=== PATIENT | male | born 1960 | race Caucasian/White ===

== ENCOUNTER 2016-03-16 14:05 | Day surgery (SDC) | payer OTHER, MEDICARE, BC ==
[2016-03-13 09:03] VITALS: BMI 39.9
[~2016-03-16 14:05] MED LIST: ceFAZolin 2 GM in SODIUM CHLORIDE 0.9% 100 ML IVPB ONE
[2016-03-16] MEDS ORDERED: LACTATED RINGERS 1,000 ML IV ONE (14:43)
[2016-03-16] MEDS ORDERED: ONDANSETRON 4 MG/2 ML VIAL IVP ONE (14:56)
[2016-03-16] MEDS ORDERED: DEXAMETHASONE SOD PHOS (MDV) 100 MG/10 ML VIAL IV ONE (14:56)
[2016-03-16] MEDS ORDERED: MIDAZOLAM 2 MG/2 ML VIAL IV ONE (15:14)
[2016-03-16] MEDS ORDERED: ONDANSETRON 4 MG/2 ML VIAL IVP PRN (16:13)
[2016-03-16] MEDS ORDERED: MORPHINE SULFATE 2 MG/ML SYRINGE IV PRN ×2 (16:13)
[2016-03-16] MEDS ORDERED: HYDROcodone/APAP 5-325MG 1 EACH TAB PO PRN (16:13)
[2016-03-16] MEDS ORDERED: LACTATED RINGERS 1,000 ML IV SCH (16:15)
[2016-03-16] MEDS ORDERED: hydrALAZINE HCL 20 MG/ML 1 ML VIAL ONE (16:22)
[2016-03-16] MEDS ORDERED: PROPOFOL 10 MG/ML 20 ML VIAL IV ONE (16:22)
[2016-03-16] MEDS ORDERED: LIDOCAINE 1% INJ 10MG/ML (20 ML MDV) ONE (16:22)
[2016-03-16] MEDS ORDERED: MIDAZOLAM 2 MG/2 ML VIAL ONE (16:22)
[2016-03-16] MEDS ORDERED: KETAMINE 10 MG/ML 20 ML VIAL ONE (16:22)
--- NOTE | 2016-03-16 17:25 | P.OP ---
Date of Procedure: 03/16/16 Preoperative Diagnosis: 1. Left second toe ulcer with exposed bone over PIP joint 2. Left third toe superficial ulcer over her PIP joint with flexible claw toe deformity 3. Paraplegia Postoperative Diagnosis: Same Procedure(s) Performed: 1. Left second toe amputation 2. Left third toe percutaneous flexor tenotomy Anesthesia: MAC Surgeon: Dung Daniels Estimated Blood Loss (ml): 10 IV fluids (ml): 400 Pathology: none sent Condition: stable Disposition: PACU Indications for Procedure: Patient is a 55-year-old male with paraplegia was at problems with wounds on his left leg. He has been seeing a plastic surgeon and Dr. Vieyra at the wound center. The patient has developed a full-thickness ulcer over the left second toe at the PIP joint. There is exposed bone. The patient also had a superficial ulcer over the dorsal aspect of the PIP joint on the third toe but no exposed bone. He was seen by Dr. Vieyra who requested a second toe amputation and percutaneous flexor tenotomy. The patient was seen in my office to discuss surgical options. Based on the nonviable appearance of exposed bone of the second toe I recommended an amputation. In regards to the third toe I recommended a percutaneous flexor tenotomy to hopefully help the toe sit more flat to avoid irritation over the dorsal aspect of the PIP joint. We discussed potential risks and complications of surgery including but not limited to risk of infection, risk of delayed wound healing, risk of worsening of the ulcer over the third toe requiring amputation, and risk of need for more proximal amputation. The patient and his understand these risks particularly that he is at a risk for having a need for further amputations and provided their verbal and written consent to go forward with surgery Description of Procedure: The patient was in preoperative holding and the correct left leg was marked with my initials. All the patient's questions were answered. He was then brought back to the operating room. A Mac anesthetic was administered. The patient was left on his gurney. All bony prominences well-padded. A tourniquet was applied to the proximal aspect of his left thigh. The left leg was then prepped and draped in the standard sterile fashion. Prior to surgery timeout performed identifying the correct patient operative extremity and procedure. The patient's leg was then elevated for 2 minutes and the tourniquet was inflated to 250 mmHg. I began by performing a second toe indentation. I made a fishmouth type marking over the base the second toe with equal dorsal and plantar limbs. Skin incision made down to bone with a 15 blade scalpel. The flexion and extensor tendons were transected. The toe was disarticulated at the MTP joint. All bleeders were controlled with electrocautery. The wound was then copiously irrigated. The deep subcu was reapproximated using 2-0 Vicryl and the skin was closed using 3-0 nylon horizontal mattress stitches. Attention was then turned to the third toe. There is a superficial wound with no exposed bone over the dorsal aspect of the PIP joint. Over the proximal flexion crease at the MTP joint a percutaneous stab wound was made with a 15 blade scalpel and both the short and long flexor tendons were cut. The toe was able to be passively straightened. This wound was also copiously irrigated and closed with 2 interrupted stitches using 3-0 nylon. After both incisions were closer verified that all instrument, sponge, and sharp counts were correct. Sterile dressing consisting of Betadine soaked Adaptic, 4 x 4 and web roll was applied. The patient was then awoken from his Mac anesthetic and transferred to PACU without of the procedure well.
[2016-03-16 17:26] VITALS: TEMP 97.4
[2016-03-16 18:07] VITALS: RESP 16
[2016-03-16 18:41] VITALS: BP 149/76; PULSE 78
== END 2016-03-16 18:39 | disposition home or self-care (01) ==
LOC: OR 14:05
PROVIDERS: ATTEND Orthopaedic Surgery
DX: L89.899 Pressure ulcer of other site, unspecified stage (principal); L97.529 Non-pressure chronic ulcer of other part of left foot with unspecified severity; G82.20 Paraplegia, unspecified; Q66.89 Other specified congenital deformities of feet; M85.872 Other specified disorders of bone density and structure, left ankle and foot; M19.072 Primary osteoarthritis, left ankle and foot; I10 Essential (primary) hypertension; Z79.891 Long term (current) use of opiate analgesic; Z79.899 Other long term (current) drug therapy; Z87.891 Personal history of nicotine dependence
CPT/HCPCS: 28820; 28011; J2250; J0360; J2405; J2001; J1100; J2704; 88305; 88311

== ENCOUNTER 2016-06-27 09:51 | Inpatient (IN) | payer MEDICARE, BC ==
[2016-06-27] MEDS ORDERED: ASPIRIN 81 MG CHEW PO STA (10:05)
[2016-06-27] MEDS ORDERED: NITROGLYCERIN SL TABS 0.4 MG TAB SUBLINGUAL STA ×3 (10:05)
[2016-06-27] MEDS ORDERED: ONDANSETRON 4 MG/2 ML VIAL IVP STA (10:06)
[2016-06-27] MEDS ORDERED: FAMOTIDINE 20 MG/2 ML VIAL IV STA (10:08)
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
[2016-06-27 10:33] LABS: Basophils % (A) 1 %; CH 28.7; CHCM 34.3; Eosinophils % (A) 1 %; HCT 41.2 % (39.0-53.0); HDW 2.88; HGB 13.7 gm/dL (13.0-17.5); Luc # (Auto) 0.08; Luc % (Auto) 1; Lymphocytes # (A) 0.6 k/uL (1.0-4.8); Lymphocytes % (A) 8 %; MCHC 33.4 g/dL (31.0-37.0); MCV 83.9 fL (80.0-100.0); Mean Platelet Volume 6.7; Monocytes # (A) 0.4 k/uL (0-1.0); Monocytes % (A) 6 %; Neutrophils # (A) 5.7 k/uL (1.3-7.7); Neutrophils % (A) 84 %; RBC 4.91 m/uL (4.30-5.90); RDW 14.2 % (11.5-15.5); WBC 6.8 k/uL (3.8-10.6); WBC (Perox) 6.64
[2016-06-27 10:44] LABS: INR 1.1 (<1.1); Prothrombin Time 11.4 sec (9.0-12.0)
[2016-06-27 10:49] LABS: ALT 22 U/L (21-72); AST 20 U/L (17-59); Alkaline Phosphatase 93 U/L (38-126); Anion Gap 12 mmol/L; Blood Urea Nitrogen 9 mg/dL (9-20); C Reactive Protein 78.3 mg/L (<10.0); Calcium 9.4 mg/dL (8.4-10.2); Carbon Dioxide 25 mmol/L (22-30); Chloride 99 mmol/L (98-107); Glucose 116 mg/dL (74-99); Magnesium 1.9 mg/dL (1.6-2.3); Non-African American GFR(MDRD) >60 (>60 ml/min/1.73 sqM); Sodium 136 mmol/L (137-145); Total Bilirubin 0.8 mg/dL (0.2-1.3); Total Protein 8.4 g/dL (6.3-8.2)
--- NOTE | 2016-06-27 10:58 | XR ---
EXAMINATION TYPE: XR chest 2V DATE OF EXAM: 06/27/2016 10:54 AM COMPARISON: 02/03/2016 TECHNIQUE: PA and lateral views submitted. HISTORY: Chest pain FINDINGS: The lungs are clear and there is no pneumothorax, pleural effusion, or focal pneumonia. Calcified g ranuloma left lower lobe. Postsurgical change involving the vertebral column. No overt failure. Arthr opathy of the shoulders. Hypertrophic change of the spine. PICC line no longer identified. IMPRESSION: 1. No acute process.
[2016-06-27 11:02] LABS: Creatine Kinase 247 U/L (55-170)
[2016-06-27] MEDS ORDERED: RX INFO: IV CONTRAST WAS GIVEN 1 EACH MISC MISCELLANE PRN (11:09)
[2016-06-27] MEDS ORDERED: MORPHINE SULFATE 4 MG/ML SYRINGE IV STA (11:10)
[2016-06-27 11:16] LABS: Creatine Kinase MB 0.5 ng/mL (0.0-2.4); Troponin I <0.012 ng/mL (0.000-0.034)
[2016-06-27] MEDS ORDERED: HYDROmorphone 1 MG/ML 1 ML SYRINGE IVP STA ×3 (11:19→20:59)
--- NOTE | 2016-06-27 12:26 | CT ---
EXAMINATION TYPE: CT angio chest DATE OF EXAM: 06/27/2016 12:12 PM COMPARISON: Radiograph same day and CT 04/19/2009 HISTORY: 55-year-old male with chest pain and SOB TECHNIQUE: Contiguous axial scanning of the chest performed with IV Contrast, patient injected with 1 00 ml mL of Omnipaque 350. Coronal/sagittal MIP reconstructions performed. CT DLP: 714 mGycm Automated exposure control for dose reduction was used. FINDINGS: The heart is normal size without pericardial effusion. Coronary vessel calcifications are present in remarkable for coronary artery disease. Aorta is normal caliber with conventional arch vessel branching anatomy. Satisfactory opacification of the pulmonary artery system that there is excessive respiratory motion limiting many of the segmental and subsegmental branches. No large central or lobar pulmonary embolus is seen Mild diffuse bronchial wall thickening. No thoracic lymphadenopathy by CT size criteria. Mild dependent atelectasis along the posterior lungs and some strandy atelectasis at the inferior joe gula. Calcified granuloma at the inferior lingula. No consolidation or pleural effusion. Tiny hiatal hernia. Very limited visualization of the upper abdomen secondary to extensive artifact r elating to patient's spinal fusion hardware. Unable to adequately assess for any potential lesion wit hin the upper pole of the left kidney, axial image 151. Bones: Thoracolumbar fusion hardware. Bulky anterior spurring at the sternomanubrial joint. No osseou s destructive process seen. IMPRESSION: 1. RESPIRATORY MOTION DEGRADING THE EXAM. NO LARGE CENTRAL OR DEFINITE LOBAR PULMONARY EMBOLUS. MANY OTHER BRANCHES ARE NONDIAGNOSTIC AND PULMONARY EMBOLI IN THESE LOCATIONS CANNOT BE EVALUATED. 2. MILD DIFFUSE BRONCHIAL WALL THICKENING COULD REPRESENT BRONCHITIS OR CHRONIC ASTHMA. 3. EXTENSIVE METAL ARTIFACT RELATING TO THE PATIENT'S SPINAL FUSION. UNABLE TO EXCLUDE A LESION WITHI N THE UPPER POLE LEFT KIDNEY. A NONEMERGENT FOLLOW-UP ULTRASOUND COULD EXCLUDE AN UNDERLYING LESION.
[2016-06-27] MEDS ORDERED: NITROGLYCERIN SL TABS 0.4 MG TAB SUBLINGUAL PRN (13:13)
[2016-06-27] MEDS ORDERED: PSYLLIUM HUSK 100% 6 GM PACKET PO PRN (14:56)
[2016-06-27] MEDS: HYDROcodone/APAP 10-325MG 1 EACH TAB PO PRN (17:31)
[2016-06-27 17:32] LABS: Creatine Kinase 177 U/L (55-170)
[2016-06-27] MEDS: DIAZEPAM 5 MG TAB PO PRN (17:34)
[2016-06-27 17:44] LABS: Creatine Kinase MB 0.4 ng/mL (0.0-2.4); Troponin I <0.012 ng/mL (0.000-0.034)
[2016-06-27] MEDS ORDERED: SODIUM CHLORIDE 0.9% 1,000 ML IV ONE (20:45)
[2016-06-27 21:35] LABS: Appearance,Urine Clear (Clear); Bacteria,Urine Occasional /hpf; Bilirubin,Urine Negative (Negative); Glucose,Urine (UA) Negative (Negative); Ketones,Urine Trace (Negative); Leukocyte Esterase,Urine Large (Negative); Mucus,Urine Rare /hpf; Nitrite,Urine Positive (Negative); PH, Urine 6.5 (5.0-8.0); Particle Count 8855; Protein,Urine Negative (Negative); RBC,Urine 5 /hpf (0-5); Specific Gravity,Urine 1.005 (1.001-1.035); UA Billing (MACRO vs. MICRO) MICRO; Urobilinogen,Urine <2.0 mg/dL (<2.0); WBC,Urine 10 /hpf (0-5)
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
[2016-06-27 23:24] LABS: Creatine Kinase 149 U/L (55-170)
[2016-06-27] MEDS: NITROGLYCERIN OINT 1 INCH/GM PACKET TOPICAL SCH ×3 (23:28→23:32)
[2016-06-27] MEDS: COLCHICINE 0.6 MG TAB PO SCH (23:29)
[2016-06-27 23:34] LABS: Creatine Kinase MB 0.4 ng/mL (0.0-2.4)
[2016-06-28] MEDS: HYDROmorphone 1 MG/ML 1 ML SYRINGE IVP PRN ×4 (00:49→10:45)
[2016-06-28] MEDS: ONDANSETRON 4 MG/2 ML VIAL IVP PRN ×2 (01:23→17:41)
[2016-06-28] MEDS: HYDROcodone/APAP 10-325MG 1 EACH TAB PO PRN (02:29)
[2016-06-28 03:16] LABS: Basophils % (A) 0 %; CH 28.1; CHCM 33.2; Eosinophils # (A) 0.1 k/uL (0-0.7); Eosinophils % (A) 1 %; HCT 38.3 % (39.0-53.0); HDW 2.79; HGB 12.7 gm/dL (13.0-17.5); Luc # (Auto) 0.08; Luc % (Auto) 1; Lymphocytes # (A) 0.6 k/uL (1.0-4.8); Lymphocytes % (A) 12 %; MCH 28.1 pg (25.0-35.0); MCHC 33.1 g/dL (31.0-37.0); MCV 84.8 fL (80.0-100.0); Monocytes # (A) 0.4 k/uL (0-1.0); Monocytes % (A) 7 %; Neutrophils # (A) 4.2 k/uL (1.3-7.7); Neutrophils % (A) 79 %; RBC 4.51 m/uL (4.30-5.90); RDW 14.2 % (11.5-15.5); WBC 5.3 k/uL (3.8-10.6); WBC (Perox) 5.33
[2016-06-28 03:30] LABS: Anion Gap 11 mmol/L; Blood Urea Nitrogen 10 mg/dL (9-20); Calcium 8.9 mg/dL (8.4-10.2); Carbon Dioxide 27 mmol/L (22-30); Chloride 99 mmol/L (98-107); Cholesterol 194 mg/dL (<200); Glucose 112 mg/dL (74-99); HDL Cholesterol 50 mg/dL (40-60); Non-African American GFR(MDRD) >60 (>60 ml/min/1.73 sqM); Potassium 3.7 mmol/L (3.5-5.1); Sodium 137 mmol/L (137-145); Triglycerides 116 mg/dL (<150)
[2016-06-28] MEDS: NITROGLYCERIN OINT 1 INCH/GM PACKET TOPICAL SCH ×5 (03:49→23:48)
[2016-06-28 06:07] LABS: Glucose,Whole Blood 96 mg/dL (75-99)
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
--- NOTE | 2016-06-28 09:49 | ECHOF ---
Referral Reason:chest pain, pericarditis hx MEASUREMENTS -------- HEIGHT: 182.9 cm WEIGHT: 108.9 kg BP: 155/85 RVIDd: 2.9 cm (< 3.3) IVSd: 1.4 cm (0.6 - 1.1) LVIDd: 5.5 cm (3.9 - 5.3) LVPWd: 1.3 cm (0.6 - 1.1) IVSs: 1.7 cm LVIDs: 4.1 cm LVPWs: 1.9 cm Ao Diam: 3.6 cm (2.0 - 3.7) AV Cusp: 1.8 cm (1.5 - 2.6) LA Diam: 3.8 cm (2.7 - 3.8) MV EXCURSION: 18.742 mm (> 18.000) MV EF SLOPE: 73 mm/s (70 - 150) EPSS: 0.7 cm MV E Michael: 0.58 m/s MV DecT: 234 ms MV A Michael: 0.51 m/s MV E/A Ratio: 1.15 FINDINGS -------- Sinus rhythm. This was a technically difficult study with suboptimal views. There is moderate concentric left ventricular hypertrophy. Overall left ventricular systolic function is normal with, an EF between 55 - 60 %. The right ventricle is normal in size. The global wall thickness of the right ventricle is mildly enlarged. The right ventricular systolic function is normal. The left atrial size is normal. The right atrium is normal in size. The aortic valve is trileaflet, and appears structurally normal. No aortic stenosis or regurgitation. The mitral valve leaflets are mildly thickened. There is trace mitral regurgitation. Trace tricuspid regurgitation present. There is no evidence of pulmonary hypertension. The right ventricular systolic pressure, as measured by Doppler, is {RVSP}. The pulmonic valve was not well visualized. The aortic root size is normal. There is no pericardial effusion. CONCLUSIONS -------- 1. Sinus rhythm. 2. The right ventricular systolic pressure, as measured by Doppler, is {RVSP}. 3. The pulmonic valve was not well visualized. 4. The aortic root size is normal. 5. There is no pericardial effusion. 6. This was a technically difficult study with suboptimal views. 7. There is moderate concentric left ventricular hypertrophy. 8. Overall left ventricular systolic function is normal with, an EF between 55 - 60 %. 9. The global wall thickness of the right ventricle is mildly enlarged. 10. The mitral valve leaflets are mildly thickened. 11. There is trace mitral regurgitation. 12. Trace tricuspid regurgitation present. 13. There is no evidence of pulmonary hypertension. [employer]: Josh Garcia RDCS
[2016-06-28] MEDS ORDERED: NALOXONE 0.4 MG/ML 1 ML VIAL IV PRN (11:44)
[2016-06-28 12:01] LABS: Glucose,Whole Blood 104 mg/dL (75-99)
[2016-06-28] MEDS: HYDROmorphone PCA 5 MG/25 ML SYRINGE IV PRN ×2 (13:26→17:35)
[2016-06-28] MEDS: ASPIRIN 325 MG TAB PO SCH (13:32)
[2016-06-28] MEDS: LISINOPRIL 10 MG TAB PO SCH (13:32)
[2016-06-28] MEDS: COLCHICINE 0.6 MG TAB PO SCH ×2 (13:32→20:18)
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
[2016-06-28 17:03] LABS: Glucose,Whole Blood 85 mg/dL (75-99)
[2016-06-28] MEDS: HEPARIN SODIUM,PORCINE 5,000 UNIT/ML 1 ML VIAL SQ SCH (20:18)
[2016-06-28] MEDS: FAMOTIDINE 20 MG TAB PO SCH (20:38)
[2016-06-28 21:03] LABS: Glucose,Whole Blood 101 mg/dL (75-99)
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
[2016-06-28] MEDS: METOCLOPRAMIDE 5 MG/ML 2 ML VIAL IVP PRN (23:22)
[2016-06-28] MEDS: DIAZEPAM 5 MG TAB PO PRN (23:24)
[2016-06-28] MEDS: SODIUM CHLORIDE 0.9% 1,000 ML IV SCH (23:47)
[2016-06-29] MEDS ORDERED: METOCLOPRAMIDE 5 MG/ML 2 ML VIAL IVP SCH
--- NOTE | 2016-06-29 00:15 | US ---
EXAM: US Abdomen Complete CLINICAL HISTORY: Abdominal distention. TECHNIQUE: Real-time ultrasound of the abdomen (complete) with image documentation. COMPARISON: No relevant prior studies available. FINDINGS: Limitations: Large amount of shadowing intestinal gas and poor patient mobility limit evaluation. Liver: Enlarged (18.6 cm). Evaluation for focal mass is limited as above. No definite intrahepatic biliary ductal dilatation. Gallbladder: Echogenic foci in the gallbladder neck may represent stones or tumefactive sludge. No gallbladder wall thickening (2.6 mm) and no pericholecystic edema to suggest cholecystitis. Sonographic Cross's sign is described as absent. Common bile duct: Common bile duct measures between 5.6 mm and 8.6 mm proximally. The distal common duct is not visualized. Pancreas: Obscured by bowel gas. Kidneys: Right kidney measures 13.7 cm in length which is mildly enlarged. Hypoechoic structures positioned centrally in the right kidney may reflect right hydronephrosis. Parapelvic cysts not excluded given limitations above. Kidney measures 15.8 cm in length which is enlarged. Hypoechoic structures centrally positioned in the left kidney may reflect cysts or hydronephrosis given limitations of the study. A small left renal cortical cyst is also suspected. Spleen: Enlarged (15.2 cm). Aorta: Abdominal aorta: Obscured by bowel gas. Inferior vena cava: <Unremarkable as visualized> IMPRESSION: 1. Large amount of shadowing intestinal gas and poor patient mobility limit evaluation. 2. Echogenic foci in the gallbladder neck may represent stones or tumefactive sludge. No gallbladder wall thickening (2.6 mm) and no pericholecystic edema to suggest cholecystitis. Sonographic Cross's sign is described as absent. 3. Common bile duct measures between 5.6 mm and 8.6 mm proximally. The distal common duct is not visualized. Some degree of common duct obstruction cannot be excluded. Correlate chronically. 4. Right kidney measures 13.7 cm in length which is mildly enlarged. Hypoechoic structures positioned centrally in the right kidney may reflect right hydronephrosis. Parapelvic cysts not entirely excluded given limitations above. 5. Left kidney measures 15.8 cm in length which is enlarged. Hypoechoic structures centrally positioned in the left kidney may reflect cysts or hydronephrosis given limitations of the study. A small left renal cortical cyst is also suspected. 6. Splenomegaly. 7. Pancreas and abdominal aorta obscured by bowel gas. [employer] 06/29/16 00:23 Verify Receipt with Nurse Verified receipt with ARELY Otto in [facility]
[2016-06-29] MEDS: HYDROmorphone PCA 5 MG/25 ML SYRINGE IV PRN ×3 (00:55→16:43)
[2016-06-29] MEDS: ACETAMINOPHEN TAB 325 MG TAB PO PRN ×3 (03:54→21:16)
[2016-06-29] MEDS: SODIUM CHLORIDE 0.9% 1,000 ML IV SCH ×3 (06:21→21:37)
[2016-06-29 06:56] LABS: Basophils % (A) 1 %; CH 28.3; CHCM 32.7; Eosinophils # (A) 0.1 k/uL (0-0.7); Eosinophils % (A) 1 %; HCT 35.9 % (39.0-53.0); HDW 2.76; HGB 11.7 gm/dL (13.0-17.5); Luc # (Auto) 0.09; Luc % (Auto) 2; Lymphocytes # (A) 0.8 k/uL (1.0-4.8); Lymphocytes % (A) 15 %; MCH 28.3 pg (25.0-35.0); MCHC 32.6 g/dL (31.0-37.0); MCV 86.7 fL (80.0-100.0); Mean Platelet Volume 6.8; Monocytes # (A) 0.4 k/uL (0-1.0); Monocytes % (A) 8 %; Neutrophils # (A) 3.7 k/uL (1.3-7.7); Neutrophils % (A) 73 %; RBC 4.14 m/uL (4.30-5.90); RDW 14.1 % (11.5-15.5); WBC (Perox) 5.25
[2016-06-29 07:02] LABS: Anion Gap 12 mmol/L; Blood Urea Nitrogen 8 mg/dL (9-20); Calcium 8.5 mg/dL (8.4-10.2); Carbon Dioxide 23 mmol/L (22-30); Chloride 101 mmol/L (98-107); Glucose 99 mg/dL (74-99); Non-African American GFR(MDRD) >60 (>60 ml/min/1.73 sqM); Potassium 3.7 mmol/L (3.5-5.1); Sodium 136 mmol/L (137-145)
[2016-06-29] MEDS: HEPARIN SODIUM,PORCINE 5,000 UNIT/ML 1 ML VIAL SQ SCH ×2 (09:09→21:41)
[2016-06-29] MEDS: ASPIRIN 325 MG TAB PO SCH (09:16)
[2016-06-29] MEDS: COLCHICINE 0.6 MG TAB PO SCH ×2 (09:16→21:41)
[2016-06-29] MEDS: FAMOTIDINE 20 MG TAB PO SCH ×2 (09:16→21:41)
[2016-06-29] MEDS: LISINOPRIL 10 MG TAB PO SCH (09:16)
[2016-06-29] MEDS: NITROGLYCERIN OINT 1 INCH/GM PACKET TOPICAL SCH ×2 (11:51→17:24)
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
--- NOTE | 2016-06-29 16:49 | XR ---
EXAMINATION TYPE: XR abdomen 1V DATE OF EXAM: 06/29/2016 4:36 PM COMPARISON: NONE HISTORY: Ileus TECHNIQUE: 2 views FINDINGS: There is no sign of intestinal obstruction or pneumoperitoneum. There is retained fecal mat erial throughout the colon. There is multilevel lumbar spine fusion surgery. There is fracture of the red on the left side. There are no pathologic calcifications over the kidneys. Lung bases are clear. IMPRESSION: Nonacute abdomen. Constipation.
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
[2016-06-29] MEDS ORDERED: PEG 3350-NA SULF,BICARB,CL/KCL 4,000 ML BOTTLE PO ONE (19:00)
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
[2016-06-29] MEDS: ONDANSETRON 4 MG/2 ML VIAL IVP PRN (23:01)
[2016-06-30] MEDS: NITROGLYCERIN OINT 1 INCH/GM PACKET TOPICAL SCH ×4 (00:49→15:18)
[2016-06-30] MEDS: METOCLOPRAMIDE 5 MG/ML 2 ML VIAL IVP PRN (02:38)
[2016-06-30] MEDS: SODIUM CHLORIDE 0.9% 1,000 ML IV SCH ×4 (05:54→18:30)
[2016-06-30 06:52] LABS: Basophils % (A) 0 %; CH 28.2; CHCM 32.9; Eosinophils # (A) 0.1 k/uL (0-0.7); Eosinophils % (A) 1 %; HCT 36.5 % (39.0-53.0); HDW 3.05; HGB 11.7 gm/dL (13.0-17.5); Luc # (Auto) 0.12; Luc % (Auto) 2; Lymphocytes # (A) 0.7 k/uL (1.0-4.8); Lymphocytes % (A) 13 %; MCH 27.6 pg (25.0-35.0); MCHC 32.1 g/dL (31.0-37.0); MCV 85.9 fL (80.0-100.0); Mean Platelet Volume 6.7; Monocytes # (A) 0.4 k/uL (0-1.0); Monocytes % (A) 7 %; Neutrophils # (A) 4.1 k/uL (1.3-7.7); Neutrophils % (A) 77 %; RBC 4.25 m/uL (4.30-5.90); RDW 13.8 % (11.5-15.5); WBC 5.4 k/uL (3.8-10.6); WBC (Perox) 5.29
[2016-06-30 07:21] LABS: Anion Gap 14 mmol/L; Blood Urea Nitrogen 7 mg/dL (9-20); Calcium 8.5 mg/dL (8.4-10.2); Carbon Dioxide 23 mmol/L (22-30); Chloride 103 mmol/L (98-107); Glucose 85 mg/dL (74-99); Non-African American GFR(MDRD) >60 (>60 ml/min/1.73 sqM); Potassium 4.1 mmol/L (3.5-5.1); Sodium 140 mmol/L (137-145)
[2016-06-30] MEDS: FAMOTIDINE 20 MG TAB PO SCH ×2 (08:07→20:55)
[2016-06-30] MEDS: COLCHICINE 0.6 MG TAB PO SCH ×2 (08:07→20:55)
[2016-06-30] MEDS: LISINOPRIL 10 MG TAB PO SCH (08:07)
[2016-06-30] MEDS: ACETAMINOPHEN TAB 325 MG TAB PO PRN (08:07)
[2016-06-30] MEDS: ASPIRIN 325 MG TAB PO SCH (08:07)
[2016-06-30] MEDS: HEPARIN SODIUM,PORCINE 5,000 UNIT/ML 1 ML VIAL SQ SCH ×2 (08:07→20:55)
[2016-06-30] MEDS: HYDROmorphone PCA 5 MG/25 ML SYRINGE IV PRN ×2 (08:55→18:25)
--- NOTE | 2016-06-30 10:50 | P.PN ---
Subjective The patient is feeling somewhat better. No vomiting today. Would like to try a little something better treat. Pain or discomfort. Question of ileus on his abdominal films. Does have cholelithiasis probably asymptomatic of the pain in the right upper quadrant. On examination the patient is awake alert cheerful in no acute distress. Temperature is down to normal now vitals are stable. Hydration is good abdomen is soft no significant distention no guarding or rebound. There is mild the numbness. No guarding or rebound or mass or organomegaly noted. Impression. Resolving ileus. Probably asymptomatic cholelithiasis. Paraplegia. Recommendation. We will the advance his diet. Suppository as needed. Objective - Vital Signs Vital signs: Vital Signs Temp 98.1 F 06/30/16 04:00 Pulse 92 06/30/16 04:00 Resp 17 06/30/16 04:00 BP 132/82 06/30/16 04:00 Pulse Ox 97 06/30/16 04:00 Intake & Output 06/29/16 06/30/16 06/30/16 18:59 06:59 18:59 Intake Total 990 1460 Output Total 5600 Balance 990 -4140 Weight 112.7 kg Intake: IV 900 600 Sodium Chloride 0.9% 1, 900 600 000 ml @ 150 mls/hr IV . Q6H40M [facility] Rx#:[id number] Oral 90 860 Output: Urine 5600 - Labs CBC & Chem 7: 06/30/16 06:20 06/30/16 06:20 Labs: Abnormal Lab Results - Last 24 Hours (Table) 06/30/16 06/30/16 Range/Units 06:20 06:20 RBC 4.25 L (4.30-5.90) m/uL Hgb 11.7 L (13.0-17.5) gm/dL Hct 36.5 L (39.0-53.0) % Lymphocytes # 0.7 L (1.0-4.8) k/uL BUN 7 L (9-20) mg/dL Microbiology - Last 24 Hours (Table) 06/27/16 21:05 Urine Culture - Preliminary Urine,Suprapubic Aeromonas hydrophila Strep agalactiae - (group b) Gram Neg Bacilli
[2016-06-30] MEDS: BUTALB/APAP/CAFF 50-325-40MG TAB PO PRN (11:17)
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
[2016-06-30] MEDS ORDERED: HEPARIN SODIUM,PORCINE 5,000 UNIT/ML 1 ML VIAL ONE (20:00)
[2016-06-30] MEDS ORDERED: FAMOTIDINE 20 MG TAB ONE (20:00)
[2016-06-30] MEDS ORDERED: COLCHICINE 0.6 MG TAB ONE (20:00)
[2016-06-30] MEDS ORDERED: ACETAMINOPHEN TAB 325 MG TAB ONE (20:00)
[2016-06-30] MEDS ORDERED: BUTALB/APAP/CAFF 50-325-40MG TAB PO ONE (20:00)
[2016-07-01] MEDS: NITROGLYCERIN OINT 1 INCH/GM PACKET TOPICAL SCH ×5 (01:15→23:54)
[2016-07-01] MEDS: HYDROmorphone PCA 5 MG/25 ML SYRINGE IV PRN ×4 (01:38→22:02)
[2016-07-01] MEDS: ACETAMINOPHEN TAB 325 MG TAB PO PRN ×2 (05:18→23:11)
[2016-07-01] MEDS ORDERED: IBUPROFEN 400 MG TAB PO PRN (06:19)
[2016-07-01] MEDS: ONDANSETRON 4 MG/2 ML VIAL IVP PRN (06:42)
[2016-07-01] MEDS: SODIUM CHLORIDE 0.9% 1,000 ML IV SCH ×4 (08:18→23:11)
[2016-07-01 08:20] LABS: Basophils % (A) 0 %; CH 27.8; CHCM 32.7; Eosinophils # (A) 0.1 k/uL (0-0.7); Eosinophils % (A) 1 %; HCT 32.7 % (39.0-53.0); HDW 2.98; HGB 10.5 gm/dL (13.0-17.5); Luc # (Auto) 0.08; Luc % (Auto) 2; Lymphocytes # (A) 0.6 k/uL (1.0-4.8); Lymphocytes % (A) 13 %; MCH 27.4 pg (25.0-35.0); MCHC 32.2 g/dL (31.0-37.0); MCV 85.1 fL (80.0-100.0); Mean Platelet Volume 6.7; Monocytes # (A) 0.3 k/uL (0-1.0); Monocytes % (A) 6 %; Neutrophils # (A) 3.7 k/uL (1.3-7.7); Neutrophils % (A) 78 %; RBC 3.84 m/uL (4.30-5.90); RDW 13.8 % (11.5-15.5); WBC 4.7 k/uL (3.8-10.6); WBC (Perox) 4.45
[2016-07-01] MEDS: FAMOTIDINE 20 MG TAB PO SCH ×2 (08:29→20:14)
[2016-07-01] MEDS: ASPIRIN 325 MG TAB PO SCH (08:29)
[2016-07-01] MEDS: LISINOPRIL 10 MG TAB PO SCH (08:29)
[2016-07-01] MEDS: HEPARIN SODIUM,PORCINE 5,000 UNIT/ML 1 ML VIAL SQ SCH ×2 (08:29→20:14)
[2016-07-01] MEDS: COLCHICINE 0.6 MG TAB PO SCH ×2 (08:29→20:14)
[2016-07-01 08:54] LABS: Anion Gap 14 mmol/L; Blood Urea Nitrogen 4 mg/dL (9-20); Carbon Dioxide 22 mmol/L (22-30); Chloride 101 mmol/L (98-107); Glucose 87 mg/dL (74-99); Non-African American GFR(MDRD) >60 (>60 ml/min/1.73 sqM); Sodium 137 mmol/L (137-145)
[2016-07-01] MEDS: POTASSIUM CHLORIDE 10 MEQ in WATER FOR INJECTION 1 100ML.BAG IVPB SCH ×2 (09:40→11:08)
[2016-07-01] MEDS ORDERED: PEG 3350-NA SULF,BICARB,CL/KCL 4,000 ML BOTTLE PO ONE (09:48)
[2016-07-01] MEDS: HYDROcodone/APAP 10-325MG 1 EACH TAB PO PRN (10:12)
--- NOTE | 2016-07-01 11:16 | XR ---
EXAMINATION TYPE: XR chest 2V DATE OF EXAM: 07/01/2016 11:06 AM COMPARISON: 06/27/2016 TECHNIQUE: PA and lateral views submitted. HISTORY: Pneumonia FINDINGS: The lungs are clear and there is no pneumothorax, pleural effusion, or focal pneumonia. Hypertrophi c change of the spine with postsurgical change. Hyperinflation suggests COPD. Arthropathy shoulders. IMPRESSION: 1. No acute process.
--- NOTE | 2016-07-01 11:16 | XR ---
EXAMINATION TYPE: XR abdomen 2V DATE OF EXAM: 07/01/2016 11:06 AM COMPARISON: NONE HISTORY: Fecal impaction abdominal pain TECHNIQUE: 3 views FINDINGS: There is no sign of intestinal obstruction or pneumoperitoneum. There is retained fecal mat erial throughout the colon. There is extensive soft tissue calcification around the left hip. There i s previous lumbar multilevel fusion surgery. Lung bases are clear of consolidation. IMPRESSION: There is evidence for some constipation. No free air.
--- NOTE | 2016-07-01 12:27 | P.PN ---
Progress Note - Text The patient continues to run low-grade fevers. Arising no distress. His tolerating liquids. Did have a few bowel movements yesterday but no small amounts with the GoLYTELY. Abdominal x-ray today still shows a fecal stasis. No free air. No dilated loops of bowel or evidence of obstruction. On examination temperature is 100.9. Vitals are stable. He is in no distress. Abdomen is generally soft with some mild tenderness in the lower abdomen left side but no guarding or rebound. No mass or organomegaly noted. Eschen fever of unknown etiology. No evidence of UTI. Doubt intra-abdominal source although he may have a low-grade diverticulitis. WBC is normal. Viral syndrome. Infection decubitus site. Recommendation schedule for workup in terms of for x-rays. Chest x-ray was unremarkable. CT of the abdomen and pelvis with contrast if his renal function is normal.
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
[2016-07-01] MEDS ORDERED: RX INFO: IV CONTRAST WAS GIVEN 1 EACH MISC MISCELLANE PRN (12:54)
[2016-07-01] MEDS: IOHEXOL 350 MG/ML 25 ML BOTTLE (ORAL USE) PO PRN ×2 (13:08→13:55)
[2016-07-01] MEDS: LEVOFLOXACIN 500MG-D5W PMX 500 MG in DEXTROSE/WATER 1 100ML.BAG IVPB SCH (13:58)
--- NOTE | 2016-07-01 15:20 | CT ---
EXAMINATION TYPE: CT abdomen pelvis w con DATE OF EXAM: 07/01/2016 3:07 PM COMPARISON: 11/17/2013 HISTORY: Lower abdominal pain. CT DLP: 2682.8 mGycm Automated exposure control for dose reduction was used. TECHNIQUE: Helical acquisition of images was performed from the lung bases through the pelvis. CONTRAST: Performed with Oral Contrast and with IV Contrast, patient injected with 100 mL of Omnipaque 300. FINDINGS: There is small right pleural effusion. There are posterior rods with metal artifact fusing the lumbar spine and lower thoracic spine. Liver shows no focal defect. Gallbladder is dilated with a 1 cm calc ified gallstone. Gallbladder measures up to 6 cm in diameter. Intrahepatic bile ducts are not dilated . There is no sign of a splenic mass. There is no pancreatic mass. There is severe bilateral hydronephrosis. There is an ileal conduit. There is peristomal hernia that contains small bowel. There is bilateral hydroureter. There is significant thinning of the left renal cortex. There is no significant atrophy on the right side. There is no retroperitoneal adenopathy. T here is no sign of free air. I see no sign of a bowel obstruction. There is no ascites. There is soft tissue ossification around the intertrochanteric left femur. IMPRESSION: THERE IS A DILATED GALLBLADDER WITH A GALLSTONE CONSISTENT WITH ACUTE AND CHRONIC CHOLECYSTITIS. GALL BLADDER IS MORE DILATED THAN OLD CT SCAN. THERE IS A NEW SMALL RIGHT PLEURAL EFFUSION. THERE IS CHRONIC SCARRING AND ATELECTASIS AT THE POSTERI OR LUNG BASES THERE IS SLIGHTLY WORSE THAN LAST EXAM. BILATERAL HYDRONEPHROSIS AND HYDROURETER. SIGNIFICANT LEFT RENAL ATROPHY. KIDNEYS APPEAR NOT SIGNIFIC ANTLY DIFFERENT THAN LAST EXAM. THERE IS A PARASTOMAL HERNIA THAT APPEARS TO CONTAIN LOOPS OF SMALL B OWEL. NO SIGN OF A MECHANICAL BOWEL OBSTRUCTION HOWEVER. THIS IS UNCHANGED COMPARED TO LAST EXAM.
[2016-07-01] MEDS ORDERED: Potassium Replacement Protocol 1 EACH MISC MISCELLANE PRN (18:13)
[2016-07-01] MEDS: POTASSIUM CHLORIDE 10 MEQ, LIDOCAINE 2% INJ 10 MG in SODIUM CHLORIDE 0.9% 100 ML IV SCH ×2 (18:29→19:54)
[2016-07-01] MEDS ORDERED: ACETAMINOPHEN TAB 500 MG TAB PO STA (23:51)
[2016-07-02] MEDS: NITROGLYCERIN OINT 1 INCH/GM PACKET TOPICAL SCH ×3 (05:03→17:28)
[2016-07-02] MEDS: SODIUM CHLORIDE 0.9% 1,000 ML IV SCH ×2 (08:36→14:55)
[2016-07-02] MEDS: ASPIRIN 325 MG TAB PO SCH ×2 (08:37→08:47)
[2016-07-02] MEDS: LISINOPRIL 10 MG TAB PO SCH (08:38)
[2016-07-02] MEDS: FAMOTIDINE 20 MG TAB PO SCH ×2 (08:38→22:25)
[2016-07-02] MEDS: HEPARIN SODIUM,PORCINE 5,000 UNIT/ML 1 ML VIAL SQ SCH ×3 (08:38→22:25)
[2016-07-02] MEDS: COLCHICINE 0.6 MG TAB PO SCH ×2 (08:38→22:25)
[2016-07-02 08:51] LABS: Basophils % (A) 1 %; CH 27.9; CHCM 32.5; Eosinophils # (A) 0.1 k/uL (0-0.7); Eosinophils % (A) 2 %; HCT 37.5 % (39.0-53.0); HDW 3.06; HGB 11.9 gm/dL (13.0-17.5); Hypochromasia Slight; Luc # (Auto) 0.06; Luc % (Auto) 2; Lymphocytes # (A) 0.5 k/uL (1.0-4.8); Lymphocytes % (A) 14 %; MCH 27.4 pg (25.0-35.0); MCHC 31.8 g/dL (31.0-37.0); MCV 86.2 fL (80.0-100.0); Mean Platelet Volume 6.8; Monocytes # (A) 0.2 k/uL (0-1.0); Monocytes % (A) 7 %; Neutrophils # (A) 2.8 k/uL (1.3-7.7); Neutrophils % (A) 76 %; RBC 4.35 m/uL (4.30-5.90); RDW 13.8 % (11.5-15.5); WBC 3.7 k/uL (3.8-10.6); WBC (Perox) 4.01
[2016-07-02 09:23] LABS: Anion Gap 12 mmol/L; Blood Urea Nitrogen 3 mg/dL (9-20); Calcium 8.4 mg/dL (8.4-10.2); Carbon Dioxide 30 mmol/L (22-30); Chloride 101 mmol/L (98-107); Glucose 98 mg/dL (74-99); Non-African American GFR(MDRD) >60 (>60 ml/min/1.73 sqM); Sodium 143 mmol/L (137-145)
[2016-07-02 09:32] LABS: Potassium 2.7 mmol/L (3.5-5.1)
[2016-07-02] MEDS ORDERED: Potassium Replacement Protocol 1 EACH MISC MISCELLANE PRN ×2 (09:49→18:38)
[2016-07-02] MEDS: HYDROmorphone PCA 5 MG/25 ML SYRINGE IV PRN ×2 (09:56→18:59)
[2016-07-02] MEDS: POTASSIUM CHLORIDE 10 MEQ, LIDOCAINE 2% INJ 10 MG in SODIUM CHLORIDE 0.9% 100 ML IV SCH ×6 (10:26→23:31)
[2016-07-02] MEDS ORDERED: Magnesium Replacement Protocol 1 EACH MISC MISCELLANE PRN (10:42)
--- NOTE | 2016-07-02 11:30 | P.PN ---
Progress Note - Text The patient has complaints of left lower quadrant pain. He denies any significant epigastric abdominal pain. On exam his vital signs appear stable. His T-max was 103. Abdomen is soft. There is mild tenderness left lower quadrant. There is no rebound or guarding. There is no significant pain in the epigastric or right upper quadrant. Probable chronic cholecystitis. The patient may have some mild diverticulitis. He will be observed. We will plan on performing cholecystectomy once his overall condition is improved.
[2016-07-02] MEDS: MAGNESIUM SULFATE-D5W PMX 1 GM in DEXTROSE/WATER 1 100ML.BAG IVPB SCH ×2 (12:48→14:53)
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
[2016-07-02] MEDS: LEVOFLOXACIN 500MG-D5W PMX 500 MG in DEXTROSE/WATER 1 100ML.BAG IVPB SCH (16:02)
[2016-07-02] MEDS: BUTALB/APAP/CAFF 50-325-40MG TAB PO PRN (16:09)
[2016-07-02] MEDS: metroNIDAZOLE-NS PMX 500 MG in SALINE 1 100ML.BAG IVPB SCH (17:12)
[2016-07-02 18:18] LABS: Magnesium 2.2 mg/dL (1.6-2.3)
[2016-07-02 18:29] LABS: Potassium 2.9 mmol/L (3.5-5.1)
[2016-07-02] MEDS ORDERED: NYSTAT-TRIAMCIN 100,000-0.1 UNIT/GM-% CREAM 30 GM TUBE TOPICAL SCH (21:00)
[2016-07-02] MEDS: NYSTATIN 100,000UNIT/GM CREAM 30 GM TUBE TOPICAL SCH (22:24)
[2016-07-02] MEDS: TRIAMCINOLONE 0.1% CREAM 80 GM TUBE TOPICAL SCH (22:25)
[2016-07-03] MEDS: metroNIDAZOLE-NS PMX 500 MG in SALINE 1 100ML.BAG IVPB SCH ×4 (00:42→23:55)
[2016-07-03] MEDS: NITROGLYCERIN OINT 1 INCH/GM PACKET TOPICAL SCH ×4 (00:46→17:16)
[2016-07-03] MEDS: HYDROmorphone PCA 5 MG/25 ML SYRINGE IV PRN ×4 (00:57→23:52)
[2016-07-03] MEDS ORDERED: Potassium Replacement Protocol 1 EACH MISC MISCELLANE PRN (08:15)
[2016-07-03] MEDS: FAMOTIDINE 20 MG TAB PO SCH ×2 (08:29→20:04)
[2016-07-03] MEDS: TRIAMCINOLONE 0.1% CREAM 80 GM TUBE TOPICAL SCH ×2 (08:29→20:04)
[2016-07-03] MEDS: ASPIRIN 325 MG TAB PO SCH (08:29)
[2016-07-03] MEDS: NYSTATIN 100,000UNIT/GM CREAM 30 GM TUBE TOPICAL SCH ×2 (08:29→20:03)
[2016-07-03] MEDS: COLCHICINE 0.6 MG TAB PO SCH ×2 (08:29→20:04)
[2016-07-03] MEDS: LISINOPRIL 10 MG TAB PO SCH (08:29)
[2016-07-03] MEDS: HEPARIN SODIUM,PORCINE 5,000 UNIT/ML 1 ML VIAL SQ SCH ×2 (08:29→20:04)
[2016-07-03] MEDS: SODIUM CHLORIDE 0.9% 1,000 ML IV SCH ×4 (09:21→18:02)
[2016-07-03 09:25] LABS: Basophils % (A) 1 %; CH 28.1; CHCM 33.5; Eosinophils # (A) 0.1 k/uL (0-0.7); Eosinophils % (A) 2 %; HCT 35.8 % (39.0-53.0); HDW 3.16; HGB 11.6 gm/dL (13.0-17.5); Luc % (Auto) 3; Lymphocytes # (A) 0.8 k/uL (1.0-4.8); Lymphocytes % (A) 23 %; MCH 27.3 pg (25.0-35.0); MCHC 32.4 g/dL (31.0-37.0); MCV 84.1 fL (80.0-100.0); Mean Platelet Volume 6.6; Monocytes # (A) 0.2 k/uL (0-1.0); Monocytes % (A) 6 %; Neutrophils # (A) 2.4 k/uL (1.3-7.7); Neutrophils % (A) 67 %; RBC 4.26 m/uL (4.30-5.90); RDW 13.6 % (11.5-15.5); WBC 3.6 k/uL (3.8-10.6)
[2016-07-03 09:39] LABS: Anion Gap 11 mmol/L; Blood Urea Nitrogen 2 mg/dL (9-20); Calcium 8.5 mg/dL (8.4-10.2); Carbon Dioxide 29 mmol/L (22-30); Chloride 100 mmol/L (98-107); Glucose 145 mg/dL (74-99); Magnesium 1.9 mg/dL (1.6-2.3); Non-African American GFR(MDRD) >60 (>60 ml/min/1.73 sqM); Potassium 3.8 mmol/L (3.5-5.1); Sodium 140 mmol/L (137-145)
[2016-07-03] MEDS ORDERED: POTASSIUM CHLORIDE ER 20 MEQ TAB.ER PO SCH (11:00)
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
--- NOTE | 2016-07-03 12:20 | P.PN ---
Subjective Patient is evaluated at bedside. Patient reports improvement in abdominal pain. Denies nausea or vomiting. Patient is passing flatus with multiple bowel movements. Afebrile. WBC 3.6. Objective - Vital Signs Vital signs: Vital Signs Temp 98.2 F 07/03/16 07:35 Pulse 83 07/03/16 07:35 Resp 16 07/03/16 07:35 BP 157/84 07/03/16 07:35 Pulse Ox 93 L 07/03/16 09:42 Intake & Output 07/02/16 07/03/16 07/03/16 18:59 06:59 18:59 Intake Total 2500 2160 Output Total 3600 2400 Balance -1100 -240 Weight 118.161 kg 110 kg Intake: IV 800 Sodium Chloride 0.9% 1, 800 000 ml @ 150 mls/hr IV . Q6H40M MALIHA Rx#:[id number] Intake, IV Titration 500 Amount Magnesium Sulfate-D5w Pmx 100 1 gm In Dextrose/Water 1 100ml.bag @ 100 mls/hr IVPB Q1H MALIHA Rx#: [id number] Potassium Chloride 10 meq 200 Lidocaine 2% Inj 10 mg In Sodium Chloride 0.9% 100 ml @ 100 mls/hr IV Q1HR MALIHA Rx#:[id number] cefTRIAXone 1,000 mg In 100 Sodium Chloride 0.9% 50 ml @ 100 mls/hr IVPB Q24HR MALIHA Rx#:[id number] metroNIDAZOLE-NS PMX 500 100 mg In Saline 1 100ml.bag @ 100 mls/hr IVPB Q8HR MALIHA Rx#:[id number] Oral 1200 2160 Output: Urine 3600 2400 Other: # Voids 1 2,650 # Bowel Movements 5 - Exam GENERAL: Pt awake and alert, well-appearing, well-nourished, and in no acute distress. HEAD: Atraumatic, normocephalic. EYES: Pupils equal, round, and reactive to light, sclera anicteric, conjunctiva are normal. ENT: Moist mucous membranes. NECK:Supple without lymphadenopathy or JVD. Thyroid midline, small and firm without palpable masses. LUNGS: Breath sounds clear to auscultation bilaterally. No wheezes, rales, or rhonchi. HEART: Heart S1, S2, no S3 or S4. Regular rate and rhythm. No murmurs, rubs or gallops. ABDOMEN: Soft, left lower quadrant tenderness improved from yesterday, nondistended, normoactive bowel sounds. No guarding, no rebound. EXTREMITIES: 2+ peripheral pulses. Trace edema to bilateral lower extremities. Dressing intact to left lower extremity. Please review nursing documentation for size. NEUROLOGICAL: Pt oriented x 3. Judgment intact. Speech coherent. Insight good. PSYCH: Normal mood, normal affect. SKIN: Warm, dry. - Labs CBC & Chem 7: 07/03/16 09:04 07/03/16 09:04 Labs: Abnormal Lab Results - Last 24 Hours (Table) 07/02/16 07/03/16 07/03/16 Range/Units 17:37 09:04 09:04 WBC 3.6 L (3.8-10.6) k/uL RBC 4.26 L (4.30-5.90) m/uL Hgb 11.6 L (13.0-17.5) gm/dL Hct 35.8 L (39.0-53.0) % Lymphocytes # 0.8 L (1.0-4.8) k/uL Potassium 2.9 L* (3.5-5.1) mmol/L BUN 2 L (9-20) mg/dL Glucose 145 H (74-99) mg/dL Microbiology - Last 24 Hours (Table) 07/02/16 00:14 Blood Culture - Preliminary Blood No Growth after 24 hours 07/01/16 23:54 Blood Culture - Preliminary Blood No Growth after 24 hours 07/01/16 13:08 Blood Culture - Preliminary Blood No Growth after 24 hours 07/01/16 12:11 Blood Culture - Preliminary Blood No Growth after 24 hours 06/27/16 10:20 Blood Culture - Preliminary Blood No Growth after 120 hours Assessment and Plan Plan: Impression: 1. Cholelithiasis with probable chronic cholecystitis. 2. Possible mild diverticulitis. Plan: 1. Continue to observe patient. Plan on performing cholecystectomy once patient's overall condition is improved in the outpatient setting. Diet will be advanced to soft. The above impression and plan have been discussed and directed by Dr. Richey. Ervin ANDREWS acting as scribe for Dr. Richey.
[2016-07-03] MEDS: LEVOFLOXACIN 500MG-D5W PMX 500 MG in DEXTROSE/WATER 1 100ML.BAG IVPB SCH (15:19)
[2016-07-03] MEDS: BUTALB/APAP/CAFF 50-325-40MG TAB PO PRN (22:00)
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
[2016-07-04] MEDS: SODIUM CHLORIDE 0.9% 1,000 ML IV SCH ×3 (06:43→12:36)
[2016-07-04 08:09] VITALS: BP 153/83; PULSE 82; RESP 16; TEMP 98.4
[2016-07-04] MEDS: metroNIDAZOLE-NS PMX 500 MG in SALINE 1 100ML.BAG IVPB SCH (08:58)
[2016-07-04] MEDS: LISINOPRIL 10 MG TAB PO SCH (08:59)
[2016-07-04] MEDS: FAMOTIDINE 20 MG TAB PO SCH (08:59)
[2016-07-04] MEDS: HEPARIN SODIUM,PORCINE 5,000 UNIT/ML 1 ML VIAL SQ SCH (08:59)
[2016-07-04] MEDS: ASPIRIN 325 MG TAB PO SCH (08:59)
[2016-07-04] MEDS: COLCHICINE 0.6 MG TAB PO SCH (08:59)
[2016-07-04] MEDS: HYDROmorphone PCA 5 MG/25 ML SYRINGE IV PRN (09:03)
[2016-07-04] MEDS: NYSTATIN 100,000UNIT/GM CREAM 30 GM TUBE TOPICAL SCH (09:09)
[2016-07-04] MEDS: TRIAMCINOLONE 0.1% CREAM 80 GM TUBE TOPICAL SCH (09:09)
[2016-07-04 10:15] LABS: Anion Gap 14 mmol/L; Blood Urea Nitrogen 3 mg/dL (9-20); Calcium 8.2 mg/dL (8.4-10.2); Carbon Dioxide 29 mmol/L (22-30); Chloride 98 mmol/L (98-107); Glucose 117 mg/dL (74-99); Non-African American GFR(MDRD) >60 (>60 ml/min/1.73 sqM); Sodium 141 mmol/L (137-145)
[2016-07-04 11:36] VITALS: BMI 31.1
[2016-07-04] MEDS: POTASSIUM CHLORIDE ER 20 MEQ TAB.ER PO SCH ×2 (12:35→13:10)
[2016-07-04] MEDS: LEVOFLOXACIN 500MG-D5W PMX 500 MG in DEXTROSE/WATER 1 100ML.BAG IVPB SCH (12:36)
[2016-07-04] MEDS: HYDROmorphone 2 MG/ML 1 ML SYRINGE IM SCH ×2 (12:40→13:32)
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
[2016-07-04 14:26] LABS: Basophils % (A) 0 %; CH 27.5; CHCM 32.2; Eosinophils # (A) 0.1 k/uL (0-0.7); Eosinophils % (A) 3 %; HCT 36.2 % (39.0-53.0); HDW 3.14; HGB 11.7 gm/dL (13.0-17.5); Hypochromasia Slight; Luc # (Auto) 0.06; Luc % (Auto) 2; Lymphocytes # (A) 0.7 k/uL (1.0-4.8); Lymphocytes % (A) 20 %; MCH 27.8 pg (25.0-35.0); MCHC 32.4 g/dL (31.0-37.0); MCV 85.7 fL (80.0-100.0); Mean Platelet Volume 7.4; Monocytes # (A) 0.2 k/uL (0-1.0); Monocytes % (A) 6 %; Neutrophils # (A) 2.3 k/uL (1.3-7.7); Neutrophils % (A) 69 %; RBC 4.22 m/uL (4.30-5.90); RDW 13.7 % (11.5-15.5); WBC 3.4 k/uL (3.8-10.6); WBC (Perox) 3.19
== END 2016-07-04 13:45 | disposition home or self-care (01) | DRG 392 ==
LOC: EC 09:51 → 3OBS 13:13 → OBSVTOIN 13:13 → 3OBS 17:48 → 6SEL 20:26 → 3OBS 20:27 → 6SEL 20:30 → 5MS5E 06-30 22:56
PROVIDERS: ADMIT Family Medicine; ATTEND Family Medicine
DX: K59.09 Other constipation (principal); K59.2 Neurogenic bowel, not elsewhere classified; G82.20 Paraplegia, unspecified; L89.899 Pressure ulcer of other site, unspecified stage; K80.10 Calculus of gallbladder with chronic cholecystitis without obstruction; K57.92 Diverticulitis of intestine, part unspecified, without perforation or abscess without bleeding; R07.89 Other chest pain; I10 Essential (primary) hypertension; K52.9 Noninfective gastroenteritis and colitis, unspecified; G89.29 Other chronic pain; M54.9 Dorsalgia, unspecified; E86.0 Dehydration; E87.6 Hypokalemia; I45.10 Unspecified right bundle-branch block; Z93.2 Ileostomy status; Z87.891 Personal history of nicotine dependence; Z86.14 Personal history of Methicillin resistant Staphylococcus aureus infection; Z99.3 Dependence on wheelchair; Z79.899 Other long term (current) drug therapy; Z82.49 Family history of ischemic heart disease and other diseases of the circulatory system
CPT/HCPCS: 36415; 71020; 71275; 74000; 74020; 74177; 76700; 80048; 80053; 80061; 81001; 82550; 82553; 83605; 83735; 84132; 84484; 85025; 85379; 85610; 85652; 85730; 86140; 87040; 87077; 87086; 87186; 93005; 93306; 94760

== ENCOUNTER 2017-06-09 11:46 | Inpatient (IN) | payer OTHER, MEDICARE ==
[2017-06-09] MEDS ORDERED: SODIUM CHLORIDE 0.9% 1,000 ML IV STA ×2 (12:33→14:05)
[2017-06-09] MEDS ORDERED: ONDANSETRON 4 MG/2 ML VIAL IVP STA ×2 (12:33→14:08)
[2017-06-09] MEDS ORDERED: MORPHINE SULFATE 4MG/4ML SYRG IVP STA ×2 (12:33→14:08)
[2017-06-09] MEDS ORDERED: PANTOPRAZOLE 40 MG/10 ML VIAL IVP STA (12:34)
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
[2017-06-09 13:19] LABS: Basophils % (A) 0 %; Eosinophils # (A) 0.1 k/uL (0-0.7); Eosinophils % (A) 1 %; HCT 31.9 % (39.0-53.0); HGB 11.1 gm/dL (13.0-17.5); Lymphocytes # (A) 0.1 k/uL (1.0-4.8); Lymphocytes % (A) 2 %; MCH 27.1 pg (25.0-35.0); Mean Platelet Volume 6.7; Monocytes # (A) 0.1 k/uL (0-1.0); Monocytes % (A) 2 %; Neutrophils # (A) 6.2 k/uL (1.3-7.7); Neutrophils % (A) 95 %; Platelet Count 279 k/uL (150-450); RBC 4.11 m/uL (4.30-5.90); RDW 14.5 % (11.5-15.5); WBC 6.5 k/uL (3.8-10.6)
[2017-06-09 13:21] LABS: Appearance,Urine Cloudy (Clear); Bacteria,Urine Few /hpf; Bilirubin,Urine Negative (Negative); Blood,Urine Moderate (Negative); Color,Urine Light Yellow; Glucose,Urine (UA) Negative (Negative); Ketones,Urine Negative (Negative); Leukocyte Esterase,Urine Large (Negative); MCV 77.5 fL (80.0-100.0); Nitrite,Urine Negative (Negative); PH, Urine 6.5 (5.0-8.0); Protein,Urine Trace (Negative); RBC,Urine 48 /hpf (0-5); Specific Gravity,Urine 1.003 (1.001-1.035); Urobilinogen,Urine <2.0 mg/dL (<2.0); WBC,Urine 96 /hpf (0-5)
[2017-06-09 13:28] LABS: INR 1.4 (<1.2); Partial Thromboplastin Time 30.6 sec (22.0-30.0); Prothrombin Time 12.9 sec (9.0-12.0)
[2017-06-09 13:31] LABS: ALT 31 U/L (21-72); AST 54 U/L (17-59); Albumin 3.3 g/dL (3.5-5.0); Alkaline Phosphatase 91 U/L (38-126); Anion Gap 13 mmol/L; Blood Urea Nitrogen 16 mg/dL (9-20); Calcium 9.3 mg/dL (8.4-10.2); Carbon Dioxide 22 mmol/L (22-30); Chloride 84 mmol/L (98-107); Glucose 123 mg/dL (74-99); Potassium 4.1 mmol/L (3.5-5.1); Total Bilirubin 1.1 mg/dL (0.2-1.3); Total Protein 6.3 g/dL (6.3-8.2)
[2017-06-09 13:35] LABS: Sodium 119 mmol/L (137-145)
[2017-06-09] MEDS ORDERED: cefTRIAXone 2,000 MG in SODIUM CHLORIDE 0.9% 100 ML IVPB STA (13:43)
[2017-06-09] MEDS ORDERED: cefTRIAXone IN SWFI 2,000 MG/20 ML SYRINGE IVP STA (13:44)
--- NOTE | 2017-06-09 13:52 | XR ---
EXAMINATION TYPE: XR chest 2V DATE OF EXAM: 06/09/2017 HISTORY: vomiting. REFERENCE: Previous study dated 07/01/2016. FINDINGS: The lungs are clear. Pleural space are clear. Heart size is upper limits of normal. Note is made of red fixation of the thoracic lumbar junction. IMPRESSION: NO ACUTE INTRATHORACIC ABNORMALITY.
[2017-06-09] MEDS ORDERED: RX INFO: IV CONTRAST WAS GIVEN 1 EACH MISC MISCELLANE PRN (14:05)
--- NOTE | 2017-06-09 14:07 | XR ---
EXAMINATION TYPE: XR KUB , 2 VIEWS DATE OF EXAM ORDERED: 06/09/2017 HISTORY: pain. COMPARISON: None. FINDINGS: There has been previous red fixation of the thoracolumbar spine. There continues to be a m ild levoscoliosis. Lung bases are clear. The abdominal gas pattern is within normal limits. There is no evidence of obstruction or free air. N o unusual calcifications are seen. IMPRESSION: NO ACUTE INTRA-ABDOMINAL ABNORMALITY.
--- NOTE | 2017-06-09 15:23 | CT ---
EXAMINATION TYPE: CT abdomen pelvis w con DATE OF EXAM: 06/09/2017 COMPARISON: 07/01/2016 HISTORY: Fever with vomiting CT DLP: 2157 mGycm CONTRAST: CT scan of the abdomen and pelvis is performed without Oral Contrast and with IV Contrast, patient in jected with 100 mL of Isovue 300. FINDINGS: LUNG BASES-: No visible nodule. No infiltrate. LIVER/GB: Gallbladder distention measuring 8.9 cm. Cholelithiasis. No pericholecystic fluid. No sp ann occupying hepatic lesion. Biliary tree is of normal caliber. PANCREAS: No inflammation. No distinct mass. SPLEEN: No splenic enlargement. No lesion seen. ADRENALS: No nodule. No thickening. KIDNEYS/BLADDER: There has been previous cystectomy with neobladder formation and ileal conduit. Ther e is bilateral hydronephrosis unchanged from prior study being severe on the left and moderate to sev ere on the right. Renal atrophy is noted bilaterally. There is evidence of a parastomal hernia withou t mechanical obstruction. BOWEL: Normal appendix. Normal bowel caliber. No inflammation. GENITAL ORGANS: No gross abnormality. LYMPH NODES: No greater than 1cm abdominal or pelvic lymph nodes are appreciated. AORTA: No significant abnormality. OSSEOUS STRUCTURES: Stents of postoperative change of the thoracolumbar spine.. OTHER: No significant additional abnormality is seen. IMPRESSION: 1. Bilateral hydronephrosis as noted above unchanged from prior study. Ileal conduit with right-sided ostomy. 2. Stable parastomal hernia. No mechanical obstruction. 3. Gallbladder hydrops with small gallstone was also present previously. No wall thickening or perich olecystic fluid.
[2017-06-09] MEDS ORDERED: NALOXONE 0.4 MG/ML 1 ML VIAL IV PRN (15:46)
[2017-06-09] MEDS ORDERED: HYDROcodone/APAP 5-325MG 1 EACH TAB PO PRN (15:46)
[2017-06-09] MEDS ORDERED: diphenhydrAMINE 50 MG/ML 1 ML VIAL IVP STA (15:50)
[2017-06-09] MEDS ORDERED: METOCLOPRAMIDE 5 MG/ML 2 ML VIAL IVP STA (15:50)
[2017-06-09] MEDS: MORPHINE SULFATE 4 MG/0.8 ML SYRINGE (INJ) IV PRN ×2 (19:09→23:05)
[2017-06-09] MEDS: ONDANSETRON 4 MG/2 ML VIAL IVP PRN (19:17)
[2017-06-09 19:45] VITALS: BMI 29.9
[2017-06-09] MEDS ORDERED: PSYLLIUM HUSK 100% 6 GM PACKET PO PRN (22:09)
[2017-06-10] MEDS: HYDROcodone/APAP 10-325MG 1 EACH TAB PO PRN ×2 (03:01→10:59)
[2017-06-10] MEDS: DIAZEPAM 5 MG TAB PO PRN ×2 (03:01→07:46)
[2017-06-10] MEDS: ONDANSETRON 4 MG/2 ML VIAL IVP PRN ×2 (06:12→19:57)
[2017-06-10] MEDS: CEFEPIME 2 GM in SODIUM CHLORIDE 0.9% 50 ML IVPB SCH ×2 (07:43→15:00)
[2017-06-10] MEDS: LISINOPRIL 10 MG TAB PO SCH ×2 (07:43→07:44)
[2017-06-10] MEDS: PANTOPRAZOLE 40 MG/10 ML VIAL IV SCH (07:43)
[2017-06-10] MEDS: TRIAMCINOLONE 0.1% CREAM 80 GM TUBE TOPICAL SCH ×4 (07:45→21:10)
[2017-06-10 08:27] LABS: Basophils % (A) 0 %; Eosinophils % (A) 1 %; HCT 32.6 % (39.0-53.0); HGB 10.5 gm/dL (13.0-17.5); Lymphocytes # (A) 0.2 k/uL (1.0-4.8); Lymphocytes % (A) 8 %; MCH 26.1 pg (25.0-35.0); MCHC 32.2 g/dL (31.0-37.0); MCV 81.1 fL (80.0-100.0); Mean Platelet Volume 6.6; Monocytes # (A) 0.1 k/uL (0-1.0); Monocytes % (A) 4 %; Neutrophils # (A) 2.7 k/uL (1.3-7.7); Neutrophils % (A) 86 %; Platelet Count 197 k/uL (150-450); RBC 4.01 m/uL (4.30-5.90); RDW 14.7 % (11.5-15.5); WBC 3.2 k/uL (3.8-10.6)
[2017-06-10 08:49] LABS: ALT 28 U/L (21-72); AST 57 U/L (17-59); Albumin 2.9 g/dL (3.5-5.0); Alkaline Phosphatase 94 U/L (38-126); Anion Gap 10 mmol/L; Blood Urea Nitrogen 12 mg/dL (9-20); Calcium 8.4 mg/dL (8.4-10.2); Carbon Dioxide 22 mmol/L (22-30); Chloride 97 mmol/L (98-107); Glucose 89 mg/dL (74-99); Potassium 4.1 mmol/L (3.5-5.1); Sodium 129 mmol/L (137-145); Total Bilirubin 0.5 mg/dL (0.2-1.3); Total Protein 5.8 g/dL (6.3-8.2)
[2017-06-10] MEDS ORDERED: cefTRIAXone IN SWFI 1,000 MG/10 ML SYRINGE IVP SCH (09:00)
[2017-06-10] MEDS: ACETAMINOPHEN TAB 325 MG TAB PO PRN (12:59)
[2017-06-10] MEDS: MORPHINE SULFATE 4 MG/0.8 ML SYRINGE (INJ) IVP PRN ×3 (12:59→21:10)
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
[2017-06-10] MEDS: SODIUM CHLORIDE 0.9% 1,000 ML IV SCH (15:51)
--- NOTE | 2017-06-10 17:15 | NM ---
EXAMINATION TYPE: NM bone 3 phase DATE OF EXAM: 06/10/2017 COMPARISON: NONE HISTORY: Triple phase bone scintigraphy was performed following the injection of24.7 mCi Tc 99m MDP. Immediat e images and 3 hours post injection images acquired. FINDINGS: The delayed images do not show any significant increased uptake in the bony pelvis to suggest osteomy elitis. There is normal activity in the sacroiliac joints and at the hip joints. The blood pool image s show some hyperemia at the floor of the pelvis posteriorly consistent with inflammatory process. Th is could be from an abscess. IMPRESSION: Hyperemia of the floor of the pelvis posteriorly consistent with inflammatory process. Delayed images fail to demonstrate any significant increased bony uptake to suggest osteomyelitis.
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
[2017-06-11] MEDS: AMITRIPTYLINE HCL 50 MG TAB PO SCH ×2 (00:47→20:48)
[2017-06-11] MEDS: ACETAMINOPHEN TAB 325 MG TAB PO PRN ×4 (00:47→23:21)
[2017-06-11] MEDS: CEFEPIME 2 GM in SODIUM CHLORIDE 0.9% 50 ML IVPB SCH ×4 (00:47→23:21)
[2017-06-11] MEDS: MORPHINE SULFATE 4 MG/0.8 ML SYRINGE (INJ) IVP PRN ×2 (01:13→05:03)
[2017-06-11] MEDS: SODIUM CHLORIDE 0.9% 1,000 ML IV SCH ×2 (05:40→20:48)
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
[2017-06-11] MEDS: LISINOPRIL 10 MG TAB PO SCH (08:26)
[2017-06-11] MEDS: PANTOPRAZOLE 40 MG/10 ML VIAL IV SCH (08:26)
[2017-06-11] MEDS: TRIAMCINOLONE 0.1% CREAM 80 GM TUBE TOPICAL SCH ×4 (08:27→20:48)
[2017-06-11] MEDS: DIAZEPAM 5 MG TAB PO PRN ×3 (08:42→20:48)
[2017-06-11] MEDS: MORPHINE ORAL SOLN 10 MG/5 ML CUP PO PRN ×4 (08:43→20:48)
[2017-06-11 08:44] LABS: Basophils % (A) 0 %; Eosinophils % (A) 1 %; HCT 32.9 % (39.0-53.0); HGB 10.7 gm/dL (13.0-17.5); Lymphocytes # (A) 0.5 k/uL (1.0-4.8); Lymphocytes % (A) 14 %; MCH 26.9 pg (25.0-35.0); MCHC 32.5 g/dL (31.0-37.0); MCV 82.6 fL (80.0-100.0); Mean Platelet Volume 7.3; Monocytes # (A) 0.2 k/uL (0-1.0); Monocytes % (A) 5 %; Neutrophils # (A) 2.4 k/uL (1.3-7.7); Neutrophils % (A) 75 %; Platelet Count 215 k/uL (150-450); RBC 3.98 m/uL (4.30-5.90); RDW 14.8 % (11.5-15.5); WBC 3.2 k/uL (3.8-10.6)
[2017-06-11 09:14] LABS: Anion Gap 11 mmol/L; Blood Urea Nitrogen 10 mg/dL (9-20); Calcium 8.3 mg/dL (8.4-10.2); Carbon Dioxide 23 mmol/L (22-30); Chloride 100 mmol/L (98-107); Glucose 103 mg/dL (74-99); Potassium 3.9 mmol/L (3.5-5.1); Sodium 134 mmol/L (137-145)
--- NOTE | 2017-06-11 11:32 | P.PN ---
Subjective Progress Note Date: 06/11/17 Principal diagnosis: Positive gastric occult 56-year-old male paraplegia presents with fever. Denies hematemesis hematochezia or melena. Hemoglobin stable at 10.7. Tolerating diet. T-max 103.7. Objective - Vital Signs Vital signs: Vital Signs Temp 99.8 F H 06/11/17 07:00 Pulse 99 06/11/17 07:00 Resp 20 06/11/17 07:00 BP 123/68 06/11/17 07:00 Pulse Ox 96 06/11/17 07:00 Intake & Output 06/10/17 06/11/17 06/11/17 18:59 06:59 18:59 Intake Total 1600 Output Total 2400 3600 900 Balance -800 -3600 -900 Weight 108.862 kg 108.862 kg Intake: Oral 1600 Output: Urine 2400 3600 900 Other: Voiding Method Indwelling Catheter Indwelling Catheter # Bowel Movements 1 - Exam General appearance: The patient is alert, oriented, in no acute distress. HET: Head is normocephalic and atraumatic. Pupils are equal and reactive. Oropharynx is clear without lesions. Neck: Supple without lymphadenopathy. Trachea midline. Heart: S1 S2. Regular rate and rhythm. Lungs: No crackles or wheezes are heard. Abdomen: Soft, nontender, nondistended with bowel sounds. Urostomy clear. No peritoneal signs. No palpable organomegaly or masses. Extremities: Left lower extremity dressing. Neurological: Paraplegia. - Labs CBC & Chem 7: 06/11/17 08:19 06/11/17 08:19 Labs: Abnormal Lab Results - Last 24 Hours (Table) 06/11/17 06/11/17 Range/Units 08:19 08:19 WBC 3.2 L (3.8-10.6) k/uL RBC 3.98 L (4.30-5.90) m/uL Hgb 10.7 L (13.0-17.5) gm/dL Hct 32.9 L (39.0-53.0) % Lymphocytes # 0.5 L (1.0-4.8) k/uL Sodium 134 L (137-145) mmol/L Glucose 103 H (74-99) mg/dL Calcium 8.3 L (8.4-10.2) mg/dL Microbiology - Last 24 Hours (Table) 06/10/17 08:34 Blood Culture - Preliminary Blood No Growth after 24 hours 06/10/17 08:11 Blood Culture - Preliminary Blood No Growth after 24 hours 06/10/17 13:04 Gram Stain - Preliminary Hip - Right Wound Culture - Preliminary Group D Enterococcus 06/09/17 13:01 Blood Culture Gram Stain - Preliminary Blood Blood Culture - Preliminary Strep agalactiae - (group b) Presumptive Staph aureus 06/10/17 13:04 Anaerobic Culture - Preliminary Hip - Right 06/09/17 13:01 Urine Culture - Final Urine,Clean Catch Assessment and Plan Assessment: Impression: 1. Positive gastric occult suspect Jerri-Goyal with stable hemoglobin. 2. Paraplegia. 3. Fever; ID following. Plan: 1. From a GI standpoint no further workup. Hemoglobin is stable without evidence of hematemesis melena or hematochezia. Continue GI prophylaxis. Diet as tolerated. We'll follow as needed. Assessment and plan a care discussed with Dr. Kraus
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
[2017-06-11] MEDS: ONDANSETRON 4 MG/2 ML VIAL IVP PRN (14:37)
[2017-06-11] MEDS: DAPTOmycin 500 MG in SODIUM CHLORIDE 0.9% 50 ML IV SCH (17:33)
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
[2017-06-12] MEDS: MORPHINE ORAL SOLN 10 MG/5 ML CUP PO PRN ×6 (00:52→21:24)
[2017-06-12] MEDS: ACETAMINOPHEN TAB 325 MG TAB PO PRN ×2 (07:13→14:48)
[2017-06-12] MEDS: CEFEPIME 2 GM in SODIUM CHLORIDE 0.9% 50 ML IVPB SCH ×2 (07:13→15:26)
[2017-06-12] MEDS: ONDANSETRON 4 MG/2 ML VIAL IVP PRN (08:17)
[2017-06-12] MEDS: DIAZEPAM 5 MG TAB PO PRN ×2 (08:19→17:14)
[2017-06-12] MEDS: LISINOPRIL 10 MG TAB PO SCH (08:19)
[2017-06-12] MEDS: PANTOPRAZOLE 40 MG/10 ML VIAL IV SCH (08:19)
[2017-06-12] MEDS: TRIAMCINOLONE 0.1% CREAM 80 GM TUBE TOPICAL SCH ×4 (09:12→22:27)
[2017-06-12] MEDS: SODIUM CHLORIDE 0.9% 1,000 ML IV SCH ×2 (09:12→22:31)
[2017-06-12 09:55] LABS: Basophils % (A) 0 %; Eosinophils # (A) 0.1 k/uL (0-0.7); Eosinophils % (A) 2 %; HCT 30.1 % (39.0-53.0); HGB 9.7 gm/dL (13.0-17.5); Lymphocytes # (A) 0.6 k/uL (1.0-4.8); Lymphocytes % (A) 19 %; MCH 26.5 pg (25.0-35.0); MCHC 32.2 g/dL (31.0-37.0); MCV 82.1 fL (80.0-100.0); Mean Platelet Volume 6.9; Monocytes # (A) 0.2 k/uL (0-1.0); Monocytes % (A) 7 %; Neutrophils # (A) 2.2 k/uL (1.3-7.7); Neutrophils % (A) 68 %; Platelet Count 249 k/uL (150-450); RBC 3.67 m/uL (4.30-5.90); RDW 14.9 % (11.5-15.5); WBC 3.2 k/uL (3.8-10.6)
[2017-06-12 10:16] LABS: Anion Gap 11 mmol/L; Blood Urea Nitrogen 12 mg/dL (9-20); Calcium 8.1 mg/dL (8.4-10.2); Carbon Dioxide 23 mmol/L (22-30); Chloride 102 mmol/L (98-107); Glucose 105 mg/dL (74-99); Potassium 3.9 mmol/L (3.5-5.1); Sodium 136 mmol/L (137-145)
[2017-06-12] MEDS: DAPTOmycin 500 MG in SODIUM CHLORIDE 0.9% 50 ML IV SCH (14:25)
[2017-06-12] MEDS: KETOROLAC 30 MG/ML 1 ML VIAL IVP SCH (18:31)
[2017-06-12] MEDS: AMITRIPTYLINE HCL 50 MG TAB PO SCH (20:37)
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
[2017-06-13] MEDS: KETOROLAC 30 MG/ML 1 ML VIAL IVP SCH ×4 (00:31→18:17)
[2017-06-13] MEDS: CEFEPIME 2 GM in SODIUM CHLORIDE 0.9% 50 ML IVPB SCH ×3 (00:32→16:28)
[2017-06-13] MEDS: MORPHINE ORAL SOLN 10 MG/5 ML CUP PO PRN ×5 (06:52→23:10)
[2017-06-13 08:13] LABS: HCT 32.8 % (39.0-53.0); HGB 10.6 gm/dL (13.0-17.5); MCH 26.9 pg (25.0-35.0); MCHC 32.3 g/dL (31.0-37.0); MCV 83.3 fL (80.0-100.0); Mean Platelet Volume 6.7; Platelet Count 279 k/uL (150-450); RBC 3.93 m/uL (4.30-5.90); WBC 3.1 k/uL (3.8-10.6)
[2017-06-13 08:17] LABS: Anion Gap 9 mmol/L; Blood Urea Nitrogen 17 mg/dL (9-20); Calcium 8.3 mg/dL (8.4-10.2); Carbon Dioxide 26 mmol/L (22-30); Chloride 104 mmol/L (98-107); Glucose 93 mg/dL (74-99); Potassium 4.2 mmol/L (3.5-5.1); Sodium 139 mmol/L (137-145)
[2017-06-13 08:29] LABS: Eosinophils # (M) 0.09 k/uL (0-0.7); Lymphocytes # (M) 1.21 k/uL (1.0-4.8); Monocytes # (M) 0.19 k/uL (0-1.0); Neutrophils # (M) 1.61 k/uL (1.3-7.7); Neutrophils % (M) 52 %; Nucleated Red Blood Cells 0 /100 WBC (0-0); Total Cells Counted 100
[2017-06-13 08:30] LABS: Poikilocytosis (M) Present
[2017-06-13] MEDS: TRIAMCINOLONE 0.1% CREAM 80 GM TUBE TOPICAL SCH ×4 (08:35→22:02)
[2017-06-13] MEDS: PANTOPRAZOLE 40 MG/10 ML VIAL IV SCH (08:38)
[2017-06-13] MEDS: LISINOPRIL 10 MG TAB PO SCH (08:38)
[2017-06-13] MEDS: SODIUM CHLORIDE 0.9% 1,000 ML IV SCH ×2 (12:22→23:08)
[2017-06-13] MEDS: ACETAMINOPHEN TAB 325 MG TAB PO PRN (13:58)
[2017-06-13] MEDS: DAPTOmycin 500 MG in SODIUM CHLORIDE 0.9% 50 ML IV SCH (15:10)
[2017-06-13] MEDS: ONDANSETRON 4 MG/2 ML VIAL IVP PRN (15:35)
--- NOTE | 2017-06-13 18:23 | P.PN ---
Subjective Progress Note Date: 06/13/17 Principal diagnosis: Infection of trochanteric wound Patient is 56-year-old male paraplegic well-known to our practice, who presents to the hospital with elevated temp of 102 103 consistently over the last 3-4 days Urine culture as an outpatient demonstrated yeast only, chest x-ray was unremarkable. Right trochanteric ulcer was cultured, urine was cultured again and blood culture was also performed. Anaerobic cultures of the right trochanteric wound have not been reported as yet Objective - Vital Signs Vital signs: Vital Signs Temp 100.8 F H 06/13/17 16:10 Pulse 103 H 06/13/17 15:00 Resp 16 06/13/17 15:00 BP 134/62 06/13/17 15:00 Pulse Ox 96 06/13/17 15:00 Intake & Output 06/12/17 06/13/17 06/13/17 18:59 06:59 18:59 Intake Total 780 300 320 Output Total 5500 1900 1999 Balance -2603 -8754 -3563 Weight 108.862 kg Intake: Intake, IV Titration 100 Amount DAPTOmycin 500 mg In 100 Sodium Chloride 0.9% 50 ml @ 100 mls/hr IV Q24H [facility] Rx#:[id number] Oral 680 300 320 Output: Urine 5500 1900 2000 Other: Voiding Method Ileal Conduit (Left) Ileal Conduit (Left) Ileal Conduit (Left) # Voids 0 - Exam General: [Patient awake, alert and oriented times 3. Patient in no acute distress.] HEENT: [PERRL. EOMI. No pharyngeal erythema or exudate.] Neck: [No adenopathy.] Cardiac: [Heart regular in rate and rhythm. No S3. No S4. No clicks, rubs. No murmur.] Lungs: [Clear to auscultation bilaterally.] Abdomen: [No mass. No organomegaly. 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 CN II - XII grossly intact.] Lymphatic: [No adenopathy.] - Labs CBC & Chem 7: 06/13/17 07:45 06/13/17 07:45 Labs: Abnormal Lab Results - Last 24 Hours (Table) 06/13/17 06/13/17 Range/Units 07:45 07:45 WBC 3.1 L (3.8-10.6) k/uL RBC 3.93 L (4.30-5.90) m/uL Hgb 10.6 L (13.0-17.5) gm/dL Hct 32.8 L (39.0-53.0) % Calcium 8.3 L (8.4-10.2) mg/dL Microbiology - Last 24 Hours (Table) 06/10/17 13:04 Gram Stain - Final Hip - Right Wound Culture - Final Enterococcus faecalis Staphylococcus aureus 06/10/17 08:34 Blood Culture - Preliminary Blood No Growth after 72 hours 06/10/17 08:11 Blood Culture - Preliminary Blood No Growth after 72 hours 06/09/17 13:01 Blood Culture Gram Stain - Final Blood Blood Culture - Final Strep agalactiae - (group b) Staphylococcus aureus Enterococcus faecalis Assessment and Plan (1) Failure of outpatient treatment Current Visit: Yes Status: Acute Code(s): Z78.9 - OTHER SPECIFIED HEALTH STATUS SNOMED Code(s): 970152624 (2) Pressure ulcer of trochanteric region of right hip, stage 4 Current Visit: Yes Status: Acute Code(s): L89.214 - PRESSURE ULCER OF RIGHT HIP, STAGE 4 SNOMED Code(s): 697174972 Plan: Cultures pending patient currently getting cefepime as well as piperacillin and tazobactam Bone scan was performed results are not suggestive of osteomyelitis at this time
--- NOTE | 2017-06-13 18:39 | XR ---
EXAMINATION TYPE: XR chest 1V portable DATE OF EXAM: 06/13/2017 COMPARISON: 06/09/2017 HISTORY: Pneumonia chest pain TECHNIQUE: Single frontal view of the chest is obtained. FINDINGS: The right lung is clear. There is patchy infiltrate in the left lung with probably some vo lume loss. This is more in the left lower lobe. There is no heart failure. Heart size is normal. IMPRESSION: There is new pneumonia and atelectasis in the left lung compared to last exam. Normal he art.
[2017-06-13] MEDS: PIPERACILLIN-TAZOBACTAM 3.375 GM in DEXTROSE/WATER 1 50ML.BAG IVPB SCH (18:58)
[2017-06-13] MEDS ORDERED: HEPARIN SODIUM,PORCINE 5,000 UNIT/ML 1 ML VIAL SQ SCH (21:15)
[2017-06-13] MEDS: AMITRIPTYLINE HCL 50 MG TAB PO SCH (22:01)
[2017-06-13] MEDS: hydrOXYzine PAMOATE 25 MG CAP PO PRN (23:08)
[2017-06-14] MEDS: PIPERACILLIN-TAZOBACTAM 3.375 GM in DEXTROSE/WATER 1 50ML.BAG IVPB SCH ×4 (00:15→23:12)
[2017-06-14] MEDS: KETOROLAC 30 MG/ML 1 ML VIAL IVP SCH ×5 (00:15→23:11)
[2017-06-14] MEDS: DIAZEPAM 5 MG TAB PO PRN (00:15)
[2017-06-14] MEDS: HEPARIN SODIUM,PORCINE 5,000 UNIT/ML 1 ML VIAL SQ SCH ×4 (00:25→23:12)
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
[2017-06-14] MEDS: MORPHINE ORAL SOLN 10 MG/5 ML CUP PO PRN ×5 (06:24→23:11)
[2017-06-14] MEDS: hydrOXYzine PAMOATE 25 MG CAP PO PRN ×4 (06:25→23:11)
[2017-06-14] MEDS: LISINOPRIL 10 MG TAB PO SCH (08:37)
[2017-06-14] MEDS: PANTOPRAZOLE 40 MG/10 ML VIAL IV SCH (08:37)
[2017-06-14] MEDS: TRIAMCINOLONE 0.1% CREAM 80 GM TUBE TOPICAL SCH ×4 (08:38→20:29)
[2017-06-14] MEDS: SODIUM CHLORIDE 0.9% 1,000 ML IV SCH ×2 (13:02→23:27)
--- NOTE | 2017-06-14 17:18 | P.PN ---
Subjective Progress Note Date: 06/14/17 Principal diagnosis: Infection of trochanteric wound Patient is 56-year-old male paraplegic well-known to our practice, who presents to the hospital with elevated temp of 102 103 consistently over the last 3-4 days Urine culture as an outpatient demonstrated yeast only, chest x-ray was unremarkable. Right trochanteric ulcer was cultured, urine was cultured again and blood culture was also performed. Anaerobic cultures of the right trochanteric wound have not been reported as yet Objective - Vital Signs Vital signs: Vital Signs Temp 98.5 F 06/14/17 15:00 Pulse 77 06/14/17 15:00 Resp 26 H 06/14/17 15:00 BP 121/59 06/14/17 15:00 Pulse Ox 95 06/14/17 15:00 Intake & Output 06/13/17 06/14/17 06/14/17 18:59 06:59 18:59 Intake Total 320 1300 Output Total 3200 3600 Balance -2880 1300 -3600 Intake: Intake, IV Titration 1300 Amount Piperacillin-Tazobactam 3 100 .375 gm In Dextrose/Water 1 50ml.bag @ 12.5 mls/hr IVPB Q8HR MALIHA Rx#: [id number] Sodium Chloride 0.9% 1, 1200 000 ml @ 75 mls/hr IV . [id number] MALIHA Rx#:[id number] Oral 320 Output: Urine 3200 3600 Other: Voiding Method Ileal Conduit (Left) Ileal Conduit (Left) Ileal Conduit (Left) - Exam General: [Patient awake, alert and oriented times 3. Patient in no acute distress.] HEENT: [PERRL. EOMI. No pharyngeal erythema or exudate.] Neck: [No adenopathy.] Cardiac: [Heart regular in rate and rhythm. No S3. No S4. No clicks, rubs. No murmur.] Lungs: [Clear to auscultation bilaterally.] Abdomen: [No mass. No organomegaly. 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 CN II - XII grossly intact.] Lymphatic: [No adenopathy.] - Labs CBC & Chem 7: 06/13/17 07:45 06/13/17 07:45 Labs: Abnormal Lab Results - Last 24 Hours (Table) 06/13/17 06/13/17 06/13/17 Range/Units 18:51 18:51 18:51 ESR 96 H (0-15) mm/hr D-Dimer 1.59 H (<0.60) mg/L FEU C-Reactive Protein 162.7 H (<10.0) mg/L Procalcitonin (0.02-0.09) ng/mL 06/13/17 Range/Units 18:51 ESR (0-15) mm/hr D-Dimer (<0.60) mg/L FEU C-Reactive Protein (<10.0) mg/L Procalcitonin 3.22 H (0.02-0.09) ng/mL Microbiology - Last 24 Hours (Table) 06/10/17 08:34 Blood Culture - Preliminary Blood No Growth after 96 hours 06/10/17 08:11 Blood Culture - Preliminary Blood No Growth after 96 hours 06/10/17 13:04 Anaerobic Culture - Final Hip - Right Anaerobic Gm Negative Bacilli Assessment and Plan (1) Failure of outpatient treatment Current Visit: Yes Status: Acute Code(s): Z78.9 - OTHER SPECIFIED HEALTH STATUS SNOMED Code(s): 956474645 (2) Pressure ulcer of trochanteric region of right hip, stage 4 Current Visit: Yes Status: Acute Code(s): L89.214 - PRESSURE ULCER OF RIGHT HIP, STAGE 4 SNOMED Code(s): 194351861 Plan: Cultures pending patient currently getting cefepime as well as piperacillin and tazobactam Bone scan was performed results are not suggestive of osteomyelitis at this time Time with Patient: Greater than 30
[2017-06-14] MEDS: AMITRIPTYLINE HCL 50 MG TAB PO SCH (20:37)
[2017-06-15] MEDS: KETOROLAC 30 MG/ML 1 ML VIAL IVP SCH ×3 (05:38→17:43)
[2017-06-15] MEDS: hydrOXYzine PAMOATE 25 MG CAP PO PRN ×3 (05:38→18:51)
[2017-06-15] MEDS: MORPHINE ORAL SOLN 10 MG/5 ML CUP PO PRN ×4 (05:38→18:50)
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
[2017-06-15 08:56] LABS: HCT 36.2 % (39.0-53.0); HGB 11.3 gm/dL (13.0-17.5); Hypochromasia Slight; MCH 26.2 pg (25.0-35.0); MCHC 31.2 g/dL (31.0-37.0); MCV 83.8 fL (80.0-100.0); Mean Platelet Volume 6.9; Platelet Count 343 k/uL (150-450); RBC 4.32 m/uL (4.30-5.90); RDW 15.2 % (11.5-15.5); WBC 3.5 k/uL (3.8-10.6)
[2017-06-15 09:08] LABS: Anion Gap 10 mmol/L; Blood Urea Nitrogen 16 mg/dL (9-20); Calcium 8.4 mg/dL (8.4-10.2); Carbon Dioxide 26 mmol/L (22-30); Chloride 106 mmol/L (98-107); Glucose 93 mg/dL (74-99); Potassium 4.4 mmol/L (3.5-5.1); Sodium 142 mmol/L (137-145)
[2017-06-15 09:41] LABS: Band Neutrophils % 1 %; Eosinophils # (M) 0.25 k/uL (0-0.7); Lymphocytes # (M) 1.44 k/uL (1.0-4.8); Metamyelocytes # (M) 0.04 k/uL (0); Metamyelocytes % 1 %; Monocytes # (M) 0.18 k/uL (0-1.0); Myelocytes # (M) 0.07 k/uL (0); Myelocytes % 2 %; Neutrophils % (M) 45 %; Nucleated Red Blood Cells 0 /100 WBC (0-0); Total Cells Counted 200
[2017-06-15] MEDS: LISINOPRIL 10 MG TAB PO SCH (09:53)
[2017-06-15] MEDS: PANTOPRAZOLE 40 MG TABLET PO SCH (09:53)
[2017-06-15] MEDS: HEPARIN SODIUM,PORCINE 5,000 UNIT/ML 1 ML VIAL SQ SCH ×2 (09:53→17:44)
[2017-06-15] MEDS: PIPERACILLIN-TAZOBACTAM 3.375 GM in DEXTROSE/WATER 1 50ML.BAG IVPB SCH ×2 (09:53→17:44)
[2017-06-15] MEDS: TRIAMCINOLONE 0.1% CREAM 80 GM TUBE TOPICAL SCH ×4 (09:54→21:39)
--- NOTE | 2017-06-15 12:24 | P.PN ---
Subjective Progress Note Date: 06/15/17 Principal diagnosis: Infection of trochanteric wound Left lower lobe consolidation Patient is 56-year-old male paraplegic well-known to our practice, who presents to the hospital with elevated temp of 102 103 consistently over the last 3-4 days Urine culture as an outpatient demonstrated yeast only, chest x-ray was unremarkable. Right trochanteric ulcer was cultured, urine was cultured again and blood culture was also performed. Anaerobic cultures of the right trochanteric wound have not been reported as yet Left lower lobe consolidation being currently treated with Zosyn Patient also has significant infection per infectious process in the right trochanteric ulcer Objective - Vital Signs Vital signs: Vital Signs Temp 97.9 F 06/15/17 06:15 Pulse 71 06/15/17 06:15 Resp 20 06/15/17 06:15 BP 148/70 06/15/17 06:15 Pulse Ox 95 06/15/17 06:15 Intake & Output 06/14/17 06/15/17 06/15/17 18:59 06:59 18:59 Intake Total 120 Output Total 4800 2900 3000 Balance -4800 -2900 -2880 Weight 108.862 kg Intake: Oral 120 Output: Urine 4800 2900 3000 Other: Voiding Method Ileal Conduit (Left) Ileal Conduit (Left) - Exam General: [Patient awake, alert and oriented times 3. Patient in no acute distress.] HEENT: [PERRL. EOMI. No pharyngeal erythema or exudate.] Neck: [No adenopathy.] Cardiac: [Heart regular in rate and rhythm. No S3. No S4. No clicks, rubs. No murmur.] Lungs: Left lower lobe consolidation Abdomen: [No mass. No organomegaly. 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 CN II - XII grossly intact.] Lymphatic: [No adenopathy.] - Labs CBC & Chem 7: 06/15/17 08:22 06/15/17 08:22 Labs: Abnormal Lab Results - Last 24 Hours (Table) 06/15/17 06/15/17 Range/Units 08:22 08:22 WBC 3.5 L (3.8-10.6) k/uL Hgb 11.3 L (13.0-17.5) gm/dL Hct 36.2 L (39.0-53.0) % Metamyelocytes # (Man) 0.04 H (0) k/uL Myelocytes # (Manual) 0.07 H (0) k/uL Creatinine 0.62 L (0.66-1.25) mg/dL Microbiology - Last 24 Hours (Table) 06/10/17 08:34 Blood Culture - Preliminary Blood No Growth after 120 hours 06/10/17 08:11 Blood Culture - Preliminary Blood No Growth after 120 hours 06/13/17 19:00 Blood Culture - Preliminary Blood No Growth after 24 hours 06/13/17 18:51 Blood Culture - Preliminary Blood No Growth after 24 hours 06/10/17 13:04 Anaerobic Culture - Final Hip - Right Anaerobic Gm Negative Bacilli Assessment and Plan (1) Failure of outpatient treatment Current Visit: Yes Status: Acute Code(s): Z78.9 - OTHER SPECIFIED HEALTH STATUS SNOMED Code(s): 667103731 (2) Pressure ulcer of trochanteric region of right hip, stage 4 Current Visit: Yes Status: Acute Code(s): L89.214 - PRESSURE ULCER OF RIGHT HIP, STAGE 4 SNOMED Code(s): 210481844 Plan: Cultures pending patient currently getting cefepime as well as piperacillin and tazobactam Bone scan was performed results are not suggestive of osteomyelitis at this time PICC line placement with home IV therapy Time with Patient: Greater than 30
[2017-06-15] MEDS: SODIUM CHLORIDE 0.9% 1,000 ML IV SCH (15:59)
[2017-06-15] MEDS: AMITRIPTYLINE HCL 50 MG TAB PO SCH (21:42)
[2017-06-16] MEDS: hydrOXYzine PAMOATE 25 MG CAP PO PRN ×5 (00:10→23:02)
[2017-06-16] MEDS: PIPERACILLIN-TAZOBACTAM 3.375 GM in DEXTROSE/WATER 1 50ML.BAG IVPB SCH ×4 (00:10→23:02)
[2017-06-16] MEDS: HEPARIN SODIUM,PORCINE 5,000 UNIT/ML 1 ML VIAL SQ SCH ×4 (00:10→23:01)
[2017-06-16] MEDS: MORPHINE ORAL SOLN 10 MG/5 ML CUP PO PRN ×6 (00:10→23:02)
[2017-06-16] MEDS: KETOROLAC 30 MG/ML 1 ML VIAL IVP SCH ×4 (00:10→18:13)
[2017-06-16] MEDS: SODIUM CHLORIDE 0.9% 1,000 ML IV SCH ×2 (00:24→13:28)
[2017-06-16] MEDS: TRIAMCINOLONE 0.1% CREAM 80 GM TUBE TOPICAL SCH ×4 (09:01→20:51)
[2017-06-16] MEDS: LISINOPRIL 10 MG TAB PO SCH (09:04)
[2017-06-16] MEDS: PANTOPRAZOLE 40 MG TABLET PO SCH (09:05)
--- NOTE | 2017-06-16 11:19 | P.PN ---
Subjective Progress Note Date: 06/16/17 Principal diagnosis: Infection of trochanteric wound Left lower lobe consolidation Patient is 56-year-old male paraplegic well-known to our practice, who presents to the hospital with elevated temp of 102 103 consistently over the last 3-4 days Urine culture as an outpatient demonstrated yeast only, chest x-ray was unremarkable. Right trochanteric ulcer was cultured, urine was cultured again and blood culture was also performed. Anaerobic cultures of the right trochanteric wound have not been reported as yet Left lower lobe consolidation being currently treated with Zosyn Patient also has significant infection per infectious process in the right trochanteric ulcer 06/16/2017 Patient feeling markedly better breath sounds improved patient will be getting PICC line tomorrow Objective - Vital Signs Vital signs: Vital Signs Temp 96.7 F L 06/16/17 05:40 Pulse 65 06/16/17 05:40 Resp 20 06/16/17 05:40 BP 124/60 06/16/17 05:40 Pulse Ox 96 06/16/17 05:40 Intake & Output 06/15/17 06/16/17 06/16/17 18:59 06:59 18:59 Intake Total 720 600 320 Output Total 3000 5350 Balance -2280 -4750 320 Weight 108.862 kg Intake: Intake, IV Titration 600 Amount Sodium Chloride 0.9% 1, 600 000 ml @ 75 mls/hr IV . [id number] [facility] Rx#:[id number] Oral 120 600 320 Output: Urine 3000 5350 Other: Voiding Method Ileal Conduit (Left) Ileal Conduit (Left) Ileal Conduit (Left) - Exam General: [Patient awake, alert and oriented times 3. Patient in no acute distress.] HEENT: [PERRL. EOMI. No pharyngeal erythema or exudate.] Neck: [No adenopathy.] Cardiac: [Heart regular in rate and rhythm. No S3. No S4. No clicks, rubs. No murmur.] Lungs: Left lower lobe consolidation Abdomen: [No mass. No organomegaly. 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 CN II - XII grossly intact.] Lymphatic: [No adenopathy.] - Labs CBC & Chem 7: 06/15/17 08:22 06/15/17 08:22 Labs: Microbiology - Last 24 Hours (Table) 06/10/17 08:34 Blood Culture - Final Blood No Growth after 144 hours 06/10/17 08:11 Blood Culture - Final Blood No Growth after 144 hours 06/13/17 19:00 Blood Culture - Preliminary Blood No Growth after 48 hours 06/13/17 18:51 Blood Culture - Preliminary Blood No Growth after 48 hours Assessment and Plan (1) Failure of outpatient treatment Current Visit: Yes Status: Acute Code(s): Z78.9 - OTHER SPECIFIED HEALTH STATUS SNOMED Code(s): 206672934 (2) Pressure ulcer of trochanteric region of right hip, stage 4 Current Visit: Yes Status: Acute Code(s): L89.214 - PRESSURE ULCER OF RIGHT HIP, STAGE 4 SNOMED Code(s): 088458806 Plan: Cultures pending patient currently getting cefepime as well as piperacillin and tazobactam Bone scan was performed results are not suggestive of osteomyelitis at this time PICC line placement with home IV therapy Time with Patient: Greater than 30
[2017-06-16] MEDS: AMITRIPTYLINE HCL 50 MG TAB PO SCH (20:54)
[2017-06-17] MEDS: MORPHINE ORAL SOLN 10 MG/5 ML CUP PO PRN ×5 (06:04→23:04)
[2017-06-17] MEDS: hydrOXYzine PAMOATE 25 MG CAP PO PRN ×5 (06:05→23:05)
[2017-06-17] MEDS: PIPERACILLIN-TAZOBACTAM 3.375 GM in DEXTROSE/WATER 1 50ML.BAG IVPB SCH ×3 (08:42→23:35)
[2017-06-17] MEDS: HEPARIN SODIUM,PORCINE 5,000 UNIT/ML 1 ML VIAL SQ SCH ×3 (08:42→23:36)
[2017-06-17] MEDS: PANTOPRAZOLE 40 MG TABLET PO SCH (08:42)
[2017-06-17] MEDS: LISINOPRIL 10 MG TAB PO SCH (08:42)
[2017-06-17] MEDS: SODIUM CHLORIDE 0.9% 1,000 ML IV SCH ×2 (08:43→21:51)
[2017-06-17] MEDS: TRIAMCINOLONE 0.1% CREAM 80 GM TUBE TOPICAL SCH ×4 (08:44→21:51)
[2017-06-17] MEDS ORDERED: POLYETHYLENE GLYCOL 3350 17 GM POWD.PACK PO STA (09:34)
[2017-06-17] MEDS ORDERED: MAGNESIUM HYDROXIDE 2,400 MG/10 ML CUP PO PRN (09:35)
[2017-06-17] MEDS ORDERED: LIDOCAINE 2% INJ 20 MG/ML SQ ONE (10:12)
--- NOTE | 2017-06-17 11:27 | IR ---
PICC LINE PLACEMENT: HISTORY: Infection requiring long-term antibiotic therapy PROCEDURE: Ultrasound and fluoroscopic guidance of PICC line placement. COMPLICATIONS: None ANESTHESIA: 1. 1% Lidocaine locally. FINDINGS/TECHNIQUE: The procedure was explained to the patient. The risks, complications, benefits and alternatives were discussed and any questions were answered. Informed consent was obtained. The patient was placed supine on the fluoroscopic table and prepped and draped in the usual sterile [facility] ion. Utilizing a 21 gauge needle and sonographic and fluoroscopic guidance, access in the vein was achieved and there is placement of a 0.018 guidewire. The vein is patent. A 4-F sheath was placed o loren the guidewire. The guidewire and dilator were removed and a 4-F. PICC line was placed through th e sheath with the tip at the level of the SVC. The sheath was removed, the catheter was flushed and sutured into position. The patient was stable throughout the procedure and remained stable upon disc harge from the Department of Radiology. The vein puncture was patent under ultrasound. A moreno scale image was obtained to document patency of the vein punctured. All elements of the maximal barrier technique were utilized. FLUOROSCOPY TIME: 1.1 minute IMPRESSION: Successful PICC line placement under ultrasound and fluoroscopic guidance.
--- NOTE | 2017-06-17 13:35 | P.PN ---
Subjective Per Dr Griffin Infection of trochanteric wound Left lower lobe consolidation Patient is 56-year-old male paraplegic well-known to our practice, who presents to the hospital with elevated temp of 102 103 consistently over the last 3-4 days Urine culture as an outpatient demonstrated yeast only, chest x-ray was unremarkable. Right trochanteric ulcer was cultured, urine was cultured again and blood culture was also performed. Anaerobic cultures of the right trochanteric wound have not been reported as yet Left lower lobe consolidation being currently treated with Zosyn Patient also has significant infection per infectious process in the right trochanteric ulcer 06/16/2017 Patient feeling markedly better breath sounds improved patient will be getting PICC line tomorrow 06/17/2017. Picc line pending. he feels better. less cough and SOB. wound and blood cultures + for Enterococcus and Staph Aureus. urine negative. Pt on Zosyn with ID on case.he is c/o of some constipation today. He usually takes Senna. No Cp/pressures. Objective - Vital Signs Vital signs: Vital Signs Temp 98.2 F 06/17/17 07:00 Pulse 69 06/17/17 07:00 Resp 17 06/17/17 07:00 BP 125/62 06/17/17 07:00 Pulse Ox 95 06/17/17 07:00 Intake & Output 06/16/17 06/17/17 06/17/17 18:59 06:59 18:59 Intake Total 570 1800 Output Total 3000 700 Balance 570 -1200 -700 Weight 108.862 kg Intake: Intake, IV Titration 50 Amount Piperacillin-Tazobactam 3 50 .375 gm In Dextrose/Water 1 50ml.bag @ 12.5 mls/hr IVPB Q8HR [facility] Rx#: [id number] Oral 520 1800 Output: Urine 3000 700 Other: Voiding Method Ileal Conduit (Left) Ileal Conduit (Left) - Constitutional General appearance: Present: average body habitus - Neck Neck: Present: normal ROM. Absent: lymphadenopathy, thyromegaly - Respiratory Respiratory: left: diminished (base), dullness (base) - Cardiovascular Rhythm: regular Heart sounds: normal: S1, S2 - Gastrointestinal General gastrointestinal: Present: decreased bowel sounds - Labs CBC & Chem 7: 06/15/17 08:22 06/15/17 08:22 Labs: Microbiology - Last 24 Hours (Table) 06/13/17 19:00 Blood Culture - Preliminary Blood No Growth after 72 hours 06/13/17 18:51 Blood Culture - Preliminary Blood No Growth after 72 hours 06/10/17 08:34 Blood Culture - Final Blood No Growth after 144 hours 06/10/17 08:11 Blood Culture - Final Blood No Growth after 144 hours Assessment and Plan (1) Failure of outpatient treatment Current Visit: Yes Status: Acute Code(s): Z78.9 - OTHER SPECIFIED HEALTH STATUS SNOMED Code(s): 893191530 (2) Pressure ulcer of trochanteric region of right hip, stage 4 Current Visit: Yes Status: Acute Code(s): L89.214 - PRESSURE ULCER OF RIGHT HIP, STAGE 4 SNOMED Code(s): 928032884 (3) Abscess of cellulitis of buttock Current Visit: No Status: Acute Code(s): SYO2917 - SNOMED Code(s): 302566361 (4) Constipation Current Visit: No Status: Acute Code(s): K59.00 - CONSTIPATION, UNSPECIFIED SNOMED Code(s): 91202076 (5) Fever Current Visit: No Status: Acute Code(s): R50.9 - FEVER, UNSPECIFIED SNOMED Code(s): 202894580 (6) Sepsis Current Visit: No Status: Acute Code(s): A41.9 - SEPSIS, UNSPECIFIED ORGANISM SNOMED Code(s): 76652035 (7) Paraplegia following spinal cord injury Current Visit: No Status: Chronic Code(s): G82.20 - PARAPLEGIA, UNSPECIFIED SNOMED Code(s): 17122205 Plan: wait on picc line and ID recommendations for Oupt IV abx. miralax for constipation.
[2017-06-17] MEDS ORDERED: NYSTAT-TRIAMCIN 100,000-0.1 UNIT/GM-% CREAM 30 GM TUBE TOPICAL SCH (17:00)
[2017-06-17] MEDS: NYSTATIN 100,000UNIT/GM CREAM 30 GM TUBE TOPICAL SCH ×2 (17:24→21:51)
[2017-06-17] MEDS: SENNOSIDES 8.6 MG TAB PO SCH ×2 (18:28→21:51)
[2017-06-17] MEDS: AMITRIPTYLINE HCL 50 MG TAB PO SCH (21:51)
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
[2017-06-17 22:57] VITALS: RESP 18
[2017-06-18] MEDS: MORPHINE ORAL SOLN 10 MG/5 ML CUP PO PRN ×3 (05:35→13:52)
[2017-06-18] MEDS: hydrOXYzine PAMOATE 25 MG CAP PO PRN ×3 (05:36→13:52)
[2017-06-18 06:08] VITALS: BP 156/77; PULSE 62; TEMP 96.8
[2017-06-18] MEDS: SENNOSIDES 8.6 MG TAB PO SCH (08:48)
[2017-06-18] MEDS: LISINOPRIL 10 MG TAB PO SCH (08:48)
[2017-06-18] MEDS: PANTOPRAZOLE 40 MG TABLET PO SCH (08:48)
[2017-06-18] MEDS: HEPARIN SODIUM,PORCINE 5,000 UNIT/ML 1 ML VIAL SQ SCH (08:48)
[2017-06-18] MEDS: PIPERACILLIN-TAZOBACTAM 3.375 GM in DEXTROSE/WATER 1 50ML.BAG IVPB SCH (08:48)
[2017-06-18] MEDS: NYSTATIN 100,000UNIT/GM CREAM 30 GM TUBE TOPICAL SCH (08:48)
[2017-06-18] MEDS: TRIAMCINOLONE 0.1% CREAM 80 GM TUBE TOPICAL SCH (08:49)
[2017-06-18] MEDS: SODIUM CHLORIDE 0.9% 1,000 ML IV SCH (09:33)
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
== END 2017-06-18 14:17 | disposition home health service (06) | DRG 871 ==
LOC: EC 11:46 → 4MS4W 15:47
PROVIDERS: ADMIT Family Medicine; ATTEND Family Medicine
PROC: 02HV33Z Insertion of Infusion Device into Superior Vena Cava, Percutaneous Approach (ICD-10-PCS; principal; 2017-06-17 10:00)
DX: A40.1 Sepsis due to streptococcus, group B (principal); K22.6 Gastro-esophageal laceration-hemorrhage syndrome; L89.894 Pressure ulcer of other site, stage 4; L89.214 Pressure ulcer of right hip, stage 4; K82.1 Hydrops of gallbladder; J18.9 Pneumonia, unspecified organism; G82.20 Paraplegia, unspecified; E87.1 Hypo-osmolality and hyponatremia; N13.30 Unspecified hydronephrosis; L03.317 Cellulitis of buttock; N39.0 Urinary tract infection, site not specified; E87.8 Other disorders of electrolyte and fluid balance, not elsewhere classified; A41.2 Sepsis due to unspecified staphylococcus; I10 Essential (primary) hypertension; K80.20 Calculus of gallbladder without cholecystitis without obstruction; K59.00 Constipation, unspecified; G89.29 Other chronic pain; M54.9 Dorsalgia, unspecified; M20.62 Acquired deformities of toe(s), unspecified, left foot; Z79.899 Other long term (current) drug therapy; Z93.6 Other artificial openings of urinary tract status; Z99.3 Dependence on wheelchair; Z86.14 Personal history of Methicillin resistant Staphylococcus aureus infection; Z87.891 Personal history of nicotine dependence; Z87.440 Personal history of urinary (tract) infections; Z87.01 Personal history of pneumonia (recurrent); Z87.81 Personal history of (healed) traumatic fracture; Z82.49 Family history of ischemic heart disease and other diseases of the circulatory system; Z82.5 Family history of asthma and other chronic lower respiratory diseases; Z83.49 Family history of other endocrine, nutritional and metabolic diseases; Z82.3 Family history of stroke; Z80.8 Family history of malignant neoplasm of other organs or systems
CPT/HCPCS: 36415; 36569; 71045; 71046; 74018; 74177; 76937; 77001; 78315; 80048; 80053; 81001; 82271; 83605; 84145; 85025; 85379; 85610; 85652; 85730; 86140; 87040; 87070; 87075; 87077; 87086; 87186; 87205

== ENCOUNTER → 2017-07-25 | Outpatient (CLI) | payer OTHER | END | disposition home or self-care (01) | LOC: RADCTMAIN 13:34 | PROVIDERS: ATTEND Internal Medicine Infectious Disease | DX: Z53.9 Procedure and treatment not carried out, unspecified reason (principal) ==

== ENCOUNTER → 2017-08-29 | Day surgery (SDC) | payer MEDICARE ==
[2017-08-26 15:49] VITALS: BMI 29.9
[~2017-08-29] MED LIST changes: +ASPIRIN 325 MG TAB ONE; +HEPARIN SODIUM 1,000 UN/ML (10ML VL) IV ONE; +HYDROcodone/APAP 10-325MG 1 EACH TAB PO PRN; +IOPAMIDOL-250 100ML BTL INTRAARTER ONE; +IOPAMIDOL-300 100ML BTL INJ ONE; +LIDOCAINE 1% INJ 10MG/ML (20 ML MDV) SQ ONE; +MIDAZOLAM 2 MG/2 ML VIAL IVP ONE; +SODIUM CHLORIDE 0.9% 1,000 ML IV ONE; +SODIUM CHLORIDE 0.9% 1,000 ML IV SCH; -ceFAZolin 2 GM in SODIUM CHLORIDE 0.9% 100 ML IVPB ONE; +fentaNYL (PF) 50 MCG/ML 2 ML AMP IVP ONE
[2017-08-29 10:31] VITALS: RESP 18; TEMP 98.2
[2017-08-29] MEDS: fentaNYL (PF) 50 MCG/ML 2 ML AMP IVP ONE ×4 (11:16→12:16)
[2017-08-29] MEDS: MIDAZOLAM 2 MG/2 ML VIAL IVP ONE ×2 (11:31→12:16)
--- NOTE | 2017-08-29 12:30 | LTR ---
August 29, 2017 Re: Adriel Bush Dear Aba: Mr. Adriel Bush underwent a peripheral angiogram today and that showed occluded bilateral femoral arteries. Giving his anatomy and giving the issue of his paraplegia and the contraction of both knees, I do feel that the patient will benefit more from left fem to popliteal bypass. I am going to discuss the case with the surgeon. Thank you again for allowing me to participate in his care and please do not hesitate to call if you have any question or concern. Sincerely, MD CARMELINA Freitas / [place]: [phone] /
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
[2017-08-29 16:09] VITALS: BP 121/68; PULSE 58
--- NOTE | 2017-09-02 14:45 | IR ---
Fluoroscopy HISTORY: Left foot ulcer 4.5 minutes fluoroscopy time supplied to the referring clinician. 220 intraoperative C-arm images do cument the procedure. See dictated report from cardiology.
== END ==
LOC: CATHCVL 09:31
PROVIDERS: ATTEND Internal Medicine Interventional Cardiology
DX: I70.203 Unspecified atherosclerosis of native arteries of extremities, bilateral legs (principal); I99.8 Other disorder of circulatory system; S81.802A Unspecified open wound, left lower leg, initial encounter; X58.XXXA Exposure to other specified factors, initial encounter; G82.20 Paraplegia, unspecified; Z79.899 Other long term (current) drug therapy
CPT/HCPCS: 36200; 75625; 75716; 85347; C1894; C1769 ×3; J2250; J2001; J3010; J1644; Q9966

== ENCOUNTER → 2017-10-22 | Outpatient (CLI) | payer OTHER ==
[2017-10-22 17:24] LABS: Basophils % (A) 0 %; Eosinophils # (A) 0.2 k/uL (0-0.7); Eosinophils % (A) 5 %; HCT 39.4 % (39.0-53.0); HGB 12.5 gm/dL (13.0-17.5); Lymphocytes # (A) 1.7 k/uL (1.0-4.8); Lymphocytes % (A) 35 %; MCHC 31.7 g/dL (31.0-37.0); MCV 82.1 fL (80.0-100.0); Mean Platelet Volume 7.3; Monocytes # (A) 0.2 k/uL (0-1.0); Monocytes % (A) 4 %; Neutrophils # (A) 2.6 k/uL (1.3-7.7); Neutrophils % (A) 55 %; Platelet Count 258 k/uL (150-450); RDW 15.6 % (11.5-15.5); WBC 4.8 k/uL (3.8-10.6)
[2017-10-22 17:30] LABS: Appearance,Urine Cloudy (Clear); Bacteria,Urine Many /hpf; Bilirubin,Urine Negative (Negative); Blood,Urine Trace (Negative); Color,Urine Light Yellow; Glucose,Urine (UA) Negative (Negative); Ketones,Urine Negative (Negative); Leukocyte Esterase,Urine Large (Negative); Mucus,Urine Rare /hpf; Nitrite,Urine Positive (Negative); Protein,Urine Negative (Negative); RBC,Urine 3 /hpf (0-5); Specific Gravity,Urine 1.004 (1.001-1.035); Urobilinogen,Urine <2.0 mg/dL (<2.0); WBC,Urine 20 /hpf (0-5)
[2017-10-22 17:32] LABS: INR 1.1 (<1.2); Prothrombin Time 10.4 sec (9.0-12.0)
[2017-10-22 17:38] LABS: Anion Gap 9 mmol/L; Blood Urea Nitrogen 21 mg/dL (9-20); Carbon Dioxide 27 mmol/L (22-30); Chloride 101 mmol/L (98-107); Potassium 4.3 mmol/L (3.5-5.1); Sodium 137 mmol/L (137-145)
== END | disposition home or self-care (01) ==
LOC: LABPAT 17:03
PROVIDERS: ATTEND Surgery
DX: Z01.812 Encounter for preprocedural laboratory examination (principal); L89.894 Pressure ulcer of other site, stage 4
CPT/HCPCS: 36415; 80051; 81001; 82565; 84520; 85025; 85610; 86850; 86900; 86901

== ENCOUNTER 2017-10-29 05:46 | Inpatient (IN) | payer OTHER ==
[2017-10-24 14:13] VITALS: BMI 31.2
[~2017-10-29 05:46] MED LIST changes: -ASPIRIN 325 MG TAB ONE; +DEXAMETHASONE SOD PHOSPHATE 10 MG/ML 1 ML VIAL IV ONE; -HEPARIN SODIUM 1,000 UN/ML (10ML VL) IV ONE; -HYDROcodone/APAP 10-325MG 1 EACH TAB PO PRN; -IOPAMIDOL-250 100ML BTL INTRAARTER ONE; -IOPAMIDOL-300 100ML BTL INJ ONE; -LIDOCAINE 1% INJ 10MG/ML (20 ML MDV) SQ ONE; -MIDAZOLAM 2 MG/2 ML VIAL IVP ONE; +ONDANSETRON 4 MG/2 ML VIAL IVP ONE; -SODIUM CHLORIDE 0.9% 1,000 ML IV ONE; -SODIUM CHLORIDE 0.9% 1,000 ML IV SCH; +ceFAZolin IN SWFI 2 GM/20 ML SYRINGE IVP ONE; -fentaNYL (PF) 50 MCG/ML 2 ML AMP IVP ONE
[2017-10-29] MEDS ORDERED: MIDAZOLAM 2 MG/2 ML VIAL ONE (06:48)
[2017-10-29] MEDS: LACTATED RINGERS 1,000 ML IV SCH ×2 (06:50→10:17)
[2017-10-29] MEDS ORDERED: MIDAZOLAM 2 MG/2 ML VIAL IVP ONE (06:55)
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
[2017-10-29] MEDS ORDERED: ROCURONIUM BROMIDE 10 MG/ML 10 ML VIAL IV ONE (07:28)
[2017-10-29] MEDS ORDERED: LIDOCAINE 1% INJ 10MG/ML (20 ML MDV) ONE (07:28)
[2017-10-29] MEDS ORDERED: PROPOFOL 10 MG/ML 20 ML VIAL IV ONE (07:28)
[2017-10-29] MEDS ORDERED: NEOSTIGMINE 1 MG/ML 10 ML VIAL ONE (07:28)
[2017-10-29] MEDS ORDERED: HYDROmorphone (PF) 1 MG/ML ONE (07:28)
[2017-10-29] MEDS ORDERED: GLYCOPYRROLATE 0.2 MG/ML 2 ML VIAL ONE (07:28)
[2017-10-29] MEDS ORDERED: PHENYLEPHRINE-0.9% NACL SYG 1 MG/10 ML SYRINGE ONE (07:28)
[2017-10-29] MEDS ORDERED: fentaNYL (PF) 50 MCG/ML 2 ML AMP ONE (07:28)
[2017-10-29] MEDS ORDERED: ePHEDrine SULFATE/0.9% NACL/PF 50 MG/5 ML SYRINGE IV ONE (07:28)
[2017-10-29] MEDS ORDERED: DIAZEPAM 5 MG TAB PO PRN (09:02)
[2017-10-29] MEDS ORDERED: NALOXONE 0.4 MG/ML 1 ML VIAL IV PRN ×2 (09:03→18:36)
[2017-10-29] MEDS ORDERED: HYDROcodone/APAP 10-325MG 1 EACH TAB PO PRN (09:11)
[2017-10-29] MEDS: fentaNYL (PF) 50 MCG/ML 2 ML AMP IVP ONE ×4 (09:23→09:57)
[2017-10-29] MEDS: HYDROmorphone 0.5 MG/0.5 ML SYRINGE IVP PRN ×2 (09:33→09:38)
[2017-10-29] MEDS: MEPERIDINE 50 MG/ML SYRINGE IVP ONE ×2 (09:42→09:47)
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
[2017-10-29] MEDS: MIDAZOLAM 2 MG/2 ML VIAL IVP ONE ×2 (10:02→10:07)
[2017-10-29] MEDS: HYDROmorphone 1 MG/ML 1 ML SYRINGE IVP PRN ×3 (10:48→17:40)
[2017-10-29] MEDS: HYDROmorphone PCA 5 MG/25 ML SYRINGE IV PRN (20:07)
[2017-10-29] MEDS: CIPROFLOXACIN HCL 500 MG TAB PO SCH (22:14)
[2017-10-29] MEDS: AMITRIPTYLINE HCL 50 MG TAB PO SCH (22:14)
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
[2017-10-30] MEDS: HYDROmorphone PCA 5 MG/25 ML SYRINGE IV PRN ×5 (00:04→23:29)
[2017-10-30] MEDS: LACTATED RINGERS 1,000 ML IV SCH ×2 (05:05)
[2017-10-30] MEDS ORDERED: HYDROcodone/APAP 10-325MG 1 EACH TAB PO PRN ×2 (08:47→08:52)
[2017-10-30] MEDS ORDERED: CALCIUM CARBONATE 500 MG CHEWABLE PO PRN (08:50)
[2017-10-30] MEDS ORDERED: ACETAMINOPHEN TAB 325 MG TAB PO PRN (08:51)
[2017-10-30] MEDS ORDERED: KETOROLAC 30 MG/ML 1 ML VIAL IVP STA (08:54)
[2017-10-30 09:40] LABS: Basophils % (A) 0 %; Eosinophils # (A) 0.1 k/uL (0-0.7); Eosinophils % (A) 2 %; HCT 36.7 % (39.0-53.0); HGB 11.5 gm/dL (13.0-17.5); Hypochromasia Slight; Lymphocytes # (A) 1.7 k/uL (1.0-4.8); Lymphocytes % (A) 27 %; MCHC 31.2 g/dL (31.0-37.0); MCV 83.4 fL (80.0-100.0); Mean Platelet Volume 6.2; Monocytes # (A) 0.4 k/uL (0-1.0); Monocytes % (A) 6 %; Neutrophils # (A) 4.1 k/uL (1.3-7.7); Neutrophils % (A) 64 %; Platelet Count 240 k/uL (150-450); RDW 15.9 % (11.5-15.5); WBC 6.4 k/uL (3.8-10.6)
[2017-10-30 09:59] LABS: Anion Gap 12 mmol/L; Blood Urea Nitrogen 16 mg/dL (9-20); Calcium 8.9 mg/dL (8.4-10.2); Carbon Dioxide 27 mmol/L (22-30); Chloride 99 mmol/L (98-107); Glucose 107 mg/dL (74-99); Sodium 138 mmol/L (137-145)
[2017-10-30] MEDS: MAG HYDROX/AL HYDROX/SIMETH 30 ML CUP PO PRN ×2 (10:13→18:20)
[2017-10-30] MEDS: LISINOPRIL 10 MG TAB PO SCH (10:14)
[2017-10-30] MEDS: MULTIVITAMINS, THERA 1 EACH TAB PO SCH (10:14)
[2017-10-30] MEDS: CIPROFLOXACIN HCL 500 MG TAB PO SCH ×2 (10:14→20:26)
[2017-10-30] MEDS: FAMOTIDINE 20 MG TAB PO SCH ×2 (10:14→20:26)
[2017-10-30] MEDS: PSYLLIUM HUSK 100% 6 GM PACKET PO SCH (10:14)
[2017-10-30] MEDS: ENOXAPARIN 40 MG/0.4 ML SYRINGE SQ SCH (10:15)
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
--- NOTE | 2017-10-30 11:57 | P.WNDSOAP ---
Subjective Progress Note Date: 10/30/17 Principal diagnosis: Nonhealing ulcers left lower extremity Patient is one day post left AKA. No specific complaints. Objective - Vital Signs Vital signs: Vital Signs Temp 97.5 F L 10/30/17 06:33 Pulse 80 10/30/17 06:33 Resp 18 10/30/17 06:33 BP 114/69 10/30/17 06:33 Pulse Ox 97 10/30/17 06:33 Intake & Output 10/29/17 10/30/17 10/30/17 18:59 06:59 18:59 Intake Total 1050 160 200 Output Total 2200 3200 Balance -1150 -3040 200 Weight 113.398 kg Intake: IV 850 Intake, IV Titration 160 Amount Lactated Ringers 1,000 ml 160 @ 20 mls/hr IV .Q24H [facility] Rx#:[id number] Oral 200 200 Output: Urine 2100 3200 Estimated Blood Loss 100 Other: Voiding Method Indwelling Catheter Indwelling Catheter # Bowel Movements 0 - Exam dressings clean and dry. - Labs CBC & Chem 7: 10/30/17 08:24 10/30/17 08:24 Labs: Abnormal Lab Results - Last 24 Hours (Table) 10/30/17 10/30/17 Range/Units 08:24 08:24 Hgb 11.5 L (13.0-17.5) gm/dL Hct 36.7 L (39.0-53.0) % RDW 15.9 H (11.5-15.5) % Glucose 107 H (74-99) mg/dL Assessment and Plan (1) Atherosclerosis of left lower extremity with ulceration of calf Current Visit: Yes Status: Acute Code(s): I70.242 - ATHSCL [place] ARTERIES OF LEFT LEG W ULCERATION OF CALF SNOMED Code(s): 51680669 Plan: Patient is recovering from his left AKA well. His major issues with discharge planning involved his mobility issues. Would change the dressings on a daily basis after tomorrow. Patient will follow up with Dr. Pratt in about a week.
[2017-10-30] MEDS: AMITRIPTYLINE HCL 50 MG TAB PO SCH (20:26)
[2017-10-31] MEDS: HYDROmorphone PCA 5 MG/25 ML SYRINGE IV PRN ×3 (05:34→18:52)
[2017-10-31] MEDS: LACTATED RINGERS 1,000 ML IV SCH ×2 (05:57)
[2017-10-31] MEDS: FAMOTIDINE 20 MG TAB PO SCH ×2 (10:15→21:55)
[2017-10-31] MEDS: CIPROFLOXACIN HCL 500 MG TAB PO SCH ×2 (10:16→21:25)
[2017-10-31] MEDS: LISINOPRIL 10 MG TAB PO SCH (10:16)
[2017-10-31] MEDS: ENOXAPARIN 40 MG/0.4 ML SYRINGE SQ SCH (10:16)
[2017-10-31] MEDS: MULTIVITAMINS, THERA 1 EACH TAB PO SCH (10:16)
[2017-10-31] MEDS: PSYLLIUM HUSK 100% 6 GM PACKET PO SCH (10:16)
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
--- NOTE | 2017-10-31 12:13 | P.PN ---
Progress Note - Text Progress Note Date: 10/31/17 Patient is evaluated today in follow-up care that is post amputation on the left. The patient indicates that his pain is relatively well controlled. Writer from [employer] was at the patient's bedside. Physical examination revealed the patient's vitals to be stable and patient afebrile. His hemoglobin is stable 11.7. Dressings are dry and intact. Impression: Satisfactory postoperative status. Plan: Dressings will be removed in 24 hours and wound evaluated at that time. Continue general supportive care.
[2017-10-31] MEDS: KETOROLAC 30 MG/ML 1 ML VIAL IVP SCH ×2 (14:13→18:56)
[2017-10-31] MEDS: BACLOFEN 10 MG TAB PO SCH ×3 (14:14→22:42)
[2017-10-31] MEDS: AMITRIPTYLINE HCL 50 MG TAB PO SCH (21:25)
--- NOTE | 2017-10-31 23:39 | P.PN ---
Subjective Progress Note Date: 10/31/17 57-year-old male presents to Hospital for the elective above-knee amputation to his left leg. The patient has a history of a spinal cord injury greater than 20 years ago and has had multiple complications, has had multiple flap graft procedures for pressure ulceration repair. Has been followed in the wound healing center for a right ischial pressure ulceration as well as chronic ulceration left lower extremity. The patient had the left lower extremity ulceration for quite some time and event seen by plastics in the past. Attempts were debridement and closure occurred and was not successful. The patient was sent for reevaluation by vascular surgery, evidence of severe peripheral vascular disease but no interventions were possible due to the physical limits to the limb. In consequently with a nonhealing ulceration in the significant negative impact on his health and above-knee amputation was advised. Goal would be to resolve the left limb ischemic issues. Then once he is healthy he would then be a candidate for a plastics closure of the right chronic ischial pressure ulceration likely will need a flap graft. The patient currently is postoperative and comfortable and is denying new difficulties to some pain at the amputation site. He does have chronic back pain that is bothering him a bit here in the postoperative time frame possibly from the operative table. 10/31/2017 patient still having pain postoperative but is having significant GERD and generalized malaise. Nursing without acute difficulties. Wound VAC needs to be changed. Objective - Vital Signs Vital signs: Vital Signs Temp 98.1 F 10/31/17 23:00 Pulse 70 10/31/17 23:00 Resp 18 10/31/17 23:00 BP 161/70 10/31/17 23:00 Pulse Ox 98 10/31/17 23:00 Intake & Output 10/31/17 10/31/17 11/01/17 06:59 18:59 06:59 Intake Total 3000 120 2400 Output Total 4000 4750 1000 Balance -1000 -4630 1400 Weight 113.398 kg Intake: Intake, IV Titration 120 Amount Lactated Ringers 1,000 ml 120 @ 20 mls/hr IV .Q24H [facility] Rx#:[id number] Oral 3000 2400 Output: Urine 4000 4750 1000 Other: Voiding Method Indwelling Catheter Indwelling Catheter Indwelling Catheter # Voids 0 # Bowel Movements 0 0 - Exam Pleasant 57-year-old male with spinal cord injury as postoperative bleeding that he is modestly comfortable HEENT: Anicteric conjunctiva are pink and moist nasal mucosa grossly intact without significant lesions, there is no thrush. Neck: The neck is supple without significant lymphadenopathy or thyromegaly. Lungs: Good bilateral air entry without significant crackles or wheezing. There is no significant bronchial sounds. There is no egophony or dullness. Heart: Regular rate and rhythm with an audible S1-S2, no S3 no S4. There is no significant murmur click or rub, PMI was nondisplaced. Abdomen: Positive bowel sounds soft and nontender without palpable masses or organomegaly. There was no guarding or rebound. Extremities: The upper extremities have excellent pulses they are symmetric, no significant petechiae or telangiectasia. No splinter hemorrhages were noted. PICC line right arm is without difficulty Left arm without difficulty. Dressing is in place in the left lower extremity from the [id number] amputation which is dry. Wound VAC in place on the right ischial pressure ulceration the VAC is changed. Please see nursing photography for the size and location of the right ischial pressure ulcer. Neuro: Awake alert oriented to person place and time. - Labs CBC & Chem 7: 10/30/17 08:24 10/30/17 08:24 Labs: Laboratory Results WBC 6.4 k/uL (3.8-10.6) 10/30/17 08:24 RBC 4.40 m/uL (4.30-5.90) 10/30/17 08:24 Hgb 11.5 gm/dL (13.0-17.5) L 10/30/17 08:24 Hct 36.7 % (39.0-53.0) L 10/30/17 08:24 MCV 83.4 fL (80.0-100.0) 10/30/17 08:24 MCH 26.0 pg (25.0-35.0) 10/30/17 08:24 MCHC 31.2 g/dL (31.0-37.0) 10/30/17 08:24 RDW 15.9 % (11.5-15.5) H 10/30/17 08:24 Plt Count 240 k/uL (150-450) 10/30/17 08:24 Neutrophils % 64 % 10/30/17 08:24 Lymphocytes % 27 % 10/30/17 08:24 Monocytes % 6 % 10/30/17 08:24 Eosinophils % 2 % 10/30/17 08:24 Basophils % 0 % 10/30/17 08:24 Neutrophils # 4.1 k/uL (1.3-7.7) 10/30/17 08:24 Lymphocytes # 1.7 k/uL (1.0-4.8) 10/30/17 08:24 Monocytes # 0.4 k/uL (0-1.0) 10/30/17 08:24 Eosinophils # 0.1 k/uL (0-0.7) 10/30/17 08:24 Basophils # 0.0 k/uL (0-0.2) 10/30/17 08:24 Hypochromasia Slight 10/30/17 08:24 Sodium 138 mmol/L (137-145) 10/30/17 08:24 Potassium 4.0 mmol/L (3.5-5.1) 10/30/17 08:24 Chloride 99 mmol/L (98-107) 10/30/17 08:24 Carbon Dioxide 27 mmol/L (22-30) 10/30/17 08:24 Anion Gap 12 mmol/L 10/30/17 08:24 BUN 16 mg/dL (9-20) 10/30/17 08:24 Creatinine 0.73 mg/dL (0.66-1.25) 10/30/17 08:24 Est GFR (CKD-EPI)AfAm >90 (>60 ml/min/1.73 sqM) 10/30/17 08:24 Est GFR (CKD-EPI)NonAf >90 (>60 ml/min/1.73 sqM) 10/30/17 08:24 Glucose 107 mg/dL (74-99) H 10/30/17 08:24 Calcium 8.9 mg/dL (8.4-10.2) 10/30/17 08:24 Assessment and Plan (1) Pressure ulcer of trochanteric region of right hip, stage 4 Narrative/Plan: Pleasant 57-year-old male who has a history of spinal cord injury has been following the wound healing center for the stage IV pressure ulceration to the right trochanteric area. The patient has been evaluated in the past by plastic surgery for nonhealing ulceration to the left lower extremity. He became evident this area was nonhealing as was the right trochanteric ulcer. The patient was sent for vascular evaluation was determined that he had chronic ischemic ulceration of the left lower extremity and there was no ability for any type of bypass given his anatomic abnormalities. Consequently he has remitted to a left [id number] amputation to improve his overall health and allow him to proceed to a plastics flap and graft to the right trochanteric area stage IV pressure ulceration. The patient's postoperative and doing relatively well without acute complaints except for some postoperative pain. Will continue the wound VAC with hospital-based equipment with the settings of 150 mmHg, continuous, medium intensity to be changed every Saturday and Saturday. Wound VAC is changed today without great difficulties. Significant GERD is occurring and will change him to IV Protonix, for severe muscle spasms baclofen is added. 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
[2017-11-01] MEDS: PANTOPRAZOLE 40 MG/10 ML VIAL IVP SCH ×3 (00:24→22:17)
[2017-11-01] MEDS: KETOROLAC 30 MG/ML 1 ML VIAL IVP SCH ×5 (00:28→23:48)
[2017-11-01] MEDS: HYDROmorphone PCA 5 MG/25 ML SYRINGE IV PRN ×3 (02:27→18:35)
[2017-11-01] MEDS: LACTATED RINGERS 1,000 ML IV SCH ×2 (05:33→05:50)
[2017-11-01] MEDS: LISINOPRIL 10 MG TAB PO SCH (06:42)
[2017-11-01] MEDS: BACLOFEN 10 MG TAB PO SCH ×4 (08:01→22:26)
[2017-11-01] MEDS: CIPROFLOXACIN HCL 500 MG TAB PO SCH ×2 (08:01→22:16)
[2017-11-01] MEDS: ENOXAPARIN 40 MG/0.4 ML SYRINGE SQ SCH (08:01)
[2017-11-01] MEDS: PSYLLIUM HUSK 100% 6 GM PACKET PO SCH (08:03)
[2017-11-01] MEDS: MULTIVITAMINS, THERA 1 EACH TAB PO SCH (11:37)
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
[2017-11-01] MEDS: AMITRIPTYLINE HCL 50 MG TAB PO SCH (22:16)
[2017-11-02] MEDS: HYDROmorphone PCA 5 MG/25 ML SYRINGE IV PRN ×2 (00:24→12:13)
[2017-11-02] MEDS: LACTATED RINGERS 1,000 ML IV SCH (05:26)
[2017-11-02] MEDS: KETOROLAC 30 MG/ML 1 ML VIAL IVP SCH ×2 (06:07→12:26)
[2017-11-02] MEDS: PANTOPRAZOLE 40 MG/10 ML VIAL IVP SCH (08:17)
[2017-11-02] MEDS: BACLOFEN 10 MG TAB PO SCH ×2 (08:17→12:16)
[2017-11-02] MEDS: ENOXAPARIN 40 MG/0.4 ML SYRINGE SQ SCH (08:18)
[2017-11-02] MEDS: MULTIVITAMINS, THERA 1 EACH TAB PO SCH (08:18)
[2017-11-02] MEDS: CIPROFLOXACIN HCL 500 MG TAB PO SCH (08:18)
[2017-11-02] MEDS: LISINOPRIL 10 MG TAB PO SCH (08:18)
[2017-11-02] MEDS: PSYLLIUM HUSK 100% 6 GM PACKET PO SCH (08:24)
[2017-11-02 09:06] VITALS: RESP 16
--- NOTE | 2017-11-02 15:36 | P.PN ---
Subjective Progress Note Date: 11/02/17 Principal diagnosis: Refractory ulcerations left leg Patient has no complaints today in regards to his surgical status. Patient utilizing his COMMUTER TRAIN OPERATOR. Objective - Vital Signs Vital signs: Vital Signs Temp 97.9 F 11/02/17 08:30 Pulse 64 11/02/17 08:30 Resp 16 11/02/17 08:30 BP 150/75 11/02/17 08:30 Pulse Ox 95 11/02/17 08:30 Intake & Output 11/01/17 11/02/17 11/02/17 18:59 06:59 18:59 Intake Total 4080 Output Total 3525 3000 Balance 555 -3000 Intake: Oral 4080 Output: Urine 3525 3000 Other: # Bowel Movements 0 - Exam Stump is clean, dry, with no discoloration or wound edge problems. 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 Pain control still an issue. Patient will be discharged. He is given wound care instructions. Medicine will handle his medications including pain medications. He will see Dr. Pratt in a week.
[2017-11-02 15:38] VITALS: BP 158/80; PULSE 71; TEMP 97.7
--- NOTE | 2017-11-07 10:34 | CDI ---
Last Revision, January 2017 Documentation Clarification Form Date: 11/07/17 From: Katarina Shaji Radha Cintron, Extrusion Bender Hours-8:30 am & 5 pm Boy Admit Date: 10/29/2017 5:46:00 AM Patient Name: Adriel Bush Visit Number: [id number] Discharge Date: 11/02/17 ATTENTION: The Clinical Documentation Specialists (CDI) and [facility] Coding Staff appreciate your assistance in clarifying documentation. Please respond to the clarification below the line at the bottom and electronically sign. The CDI & [facility] Coding staff will review the response and follow-up if needed. Please note: Queries are made part of the Legal Health Record. If you have any questions, please contact the author of this message via ITS. Maged Luna, DO Documentation in the Operative Report states left above-knee amputation. History/Risk factors: paralysis, contractures Pre-Operative Diagnosis: atherosclerosis of peripheral arteries of left leg with ulcer Postoperative Diagnosis: atherosclerosis of peripheral arteries of left leg with ulcer In order to capture the severity of condition, please specify the detachment level: High (proximal) Low (distal) Mid Please continue to document in your progress notes and discharge summary in order to capture severity of illness and risk of mortality. Include clinical findings that support your diagnosis. ___Distal femur MTDD
== END 2017-11-02 17:15 | disposition home health service (06) | DRG 239 ==
LOC: 2ORMAIN 05:46 → 4MS4W 09:01
PROVIDERS: ADMIT Surgery; ATTEND Surgery
PROC: 0Y6D0Z3 Detachment at Left Upper Leg, Low, Open Approach (ICD-10-PCS; principal; 2017-10-29 07:30)
DX: I70.242 Atherosclerosis of native arteries of left leg with ulceration of calf (principal); L89.894 Pressure ulcer of other site, stage 4; L89.314 Pressure ulcer of right buttock, stage 4; G82.20 Paraplegia, unspecified; I99.8 Other disorder of circulatory system; M54.9 Dorsalgia, unspecified; M62.838 Other muscle spasm; M62.462 Contracture of muscle, left lower leg; M62.461 Contracture of muscle, right lower leg; K21.9 Gastro-esophageal reflux disease without esophagitis; Z93.6 Other artificial openings of urinary tract status; Z99.3 Dependence on wheelchair; G89.29 Other chronic pain; Z79.899 Other long term (current) drug therapy; Z87.440 Personal history of urinary (tract) infections; Z86.14 Personal history of Methicillin resistant Staphylococcus aureus infection; Z87.891 Personal history of nicotine dependence; Z87.01 Personal history of pneumonia (recurrent); Z74.01 Bed confinement status; Z80.8 Family history of malignant neoplasm of other organs or systems
CPT/HCPCS: 80048; 85025; 93005

== ENCOUNTER → 2017-11-19 | Outpatient (CLI) | payer OTHER ==
--- NOTE | 2017-11-20 00:56 | XR ---
EXAMINATION TYPE: XR spine complete AP and Lat DATE OF EXAM: 11/19/2017 COMPARISON: NONE HISTORY: 57-year-old male with pelvic and back pain TECHNIQUE: 10 views FINDINGS: Cervical spine: Bulky bridging anterior endplate spondylosis mid and lower cervical spine. No predental space widenin g or prevertebral soft tissue swelling. Preserved alignment of the cervical spine. Hypertrophic facet and uncovertebral joint arthropathy is present throughout. Normal odontoid view. Thoracic spine: Bridging anterior endplate spondylosis throughout. Vertebral body heights are preserved and alignment is maintained. There is posterior fusion hardware from T12 through S1 levels and additional vertical stabilization r od and laminar hook extending up to the T9 level on the right. Lumbar spine: There is accentuated kyphosis at the thoracolumbar junction and large bulky anterior endplate osteoph yte at L3-L4. Vertebral body heights appear maintained and overall alignment is preserved. IMPRESSION: 1. Bulky bridging anterior endplate spondylosis throughout suggesting DISH. 2. No malalignment or vertebral compression collapsing. 3. Posterior fusion hardware from T12 through S1 levels and additional right-sided vertical stabiliza tion rods and laminar hooks extending up to T9. 4. Accentuated kyphosis at the thoracolumbar junction.
== END | disposition home or self-care (01) ==
LOC: RADXRMAIN 14:57
PROVIDERS: ATTEND Internal Medicine Infectious Disease
DX: M47.814 Spondylosis without myelopathy or radiculopathy, thoracic region (principal); M40.295 Other kyphosis, thoracolumbar region; Z98.1 Arthrodesis status
CPT/HCPCS: 72082

== ENCOUNTER → 2019-08-28 | Outpatient (CLI) | payer MEDICARE ==
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
--- NOTE | 2019-08-29 07:43 | NM ---
EXAMINATION TYPE: NM bone 3 phase DATE OF EXAM: 08/28/2019 COMPARISON: 06/10/2017 HISTORY: L89.3 pressure ulcer l buttocks Triple phase bone scintigraphy was performed following the injection of 21.2 mCi Tc 99m MDP. Immedia te images and 3.5 hours post injection images acquired. FINDINGS: There is increased radiotracer accumulation involving the left inferior pubic ramus near the ischium. This is nonspecific and could be posttraumatic in nature however underlying osteomyelitis is not exc luded. Consider WBC scan for further evaluation. Otherwise there is normal uptake about the sacroilia c joints. Mild degenerative uptake right hip. IMPRESSION: There is increased radiotracer accumulation involving the left inferior pubic ramus near the ischium. This is nonspecific and could be posttraumatic in nature however underlying osteomyelitis is not exc luded. Consider WBC scan for further evaluation.
== END | disposition home or self-care (01) ==
LOC: RADNMMAIN 10:42
PROVIDERS: ATTEND Family Medicine
DX: L89.329 Pressure ulcer of left buttock, unspecified stage (principal)
CPT/HCPCS: 78315; A9503

== ENCOUNTER → 2020-01-28 | Outpatient (CLI) | payer MEDICARE, BC ==
[~2020-01-28] MED LIST changes: -DEXAMETHASONE SOD PHOSPHATE 10 MG/ML 1 ML VIAL IV ONE; -ONDANSETRON 4 MG/2 ML VIAL IVP ONE; +REGADENOSON 0.4 MG/5 ML SYRINGE IV ONE; -ceFAZolin IN SWFI 2 GM/20 ML SYRINGE IVP ONE
--- NOTE | 2020-01-28 15:00 | ECHOF ---
Referral Reason:R07.9 MEASUREMENTS -------- HEIGHT: 182.9 cm WEIGHT: 108.9 kg BP: RVIDd: 2.8 cm (< 3.3) IVSd: 1.2 cm (0.6 - 1.1) LVIDd: 4.8 cm (3.9 - 5.3) LVPWd: 1.6 cm (0.6 - 1.1) IVSs: 1.7 cm LVIDs: 4.0 cm LVPWs: 1.7 cm MV EXCURSION: 18.547 mm (> 18.000) MV EF SLOPE: 82 mm/s (70 - 150) EPSS: 0.5 cm MV E Michael: 0.42 m/s MV DecT: 186 ms MV A Michael: 0.57 m/s MV E/A Ratio: 0.73 RAP: 5.00 mmHg RVSP: 12.23 mmHg FINDINGS -------- Sinus rhythm. This was a techncally difficult study with suboptimal views, , Lumason utilized for enhancement of im ages. The left ventricular size is normal. There is mild concentric left ventricular hypertrophy. Overa ll left ventricular systolic function is low-normal with, an EF between 50 - 55 %. The right ventricle is normal in size. The left atrial size is normal. The right atrial size is normal. The aortic valve was not well visualized. Mild mitral regurgitation is present. Mild tricuspid regurgitation present. Right ventricular systolic pressure is normal at < 35 mmHg. The pulmonic valve was not well visualized. The aortic root size is normal. Echo free space represents a pericardial fat pad. CONCLUSIONS -------- 1. This was a techncally difficult study with suboptimal views, , Lumason utilized for enhancement of images. 2. The left ventricular size is normal. 3. There is mild concentric left ventricular hypertrophy. 4. Overall left ventricular systolic function is low-normal with, an EF between 50 - 55 %. 5. The right ventricle is normal in size. 6. The left atrial size is normal. 7. The right atrial size is normal. 8. The aortic valve was not well visualized. 9. Mild mitral regurgitation is present. 10. Mild tricuspid regurgitation present. 11. The pulmonic valve was not well visualized. 12. The aortic root size is normal. 13. Echo free space represents a pericardial fat pad. [employer]ER: Sandy Woods RDCS
== END | disposition home or self-care (01) ==
LOC: RADNMMAIN 10:02
PROVIDERS: ATTEND Family Medicine
DX: I08.1 Rheumatic disorders of both mitral and tricuspid valves (principal)
CPT/HCPCS: C8929; Q9950; 93306

== ENCOUNTER → 2020-02-04 | Outpatient (CLI) | payer MEDICARE, BC ==
[~2020-02-04] MED LIST changes: +DOBUTamine DRIP for NUC MED 500 MG in DEXTROSE/WATER 1 250ML.BAG IV ONE; -REGADENOSON 0.4 MG/5 ML SYRINGE IV ONE
--- NOTE | 2020-02-04 13:32 | P.STRESS ---
- Stress Test Note Stress Test Results/Findings: Exam Performed: dobutamine stress echo with con Exam Date: 02/04/20 Reason for Exam: CP Height: 6 ft 4 in Weight: 109 kg Protocol: DOBUTAMINE STRESS ECHO WITH LUMASON Stage: 30 ug Duration of Exercise: 9:15 Resting Heart Rate: 68 Resting Blood Pressure: 149/82 Maximum Achieved Heart Rate: 141 Maximum Achieved Blood Pressure: 172/69 85% PMHR: 136 100% PMHR: 160 METS: na Technologist Comment: Stress Test Results/Findings: Patient underwent dobutamine stress echo with infusion of dobutamine into Stage 3 for a total of 9 minutes 15 seconds. Patient's maximum heart rate was 141 which represented 88 % age-predicted maximum heart rate. Stress EKG portion: At baseline patient's EKG showed normal sinus rhythm, normal axis, no significant ST or T-wave abnormalities. At peak dobutamine infusion, EKG showed 1 mm flat to downslopping ST depressions in the inferior and lateral leads sugge stive of ischemia. Stress echo portion: 2-D echocardiogram was performed in the parasternal long, personal short, apical 2 and apical four-chamber views at rest, low-dose, peak infusion and in recove ry. At baseline, echocardiogram showed left ventricular ejection fraction 60% without wall motion abnormalities. With peak infusion, echocardiogram shows improvement in left ventricular ejection fraction, increase contractility, decrease in left ventricular dimension without wall motion abnormalities consistent with a normal response to dobutamine. Conclusions: 1. Abnormal stress EKG portion of dobutamine stress test with 1mm downslopping ST depressions suggestive of ischemia. There was normal echo response to dobutamine and therefore EKG findings may be a false positive result from dobut amine infusion. Clinical correlation recommended.
--- NOTE | 2020-02-05 08:30 | ECHOS ---
Stress Test Results/Findings: Exam Performed: dobutamine stress echo with con Exam Date: 02/04/20 Reason for Exam: CP Height: 6 ft 4 in Weight: 109 kg Protocol: DOBUTAMINE STRESS ECHO WITH LUMASON Stage: 30 ug Duration of Exercise: 9:15 Resting Heart Rate: 68 Resting Blood Pressure: 149/82 Maximum Achieved Heart Rate: 141 Maximum Achieved Blood Pressure: 172/69 85% PMHR: 136 100% PMHR: 160 METS: na Technologist Comment: Stress Test Results/Findings: Patient underwent dobutamine stress echo with infusion of dobutamine into Stage 3 for a total of 9 minutes 15 seconds. Patient's maximum heart rate was 141 which represented 88 % age-predicted maximum heart rate. Stress EKG portion: At baseline patient's EKG showed normal sinus rhythm, normal axis, no significant ST or T-wave abnormalities. At peak dobutamine infusion, EKG showed 1 mm flat to downslopping ST depressions in the inferior and lateral leads suggestive of ischemia. Stress echo portion: 2-D echocardiogram was performed in the parasternal long, personal short, apical 2 and apical four-chamber views at rest, low-dose, peak infusion and in recovery. At baseline, echocardiogram showed left ventricular ejection fraction 60% without wall motion abnormalities. With peak infusion, echocardiogram shows improvement in left ventricular ejection fraction, increase contractility, decrease in left ventricular dimension without wall motion abnormalities consistent with a normal response to dobutamine. Conclusions: 1. Abnormal stress EKG portion of dobutamine stress test with 1mm downslopping ST depressions suggestive of ischemia. There was normal echo response to dobutamine and therefore EKG findings may be a false positive result from dobutamine infusion. Clinical correlation recommended. [facility]
== END | disposition home or self-care (01) ==
LOC: RADNMMAIN 10:41
PROVIDERS: ATTEND Family Medicine
DX: R94.31 Abnormal electrocardiogram [ECG] [EKG] (principal)
CPT/HCPCS: C8930; J1250; Q9950; 93351

== ENCOUNTER → 2021-01-03 | Outpatient (CLI) | payer OTHER ==
--- NOTE | 2021-01-03 13:41 | XR ---
EXAMINATION TYPE: XR abdomen 1V DATE OF EXAM: 01/03/2021 1:00 PM CLINICAL HISTORY: Constipation for 9 days. TECHNIQUE: Two supine KUB images of the abdomen are obtained. COMPARISON: CT abdomen and pelvis June 09, 2017. FINDINGS: Persistent long segment postsurgical change from the lower thoracic spine into the sacrum e xtending through sacroiliac joints. Scattered gas seen in nondistended small and large bowel loops. S venkatesh prominent small bowel loop right lower quadrant. Surgical sutures right lower quadrant and pelv is redemonstrated. [place] osseous structures are demineralized with chronic deformities to the bilate ral hip joints. There is prominent adjacent left sided soft tissue calcification redemonstrated. Ther e is additional linear calcification left upper quadrant corresponding to posterior subcutaneous calc ification on prior CT. Lung bases remain clear. No significant colonic fecal prominence IMPRESSION: Overall nonspecific favor nonobstructive bowel gas pattern.
== END | disposition home or self-care (01) ==
LOC: RADXRMAIN 12:38
PROVIDERS: ATTEND Family Medicine
DX: K59.00 Constipation, unspecified (principal)
CPT/HCPCS: 74018

== ENCOUNTER → 2021-06-15 | Outpatient (CLI) | payer OTHER ==
--- NOTE | 2021-06-15 12:43 | XR ---
EXAMINATION TYPE: XR abdomen 2V DATE OF EXAM: 06/15/2021 CLINICAL HISTORY: Constipation. TECHNIQUE: Supine and upright views of the abdomen are obtained. COMPARISON: CT abdomen and pelvis June 09, 2017. Abdominal x-ray January 03, 2021 FINDINGS: Long segment [place] rods are redemonstrated extending into the pelvis. Some paucity of small bowel gas. Scattered gas and fecal material in slightly prominent colonic loops. Moderate promi nence in the right lower quadrant. Cardiomegaly is present. Lung bases are clear. No free air. Advanc ed degenerative change bilateral hip joints redemonstrated. IMPRESSION: Overall nonspecific favor nonobstructive bowel gas pattern. Moderate proximal colonic fe mikey stasis noted.
== END | disposition home or self-care (01) ==
LOC: RADXRMAIN 12:05
PROVIDERS: ATTEND Family Medicine
DX: K59.89 Other specified functional intestinal disorders (principal)
CPT/HCPCS: 74019

== ENCOUNTER 2022-11-26 12:15 | Inpatient (IN) | payer MEDICARE, BC ==
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
[2022-11-26 14:01] LABS: Basophils % (A) 0 %; Eosinophils # (A) 0.1 k/uL (0-0.7); Eosinophils % (A) 1 %; HCT 37.7 % (39.0-53.0); HGB 13.1 gm/dL (13.0-17.5); Lymphocytes # (A) 0.9 k/uL (1.0-4.8); Lymphocytes % (A) 8 %; MCH 31.4 pg (25.0-35.0); MCHC 34.7 g/dL (31.0-37.0); MCV 90.3 fL (80.0-100.0); Mean Platelet Volume 7.5; Monocytes # (A) 0.4 k/uL (0-1.0); Monocytes % (A) 3 %; Neutrophils # (A) 9.9 k/uL (1.3-7.7); Neutrophils % (A) 87 %; Platelet Count 355 k/uL (150-450); RBC 4.18 m/uL (4.30-5.90); RDW 12.6 % (11.5-15.5); WBC 11.4 k/uL (3.8-10.6)
[2022-11-26 14:12] LABS: ALT 9 U/L (4-49); AST 16 U/L (17-59); African American GFR (CKD) >90 (>60 ml/min/1.73 sqM); Albumin 3.4 g/dL (3.5-5.0); Alkaline Phosphatase 79 U/L (38-126); Anion Gap 12 mmol/L; Blood Urea Nitrogen 10 mg/dL (9-20); Calcium 9.1 mg/dL (8.4-10.2); Carbon Dioxide 25 mmol/L (22-30); Chloride 91 mmol/L (98-107); Glucose 74 mg/dL (74-99); Non-African American GFR(CKD) >90 (>60 ml/min/1.73 sqM); Potassium 4.3 mmol/L (3.5-5.1); Sodium 128 mmol/L (137-145); Total Bilirubin 0.3 mg/dL (0.2-1.3); Total Protein 6.7 g/dL (6.3-8.2)
[2022-11-26 14:19] LABS: Amorphous Sediment,Urine Rare /hpf; Appearance,Urine Turbid (Clear); Bacteria,Urine Moderate /hpf; Bilirubin,Urine Negative (Negative); Blood,Urine Large (Negative); Color,Urine Light Yellow; Glucose,Urine (UA) Negative (Negative); Ketones,Urine Negative (Negative); Leukocyte Esterase,Urine Large (Negative); Nitrite,Urine Positive (Negative); Protein,Urine 1+ (Negative); RBC,Urine 34 /hpf (0-5); Specific Gravity,Urine 1.009 (1.001-1.035); Urobilinogen,Urine <2.0 mg/dL (<2.0); WBC,Urine >182 /hpf (0-5)
[2022-11-26] MEDS ORDERED: VANCOMYCIN IV PER PHARMACY 1 EACH MISC MISCELLANE PRN (17:28)
[2022-11-26] MEDS ORDERED: ACETAMINOPHEN TAB 325 MG TAB PO PRN (17:34)
[2022-11-26] MEDS ORDERED: IBUPROFEN 400 MG TAB PO PRN (17:34)
[2022-11-26] MEDS ORDERED: NALOXONE 0.4 MG/ML 1 ML VIAL IV PRN (17:34)
[2022-11-26] MEDS ORDERED: VANCOMYCIN 1,750 MG in SODIUM CHLORIDE 0.9% 500 ML 500 ML IVPB ONE (18:00)
[2022-11-26] MEDS: SODIUM CHLORIDE 0.9% 1,000 ML IV SCH (18:20)
[2022-11-26] MEDS ORDERED: HYDROcodone/APAP 10-325MG 1 EACH TAB PO PRN (19:20)
[2022-11-26] MEDS: HYDROcodone/APAP 10-325MG 1 EACH TAB PO SCH (23:33)
[2022-11-27] MEDS: VANCOMYCIN 1,750 MG in SODIUM CHLORIDE 0.9% 500 ML 500 ML IVPB SCH ×3 (02:42→23:00)
[2022-11-27] MEDS: HYDROcodone/APAP 10-325MG 1 EACH TAB PO SCH ×3 (08:44→20:43)
[2022-11-27 08:58] LABS: Basophils # (A) 0.02 X 10*3/uL (0.00-0.10); Basophils % (A) 0.3 %; Eosinophils # (A) 0.06 X 10*3/uL (0.04-0.35); Eosinophils % (A) 0.8 %; HCT 38.1 % (39.6-50.0); HGB 12.6 d/dL (13.0-17.0); Lymphocytes # (A) 0.97 X 10*3/uL (0.90-5.00); Lymphocytes % (A) 12.8 %; MCH 30.6 pg (27.0-32.0); MCHC 33.1 d/dL (32.0-37.0); MCV 92.5 FL (80.0-97.0); Monocytes # (A) 0.39 X 10*3/uL (0.20-1.00); Monocytes % (A) 5.2 %; NRBC Per 100 WBC 0 X 10*3/uL (0.00-0.01); Neutrophils # (A) 6.06 X 10*3/uL (1.80-7.70); Neutrophils % (A) 80.1 %; Platelet Count 312 X 10*3/uL (140-440); RBC 4.12 X 10*6/uL (4.40-5.60); RDW 12.3 % (11.5-14.5); WBC 7.56 X 10*3/uL (4.50-10.00)
[2022-11-27] MEDS ORDERED: BACLOFEN 10 MG TAB PO PRN (09:00)
[2022-11-27] MEDS ORDERED: HYDROcodone/APAP 10-325MG 1 EACH TAB PO SCH (09:00)
[2022-11-27 09:30] LABS: ALT 9 U/L (10-49); AST 11 U/L (14-35); Albumin 3.4 d/dL (3.8-4.9); Alkaline Phosphatase 83 U/L (41-126); BUN/Creat Ratio 13.12 Ratio (12.00-20.00); Blood Urea Nitrogen 10.5 mg/dL (9.0-27.0); Calcium 8.4 mg/dL (8.7-10.3); Carbon Dioxide 26.2 mmol/L (21.6-31.8); Chloride 94 mmol/L (96-109); Globulin 3.1 d/dL (1.6-3.3); Glucose 82 mg/dL (70-110); Potassium 4.2 mmol/L (3.5-5.5); Sodium 135 mmol/L (135-145); Total Bilirubin <0.2 mg/dL (0.3-1.2); Total Protein 6.5 d/dL (6.2-8.2)
[2022-11-27] MEDS: diazePAM 5 MG TAB PO SCH ×4 (11:19→20:43)
[2022-11-27] MEDS ORDERED: PANTOPRAZOLE 40 MG/10 ML VIAL IVP SCH (12:45)
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
[2022-11-27] MEDS ORDERED: VANCOMYCIN TROUGH DUE 1 EACH MISC MISCELLANE ONE (18:00)
[2022-11-27] MEDS: PANTOPRAZOLE 40 MG TABLET PO SCH (18:22)
[2022-11-27] MEDS: SODIUM CHLORIDE 0.9% 1,000 ML IV SCH (18:25)
[2022-11-28] MEDS: SODIUM CHLORIDE 0.9% 1,000 ML IV SCH ×3 (03:05→14:10)
[2022-11-28] MEDS ORDERED: VANCOMYCIN TROUGH DUE 1 EACH MISC MISCELLANE ONE (07:00)
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
[2022-11-28 07:29] LABS: African American GFR (CKD) >90 (>60 ml/min/1.73 sqM); Non-African American GFR(CKD) >90 (>60 ml/min/1.73 sqM)
[2022-11-28] MEDS: VANCOMYCIN 1,750 MG in SODIUM CHLORIDE 0.9% 500 ML 500 ML IVPB SCH (08:19)
[2022-11-28] MEDS: PANTOPRAZOLE 40 MG TABLET PO SCH (08:22)
[2022-11-28] MEDS: diazePAM 5 MG TAB PO SCH ×4 (08:23→21:09)
[2022-11-28] MEDS: HYDROcodone/APAP 10-325MG 1 EACH TAB PO SCH ×3 (08:23→21:09)
[2022-11-28 12:10] LABS: African American GFR (CKD) >90 (>60 ml/min/1.73 sqM); Anion Gap 13 mmol/L; Blood Urea Nitrogen 7 mg/dL (9-20); Calcium 8.3 mg/dL (8.4-10.2); Carbon Dioxide 17 mmol/L (22-30); Chloride 106 mmol/L (98-107); Glucose 92 mg/dL (74-99); Non-African American GFR(CKD) >90 (>60 ml/min/1.73 sqM); Sodium 136 mmol/L (137-145)
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
[2022-11-28 12:53] LABS: HCT 36.9 % (39.0-53.0); HGB 12.1 gm/dL (13.0-17.5); MCH 30.9 pg (25.0-35.0); MCHC 32.8 g/dL (31.0-37.0); MCV 94.1 fL (80.0-100.0); Platelet Count 373 k/uL (150-450); RBC 3.93 m/uL (4.30-5.90); RDW 12.6 % (11.5-15.5); WBC 5.7 k/uL (3.8-10.6)
[2022-11-28 13:08] VITALS: BMI 29.2
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
[2022-11-28] MEDS: VANCOMYCIN 1,500 MG in SODIUM CHLORIDE 0.9% 500 ML 500 ML IVPB SCH (18:58)
[2022-11-29] MEDS: VANCOMYCIN 1,500 MG in SODIUM CHLORIDE 0.9% 500 ML 500 ML IVPB SCH ×2 (01:52→09:23)
[2022-11-29 07:33] LABS: Basophils % (A) 0 %; Eosinophils # (A) 0.1 k/uL (0-0.7); Eosinophils % (A) 2 %; HCT 45.9 % (39.0-53.0); Lymphocytes # (A) 1.1 k/uL (1.0-4.8); Lymphocytes % (A) 19 %; MCH 30.8 pg (25.0-35.0); MCHC 32.8 g/dL (31.0-37.0); MCV 94.1 fL (80.0-100.0); Mean Platelet Volume 7.7; Monocytes # (A) 0.4 k/uL (0-1.0); Monocytes % (A) 6 %; Neutrophils % (A) 71 %; Platelet Count 372 k/uL (150-450); RBC 4.87 m/uL (4.30-5.90); RDW 12.5 % (11.5-15.5); WBC 5.6 k/uL (3.8-10.6)
[2022-11-29 08:03] LABS: African American GFR (CKD) >90 (>60 ml/min/1.73 sqM); Anion Gap 8 mmol/L; Blood Urea Nitrogen 6 mg/dL (9-20); Calcium 8.3 mg/dL (8.4-10.2); Carbon Dioxide 26 mmol/L (22-30); Chloride 102 mmol/L (98-107); Glucose 96 mg/dL (74-99); Non-African American GFR(CKD) >90 (>60 ml/min/1.73 sqM); Potassium 4.2 mmol/L (3.5-5.1); Sodium 136 mmol/L (137-145)
[2022-11-29] MEDS: HYDROcodone/APAP 10-325MG 1 EACH TAB PO SCH ×3 (08:06→21:23)
[2022-11-29] MEDS: PANTOPRAZOLE 40 MG TABLET PO SCH (08:08)
[2022-11-29] MEDS: diazePAM 5 MG TAB PO SCH ×4 (08:08→21:24)
[2022-11-29] MEDS ORDERED: NON FORMULARY DRUG (Baclofen [Lioresal] 20 MG Tablet) PO PRN (11:57)
[2022-11-29] MEDS: SODIUM CHLORIDE 0.9% 1,000 ML IV SCH ×2 (12:48→13:52)
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
[2022-11-29] MEDS: ERTAPENEM 1 GM in SODIUM CHLORIDE 0.9% 50 ML IVPB SCH (18:27)
[2022-11-30] MEDS: ERTAPENEM 1 GM in SODIUM CHLORIDE 0.9% 50 ML IVPB SCH (08:24)
[2022-11-30] MEDS: HYDROcodone/APAP 10-325MG 1 EACH TAB PO SCH (08:25)
[2022-11-30] MEDS: PANTOPRAZOLE 40 MG TABLET PO SCH (08:26)
[2022-11-30] MEDS: diazePAM 5 MG TAB PO SCH ×2 (08:26→12:47)
[2022-11-30 08:41] LABS: African American GFR (CKD) >90 (>60 ml/min/1.73 sqM); Anion Gap 11 mmol/L; Blood Urea Nitrogen 6 mg/dL (9-20); Calcium 8.4 mg/dL (8.4-10.2); Carbon Dioxide 25 mmol/L (22-30); Chloride 99 mmol/L (98-107); Glucose 90 mg/dL (74-99); Non-African American GFR(CKD) >90 (>60 ml/min/1.73 sqM); Potassium 4.1 mmol/L (3.5-5.1); Sodium 135 mmol/L (137-145)
[2022-11-30] MEDS ORDERED: VANCOMYCIN TROUGH DUE 1 EACH MISC MISCELLANE ONE (09:00)
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
[2022-11-30 12:50] VITALS: BP 148/80; PULSE 68; RESP 20; TEMP 98.8
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
== END 2022-11-30 13:58 | disposition home health service (06) | DRG 690 ==
LOC: EC 12:15 → 5NMEDONC 17:35
PROVIDERS: ADMIT Family Medicine; ATTEND Family Medicine
DX: N39.0 Urinary tract infection, site not specified (principal); G82.20 Paraplegia, unspecified; E87.1 Hypo-osmolality and hyponatremia; Z16.12 Extended spectrum beta lactamase (ESBL) resistance; I11.9 Hypertensive heart disease without heart failure; E86.1 Hypovolemia; G89.29 Other chronic pain; S30.810A Abrasion of lower back and pelvis, initial encounter; B96.20 Unspecified Escherichia coli [E. coli] as the cause of diseases classified elsewhere; B96.1 Klebsiella pneumoniae [K. pneumoniae] as the cause of diseases classified elsewhere; Z89.612 Acquired absence of left leg above knee; Z93.6 Other artificial openings of urinary tract status; T14.8XXS Other injury of unspecified body region, sequela; Z87.440 Personal history of urinary (tract) infections; Z79.899 Other long term (current) drug therapy; Z99.3 Dependence on wheelchair; Z86.14 Personal history of Methicillin resistant Staphylococcus aureus infection; Z74.01 Bed confinement status; Z87.39 Personal history of other diseases of the musculoskeletal system and connective tissue; Z87.891 Personal history of nicotine dependence
CPT/HCPCS: 36410; 36415; 76937; 80048; 80053; 80202; 81001; 82565; 83605; 85025; 85027; 87040; 87077; 87086; 87186; 96365; 96366; 96367; 96375; 99285

== ENCOUNTER 2024-01-08 05:50 | Emergency (ER) | payer OTHER, BC, MEDICARE ==
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
[2024-01-08 06:35] VITALS: BP 109/52; TEMP 100.7
[2024-01-08] MEDS: ACETAMINOPHEN TAB 500 MG TAB PO STA (07:04)
[2024-01-08 07:13] LABS: Appearance,Urine Turbid (Clear); Bacteria,Urine Few /hpf; Bilirubin,Urine Negative (Negative); Blood,Urine Moderate (Negative); Color,Urine Colorless; Glucose,Urine (UA) Negative (Negative); Ketones,Urine Negative (Negative); Leukocyte Esterase,Urine Large (Negative); Nitrite,Urine Positive (Negative); PH, Urine 6.5 (5.0-8.0); Protein,Urine 1+ (Negative); RBC,Urine 151 /hpf (0-5); Specific Gravity,Urine 1.011 (1.001-1.035); Urobilinogen,Urine <2.0 mg/dL (<2.0); WBC,Urine >182 /hpf (0-5)
--- NOTE | 2024-01-08 08:22 | XR ---
EXAMINATION TYPE: XR lumbar spine 2 or 3V DATE OF EXAM: 01/08/2024 8:16 AM COMPARISON: None. CLINICAL INDICATION: Male, 63 years old with history of pain from Fall, TECHNIQUE: 3 views obtained FINDINGS: Durand rods noted to be in place. Extensive changes of fusion. Curvature noted convex t o the left. No fracture or malalignment. IMPRESSION: No acute fracture or dislocation is seen in the lumbar spine.ICD 10 NO FRACTURE, INITIAL EVALUATION [facility], , 01/08/2024 8:20 AM
--- NOTE | 2024-01-08 08:25 | CT ---
EXAMINATION TYPE: CT brain cspine wo con DATE OF EXAM: 01/08/2024 8:14 AM COMPARISON: Nonee. CLINICAL INDICATION: Male, 63 years old with history of Fall; pain TECHNIQUE: Brain: Multiple axial CT images of the brain were obtained without IV contrast. Cspine: Axial CT images from the skull base to the inferior aspect of T2 we obtained without intraven ous contrast. Coronal and sagittal reformatted images were also reviewed. . CT DLP: 1626 mGycm, Automated exposure control for dose reduction was used. FINDINGS: Brain: Extra-axial spaces: No abnormal extra-axial fluid collections. Ventricular system: Within normal limits Cerebral parenchyma: Area of moreno-white matter loss of differentiation series 201 image 42 Cerebral a trophy. No acute intraparenchymal hemorrhage or mass effect. The moreno-white junction is well differe ntiated. Scattered hypoattenuating areas are seen within the white matter. Cerebellum: Unremarkable. Mass effect: No evidence of midline shift. Intracranial vasculature: unremarkable Soft tissues: Normal. Calvarium/osseous structures: No depressed skull fracture. Paranasal sinuses and mastoid air cells: Mild scattered mucosal thickening and or secretions. Visualized orbits: Bilateral aphakia Cervical spine: Fracture: No spinal fracture, remote appearing left distal clavicle injury. Osseous structures: Multilevel degenerative disc disease changes with endplate spurring and disc oste ophyte complex's. There is bridging syndesmophytes involving the anterior and posterior longitudinal ligaments within the spine. An anterior longitudinal ligament in the upper thoracic spine. Vertebral alignment: Within normal limits. Spinal canal/Neural Foramina: Narrowing of the spinal canal throughout the cervical spine secondary t o posterior longitudinal ligament calcifications. Neck soft tissues: Prevertebral soft tissues are within normal limits. Other: The airway is patent. The lung apices are clear. Atherosclerosis of the arterial vasculature. IMPRESSION: 1. Age-indeterminate loss of moreno-white matter differentiation on series 201 image 42. Correlate wit h symptoms. Consider MRI if there is concern for acute/subacute CVA.. 2. No evidence of cervical spine fracture. 3. Moderate multilevel degenerative disc disease. Calcification of the posterior longitudinal and an terior longitudinal ligaments with bridging syndesmophytes throughout the cervical and anterior upper thoracic spine. The posterior longitudinal ligament desiccation significantly narrow the cervical sp ine extending from C2-C3 to C7. [facility], , 01/08/2024 8:23 AM
[2024-01-08] MEDS: HYDROmorphone 1 MG/ML 1 ML SYRINGE IVP STA ×2 (08:34→09:35)
[2024-01-08] MEDS: SODIUM CHLORIDE 0.9% 1,000 ML IV STA (08:35)
--- NOTE | 2024-01-08 08:44 | XR ---
EXAMINATION TYPE: XR chest 2V DATE OF EXAM: 01/08/2024 CLINICAL HISTORY: Fever TECHNIQUE: Frontal and lateral views of the chest are obtained. COMPARISON: September 24, 2017 FINDINGS: There is no focal air space opacity, pleural effusion, or pneumothorax seen. The cardiac silhouette size is within normal limits. The osseous structures are intact. IMPRESSION: No acute cardiopulmonary process. [facility], , 01/08/2024 8:41 AM
--- NOTE | 2024-01-08 08:45 | XR ---
EXAMINATION TYPE: XR sacrum coccyx DATE OF EXAM: 01/08/2024 8:16 AM COMPARISON: None. CLINICAL INDICATION: Male, 63 years old with history of pain from fall, pain TECHNIQUE: XR sacrum coccyx views were obtained FINDINGS: Sacral alae appear symmetric. No evidence for fracture or bony lesion. Sacroiliac joints are within normal limits. Visualized coccygeal segments are free of fracture or lesion. Postoperative changes noted lumbar spine. IMPRESSION: Normal study [facility], , 01/08/2024 8:43 AM
[2024-01-08 09:06] LABS: Basophils % (A) 0 %; Eosinophils # (A) 0.1 k/uL (0-0.7); Eosinophils % (A) 1 %; HCT 26.1 % (39.0-53.0); HGB 8.3 gm/dL (13.0-17.5); Hypochromasia Slight; Lymphocytes # (A) 0.9 k/uL (1.0-4.8); Lymphocytes % (A) 11 %; MCH 26.3 pg (25.0-35.0); MCHC 31.8 g/dL (31.0-37.0); MCV 82.8 fL (80.0-100.0); Mean Platelet Volume 6.7; Monocytes # (A) 0.4 k/uL (0-1.0); Monocytes % (A) 5 %; Neutrophils # (A) 6.8 k/uL (1.3-7.7); Neutrophils % (A) 82 %; Platelet Count 408 k/uL (150-450); RBC 3.15 m/uL (4.30-5.90); RDW 15.4 % (11.5-15.5); WBC 8.3 k/uL (3.8-10.6)
[2024-01-08 09:21] LABS: ALT 10 U/L (4-49); AST 19 U/L (17-59); African American GFR (CKD) 79 (>60 ml/min/1.73 sqM); Albumin 3.3 g/dL (3.5-5.0); Alkaline Phosphatase 108 U/L (38-126); Anion Gap 9 mmol/L; Blood Urea Nitrogen 26 mg/dL (9-20); Calcium 8.1 mg/dL (8.4-10.2); Carbon Dioxide 23 mmol/L (22-30); Chloride 96 mmol/L (98-107); Glucose 121 mg/dL (74-99); Non-African American GFR(CKD) 69 (>60 ml/min/1.73 sqM); Potassium 4.6 mmol/L (3.5-5.1); Sodium 128 mmol/L (137-145); Total Bilirubin 0.3 mg/dL (0.2-1.3); Total Protein 7.1 g/dL (6.3-8.2)
[2024-01-08] MEDS: cefTRIAXone IN SWFI 1,000 MG/10 ML SYRINGE IVP STA ×2 (09:36)
[2024-01-08] MEDS: LEVOFLOXACIN 750 MG TAB PO STA (10:14)
[2024-01-08 10:46] VITALS: PULSE 78; RESP 18
== END 2024-01-08 11:15 | disposition home or self-care (01) ==
LOC: EC 05:50
DX: N39.0 Urinary tract infection, site not specified (principal); L89.309 Pressure ulcer of unspecified buttock, unspecified stage; Z87.891 Personal history of nicotine dependence
CPT/HCPCS: 36415; 80053; 83605; 85025; 81001; 87086; 87636; 72100; 72220; 71046; 72125; 70450; 99284; 96374; 96375; 96376 ×2; 96361; J0696; J1171

== ENCOUNTER 2024-01-13 13:45 | Inpatient (IN) | payer OTHER, MEDICARE ==
[2024-01-13] MEDS ORDERED: VANCOMYCIN IV PER PHARMACY 1 EACH MISC MISCELLANE PRN (14:15)
[2024-01-13] MEDS: fentaNYL (PF) 50 MCG/ML 2 ML AMP IVP STA (14:52)
[2024-01-13] MEDS: SODIUM CHLORIDE 0.9% 1,000 ML IV STA ×2 (14:54→16:33)
[2024-01-13] MEDS: ACETAMINOPHEN TAB 500 MG TAB PO STA (14:56)
[2024-01-13] MEDS: PIPERACILLIN-TAZOBACTAM 3.375 GM in SODIUM CHLORIDE 0.9% 100 ML IVPB SCH (14:59)
[2024-01-13 15:02] LABS: Basophils % (A) 0 %; Eosinophils # (A) 0.1 k/uL (0-0.7); Eosinophils % (A) 1 %; HCT 25.9 % (39.0-53.0); HGB 8.3 gm/dL (13.0-17.5); Hypochromasia Slight; Lymphocytes # (A) 0.9 k/uL (1.0-4.8); Lymphocytes % (A) 11 %; MCH 26.4 pg (25.0-35.0); MCV 82.6 fL (80.0-100.0); Mean Platelet Volume 6.6; Monocytes # (A) 0.3 k/uL (0-1.0); Monocytes % (A) 4 %; Neutrophils # (A) 6.8 k/uL (1.3-7.7); Neutrophils % (A) 82 %; Platelet Count 438 k/uL (150-450); RBC 3.14 m/uL (4.30-5.90); RDW 15.3 % (11.5-15.5); WBC 8.3 k/uL (3.8-10.6)
[2024-01-13 15:13] LABS: INR 1.1 (<1.2); Partial Thromboplastin Time 37.8 sec (22.0-30.0); Prothrombin Time 11.8 sec (10.0-12.5)
[2024-01-13 15:20] LABS: ALT 9 U/L (4-49); AST 16 U/L (17-59); African American GFR (CKD) >90 (>60 ml/min/1.73 sqM); Albumin 3.2 g/dL (3.5-5.0); Alkaline Phosphatase 106 U/L (38-126); Anion Gap 9 mmol/L; Blood Urea Nitrogen 15 mg/dL (9-20); Carbon Dioxide 24 mmol/L (22-30); Chloride 97 mmol/L (98-107); Glucose 98 mg/dL (74-99); Magnesium 1.9 mg/dL (1.6-2.3); Non-African American GFR(CKD) >90 (>60 ml/min/1.73 sqM); Potassium 4.5 mmol/L (3.5-5.1); Sodium 130 mmol/L (137-145); Total Bilirubin 0.3 mg/dL (0.2-1.3)
[2024-01-13] MEDS: VANCOMYCIN 1,750 MG in SODIUM CHLORIDE 0.9% 500 ML 500 ML IVPB STA (15:32)
--- NOTE | 2024-01-13 15:36 | XR ---
EXAMINATION TYPE: XR chest 2V, XR pelvis AP view DATE OF EXAM: 01/13/2024 3:20 PM COMPARISON: 01/08/2024 CLINICAL INDICATION: Male, 63 years old with history of Weakness, , FINDINGS: Chest: Hazy densities likely due to underpenetration related to patient body habitus. Heart borderline in si ze. No dana consolidation or pleural effusion. Lower thoracic and lumbar posterior fusion rods are n oted. Degenerative change at both shoulders. Pelvis: Posterior lumbar pelvic fusion hardware noted. There is severe osteopenia. Extensive heterotopic ossi fication about both hips. The degree of osteopenia and bony overlap severely limits the assessment. A t least moderate degenerative change at both hips. IMPRESSION: 1. Chest: Limited exam on the stretcher. No definite acute process. 2. Pelvis: Lower thoracic to pelvic posterior fusion hardware noted. Severe osteopenia and overpenetr ation severely limiting assessment. At least moderate degenerative change at both hips and extensive heterotopic ossification at both hips. No obvious displaced fracture. [facility], , 01/13/2024 3:33 PM
[2024-01-13] MEDS: MORPHINE SULFATE 4 MG/ML SYRINGE IVP STA (16:33)
[2024-01-13] MEDS ORDERED: NALOXONE 0.4 MG/ML 1 ML VIAL IV PRN (16:36)
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
[2024-01-13] MEDS: MORPHINE SULFATE 4 MG/ML SYRINGE IV PRN (19:01)
[2024-01-13] MEDS: BACLOFEN 10 MG TAB PO SCH (19:01)
[2024-01-13] MEDS: HYDROcodone/APAP 10-325MG 1 EACH TAB PO SCH (20:54)
[2024-01-13] MEDS: AMITRIPTYLINE HCL 25 MG TAB PO SCH (22:36)
[2024-01-13] MEDS: diazePAM 5 MG TAB PO SCH (22:36)
[2024-01-13 23:27] LABS: Appearance,Urine Cloudy (Clear); Bacteria,Urine Occasional /hpf; Bilirubin,Urine Negative (Negative); Blood,Urine Small (Negative); Color,Urine Colorless; Glucose,Urine (UA) Negative (Negative); Ketones,Urine Negative (Negative); Leukocyte Esterase,Urine Large (Negative); Nitrite,Urine Negative (Negative); PH, Urine 6.5 (5.0-8.0); Protein,Urine Negative (Negative); RBC,Urine 13 /hpf (0-5); Specific Gravity,Urine 1.004 (1.001-1.035); Urobilinogen,Urine <2.0 mg/dL (<2.0); WBC,Urine >182 /hpf (0-5)
[2024-01-14 08:27] LABS: Basophils # (A) 0.02 X 10*3/uL (0.00-0.10); Basophils % (A) 0.3 %; Eosinophils # (A) 0.09 X 10*3/uL (0.04-0.35); Eosinophils % (A) 1.3 %; HCT 30.8 % (39.6-50.0); HGB 9.2 g/dL (13.0-17.0); Lymphocytes % (A) 17.1 %; MCH 26.1 pg (27.0-32.0); MCHC 29.9 g/dL (32.0-37.0); MCV 87.5 FL (80.0-97.0); Mean Platelet Volume 8.8 FL (9.5-12.2); Monocytes # (A) 0.54 X 10*3/uL (0.20-1.00); Monocytes % (A) 7.7 %; NRBC Per 100 WBC 0 X 10*3/uL (0.00-0.01); Neutrophils % (A) 72.7 %; Platelet Count 441 X 10*3/uL (140-440); RBC 3.52 X 10*6/uL (4.40-5.60); RDW 15.4 % (11.5-14.5); WBC 7.01 X 10*3/uL (4.50-10.00)
[2024-01-14] MEDS: LACTULOSE 20 GM/30 ML CUP PO SCH (08:40)
[2024-01-14] MEDS: VANCOMYCIN 1,750 MG in SODIUM CHLORIDE 0.9% 500 ML 500 ML IVPB SCH (08:40)
[2024-01-14 08:52] LABS: Blood Urea Nitrogen 13.2 mg/dL (9.0-27.0); Glucose 96 mg/dL (70-110)
[2024-01-14 08:53] LABS: ALT 9 U/L (10-49); AST 15 U/L (14-35); Albumin 3.3 g/dL (3.8-4.9); Albumin/Globulin Ratio 0.75 Ratio (1.60-3.17); Alkaline Phosphatase 110 U/L (41-126); Calcium 8.8 mg/dL (8.7-10.3); Carbon Dioxide 23.4 mmol/L (21.6-31.8); Chloride 101 mmol/L (96-109); Globulin 4.4 g/dL (1.6-3.3); Potassium 4.6 mmol/L (3.5-5.5); Sodium 137 mmol/L (135-145); Total Bilirubin 0.3 mg/dL (0.3-1.2); Total Protein 7.7 g/dL (6.2-8.2)
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
[2024-01-14] MEDS: COLLAGENASE 250 UNIT/GM OINTMENT 30 GM TUBE TOPICAL SCH (14:30)
[2024-01-14] MEDS ORDERED: diphenhydrAMINE 50 MG/ML 1 ML VIAL IVP PRN (15:01)
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
[2024-01-14] MEDS: ERTAPENEM 1 GM in SODIUM CHLORIDE 0.9% 50 ML IVPB SCH (16:11)
[2024-01-14 16:35] VITALS: BMI 32.5
[2024-01-14] MEDS: ZOLPIDEM 5 MG TAB PO SCH (20:17)
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
[2024-01-15 06:19] LABS: Glucose,Whole Blood 90 mg/dL (70-110)
[2024-01-15] MEDS: ONDANSETRON 4 MG/2 ML VIAL IVP PRN (06:47)
[2024-01-15 08:32] LABS: HCT 25.7 % (39.6-50.0); HGB 7.7 g/dL (13.0-17.0); MCH 26.3 pg (27.0-32.0); MCV 87.7 FL (80.0-97.0); Mean Platelet Volume 8.7 FL (9.5-12.2); NRBC Per 100 WBC 0 X 10*3/uL (0.00-0.01); Platelet Count 375 X 10*3/uL (140-440); RBC 2.93 X 10*6/uL (4.40-5.60); RDW 15.4 % (11.5-14.5); WBC 6.23 X 10*3/uL (4.50-10.00)
[2024-01-15 08:33] LABS: Basophils # (A) 0.02 X 10*3/uL (0.00-0.10); Basophils % (A) 0.3 %; Eosinophils # (A) 0.11 X 10*3/uL (0.04-0.35); Eosinophils % (A) 1.8 %; Lymphocytes # (A) 0.96 X 10*3/uL (0.90-5.00); Lymphocytes % (A) 15.4 %; Monocytes # (A) 0.51 X 10*3/uL (0.20-1.00); Monocytes % (A) 8.2 %; Neutrophils # (A) 4.59 X 10*3/uL (1.80-7.70); Neutrophils % (A) 73.7 %
[2024-01-15 09:02] LABS: Magnesium 2.1 mg/dL (1.5-2.4)
[2024-01-15 09:33] LABS: Blood Urea Nitrogen 11.8 mg/dL (9.0-27.0); Carbon Dioxide 24.5 mmol/L (21.6-31.8); Chloride 105 mmol/L (96-109); Glucose 106 mg/dL (70-110); Potassium 4.3 mmol/L (3.5-5.5); Sodium 139 mmol/L (135-145)
[2024-01-15 09:34] LABS: ALT 8 U/L (10-49); AST 24 U/L (14-35); Albumin 2.9 g/dL (3.8-4.9); Albumin/Globulin Ratio 0.74 Ratio (1.60-3.17); Alkaline Phosphatase 96 U/L (41-126); Calcium 8.5 mg/dL (8.7-10.3); Globulin 3.9 g/dL (1.6-3.3); Total Bilirubin <0.2 mg/dL (0.3-1.2); Total Protein 6.8 g/dL (6.2-8.2)
--- NOTE | 2024-01-15 11:31 | P.PN ---
Subjective Progress Note Date: 01/15/24 Principal diagnosis: Right hip wound Patient is resting comfortably today. Patient has had some sleep deprivation and so I did not wake the patient. His wound VAC was replaced yesterday. Patient was having some low-grade fevers and mild tachycardia. No complaints of pain. Objective - Vital Signs Vital signs: Vital Signs Temp 99.4 F 01/15/24 07:06 Pulse 118 H 01/15/24 07:06 Resp 17 01/15/24 07:06 BP 170/81 01/15/24 07:06 Pulse Ox 93 L 01/15/24 07:06 FiO2 Intake & Output 01/14/24 01/15/24 01/15/24 18:59 06:59 18:59 Output Total 3900 1850 Balance -3900 -1850 Weight 108.862 kg Output: Urine 3900 1850 Other: Voiding Method Ileal Conduit (Right) Ileal Conduit (Right) Ileal Conduit (Right) - Exam Right hip wound with wound VAC in place - Labs CBC & Chem 7: 01/15/24 02:58 01/15/24 02:58 Labs: Abnormal Lab Results - Last 24 Hours (Table) 01/14/24 01/14/24 01/15/24 Range/Units 03:00 03:00 02:58 RBC (4.40-5.60) X 10*6/uL Hgb (13.0-17.0) g/dL Hct (39.6-50.0) % MCH (27.0-32.0) pg MCHC (32.0-37.0) g/dL RDW (11.5-14.5) % MPV (9.5-12.2) FL ESR 80 H (0-20) mm/Hr BUN/Creatinine Ratio 11.80 L (12.00-20.00) Ratio Calcium 8.5 L (8.7-10.3) mg/dL Total Bilirubin <0.2 L (0.3-1.2) mg/dL ALT 8 L (10-49) U/L C-Reactive Protein 19.70 H (0.00-0.80) mg/dL Albumin 2.9 L (3.8-4.9) g/dL Globulin 3.9 H (1.6-3.3) g/dL Albumin/Globulin Ratio 0.74 L (1.60-3.17) Ratio 01/15/24 Range/Units 02:58 RBC 2.93 L (4.40-5.60) X 10*6/uL Hgb 7.7 L (13.0-17.0) g/dL Hct 25.7 L (39.6-50.0) % MCH 26.3 L (27.0-32.0) pg MCHC 30.0 L (32.0-37.0) g/dL RDW 15.4 H (11.5-14.5) % MPV 8.7 L (9.5-12.2) FL ESR (0-20) mm/Hr BUN/Creatinine Ratio (12.00-20.00) Ratio Calcium (8.7-10.3) mg/dL Total Bilirubin (0.3-1.2) mg/dL ALT (10-49) U/L C-Reactive Protein (0.00-0.80) mg/dL Albumin (3.8-4.9) g/dL Globulin (1.6-3.3) g/dL Albumin/Globulin Ratio (1.60-3.17) Ratio Microbiology - Last 24 Hours (Table) 01/13/24 14:36 Blood Culture - Preliminary Blood 01/13/24 14:42 Gram Stain - Preliminary Buttock Wound Culture - Preliminary Presumptive MRSA Assessment and Plan (1) Pressure ulcer of trochanteric region of right hip, stage 4 Narrative/Plan: 63-year-old male with right hip decubitus ulcer. No plans for surgical debridement. Agree with wound VAC therapy. Continue antibiotics. Will sign off. Please reconsult if needed. Current Visit: No Status: Acute Code(s): L89.214 - PRESSURE ULCER OF RIGHT HIP, STAGE 4 SNOMED Code(s): 83948093972652
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
[2024-01-16] MEDS: ACETAMINOPHEN TAB 325 MG TAB PO PRN (04:23)
[2024-01-16] MEDS ORDERED: VANCOMYCIN TROUGH DUE 1 EACH MISC MISCELLANE ONE (07:00)
[2024-01-16 07:36] LABS: Basophils % (A) 0 %; Eosinophils # (A) 0.1 k/uL (0-0.7); Eosinophils % (A) 1 %; HCT 29.7 % (39.0-53.0); HGB 8.9 gm/dL (13.0-17.5); Hypochromasia Marked; Lymphocytes # (A) 0.5 k/uL (1.0-4.8); Lymphocytes % (A) 6 %; MCH 26.1 pg (25.0-35.0); MCV 86.9 fL (80.0-100.0); Mean Platelet Volume 6.8; Monocytes # (A) 0.3 k/uL (0-1.0); Monocytes % (A) 4 %; Neutrophils # (A) 7.8 k/uL (1.3-7.7); Neutrophils % (A) 89 %; Platelet Count 477 k/uL (150-450); RBC 3.41 m/uL (4.30-5.90); RDW 15.4 % (11.5-15.5); WBC 8.8 k/uL (3.8-10.6)
[2024-01-16 07:48] LABS: African American GFR (CKD) >90 (>60 ml/min/1.73 sqM); Anion Gap 12 mmol/L; Blood Urea Nitrogen 15 mg/dL (9-20); Calcium 8.5 mg/dL (8.4-10.2); Carbon Dioxide 20 mmol/L (22-30); Chloride 104 mmol/L (98-107); Glucose 95 mg/dL (74-99); Magnesium 1.9 mg/dL (1.6-2.3); Non-African American GFR(CKD) 79 (>60 ml/min/1.73 sqM); Non-African American GFR(CKD) 86 (>60 ml/min/1.73 sqM); Potassium 4.9 mmol/L (3.5-5.1); Sodium 136 mmol/L (137-145)
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
[2024-01-16] MEDS: VANCOMYCIN TROUGH DUE 1 EACH MISC MISCELLANE ONE (12:56)
[2024-01-16] MEDS: VANCOMYCIN 1,750 MG in SODIUM CHLORIDE 0.9% 500 ML 500 ML IVPB SCH (12:56)
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
--- NOTE | 2024-01-16 16:15 | P.PN ---
Subjective Progress Note Date: 01/16/24 Principal diagnosis: decubitus ulcer right buttocks, urinary tract infection right buttocks decubitus ulcer, urinary tract infection Objective - Vital Signs Vital signs: Vital Signs Temp 98.7 F 01/16/24 07:40 Pulse 104 H 01/16/24 07:40 Resp 17 01/16/24 07:40 BP 117/64 01/16/24 07:40 Pulse Ox 93 L 01/16/24 07:40 FiO2 Intake & Output 01/15/24 01/16/24 01/16/24 18:59 06:59 18:59 Intake Total 750 Output Total 2500 800 Balance -1750 -800 Intake: Oral 750 Output: Urine 2500 800 Other: Voiding Method Ileal Conduit (Right) Ileal Conduit (Right) Ileal Conduit (Right) - Exam General: [Patient awake, alert and oriented times 3. Patient in no acute distress.] HEENT: [PERRL. EOMI. No pharyngeal erythema or exudate.] Neck: [No adenopathy.] Cardiac: [Heart regular in rate and rhythm. No S3. No S4. No clicks, rubs. No murmur.] Lungs: [Clear to auscultation bilaterally.] Abdomen: [No mass. No organomegaly. Bowel sounds presnt and normoactive in all 4 quadrants.] Extremes: AKA left lower extremity, flaccid paralysis right lower extreme with multiple superficial venous stasis ulcers : normal male genitalia indwelling Paul catheter Musculoskeletal: [No joint erythema, edema or tenderness.] Skin: [No rash.] Neurologic: [No lateralizing deficits. CN II - XII grossly intact.] Lymphatic: [No adenopathy.] - Labs CBC & Chem 7: 01/16/24 06:36 01/16/24 06:36 Labs: Abnormal Lab Results - Last 24 Hours (Table) 01/16/24 01/16/24 Range/Units 06:36 06:36 RBC 3.41 L (4.30-5.90) m/uL Hgb 8.9 L (13.0-17.5) gm/dL Hct 29.7 L (39.0-53.0) % MCHC 30.0 L (31.0-37.0) g/dL Plt Count 477 H (150-450) k/uL Neutrophils # 7.8 H (1.3-7.7) k/uL Lymphocytes # 0.5 L (1.0-4.8) k/uL Sodium 136 L (137-145) mmol/L Carbon Dioxide 20 L (22-30) mmol/L Microbiology - Last 24 Hours (Table) 01/13/24 14:42 Gram Stain - Final Buttock Wound Culture - Final Methicillin resist S. aureus 01/13/24 14:36 Blood Culture - Preliminary Blood 01/13/24 14:42 Anaerobic Culture - Preliminary Buttock Assessment and Plan (1) Back pain Current Visit: Yes Status: Acute Code(s): M54.9 - DORSALGIA, UNSPECIFIED SNOMED Code(s): 013488087 (2) Cellulitis Current Visit: Yes Status: Acute Code(s): L03.90 - CELLULITIS, UNSPECIFIED SNOMED Code(s): 277990613 (3) Chronic indwelling Paul catheter Current Visit: Yes Status: Acute Code(s): Z97.8 - PRESENCE OF OTHER SPECIFIED DEVICES SNOMED Code(s): 424857606 (4) Cystitis Current Visit: Yes Status: Acute Code(s): N30.90 - CYSTITIS, UNSPECIFIED WITHOUT HEMATURIA SNOMED Code(s): 14279879 (5) Pressure ulcer Current Visit: Yes Status: Acute Code(s): L89.90 - PRESSURE ULCER OF UNSPECIFIED SITE, UNSPECIFIED STAGE SNOMED Code(s): 1507419566 (6) Pressure ulcer of right foot, stage 3 Current Visit: Yes Status: Acute Code(s): L89.893 - PRESSURE ULCER OF OTHER SITE, STAGE 3 SNOMED Code(s): 565211595 (7) Pressure ulcer of right heel, stage 3 Current Visit: Yes Status: Acute Code(s): L89.613 - PRESSURE ULCER OF RIGHT HEEL, STAGE 3 SNOMED Code(s): 90587425779705 (8) Stage III pressure ulcer of right ankle Current Visit: Yes Status: Acute Code(s): L89.513 - PRESSURE ULCER OF RIGHT ANKLE, STAGE 3 SNOMED Code(s): 59245377005734 (9) Stage III pressure ulcer of right buttock Current Visit: Yes Status: Acute Code(s): L89.313 - PRESSURE ULCER OF RIGHT BUTTOCK, STAGE 3 SNOMED Code(s): 95514435971478 (10) UTI (urinary tract infection) Current Visit: Yes Status: Acute Code(s): N39.0 - URINARY TRACT INFECTION, SITE NOT SPECIFIED SNOMED Code(s): 70381178 (11) Abscess of cellulitis of buttock Current Visit: No Status: Acute Code(s): GCW8616 - SNOMED Code(s): 660056153 (12) Anemia Current Visit: No Status: Acute Code(s): D64.9 - ANEMIA, UNSPECIFIED SNOMED Code(s): 400784082 (13) 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
[2024-01-17 01:29] LABS: Amorphous Sediment,Urine Many /hpf; Appearance,Urine Turbid (Clear); Bacteria,Urine Many /hpf; Bilirubin,Urine Negative (Negative); Blood,Urine Moderate (Negative); Color,Urine Colorless; Glucose,Urine (UA) Negative (Negative); Hyaline Casts,Urine 44 /lpf (0-2); Ketones,Urine Negative (Negative); Leukocyte Esterase,Urine Large (Negative); Nitrite,Urine Negative (Negative); Protein,Urine Trace (Negative); RBC,Urine 72 /hpf (0-5); Specific Gravity,Urine 1.012 (1.001-1.035); Urobilinogen,Urine <2.0 mg/dL (<2.0); WBC,Urine >182 /hpf (0-5)
[2024-01-17] MEDS: VANCOMYCIN TROUGH DUE 1 EACH MISC MISCELLANE ONE (05:33)
[2024-01-17 05:50] LABS: African American GFR (CKD) >90 (>60 ml/min/1.73 sqM); Non-African American GFR(CKD) 80 (>60 ml/min/1.73 sqM)
[2024-01-17] MEDS: VANCOMYCIN 1,750 MG in SODIUM CHLORIDE 0.9% 500 ML 500 ML IVPB SCH (06:22)
[2024-01-17] MEDS ORDERED: HEPARIN SODIUM,PORCINE 10,000 UNIT in SODIUM CHLORIDE 0.9% 1,000 ML IRRIGATION PRN (07:00)
[2024-01-17] MEDS ORDERED: HEPARIN SODIUM,PORCINE (1 ML) 2,500 UNIT in SODIUM CHLORIDE 0.9% 250 ML IRRIGATION PRN (07:00)
[2024-01-17] MEDS ORDERED: VANCOMYCIN IV PER PHARMACY 1 EACH MISC MISCELLANE PRN (08:47)
--- NOTE | 2024-01-17 11:27 | XR ---
EXAMINATION TYPE: XR chest 1V portable DATE OF EXAM: 01/17/2024 11:17 AM COMPARISON: 01/13/2024 CLINICAL INDICATION: Male, 63 years old with history of Chest pain, , FINDINGS: Partially visualized thoracolumbar right-sided periventricular red from spinal fusion. Heart upper limits of normal in size. Mild interstitial density. There is some patchy opacity at the periphery of the left base. Degenerative change of both shoulders. IMPRESSION: 1. Interstitial density. Correlate to exclude mild pulmonary vascular congestion. 2. Some additional patchy atelectasis versus developing infiltrate at the left base. [facility], , 01/17/2024 11:25 AM
[2024-01-17] MEDS: NITROGLYCERIN SL TABS 0.4 MG TAB SUBLINGUAL STA (12:05)
[2024-01-17] MEDS: ASPIRIN 81 MG PO STA (12:05)
--- NOTE | 2024-01-17 12:07 | P.PN ---
Subjective Progress Note Date: 01/17/24 Principal diagnosis: midsternal chest pain radiating to the jaw patient had a midline placed earlier today shortly after the catheter was placed he started developing chest pain that radiated to the jaw a troponin and an EKG and a stat portable chest x-ray were performed the troponin was elevated in the 20s and the EKG suggested inferior wall ND cardiology consult was asked for stat and Dr. Solorio is in the building Objective - Vital Signs Vital signs: Vital Signs Temp 99.6 F 01/17/24 07:42 Pulse 97 01/17/24 07:42 Resp 18 01/17/24 07:42 BP 109/66 01/17/24 07:42 Pulse Ox 94 L 01/17/24 07:42 FiO2 Intake & Output 01/16/24 01/17/24 01/17/24 18:59 06:59 18:59 Output Total 2049 1200 Balance -2049 -1199 Output: Urine 2049 1200 Other: Voiding Method Ileal Conduit (Right) Ileal Conduit (Right) - Exam General: [Patient awake, alert and oriented times 3. Patient in no acute distress.] HEENT: [PERRL. EOMI. No pharyngeal erythema or exudate.] Neck: [No adenopathy.] Cardiac: [Heart regular in rate and rhythm. No S3. No S4. No clicks, rubs. No murmur.] Lungs: [Clear to auscultation bilaterally.] Abdomen: [No mass. No organomegaly. Bowel sounds presnt and normoactive in all 4 quadrants. I saw pressure ulcer approximately 3 cm deep with 2 cm of undermining all around wound VAC was placed Extremes: AKA left lower extremity, flaccid paralysis right lower extreme with multiple superficial venous stasis ulcers : normal male genitalia indwelling Paul catheter Musculoskeletal: [No joint erythema, edema or tenderness.] Skin: [No rash.] Neurologic: [No lateralizing deficits. CN II - XII grossly intact.] Lymphatic: [No adenopathy.] - Labs CBC & Chem 7: 01/16/24 06:36 01/17/24 05:23 Labs: Abnormal Lab Results - Last 24 Hours (Table) 01/17/24 01/17/24 Range/Units 00:35 10:46 Troponin I 24.300 H* (0.000-0.034) ng/mL Urine Protein Trace H (Negative) Urine Blood Moderate H (Negative) Ur Leukocyte Esterase Large H (Negative) Urine RBC 72 H (0-5) /hpf Urine WBC >182 H (0-5) /hpf Urine WBC Clumps Many H (None) /hpf Amorphous Sediment Many H (None) /hpf Urine Bacteria Many H (None) /hpf Hyaline Casts 44 H (0-2) /lpf Microbiology - Last 24 Hours (Table) 01/13/24 14:42 Anaerobic Culture - Final Buttock 01/13/24 14:36 Blood Culture - Preliminary Blood 01/13/24 14:42 Gram Stain - Final Buttock Wound Culture - Final Methicillin resist S. aureus Assessment and Plan (1) Back pain Current Visit: Yes Status: Acute Code(s): M54.9 - DORSALGIA, UNSPECIFIED SNOMED Code(s): 286348341 (2) Cellulitis Current Visit: Yes Status: Acute Code(s): L03.90 - CELLULITIS, UNSPECIFIED SNOMED Code(s): 672253628 (3) Chronic indwelling Paul catheter Current Visit: Yes Status: Acute Code(s): Z97.8 - PRESENCE OF OTHER SPECIFIED DEVICES SNOMED Code(s): 779217486 (4) Cystitis Current Visit: Yes Status: Acute Code(s): N30.90 - CYSTITIS, UNSPECIFIED WITHOUT HEMATURIA SNOMED Code(s): 96844403 (5) Pressure ulcer Current Visit: Yes Status: Acute Code(s): L89.90 - PRESSURE ULCER OF UNSPECIFIED SITE, UNSPECIFIED STAGE SNOMED Code(s): 5505920683 (6) Pressure ulcer of right foot, stage 3 Current Visit: Yes Status: Acute Code(s): L89.893 - PRESSURE ULCER OF OTHER SITE, STAGE 3 SNOMED Code(s): 806750633 (7) Pressure ulcer of right heel, stage 3 Current Visit: Yes Status: Acute Code(s): L89.613 - PRESSURE ULCER OF RIGHT HEEL, STAGE 3 SNOMED Code(s): 61256060072134 (8) Stage III pressure ulcer of right ankle Current Visit: Yes Status: Acute Code(s): L89.513 - PRESSURE ULCER OF RIGHT ANKLE, STAGE 3 SNOMED Code(s): 85069230466743 (9) Stage III pressure ulcer of right buttock Current Visit: Yes Status: Acute Code(s): L89.313 - PRESSURE ULCER OF RIGHT BUTTOCK, STAGE 3 SNOMED Code(s): 75849108764451 (10) UTI (urinary tract infection) Current Visit: Yes Status: Acute Code(s): N39.0 - URINARY TRACT INFECTION, SITE NOT SPECIFIED SNOMED Code(s): 75944935 (11) Abscess of cellulitis of buttock Current Visit: No Status: Acute Code(s): IGP1886 - SNOMED Code(s): 571479390 (12) Anemia Current Visit: No Status: Acute Code(s): D64.9 - ANEMIA, UNSPECIFIED SNOMED Code(s): 808835294 (13) 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 Solorio Patient was given a baby aspirin to chew and a sublingual nitroglycerin while waiting Time with Patient: Greater than 30
[2024-01-17] MEDS ORDERED: HEPARIN SODIUM 1,000 UN/ML (10ML VL) IV PRN (12:17)
[2024-01-17] MEDS ORDERED: NITROGLYCERIN SL TABS 0.4 MG TAB SUBLINGUAL PRN (12:19)
[2024-01-17] MEDS ORDERED: ALPRAZolam 0.25 MG TAB PO PRN (12:19)
[2024-01-17] MEDS ORDERED: ALPRAZolam 0.5 MG TAB PO PRN (12:19)
[2024-01-17] MEDS: HEPARIN SODIUM 1,000 UN/ML (10ML VL) IV ONE (12:30)
[2024-01-17] MEDS: ASPIRIN 325 MG TAB PO STA (12:31)
[2024-01-17] MEDS: ATORVASTATIN 80 MG TAB PO STA (12:31)
[2024-01-17 12:46] LABS: Basophils % (A) 0 %; Eosinophils # (A) 0.1 k/uL (0-0.7); Eosinophils % (A) 0 %; HCT 30.5 % (39.0-53.0); HGB 9.3 gm/dL (13.0-17.5); Hypochromasia Marked; Lymphocytes # (A) 0.9 k/uL (1.0-4.8); Lymphocytes % (A) 7 %; MCH 26.5 pg (25.0-35.0); MCHC 30.6 g/dL (31.0-37.0); MCV 86.6 fL (80.0-100.0); Mean Platelet Volume 6.9; Monocytes # (A) 0.4 k/uL (0-1.0); Monocytes % (A) 3 %; Neutrophils # (A) 11.3 k/uL (1.3-7.7); Neutrophils % (A) 89 %; Platelet Count 553 k/uL (150-450); RBC 3.53 m/uL (4.30-5.90); RDW 15.5 % (11.5-15.5); WBC 12.8 k/uL (3.8-10.6)
[2024-01-17] MEDS: HEPARIN SOD,PORK IN 0.45% NACL 25,000 UNIT in 0.45% NACL 1 250ML.BAG IV SCH ×2 (12:51→22:23)
[2024-01-17] MEDS: NITROGLYCERIN OINT 1 INCH/GM PACKET TOPICAL SCH (12:53)
[2024-01-17 13:30] LABS: INR 1.4 (<1.2); Prothrombin Time 14.3 sec (10.0-12.5)
[2024-01-17 13:32] LABS: Partial Thromboplastin Time 116.4 sec (22.0-30.0)
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
[2024-01-17] MEDS ORDERED: RX INFO: IV CONTRAST WAS GIVEN 1 EACH MISC MISCELLANE PRN (14:13)
[2024-01-17] MEDS: SODIUM CHLORIDE 0.9% 1,000 ML IV SCH (14:15)
--- NOTE | 2024-01-17 14:28 | P.CARDCATH ---
Date of Procedure: 01/17/24 Description of Procedure: Cardiac Catheterization: The patient is a 63-year-old male, history of paraplegia, strong family history of CAD, history of peripheral disease status post amputation who presented with decubitus ulcer and today was complaining of chest discomfort, his troponin was elevated. Recommendations were made regarding cardiac catheterization, the risks and the complications were discussed with the patient who is in full understanding and agreement. 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 Using Xylocaine Anesthesia and modified Seldinger technique, a 6-Ecuadorean sheath was introduced in the right radial artery . Subsequently, selective coronary angiography was performed using a 5-Ecuadorean 3.5 bend Constantino catheter. Multiple views of the coronary artery including hemiaxial views were obtained. The 5 Ecuadorean pigtail catheter was used to cross the aortic valve and LVEDP was calculated. Following that, catheter and sheath were removed. Hemostasis was obtained with deployment of vascular band . There was no immediate complication. Patient was returned to room in stable condition. Of note, the patient received a total of 3000 units of intravenous heparin as well as intra-arterial verapamil. Findings: Fluoroscopy: Significant calcification of the left main and LAD was noted Left main: This is a large size vessel, bifurcating into LAD and left circum flex, the distal left main has a 90% stenosis. LAD: This is a large size vessel, reaching to the apex, giving rise to a diagonal branch. The proximal left anterior descending artery has a 85 to 90% s tenosis. The rest of the vessel has no high-grade stenosis Left circumflex: This is a large nondominant vessel giving rise to 2 moderately sized diagonal branch that have 70 to 80% stenosis the AV groove left circumflex has diffuse intimal disease RCA: This is a dominant vessel giving rise to a very proximal acute right to left and right to right collaterals Left Ventriculogram: Not performed Hemodynamics: There was no gradient across aortic valve, LVEDP was 20-25 mmHg Conclusion: 1. Calcified left main and LAD 2. Severe distal left main disease 3. Severe disease involving the proximal LAD 4. Chronically occluded RCA with collaterals 5. Significant obstructive disease involving the obtuse marginal branch Recommendations: The patient symptoms are most likely related to his distal left main disease. He is not a candidate for surgical intervention because of his high risk in view of his medical status. He will require high risk percutaneous intervention requiring mechanical support. I would recommend to transfer to tertiary care center for possible axillary access Impella and stenting. I discussed those findings with Dr. Chou. The findings and the recommendations were discussed with the patient and his power of deputy prosecuting attorney and they were in full understanding and agreement. The prognosis is guarded. The patient will be restarted on heparin. He will have an echocardiogram performed to evaluate his systolic function. Duration of sedation is 17 minutes.
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
--- NOTE | 2024-01-17 15:26 | CA ---
Transthoracic Echo Report Name: Adriel Bush Age: 63 Gender: M : 1960 Exam Date: 01/17/2024 14:15 Exam Location: [place] [facility] Ht (in): 72 Wt (lb): 240 Ordering Physician: Brigida Torres Attending/Referring Phys: [id number], Melissa Recreation Program Specialist Jenny Zuniga RDCS Procedure CPT: Indications: LV function, CP Cardiac Hx: Technical Quality: Technically difficult study Contrast 1: Definity Total Dose (mL): 1 Contrast 2: Total Dose (mL): MEASUREMENTS (Male / Female) Normal Values 2D ECHO LV Diastolic Diameter PLAX 5.1 cm 4.2 - 5.9 / 3.9 - 5.3 cm LV Systolic Diameter PLAX 3.9 cm IVS Diastolic Thickness 1.6 cm 0.6 - 1.0 / 0.6 - 0.9 cm LVPW Diastolic Thickness 1.6 cm 0.6 - 1.0 / 0.6 - 0.9 cm LV Relative Wall Thickness 0.6 LVOT Diameter 2.6 cm LV Diastolic Volume MOD BP 195.5 cm??? 67 - 155 / 56 - 104 cm??? LV Systolic Volume MOD BP 111.6 cm??? 22 - 58 / 19 - 49 cm??? LV Ejection Fraction MOD BP 42.9 % >= 55 % LV Cardiac Index MOD BP 3202.7 cm???/min???m??? LV Diastolic Volume MOD 4C 178.5 cm??? LV Systolic Volume MOD 4C 103.6 cm??? LV Ejection Fraction MOD 4C 42.0 % LV Cardiac Index MOD 4C 2861.0 cm???/min???m??? LV Diastolic Length 4C 9.7 cm LV Systolic Length 4C 8.6 cm LV Diastolic Volume MOD 2C 203.5 cm??? LV Systolic Volume MOD 2C 116.7 cm??? LV Ejection Fraction MOD 2C 42.7 % LV Cardiac Index MOD 2C 3315.6 cm???/min???m??? LV Diastolic Length 2C 9.2 cm LV Systolic Length 2C 8.3 cm LA Volume 67.8 cm??? 18 - 58 / 22 - 52 cm??? LA Volume Index 28.5 cm???/m??? 16 - 28 cm???/m??? Ascending Aorta Diameter 3.3 cm DOPPLER AV Peak Velocity 169.8 cm/s AV Peak Gradient 11.5 mmHg AV Mean Velocity 123.6 cm/s AV Mean Gradient 6.8 mmHg AV Velocity Time Integral 31.5 cm LVOT Peak Velocity 114.5 cm/s LVOT Peak Gradient 5.2 mmHg LVOT Velocity Time Integral 21.6 cm LVOT Stroke Volume 118.7 cm??? LVOT Stroke Volume Index 51.6 ml/m??? LVOT Cardiac Index 4531.6 cm???/min???m??? AV Area Cont Eq vti 3.8 cm??? AV Area Cont Eq pk 3.7 cm??? MV Area PHT 7.5 cm??? Mitral E Point Velocity 45.5 cm/s Mitral A Point Velocity 73.8 cm/s Mitral E to A Ratio 0.6 MV Deceleration Time 100.9 ms PV Peak Velocity 111.5 cm/s PV Peak Gradient 5.0 mmHg FINDINGS Left Ventricle Left ventricular ejection fraction is estimated at 40-45 %. Moderately increased left ventricular wall thickness. Left ventricular cavity size normal. Inferior, inferoapical and inferoseptal severe hypokinesisfalse chordae in the left ventricle (normal variant). Right Ventricle Right ventricle not well visualized. Unable to estimate the right ventricular systolic pressure. Right Atrium Normal right atrial size. Left Atrium Mildly increased left atrial volume. Mildly increased left atrial area. Mitral Valve Structurally normal mitral valve. No evidence for mitral valve prolapse. No mitral stenosis. Mild mitral regurgitation. Aortic Valve Trileaflet aortic valve. Focal thickening of the aortic valve cusps. No aortic valve stenosis or regurgitation.aortic valve sclerosis. Tricuspid Valve Structurally normal tricuspid valve. No tricuspid stenosis. Trace tricuspid regurgitation. Pulmonic Valve Pulmonic valve not well visualized. No pulmonic stenosis. Trace pulmonic regurgitation. Pericardium No pericardial effusion. Prominent epicardial fat. Aorta Normal size aortic root and proximal ascending aorta. CONCLUSIONS 1. Moderately impaired left ventricular systolic function with segmental wall motion abnormality 2. Mild mitral regurgitation Definity ECHO contrast used for improved visualization of the endocardial borders (inadequate visualization of two or more contiguous segments). Previewed by: Dr. Danii Solorio MD (Electronically Signed) Final Date: 17 January 2024 15:25
[2024-01-17 16:42] LABS: INR 1.1 (<1.2); Partial Thromboplastin Time 30.5 sec (22.0-30.0); Prothrombin Time 12.2 sec (10.0-12.5)
[2024-01-17] MEDS: SODIUM CHLORIDE 0.9% 1,000 ML in EMPTY BAG 1 BAG IV SCH (19:17)
[2024-01-17 20:28] LABS: Chol/HDL Ratio 5.95 Ratio; LDL Cholesterol,Calculated 103.1 mg/dL (0.0-131.0)
[2024-01-17] MEDS: METOPROLOL TARTRATE 12.5 MG TAB PO SCH (21:09)
[2024-01-17 21:10] LABS: Glucose,Whole Blood 97 mg/dL (70-110)
[2024-01-17] MEDS: ATORVASTATIN 80 MG TAB PO SCH (21:10)
[2024-01-17] MEDS: HEPARIN SODIUM 1,000 UN/ML (10ML VL) IV PRN (22:25)
[2024-01-18 05:25] VITALS: RESP 17
[2024-01-18 06:42] LABS: Basophils % (A) 0 %; Eosinophils # (A) 0.1 k/uL (0-0.7); Eosinophils % (A) 1 %; HCT 30.8 % (39.0-53.0); HGB 9.2 gm/dL (13.0-17.5); Hypochromasia Marked; Lymphocytes % (A) 13 %; MCHC 29.8 g/dL (31.0-37.0); MCV 87.1 fL (80.0-100.0); Monocytes # (A) 0.3 k/uL (0-1.0); Monocytes % (A) 3 %; Neutrophils # (A) 6.4 k/uL (1.3-7.7); Neutrophils % (A) 80 %; Platelet Count 499 k/uL (150-450); RBC 3.53 m/uL (4.30-5.90); RDW 15.7 % (11.5-15.5)
[2024-01-18 06:43] LABS: INR 1.2 (<1.2); Prothrombin Time 12.9 sec (10.0-12.5)
[2024-01-18 06:50] LABS: African American GFR (CKD) >90 (>60 ml/min/1.73 sqM); Anion Gap 6 mmol/L; Blood Urea Nitrogen 16 mg/dL (9-20); Calcium 8.6 mg/dL (8.4-10.2); Carbon Dioxide 23 mmol/L (22-30); Chloride 107 mmol/L (98-107); Glucose 89 mg/dL (74-99); Non-African American GFR(CKD) >90 (>60 ml/min/1.73 sqM); Potassium 4.1 mmol/L (3.5-5.1); Sodium 136 mmol/L (137-145)
[2024-01-18] MEDS: ASPIRIN 81 MG PO SCH (07:46)
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
[2024-01-18 11:40] VITALS: TEMP 98.1
[2024-01-18] MEDS: METOPROLOL TARTRATE 12.5 MG TAB PO STA (11:58)
[2024-01-18] MEDS: VANCOMYCIN 1,500 MG in SODIUM CHLORIDE 0.9% 500 ML 500 ML IVPB SCH (11:59)
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
[2024-01-18 16:09] VITALS: BP 121/56; PULSE 81
[2024-01-18] MEDS ORDERED: METOPROLOL TARTRATE 25 MG TAB PO SCH (21:00)
--- NOTE | 2024-01-21 16:07 | P.DS ---
Providers Date of admission: 01/13/24 16:36 Expected date of discharge: 01/21/24 Attending physician: Franco Sheppard Consults: 01/13/24 16:36 Consult Physician Routine Consulting Provider: Katrina Crabtree Consult Reason/Comments: uti, cellulitis, infected decub ulcer Do you want consulting provider notified?: Yes 01/15/24 13:35 Consult Physician Routine Consulting Provider: Anesthesia,Services Consult Reason/Comments: pain manangement Do you want consulting provider notified?: Yes 01/17/24 11:56 Consult Physician Stat Consulting Provider: Danii Solorio Consult Reason/Comments: Chest pain/elevated troponins Do you want consulting provider notified?: Yes Primary care physician: Lenny Chou - Jose Diagnosis(es) (1) Back pain Status: Acute (2) Cellulitis Status: Acute (3) Chronic indwelling Paul catheter Status: Acute (4) Cystitis Status: Acute (5) Pressure ulcer Status: Acute (6) Pressure ulcer of right foot, stage 3 Status: Acute (7) Pressure ulcer of right heel, stage 3 Status: Acute (8) Stage III pressure ulcer of right ankle Status: Acute (9) Stage III pressure ulcer of right buttock Status: Acute (10) UTI (urinary tract infection) Status: Acute (11) Abscess of cellulitis of buttock Status: Acute (12) Anemia Status: Acute (13) 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 Patient in no acute distress.] HEENT: [PERRL. EOMI. No pharyngeal erythema or exudate.] Neck: [No adenopathy.] Cardiac: [Heart regular in rate and rhythm. No S3. No S4. No clicks, rubs. No murmur.] Lungs: [Clear to auscultation bilaterally.] Abdomen: [No mass. No organomegaly. Bowel sounds presnt and normoactive in all 4 quadrants.] Extremes: paraplegia, right lower extreme AKA : [] Musculoskeletal: [No joint erythema, edema or tenderness.] Skin: [No rash.] Neurologic: [No lateralizing deficits. CN II - XII grossly intact.] Lymphatic: [No adenopathy. patient was admitted with sepsis sacral decubitus ulcer Developed chest pain, underwent cardiac catheterization diagnosed with severe three-vessel disease critical Decision was made to transfer patient to [facility] for a hospital where he underwent aggressive treatment Patient Condition at Discharge: Serious Plan - Discharge Summary Discharge Rx Participant: Yes New Discharge Prescriptions: No Action HYDROcodone/APAP 10-325MG [Akeley 10-325] 1 - 2 tab PO Q6H Diazepam 10 mg PO QID Baclofen [Lioresal] 20 mg PO Q8H Levofloxacin [Levaquin] 750 mg PO DAILY 7 Days #7 tab fentaNYL 100MCG/HR PATCH [Duragesic 100MCG/HR] 1 patch TRANSDERM Q72H PRN PRN Reason: Pain Lactulose 10 gm PO DAILY Amitriptyline HCl [Elavil] 25 mg PO TID Discharge Medication List HYDROcodone/APAP 10-325MG [[place]keley 10-325] 1 - 2 tab PO Q6H 08/31/13 [History] Diazepam 10 mg PO QID 12/08/15 [History] Baclofen [Lioresal] 20 mg PO Q8H 11/27/22 [History] Levofloxacin [Levaquin] 750 mg PO DAILY 7 Days #7 tab 01/08/24 [Rx] Amitriptyline HCl [Elavil] 25 mg PO TID 01/13/24 [History] Lactulose 10 gm PO DAILY 01/13/24 [History] fentaNYL 100MCG/HR PATCH [Duragesic 100MCG/HR] 1 patch TRANSDERM Q72H PRN 01/13/24 [History] Follow up Appointment(s)/Referral(s): Lenny Chou Jr, [Primary Care Provider] - 1-2 days [facility], [REFERRING] - [facility] Visiting Nurse, [NON-STAFF] - Discharge Disposition: OTHER INSTITUTION NOT DEFINED Care Plan Goals (MU): transferred to [facility] for cardiac intervention
== END 2024-01-18 16:18 | disposition other institution (70) | DRG 280 ==
LOC: EC 13:45 → 4SSUR 16:36 → 3SCARD 01-17 14:03
PROVIDERS: ADMIT Family Medicine; ATTEND Family Medicine
PROC: B2111ZZ Fluoroscopy of Multiple Coronary Arteries using Low Osmolar Contrast (ICD-10-PCS; principal; 2024-01-17 08:40)
PROC: 4A023N7 Measurement of Cardiac Sampling and Pressure, Left Heart, Percutaneous Approach (ICD-10-PCS; principal; 2024-01-17 08:40)
DX: I21.4 Non-ST elevation (NSTEMI) myocardial infarction (principal); L89.214 Pressure ulcer of right hip, stage 4; L89.313 Pressure ulcer of right buttock, stage 3; L89.513 Pressure ulcer of right ankle, stage 3; L89.613 Pressure ulcer of right heel, stage 3; L89.893 Pressure ulcer of other site, stage 3; G82.20 Paraplegia, unspecified; L03.317 Cellulitis of buttock; L97.229 Non-pressure chronic ulcer of left calf with unspecified severity; Z16.12 Extended spectrum beta lactamase (ESBL) resistance; Z89.612 Acquired absence of left leg above knee; I70.242 Atherosclerosis of native arteries of left leg with ulceration of calf; I10 Essential (primary) hypertension; B95.62 Methicillin resistant Staphylococcus aureus infection as the cause of diseases classified elsewhere; D64.9 Anemia, unspecified; G89.29 Other chronic pain; M54.9 Dorsalgia, unspecified; B96.1 Klebsiella pneumoniae [K. pneumoniae] as the cause of diseases classified elsewhere; N30.90 Cystitis, unspecified without hematuria; N30.91 Cystitis, unspecified with hematuria; M16.0 Bilateral primary osteoarthritis of hip; I25.10 Atherosclerotic heart disease of native coronary artery without angina pectoris; Z71.3 Dietary counseling and surveillance; I25.5 Ischemic cardiomyopathy; K59.00 Constipation, unspecified; V89.2XXS Person injured in unspecified motor-vehicle accident, traffic, sequela; Y92.410 Unspecified street and highway as the place of occurrence of the external cause; Z79.899 Other long term (current) drug therapy; Z86.14 Personal history of Methicillin resistant Staphylococcus aureus infection; Z86.19 Personal history of other infectious and parasitic diseases; Z87.891 Personal history of nicotine dependence; Z99.3 Dependence on wheelchair; Z87.01 Personal history of pneumonia (recurrent); Z72.820 Sleep deprivation; Z98.1 Arthrodesis status
CPT/HCPCS: 36410; 36415; 71045; 71046; 72170; 76937; 80048; 80053; 80061; 80202; 81001; 82565; 83036; 83605; 83735; 84484; 85025; 85610; 85652; 85730; 86140; 87040; 87070; 87075; 87077; 87086; 87186; 87205; 87636; 93005; 93306; 96361; 96365; 96366; 96368; 96375; 99285

== ENCOUNTER 2024-03-16 16:55 | Inpatient (IN) | payer OTHER, MEDICARE ==
[~2024-03-16 16:55] MED LIST changes: -DOBUTamine DRIP for NUC MED 500 MG in DEXTROSE/WATER 1 250ML.BAG IV ONE; +PIPERACILLIN-TAZOBACTAM 3.375 GM in SODIUM CHLORIDE 0.9% 100 ML IVPB SCH
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
[2024-03-16] MEDS ORDERED: VANCOMYCIN IV PER PHARMACY 1 EACH MISC MISCELLANE PRN (17:23)
[2024-03-16 18:14] LABS: Anisocytosis Moderate; Basophils % (A) 0 %; Eosinophils # (A) 0.1 k/uL (0-0.7); Eosinophils % (A) 2 %; HCT 20.9 % (39.0-53.0); Hypochromasia Marked; Lymphocytes # (A) 0.7 k/uL (1.0-4.8); Lymphocytes % (A) 12 %; MCH 28.2 pg (25.0-35.0); MCHC 31.6 g/dL (31.0-37.0); MCV 89.1 fL (80.0-100.0); Monocytes # (A) 0.3 k/uL (0-1.0); Monocytes % (A) 6 %; Neutrophils # (A) 4.6 k/uL (1.3-7.7); Neutrophils % (A) 78 %; Platelet Count 608 k/uL (150-450); Poikilocytosis Moderate; RBC 2.35 m/uL (4.30-5.90); RDW 21.4 % (11.5-15.5); WBC 5.9 k/uL (3.8-10.6)
[2024-03-16 18:24] LABS: HGB 6.6 gm/dL (13.0-17.5)
[2024-03-16 18:27] LABS: INR 1.2 (<1.2); Partial Thromboplastin Time 27.1 sec (22.0-30.0); Prothrombin Time 12.4 sec (10.0-12.5)
[2024-03-16 18:28] LABS: ALT 7 U/L (4-49); AST 14 U/L (17-59); African American GFR (CKD) >90 (>60 ml/min/1.73 sqM); Alkaline Phosphatase 84 U/L (38-126); Anion Gap 12 mmol/L; Blood Urea Nitrogen 36 mg/dL (9-20); Calcium 8.3 mg/dL (8.4-10.2); Carbon Dioxide 18 mmol/L (22-30); Chloride 100 mmol/L (98-107); Glucose 107 mg/dL (74-99); Magnesium 2.3 mg/dL (1.6-2.3); Non-African American GFR(CKD) 78 (>60 ml/min/1.73 sqM); Phosphorus 4.3 mg/dL (2.5-4.5); Potassium 4.4 mmol/L (3.5-5.1); Sodium 130 mmol/L (137-145); Total Bilirubin 0.3 mg/dL (0.2-1.3); Total Protein 6.4 g/dL (6.3-8.2)
[2024-03-16] MEDS: PIPERACILLIN-TAZOBACTAM 3.375 GM in SODIUM CHLORIDE 0.9% 100 ML IVPB ONE (18:29)
[2024-03-16] MEDS: SODIUM CHLORIDE 0.9% 500 ML 500 ML IV STA (18:29)
[2024-03-16] MEDS: SODIUM CHLORIDE 0.9% 1,000 ML IV STA (18:29)
[2024-03-16] MEDS ORDERED: NALOXONE 0.4 MG/ML 1 ML VIAL IV PRN (18:33)
[2024-03-16 18:35] LABS: NT-Pro-B-Type Natriuretic Pept 2370 pg/mL
[2024-03-16 18:41] LABS: Polychromasia Present
[2024-03-16 18:42] LABS: Large Platelets Present; Target Cells Present
[2024-03-16] MEDS: VANCOMYCIN 2,000 MG in SODIUM CHLORIDE 0.9% 500 ML 500 ML IVPB ONE (19:10)
[2024-03-16] MEDS: SODIUM CHLORIDE 0.9% 1,000 ML IV SCH (19:13)
[2024-03-16 19:40] LABS: Appearance,Urine Cloudy (Clear); Bacteria,Urine Many /hpf; Bilirubin,Urine Negative (Negative); Blood,Urine Trace (Negative); Color,Urine Colorless; Glucose,Urine (UA) Negative (Negative); Ketones,Urine Negative (Negative); Leukocyte Esterase,Urine Large (Negative); Mucus,Urine Rare /hpf; Nitrite,Urine Negative (Negative); PH, Urine 6.5 (5.0-8.0); Protein,Urine Trace (Negative); RBC,Urine 15 /hpf (0-5); Specific Gravity,Urine 1.009 (1.001-1.035); Urobilinogen,Urine <2.0 mg/dL (<2.0); WBC,Urine 85 /hpf (0-5)
--- NOTE | 2024-03-16 19:54 | XR ---
EXAMINATION TYPE: XR chest 2V DATE OF EXAM: 03/16/2024 7:48 PM COMPARISON: Chest radiographs from 01/17/2024 CLINICAL INDICATION: Male, 63 years old with history of ams; TECHNIQUE: XR chest 2V Frontal and lateral views of the chest. FINDINGS: Lungs/Pleura: There is no evidence of pleural effusion, focal consolidation, or pneumothorax. Pulmonary vascularity: Unremarkable. Heart/mediastinum: Cardiomediastinal silhouette is unremarkable. Musculoskeletal: No acute osseous pathology. Abdomen the spine appears intact. IMPRESSION: No acute cardiopulmonary disease/process. [facility], , 03/16/2024 7:52 PM
--- NOTE | 2024-03-16 20:28 | CT ---
EXAMINATION TYPE: CT brain wo con DATE OF EXAM: 03/16/2024 8:17 PM COMPARISON: 01/08/2024. CLINICAL INDICATION: Male, 63 years old with history of ams, TECHNIQUE: Brain: Axial CT images of the brain were obtained with coronal and sagittal reformats created and rev iewed. Contrast used: None. Oral contrast used: None. CT DLP: mGycm, Automated exposure control for dose reduction was used. FINDINGS: Brain: Extra-axial spaces: No abnormal extra-axial fluid collections. Ventricular system: Within normal limits Cerebral parenchyma: No acute intraparenchymal hemorrhage or mass effect. The moreno-white junction is well differentiated. Cerebellum: Unremarkable. Mass effect: No evidence of midline shift. Intracranial vasculature: unremarkable Soft tissues: Normal. Calvarium/osseous structures: No depressed skull fracture. Nonfusion posterior arch of C1. Paranasal sinuses and mastoid air cells: Mild scattered paranasal sinus disease. Visualized orbits: Orbital contents are intact. IMPRESSION: No acute intracranial process. [facility], , 03/16/2024 8:26 PM
[2024-03-17] MEDS ORDERED: PIPERACILLIN-TAZOBACTAM 3.375 GM in SODIUM CHLORIDE 0.9% 100 ML IVPB SCH
[2024-03-17] MEDS: ACETAMINOPHEN TAB 325 MG TAB PO PRN (00:09)
[2024-03-17] MEDS: PIPERACILLIN-TAZOBACTAM 3.375 GM in SODIUM CHLORIDE 0.9% 100 ML IVPB SCH (02:09)
[2024-03-17] MEDS: PSYLLIUM HUSK 100% 6 GM PACKET PO SCH (09:51)
[2024-03-17] MEDS: ASPIRIN 81 MG PO SCH (09:51)
[2024-03-17] MEDS: CLOPIDOGREL 75 MG TAB PO SCH (09:51)
[2024-03-17] MEDS: METOPROLOL SUCCINATE (ER) 25 MG TAB.ER.24H PO SCH (09:51)
[2024-03-17] MEDS: LOSARTAN 25 MG TAB PO SCH (09:51)
[2024-03-17] MEDS: MORPHINE SULFATE 4 MG/ML SYRINGE IV PRN (09:52)
[2024-03-17] MEDS: ONDANSETRON 4 MG/2 ML VIAL IVP PRN (09:52)
[2024-03-17] MEDS: levETIRAcetam 500 MG TAB PO SCH (10:02)
[2024-03-17 10:13] LABS: Basophils # (A) 0.02 X 10*3/uL (0.00-0.10); Basophils % (A) 0.3 %; Eosinophils # (A) 0.09 X 10*3/uL (0.04-0.35); Eosinophils % (A) 1.3 %; HCT 24.1 % (39.6-50.0); HGB 7.1 g/dL (13.0-17.0); Lymphocytes # (A) 0.88 X 10*3/uL (0.90-5.00); Lymphocytes % (A) 12.9 %; MCH 27.2 pg (27.0-32.0); MCHC 29.5 g/dL (32.0-37.0); MCV 92.3 FL (80.0-97.0); Mean Platelet Volume 9.3 FL (9.5-12.2); Monocytes # (A) 0.95 X 10*3/uL (0.20-1.00); NRBC Per 100 WBC 0 X 10*3/uL (0.00-0.01); Neutrophils # (A) 4.81 X 10*3/uL (1.80-7.70); Neutrophils % (A) 70.8 %; Platelet Count 567 X 10*3/uL (140-440); RBC 2.61 X 10*6/uL (4.40-5.60); RDW 20.9 % (11.5-14.5)
[2024-03-17 10:22] LABS: Magnesium 2.2 mg/dL (1.5-2.4); Phosphorus 3.5 mg/dL (2.4-5.1)
[2024-03-17] MEDS: droNABinol 2.5 MG CAP PO SCH (11:11)
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
[2024-03-17] MEDS: VANCOMYCIN 1,750 MG in SODIUM CHLORIDE 0.9% 500 ML 500 ML IVPB SCH (14:28)
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
[2024-03-17] MEDS: ATORVASTATIN 80 MG TAB PO SCH (20:18)
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
[2024-03-18] MEDS: MEROPENEM 1 GM in SODIUM CHLORIDE 0.9% 100 ML IVPB SCH (00:46)
[2024-03-18 07:51] LABS: African American GFR (CKD) >90 (>60 ml/min/1.73 sqM); Non-African American GFR(CKD) >90 (>60 ml/min/1.73 sqM)
[2024-03-18] MEDS: COLLAGENASE 250 UNIT/GM OINTMENT 30 GM TUBE TOPICAL SCH (12:33)
[2024-03-18] MEDS: HYDROcodone/APAP 10-325MG 1 EACH TAB PO PRN (12:47)
--- NOTE | 2024-03-18 13:12 | CA ---
Transthoracic Echo Report Name: Adriel Bush Age: 63 Gender: M : 1960 Exam Date: 03/17/2024 13:47 Exam Location: [place] [facility] Ht (in): 75 Wt (lb): 220 Ordering Physician: Maira Mendes Attending/Referring Phys: [id number], Vaughn Customer Service Technician Tiny Moore, LEONARDO Procedure CPT: Indications: LVF Cardiac Hx: HTN Technical Quality: Technically difficult study Contrast 1: Total Dose (mL): Contrast 2: Total Dose (mL): MEASUREMENTS (Male / Female) Normal Values 2D ECHO LV Diastolic Diameter PLAX 5.6 cm 4.2 - 5.9 / 3.9 - 5.3 cm LV Systolic Diameter PLAX 4.1 cm IVS Diastolic Thickness 1.3 cm 0.6 - 1.0 / 0.6 - 0.9 cm LVPW Diastolic Thickness 1.3 cm 0.6 - 1.0 / 0.6 - 0.9 cm LV Relative Wall Thickness 0.5 RV Internal Dim ED PLAX 3.7 cm LA Systolic Diameter LX 3.5 cm 3.0 - 4.0 / 2.7 - 3.8 cm LV Diastolic Volume MOD BP 160.5 cm??? 67 - 155 / 56 - 104 cm??? LV Systolic Volume MOD BP 88.2 cm??? / 19 - 49 cm??? LV Ejection Fraction MOD BP 45.0 % >= 55 % LV Cardiac Index MOD BP 2220.5 cm???/min???m??? LV Diastolic Volume MOD 4C 174.5 cm??? LV Systolic Volume MOD 4C 83.8 cm??? LV Ejection Fraction MOD 4C 52.0 % LV Cardiac Index MOD 4C 2786.5 cm???/min???m??? LV Diastolic Length 4C 8.7 cm LV Systolic Length 4C 7.8 cm LV Diastolic Volume MOD 2C 140.5 cm??? LV Systolic Volume MOD 2C 91.5 cm??? LV Ejection Fraction MOD 2C 34.9 % LV Cardiac Index MOD 2C 1506.8 cm???/min???m??? LV Diastolic Length 2C 8.2 cm LV Systolic Length 2C 7.6 cm LA Volume 48.0 cm??? - / 22 - 52 cm??? LA Volume Index 20.8 cm???/m??? 16 - 28 cm???/m??? M-MODE Aortic Root Diameter MM 3.3 cm DOPPLER AV Peak Velocity 205.7 cm/s AV Peak Gradient 16.9 mmHg AV Mean Velocity 126.5 cm/s AV Mean Gradient 7.8 mmHg AV Velocity Time Integral 36.8 cm LVOT Peak Velocity 94.5 cm/s LVOT Peak Gradient 3.6 mmHg LVOT Velocity Time Integral 21.3 cm MV Area PHT 3.2 cm??? Mitral E Point Velocity 71.1 cm/s Mitral A Point Velocity 72.1 cm/s Mitral E to A Ratio 1.0 MV Deceleration Time 238.7 ms TR Peak Velocity 176.7 cm/s TR Peak Gradient 12.5 mmHg Right Ventricular Systolic Press 17.5 mmHg FINDINGS Left Ventricle Left ventricular ejection fraction is estimated at 45-50 %. Mildly increased septal wall thickness. Mildly increased left ventricular diastolic volume. Severely increased left ventricular systolic volume. Mildly decreased left ventricular ejection fraction. Apical septum hypokinesis. Basal inferior hypokinesis Right Ventricle Moderate right ventricular dilatation. Right ventricular systolic pressure within normal limits. Right Atrium Right atrium not well visualized. Left Atrium Normal left atrial size. No left atrial thrombus or mass present. Mitral Valve Structurally normal mitral valve. Trace mitral regurgitation. Aortic Valve Aortic valve not well visualized. No aortic valve stenosis or regurgitation. Tricuspid Valve Structurally normal tricuspid valve. Trace to mild tricuspid regurgitation. Pulmonic Valve Pulmonic valve not well visualized. No pulmonic regurgitation. Pericardium No pericardial effusion. Aorta Normal size aortic root and proximal ascending aorta. CONCLUSIONS LV size is slightly increased with ejection fraction of 45% hypokinesia of mid to distal septum and adjoining apex and also inferior basal portion. Minimal mitral and tricuspid regurgitation no pericardial effusion Previewed by: Dr. Erica Petersen MD (Electronically Signed) Final Date: 18 March 2024 13:11
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
[2024-03-18] MEDS: SODIUM HYPOCHLORITE 0.25% 480 ML BOT MISCELLANE SCH (17:02)
[2024-03-18 17:15] LABS: Anisocytosis Moderate; Basophils % (A) 0 %; Eosinophils # (A) 0.1 k/uL (0-0.7); Eosinophils % (A) 2 %; HCT 22.3 % (39.0-53.0); Hypochromasia Marked; Lymphocytes # (A) 0.5 k/uL (1.0-4.8); Lymphocytes % (A) 12 %; MCH 27.8 pg (25.0-35.0); MCHC 31.1 g/dL (31.0-37.0); MCV 89.4 fL (80.0-100.0); Mean Platelet Volume 7.3; Monocytes # (A) 0.3 k/uL (0-1.0); Monocytes % (A) 6 %; Neutrophils # (A) 3.5 k/uL (1.3-7.7); Neutrophils % (A) 78 %; Platelet Count 653 k/uL (150-450); Poikilocytosis Moderate; RBC 2.49 m/uL (4.30-5.90); RDW 20.6 % (11.5-15.5); WBC 4.5 k/uL (3.8-10.6)
[2024-03-18 17:28] LABS: HGB 6.9 gm/dL (13.0-17.5)
[2024-03-18 17:32] LABS: African American GFR (CKD) >90 (>60 ml/min/1.73 sqM); Anion Gap 9 mmol/L; Blood Urea Nitrogen 18 mg/dL (9-20); Calcium 8.3 mg/dL (8.4-10.2); Carbon Dioxide 19 mmol/L (22-30); Chloride 106 mmol/L (98-107); Glucose 116 mg/dL (74-99); Non-African American GFR(CKD) >90 (>60 ml/min/1.73 sqM); Potassium 4.2 mmol/L (3.5-5.1); Sodium 134 mmol/L (137-145)
[2024-03-19] MEDS: HYDROmorphone 0.5 MG/0.5 ML SYRINGE IVP PRN (01:33)
[2024-03-19 07:17] LABS: Anisocytosis Slight; Basophils % (A) 0 %; Eosinophils # (A) 0.2 k/uL (0-0.7); Eosinophils % (A) 4 %; HCT 25.2 % (39.0-53.0); HGB 7.6 gm/dL (13.0-17.5); Hypochromasia Marked; Lymphocytes # (A) 0.9 k/uL (1.0-4.8); Lymphocytes % (A) 19 %; MCH 27.5 pg (25.0-35.0); MCV 91.8 fL (80.0-100.0); Mean Platelet Volume 7.7; Monocytes # (A) 0.3 k/uL (0-1.0); Monocytes % (A) 6 %; Neutrophils % (A) 68 %; Platelet Count 663 k/uL (150-450); Poikilocytosis Moderate; RBC 2.75 m/uL (4.30-5.90); RDW 19.6 % (11.5-15.5); WBC 4.4 k/uL (3.8-10.6)
[2024-03-19 07:55] LABS: African American GFR (CKD) >90 (>60 ml/min/1.73 sqM); Anion Gap 10 mmol/L; Blood Urea Nitrogen 14 mg/dL (9-20); Calcium 8.2 mg/dL (8.4-10.2); Carbon Dioxide 18 mmol/L (22-30); Chloride 107 mmol/L (98-107); Glucose 94 mg/dL (74-99); Non-African American GFR(CKD) >90 (>60 ml/min/1.73 sqM); Potassium 4.3 mmol/L (3.5-5.1); Sodium 135 mmol/L (137-145)
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
[2024-03-19 11:34] LABS: African American GFR (CKD) >90 (>60 ml/min/1.73 sqM); Non-African American GFR(CKD) >90 (>60 ml/min/1.73 sqM)
[2024-03-19] MEDS: VANCOMYCIN TROUGH DUE 1 EACH MISC MISCELLANE ONE (12:05)
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
[2024-03-19 16:28] LABS: % Iron Saturation 4.47 (15.00-50.00); Iron 8 UG/DL (65-175); Total Iron Binding Capacity 179 UG/DL (228-460)
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
[2024-03-20 06:45] LABS: Anisocytosis Slight; Basophils % (A) 0 %; Eosinophils # (A) 0.2 k/uL (0-0.7); Eosinophils % (A) 3 %; HCT 28.1 % (39.0-53.0); HGB 8.3 gm/dL (13.0-17.5); Hypochromasia Marked; Lymphocytes # (A) 1.5 k/uL (1.0-4.8); Lymphocytes % (A) 27 %; MCH 27.4 pg (25.0-35.0); MCHC 29.6 g/dL (31.0-37.0); MCV 92.5 fL (80.0-100.0); Macrocytosis Slight; Monocytes # (A) 0.4 k/uL (0-1.0); Monocytes % (A) 8 %; Neutrophils # (A) 3.2 k/uL (1.3-7.7); Neutrophils % (A) 59 %; Platelet Count 702 k/uL (150-450); Poikilocytosis Moderate; RBC 3.04 m/uL (4.30-5.90); RDW 19.7 % (11.5-15.5); WBC 5.4 k/uL (3.8-10.6)
[2024-03-20 07:18] LABS: African American GFR (CKD) >90 (>60 ml/min/1.73 sqM); Anion Gap 12 mmol/L; Blood Urea Nitrogen 15 mg/dL (9-20); Calcium 8.6 mg/dL (8.4-10.2); Carbon Dioxide 22 mmol/L (22-30); Chloride 104 mmol/L (98-107); Glucose 92 mg/dL (74-99); Non-African American GFR(CKD) >90 (>60 ml/min/1.73 sqM); Potassium 4.2 mmol/L (3.5-5.1); Sodium 138 mmol/L (137-145)
[2024-03-20] MEDS: FOLIC ACID 1 MG TAB PO SCH (11:25)
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
--- NOTE | 2024-03-20 13:22 | P.SQBNDB ---
SubQ & Bone Debridement - Subcutaneous & Bone Debridement Date of Service: 03/19/24 Subcutaneous & Bone Debridement: PREOPERATIVE DIAGNOSES: pressure ulcers Sacrum stage III, right hip stage IV, right knee stage III, right dorsal ankle stage IV, POSTOPERATIVE DIAGNOSES: Same PROCEDURE: Excisional surgical debridement into subcutaneous tissues and muscle on all plus bone right hip DESCRIPTION: The full-thickness ulcer, measuring, pre-debridement :refer to measurements documented by nursing. was debrided into the subcutaneous tissues/muscle today to remove yellow fibrinous slough and devitalized tissue from the pressure ulcers Sacrum stage III, right hip stage IV, right knee stage III, right dorsal ankle stage IV was debrided into the subcutaneous tissues/muscle/bone today to remove yellow fibrinous slough and devitalized tissue from the pressure ulcers S right hip stage IV, Post debridement measurements: See today's nursing note There are ? signs of infection today. There are no other materials in the wound that he would inhibit healing or promote adjacent tissue breakdown other than pressure . EXTENT OF NECROTIC TISSUE: Large DEGREE OF EPITHELIALIZATION: Small CHARACTER OF WOUND AFTER DEBRIDEMINT: Bloody and granular INSTRUMENTATION: Sharp curette, scalpel BLEEDING: Minimal and controlled with pressure ANESTHESIA: 2% lidocaine gel applied to the ulcer DRESSING: Santyl daily to all wounds except the right hip, wound vac @125mmg continuous pressureto right hip Patient tolerated today's procedure well. The patient will be reevaluated in the next several days.
[2024-03-20 14:34] VITALS: BMI 25.6
--- NOTE | 2024-03-20 19:23 | P.PN ---
Subjective Progress Note Date: 03/20/24 No acute events overnight. Continues on Iv abx for buttocks wound. Counts stable Objective - Vital Signs Vital signs: Vital Signs Temp 97.5 F L 03/20/24 10:56 Pulse 78 03/20/24 10:56 Resp 18 03/20/24 10:56 BP 106/62 03/20/24 10:56 Pulse Ox 97 03/20/24 10:56 FiO2 Intake & Output 03/19/24 03/20/24 03/20/24 18:59 06:59 18:59 Intake Total 270 Output Total 1999 1200 Balance -1730 -1200 Weight 93.1 kg Intake: IV 30 Invasive Line 2 10 Invasive Line 3 10 Invasive Line 4 10 Oral 240 Output: Urine 1999 1199 Other: Voiding Method Ileal Conduit (Right) Ileal Conduit (Right) Ileal Conduit (Right) # Bowel Movements 1 - Constitutional General appearance: Present: average body habitus, no acute distress - EENT Eyes: Present: anicteric sclerae, EOMI ENT: Present: hearing grossly normal - Respiratory Details: breathing is even and unlabored - Cardiovascular Details: skin warm and dry - Integumentary Integumentary: Absent: cyanotic, jaundiced - Psychiatric Psychiatric: Present: A&O x's 3 - Labs CBC & Chem 7: 03/20/24 05:48 03/20/24 05:48 Labs: Abnormal Lab Results - Last 24 Hours (Table) 03/16/24 03/19/24 03/20/24 Range/Units 17:40 10:54 05:48 RBC (4.30-5.90) m/uL Hgb (13.0-17.5) gm/dL Hct (39.0-53.0) % MCHC (31.0-37.0) g/dL RDW (11.5-15.5) % Plt Count (150-450) k/uL Creatinine 0.62 L (0.66-1.25) mg/dL Iron 8 L (65-175) UG/DL TIBC 179 L (228-460) UG/DL % Saturation 4.47 L (15.00-50.00) Transferrin 128.0 L (204.0-354.0) mg/dL Ferritin 587.0 H (22.0-322.0) ng/mL Folate 4.30 L (4.40-31.00) ng/mL 03/20/24 Range/Units 05:48 RBC 3.04 L (4.30-5.90) m/uL Hgb 8.3 L (13.0-17.5) gm/dL Hct 28.1 L (39.0-53.0) % MCHC 29.6 L (31.0-37.0) g/dL RDW 19.7 H (11.5-15.5) % Plt Count 702 H (150-450) k/uL Creatinine (0.66-1.25) mg/dL Iron (65-175) UG/DL TIBC (228-460) UG/DL % Saturation (15.00-50.00) Transferrin (204.0-354.0) mg/dL Ferritin (22.0-322.0) ng/mL Folate (4.40-31.00) ng/mL Microbiology - Last 24 Hours (Table) 03/19/24 13:31 Gram Stain - Preliminary Buttock Wound Culture - Preliminary Klebsiella oxytoca Presumptive MRSA 03/19/24 10:30 Gram Stain - Preliminary Buttock 03/16/24 17:40 Urine Culture - Final Urine,Catheterized 03/16/24 17:40 Blood Culture - Preliminary Blood Assessment and Plan (1) AMS (altered mental status) Current Visit: Yes Status: Acute Code(s): R41.82 - ALTERED MENTAL STATUS, UNSPECIFIED SNOMED Code(s): 653521619 (2) Cellulitis of right foot Current Visit: Yes Status: Acute Code(s): L03.115 - CELLULITIS OF RIGHT LOWER LIMB SNOMED Code(s): 85145005500379598 (3) Dehydration Current Visit: Yes Status: Acute Code(s): E86.0 - DEHYDRATION SNOMED Code(s): 88322577 (4) Paraplegia Current Visit: Yes Status: Acute Code(s): G82.20 - PARAPLEGIA, UNSPECIFIED SNOMED Code(s): 56602105 (5) Weakness Current Visit: Yes Status: Acute Code(s): R53.1 - WEAKNESS SNOMED Code(s): 87999410 (6) Anemia Current Visit: Yes Status: Acute Priority: Medium Code(s): D64.9 - ANEMIA, UNSPECIFIED SNOMED Code(s): 355850711 Plan: Normocytic hypochromic anemia: Presented to the ER for evaluation of right lower extremity wound, altered mental status and decreased oral intake. Also c/o increasing smell from that RLE and fever. Patient has history of cardiac stents and is on Plavix daily. Patient denies use of frequent NSAIDs. Denies rectal bleeding and melena. Last colonoscopy was 7-8 years ago which was normal per patient. Has never had EGD in the past. He has had frequent recent hospitalizations, and oral intake has been somewhat diminished. No history of inflammatory bowel disease or celiac disease. Being treated for RLE cellulitis -Labs reviewed, hemoglobin 7.6, MCV 91.8, MCHC 30.0. WBC 4.4, platelets 663,000. Patient is status post 2 units PRBCs since admit. -Upon trending labs patient has had anemia since 2013, more recently in the 8 range. -Anemia labs showing iron saturation 4.47%, ferritin 587. No previous ferritin to trend. May be elevated from inflammation/infection. Hard to say based on available labs, but based on current noted infection, will hold IV iron at this time. This can be given in outpt setting once acute infection is adequately treated. Folate deficiency noted, folic acid supplementation ordered. Vit B12 normal at 467 -Continue to monitor CBC, transfuse for hgb <7 or if symptomatic -Recommend outpt GI f/u for endoscopic evaluation
[2024-03-21 07:03] LABS: Anisocytosis Slight; Basophils % (A) 0 %; Eosinophils # (A) 0.2 k/uL (0-0.7); Eosinophils % (A) 3 %; HCT 26.4 % (39.0-53.0); HGB 8.2 gm/dL (13.0-17.5); Hypochromasia Marked; Lymphocytes % (A) 20 %; MCH 27.9 pg (25.0-35.0); MCHC 30.9 g/dL (31.0-37.0); MCV 90.1 fL (80.0-100.0); Mean Platelet Volume 6.8; Monocytes # (A) 0.3 k/uL (0-1.0); Monocytes % (A) 6 %; Neutrophils # (A) 3.5 k/uL (1.3-7.7); Neutrophils % (A) 68 %; Platelet Count 666 k/uL (150-450); Poikilocytosis Moderate; RBC 2.93 m/uL (4.30-5.90); RDW 19.8 % (11.5-15.5); WBC 5.1 k/uL (3.8-10.6)
[2024-03-21 07:31] LABS: African American GFR (CKD) >90 (>60 ml/min/1.73 sqM); Anion Gap 8 mmol/L; Blood Urea Nitrogen 18 mg/dL (9-20); Calcium 8.5 mg/dL (8.4-10.2); Carbon Dioxide 25 mmol/L (22-30); Chloride 104 mmol/L (98-107); Glucose 98 mg/dL (74-99); Non-African American GFR(CKD) >90 (>60 ml/min/1.73 sqM); Sodium 137 mmol/L (137-145)
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
[2024-03-21] MEDS: HYDROcodone/APAP 10-325MG 1 EACH TAB PO PRN (17:42)
[2024-03-22 05:08] LABS: African American GFR (CKD) >90 (>60 ml/min/1.73 sqM); Anion Gap 6 mmol/L; Blood Urea Nitrogen 21 mg/dL (9-20); Calcium 8.6 mg/dL (8.4-10.2); Carbon Dioxide 28 mmol/L (22-30); Chloride 101 mmol/L (98-107); Glucose 88 mg/dL (74-99); Non-African American GFR(CKD) >90 (>60 ml/min/1.73 sqM); Potassium 3.9 mmol/L (3.5-5.1); Sodium 135 mmol/L (137-145)
[2024-03-22 09:28] LABS: Magnesium 1.9 mg/dL (1.5-2.4)
[2024-03-22] MEDS: VANCOMYCIN TROUGH DUE 1 EACH MISC MISCELLANE ONE (11:46)
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
[2024-03-22 12:22] LABS: Basophils # (A) 0.02 X 10*3/uL (0.00-0.10); Basophils % (A) 0.5 %; Eosinophils # (A) 0.18 X 10*3/uL (0.04-0.35); Eosinophils % (A) 4.4 %; HCT 27.9 % (39.6-50.0); HGB 8.1 g/dL (13.0-17.0); Lymphocytes # (A) 1.29 X 10*3/uL (0.90-5.00); Lymphocytes % (A) 31.7 %; MCH 27.2 pg (27.0-32.0); MCV 93.6 FL (80.0-97.0); Mean Platelet Volume 9.1 FL (9.5-12.2); Monocytes # (A) 0.36 X 10*3/uL (0.20-1.00); Monocytes % (A) 8.8 %; NRBC Per 100 WBC 0 X 10*3/uL (0.00-0.01); Neutrophils # (A) 2.13 X 10*3/uL (1.80-7.70); Neutrophils % (A) 52.4 %; Platelet Count 672 X 10*3/uL (140-440); RBC 2.98 X 10*6/uL (4.40-5.60); RDW 19.9 % (11.5-14.5); WBC 4.07 X 10*3/uL (4.50-10.00)
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
[2024-03-23 04:42] LABS: African American GFR (CKD) >90 (>60 ml/min/1.73 sqM); Anion Gap 8 mmol/L; Blood Urea Nitrogen 17 mg/dL (9-20); Calcium 8.2 mg/dL (8.4-10.2); Carbon Dioxide 26 mmol/L (22-30); Chloride 101 mmol/L (98-107); Glucose 93 mg/dL (74-99); Non-African American GFR(CKD) >90 (>60 ml/min/1.73 sqM); Potassium 3.5 mmol/L (3.5-5.1); Sodium 135 mmol/L (137-145)
[2024-03-23 08:48] LABS: Basophils # (A) 0.02 X 10*3/uL (0.00-0.10); Basophils % (A) 0.4 %; Eosinophils # (A) 0.23 X 10*3/uL (0.04-0.35); Eosinophils % (A) 4.8 %; HCT 26.2 % (39.6-50.0); HGB 7.8 g/dL (13.0-17.0); Lymphocytes # (A) 1.08 X 10*3/uL (0.90-5.00); Lymphocytes % (A) 22.4 %; MCH 27.3 pg (27.0-32.0); MCHC 29.8 g/dL (32.0-37.0); MCV 91.6 FL (80.0-97.0); Monocytes # (A) 0.34 X 10*3/uL (0.20-1.00); Monocytes % (A) 7.1 %; NRBC Per 100 WBC 0 X 10*3/uL (0.00-0.01); Neutrophils # (A) 3.05 X 10*3/uL (1.80-7.70); Neutrophils % (A) 63.2 %; Platelet Count 597 X 10*3/uL (140-440); RBC 2.86 X 10*6/uL (4.40-5.60); RDW 19.5 % (11.5-14.5); WBC 4.82 X 10*3/uL (4.50-10.00)
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
[2024-03-23] MEDS: ERTAPENEM 1 GM in SODIUM CHLORIDE 0.9% 50 ML IVPB SCH (13:36)
[2024-03-23 14:30] VITALS: BP 108/61; PULSE 84; RESP 19; TEMP 97.5
[2024-03-23 15:15] LABS: Magnesium 1.9 mg/dL (1.6-2.3)
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
== END 2024-03-23 19:44 | disposition home health service (06) | DRG 853 ==
LOC: EC 16:55 → 5NMEDONC 18:33 → 3SCARD 03-17 03:46 → 4SSUR 03-21 18:19
PROVIDERS: ADMIT Family Medicine; ATTEND Family Medicine
PROC: 0QB60ZZ Excision of Right Upper Femur, Open Approach (ICD-10-PCS; principal; 2024-03-19 21:30)
PROC: 02HV33Z Insertion of Infusion Device into Superior Vena Cava, Percutaneous Approach (ICD-10-PCS; 2024-03-23)
DX: A41.59 Other Gram-negative sepsis (principal); E43 Unspecified severe protein-calorie malnutrition; L89.513 Pressure ulcer of right ankle, stage 3; L89.313 Pressure ulcer of right buttock, stage 3; L89.214 Pressure ulcer of right hip, stage 4; L89.613 Pressure ulcer of right heel, stage 3; L89.893 Pressure ulcer of other site, stage 3; G93.41 Metabolic encephalopathy; I21.A1 Myocardial infarction type 2; I31.39 Other pericardial effusion (noninflammatory); R56.9 Unspecified convulsions; G82.20 Paraplegia, unspecified; I10 Essential (primary) hypertension; D53.9 Nutritional anemia, unspecified; L03.115 Cellulitis of right lower limb; M86.9 Osteomyelitis, unspecified; N39.0 Urinary tract infection, site not specified; Z89.612 Acquired absence of left leg above knee; E86.0 Dehydration; R65.20 Severe sepsis without septic shock; B95.62 Methicillin resistant Staphylococcus aureus infection as the cause of diseases classified elsewhere; Z68.25 Body mass index [BMI] 25.0-25.9, adult; G89.29 Other chronic pain; I25.10 Atherosclerotic heart disease of native coronary artery without angina pectoris; V29.99XS Rider (driver) (passenger) of other motorcycle injured in unspecified traffic accident, sequela; V89.2XXS Person injured in unspecified motor-vehicle accident, traffic, sequela; I95.9 Hypotension, unspecified; Z59.82 Transportation insecurity; Z79.02 Long term (current) use of antithrombotics/antiplatelets; M54.9 Dorsalgia, unspecified; Z79.82 Long term (current) use of aspirin; Z79.899 Other long term (current) drug therapy; Z86.73 Personal history of transient ischemic attack (TIA), and cerebral infarction without residual deficits; Z87.440 Personal history of urinary (tract) infections; Z87.891 Personal history of nicotine dependence; Z95.5 Presence of coronary angioplasty implant and graft; Z99.3 Dependence on wheelchair; Z87.01 Personal history of pneumonia (recurrent); Z91.81 History of falling; Z28.21 Immunization not carried out because of patient refusal; Z71.3 Dietary counseling and surveillance
CPT/HCPCS: 36410; 36415; 36430; 36573; 70450; 71046; 76937; 80048; 80053; 80202; 81001; 82565; 82607; 82728; 82746; 83540; 83550; 83605; 83735; 83880; 83921; 84100; 84134; 84443; 84484; 85025; 85610; 85730; 86850; 86900; 86901; 86920; 87040; 87070; 87075; 87077; 87086; 87186; 87205; 93005; 93306; 96361; 96365; 96366; 96367; 96375; 99285

== ENCOUNTER 2024-04-07 15:53 | Observation (INO) | payer OTHER, MEDICARE ==
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
[2024-04-07 17:02] LABS: INR 1.1 (<1.2); Partial Thromboplastin Time 30.2 sec (22.0-30.0); Prothrombin Time 12.2 sec (10.0-12.5)
[2024-04-07 17:05] LABS: Anisocytosis Slight; Basophils % (A) 0 %; Eosinophils # (A) 0.2 k/uL (0-0.7); Eosinophils % (A) 5 %; HCT 23.9 % (39.0-53.0); HGB 7.5 gm/dL (13.0-17.5); Hypochromasia Moderate; Lymphocytes # (A) 0.9 k/uL (1.0-4.8); Lymphocytes % (A) 19 %; MCH 26.6 pg (25.0-35.0); MCHC 31.2 g/dL (31.0-37.0); MCV 85.4 fL (80.0-100.0); Mean Platelet Volume 7.1; Monocytes # (A) 0.4 k/uL (0-1.0); Monocytes % (A) 8 %; Neutrophils # (A) 3.2 k/uL (1.3-7.7); Neutrophils % (A) 66 %; Platelet Count 393 k/uL (150-450); Poikilocytosis Slight; RDW 19.3 % (11.5-15.5); WBC 4.8 k/uL (3.8-10.6)
[2024-04-07 17:06] LABS: ALT 7 U/L (4-49); AST 12 U/L (17-59); African American GFR (CKD) 72 (>60 ml/min/1.73 sqM); Alkaline Phosphatase 88 U/L (38-126); Anion Gap 10 mmol/L; Blood Urea Nitrogen 36 mg/dL (9-20); Calcium 8.2 mg/dL (8.4-10.2); Carbon Dioxide 25 mmol/L (22-30); Chloride 101 mmol/L (98-107); Glucose 99 mg/dL (74-99); Magnesium 2.2 mg/dL (1.6-2.3); Non-African American GFR(CKD) 63 (>60 ml/min/1.73 sqM); Potassium 4.5 mmol/L (3.5-5.1); Sodium 136 mmol/L (137-145); Total Bilirubin 0.3 mg/dL (0.2-1.3); Total Protein 6.7 g/dL (6.3-8.2)
--- NOTE | 2024-04-07 17:12 | XR ---
EXAMINATION TYPE: XR chest 2V DATE OF EXAM: 04/07/2024 4:57 PM COMPARISON: Chest radiographs from 03/16/2024 TECHNIQUE: XR chest 2V Frontal and lateral views of the chest. CLINICAL INDICATION:Male, 63 years old with history of gi bleed protocol; FINDINGS: Lungs/Pleura: There is no evidence of pleural effusion, focal consolidation, or pneumothorax. Pulmonary vascularity: Unremarkable. Heart/mediastinum: Cardiomediastinal silhouette is enlarged and stable. Atherosclerotic calcificatio ns are seen in the aorta. Musculoskeletal: No acute osseous pathology. Right-sided thoracolumbar fusion red identified. Bilater al AC joint arthropathy. IMPRESSION: No acute cardiopulmonary disease/process. [facility], , 04/07/2024 5:10 PM
[2024-04-07] MEDS: PANTOPRAZOLE 40 MG/10 ML VIAL IVP STA (18:01)
[2024-04-07] MEDS ORDERED: NALOXONE 0.4 MG/ML 1 ML VIAL IV PRN (18:17)
[2024-04-07] MEDS ORDERED: ACETAMINOPHEN TAB 325 MG TAB PO PRN (18:17)
[2024-04-07] MEDS ORDERED: methocarbamoL 750 MG TAB PO SCH (23:15)
[2024-04-07] MEDS: ATORVASTATIN 80 MG TAB PO SCH (23:47)
[2024-04-07] MEDS: HYDROcodone/APAP 10-325MG 1 EACH TAB PO PRN (23:47)
[2024-04-07] MEDS: diazePAM 5 MG TAB PO PRN (23:47)
[2024-04-07] MEDS: SODIUM CHLORIDE 0.9% 500 ML 250 ML IV ONE (23:49)
[2024-04-07] MEDS: FUROSEMIDE 10 MG/ML 2 ML VIAL IV ONE (23:54)
[2024-04-07 23:59] LABS: Anisocytosis Slight; Basophils % (A) 0 %; Eosinophils # (A) 0.3 k/uL (0-0.7); Eosinophils % (A) 5 %; HCT 27.3 % (39.0-53.0); HGB 8.6 gm/dL (13.0-17.5); Hypochromasia Marked; Lymphocytes # (A) 1.1 k/uL (1.0-4.8); Lymphocytes % (A) 21 %; MCH 27.3 pg (25.0-35.0); MCHC 31.4 g/dL (31.0-37.0); Mean Platelet Volume 6.8; Monocytes # (A) 0.3 k/uL (0-1.0); Monocytes % (A) 5 %; Neutrophils # (A) 3.4 k/uL (1.3-7.7); Neutrophils % (A) 67 %; Platelet Count 444 k/uL (150-450); RBC 3.13 m/uL (4.30-5.90); RDW 19.1 % (11.5-15.5); WBC 5.1 k/uL (3.8-10.6)
[2024-04-08] MEDS: SODIUM CHLORIDE 0.9% 1,000 ML IV SCH (00:02)
[2024-04-08 06:50] LABS: ALT 7 U/L (4-49); AST 21 U/L (17-59); African American GFR (CKD) 79 (>60 ml/min/1.73 sqM); Albumin 3.1 g/dL (3.5-5.0); Albumin/Globulin Ratio 0.8; Alkaline Phosphatase 89 U/L (38-126); Anion Gap 14 mmol/L; Blood Urea Nitrogen 33 mg/dL (9-20); Calcium 8.7 mg/dL (8.4-10.2); Carbon Dioxide 19 mmol/L (22-30); Chloride 103 mmol/L (98-107); Globulin 3.9 g/dL; Glucose 81 mg/dL (74-99); Non-African American GFR(CKD) 68 (>60 ml/min/1.73 sqM); Potassium 4.6 mmol/L (3.5-5.1); Sodium 136 mmol/L (137-145); Total Bilirubin 0.6 mg/dL (0.2-1.3)
[2024-04-08 07:48] LABS: Anisocytosis Slight; HCT 31.4 % (39.0-53.0); HGB 10.1 gm/dL (13.0-17.5); Hypochromasia Marked; MCH 27.4 pg (25.0-35.0); MCHC 32.1 g/dL (31.0-37.0); MCV 85.3 fL (80.0-100.0); Mean Platelet Volume 8.1; RBC 3.68 m/uL (4.30-5.90); WBC 8.5 k/uL (3.8-10.6)
[2024-04-08 08:03] LABS: Eosinophils # (M) 0.09 k/uL (0-0.7); Lymphocytes # (M) 3.74 k/uL (1.0-4.8); Monocytes # (M) 0.51 k/uL (0-1.0); Neutrophils # (M) 4.17 k/uL (1.3-7.7); Neutrophils % (M) 49 %; Nucleated Red Blood Cells 0 /100 WBC (0-0); Total Cells Counted 100
[2024-04-08 08:05] LABS: Anisocytosis (M) Present; Platelet Count 443 k/uL (150-450); Poikilocytosis (M) Present
[2024-04-08] MEDS: COLLAGENASE 250 UNIT/GM OINTMENT 30 GM TUBE TOPICAL SCH (10:53)
[2024-04-08] MEDS: METOPROLOL SUCCINATE (ER) 25 MG TAB.ER.24H PO SCH (11:14)
[2024-04-08] MEDS: FOLIC ACID 1 MG TAB PO SCH (11:15)
[2024-04-08] MEDS: HEPARIN SODIUM,PORCINE 5,000 UNIT/ML 1 ML VIAL SQ SCH (11:15)
[2024-04-08] MEDS: levETIRAcetam 500 MG TAB PO SCH (11:15)
[2024-04-08] MEDS: droNABinol 2.5 MG CAP PO SCH (11:15)
[2024-04-08] MEDS: LOSARTAN 25 MG TAB PO SCH (11:15)
[2024-04-08] MEDS: PANTOPRAZOLE 40 MG/10 ML VIAL IVP SCH (11:26)
[2024-04-08 11:30] LABS: Glucose,Whole Blood 86 mg/dL (70-110)
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
[2024-04-08] MEDS: PEG 3350 (236 GM/BTL) + LYTES 4,000 ML BOTTLE PO ONE (15:01)
[2024-04-08] MEDS: LACTULOSE 20 GM/30 ML CUP PO ONE (15:05)
[2024-04-08 16:38] LABS: Glucose,Whole Blood 122 mg/dL (70-110)
[2024-04-08 20:13] LABS: Glucose,Whole Blood 86 mg/dL (70-110)
[2024-04-09 06:10] LABS: Glucose,Whole Blood 80 mg/dL (70-110)
[2024-04-09 07:27] LABS: Anisocytosis Slight; Basophils % (A) 0 %; Eosinophils # (A) 0.2 k/uL (0-0.7); Eosinophils % (A) 4 %; HCT 30.8 % (39.0-53.0); HGB 9.3 gm/dL (13.0-17.5); Hypochromasia Marked; Lymphocytes % (A) 20 %; MCH 26.6 pg (25.0-35.0); MCHC 30.3 g/dL (31.0-37.0); MCV 87.8 fL (80.0-100.0); Mean Platelet Volume 6.6; Monocytes # (A) 0.3 k/uL (0-1.0); Monocytes % (A) 5 %; Neutrophils # (A) 3.3 k/uL (1.3-7.7); Neutrophils % (A) 69 %; Platelet Count 437 k/uL (150-450); RBC 3.51 m/uL (4.30-5.90); WBC 4.8 k/uL (3.8-10.6)
[2024-04-09 07:35] LABS: African American GFR (CKD) 86 (>60 ml/min/1.73 sqM); Anion Gap 12 mmol/L; Blood Urea Nitrogen 27 mg/dL (9-20); Calcium 8.5 mg/dL (8.4-10.2); Carbon Dioxide 22 mmol/L (22-30); Chloride 105 mmol/L (98-107); Glucose 76 mg/dL (74-99); Non-African American GFR(CKD) 74 (>60 ml/min/1.73 sqM); Potassium 4.7 mmol/L (3.5-5.1); Sodium 139 mmol/L (137-145)
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
[2024-04-09 11:27] LABS: Glucose,Whole Blood 104 mg/dL (70-110)
[2024-04-09] MEDS ORDERED: PROPOFOL 10 MG/ML 20 ML VIAL IV ONE (12:10)
[2024-04-09] MEDS ORDERED: LIDOCAINE 1% INJ 10MG/ML (20 ML MDV) ONE (12:10)
[2024-04-09] MEDS: LACTATED RINGERS 500 ML IV ONE (12:14)
--- NOTE | 2024-04-09 12:50 | P.PCN ---
Date of Procedure: 04/09/24 Procedure(s) Performed: PREOPERATIVE DIAGNOSIS: GI bleed, anemia POSTOPERATIVE DIAGNOSIS: Gastritis with erosions, duodenitis, fecal impaction PROCEDURE: 1. EGD with biopsy 2. Flexible sigmoidoscopy with disimpaction ANESTHESIA: MAC SURGEON: Jem Alarcon M.D. SPECIMENS: Antrum, duodenum, body of stomach ENDOSCOPIC PROCEDURE: The patient was on the endoscopy table in the left decubitus position. The Olympus gastroscope was inserted into the oropharynx and passed under direct visualization to the region of the third portion of the duodenum. From that point the scope was slowly withdrawn inspecting all surfaces carefully. There was mild nodularity of the mucosa in the first portion of the duodenum. Biopsies were taken. Minimal inflammation here was present. There was no evidence of bleeding or visible ulcerations. The pylorus was widely patent. The stomach was inspected. The patient had gastritis present with a few small erosions. Biopsies of the prepyloric/antral region took place. A second biopsy of the body of the stomach where there was a slightly thickened fold with edema and erythema present. No active bleeding seen. A little bit of old blood within the stomach lining was present. The hiatus appeared normal on retroflexion. The patient's esophagus appeared normal. The patient was kept on the endoscopy table in the left decubitus position. The Olympus colonoscope was inserted into the anus and passed under direct visualization to the mid rectum. The patient had solid stool with impaction here. Manual disimpaction of 20 to 30 ounces of solid stool took place. No blood was seen. No further endoscopy took place at this time. The patient was taken to the recovery room in stable condition per anesthesia guidelines. RECOMMENDATIONS: Begin soapsuds enemas today. Will have patient try additional GoLytely today as well. Will reschedule for colonoscopy tomorrow. Continue antiacids and await biopsy results from upper scope. Etiology for ongoing anemia likely on the basis of gastritis and anemia of chronic disease.
[2024-04-09 13:45] VITALS: BMI 24.3
[2024-04-09 16:20] LABS: Glucose,Whole Blood 93 mg/dL (70-110)
[2024-04-09] MEDS: PEG 3350 (236 GM/BTL) + LYTES 4,000 ML BOTTLE PO ONE (17:00)
[2024-04-10 08:16] LABS: Anisocytosis Slight; HCT 27.8 % (39.0-53.0); HGB 8.5 gm/dL (13.0-17.5); Hypochromasia Marked; MCH 26.1 pg (25.0-35.0); MCHC 30.5 g/dL (31.0-37.0); MCV 85.8 fL (80.0-100.0); Mean Platelet Volume 7.7; Platelet Count 425 k/uL (150-450); RBC 3.24 m/uL (4.30-5.90); RDW 18.9 % (11.5-15.5)
[2024-04-10 08:32] LABS: African American GFR (CKD) 83 (>60 ml/min/1.73 sqM); Anion Gap 10 mmol/L; Blood Urea Nitrogen 20 mg/dL (9-20); Calcium 8.3 mg/dL (8.4-10.2); Carbon Dioxide 27 mmol/L (22-30); Chloride 104 mmol/L (98-107); Glucose 89 mg/dL (74-99); Non-African American GFR(CKD) 71 (>60 ml/min/1.73 sqM); Potassium 4.1 mmol/L (3.5-5.1); Sodium 141 mmol/L (137-145)
[2024-04-10] MEDS ORDERED: PROPOFOL 10 MG/ML 20 ML VIAL IV ONE (09:45)
[2024-04-10] MEDS: LACTATED RINGERS 500 ML IV ONE (09:48)
[2024-04-10] MEDS ORDERED: ERTAPENEM 1 GM VIAL IVPB SCH (10:00)
[2024-04-10] MEDS ORDERED: VANCOMYCIN 500 MG IV SCH (10:00)
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
[2024-04-10] MEDS: ERTAPENEM 1 GM in SODIUM CHLORIDE 0.9% 50 ML IVPB SCH (10:36)
--- NOTE | 2024-04-10 10:36 | P.PCN ---
Date of Procedure: 04/10/24 Procedure(s) Performed: PREOPERATIVE DIAGNOSIS: GI bleed, anemia POSTOPERATIVE DIAGNOSIS: Mild diverticulosis, poor prep PROCEDURE: Colonoscopy ANESTHESIA: MAC SURGEON: Jem Alarcon M.D. SPECIMENS: None ENDOSCOPIC PROCEDURE: The patient was placed on the endoscopy table in the left decubitus position. The Olympus colonoscope was inserted into the anus and passed under direct visualization to the estimated region of the hepatic flexure. Patient had significant tortuosity limiting our travel through the colon. The patient also had a poor prep with retained solid and liquid stool. From the furthest point and we slowly withdrew the scope inspecting all surfaces carefully. There were no neoplastic inflammatory or polypoid lesions seen throughout the visualized transverse descending sigmoid or rectum. There was no blood within the lumen of the bowel. There was mild left-sided diverticulosis. Digital rectal examination revealed small hemorrhoids and patulous anus. The patient was taken to the recovery room in stable condition per anesthesia guidelines. RECOMMENDATIONS: Resume regular diet. Findings discussed with the patient's . No further plans for colonic evaluation at this time. Likely source of recent bleeding gastric with ongoing anticoagulant use. Continue antiacid t herapy. May discharge from our standpoint.
[2024-04-10] MEDS: VANCOMYCIN 1,500 MG in SODIUM CHLORIDE 0.9% 500 ML 500 ML IVPB SCH (13:34)
[2024-04-10 14:29] VITALS: BP 126/57; PULSE 73; RESP 18; TEMP 97.8
[2024-04-10] MEDS ORDERED: PSYLLIUM HUSK 100% 6 GM PACKET PO SCH (21:00)
== END 2024-04-10 18:00 | disposition home health service (06) ==
LOC: EC 15:53 → 6NMEDSUR 18:18 → 3SCARD 04-08 09:18 → 4SSUR 04-10 01:34
PROVIDERS: ADMIT Family Medicine; ATTEND Family Medicine
DX: D62 Acute posthemorrhagic anemia (principal); N17.9 Acute kidney failure, unspecified; K29.50 Unspecified chronic gastritis without bleeding; K29.80 Duodenitis without bleeding; K56.41 Fecal impaction; K57.30 Diverticulosis of large intestine without perforation or abscess without bleeding; K64.9 Unspecified hemorrhoids; E43 Unspecified severe protein-calorie malnutrition; L89.150 Pressure ulcer of sacral region, unstageable; L89.314 Pressure ulcer of right buttock, stage 4; L89.514 Pressure ulcer of right ankle, stage 4; L89.614 Pressure ulcer of right heel, stage 4; L89.894 Pressure ulcer of other site, stage 4; L97.919 Non-pressure chronic ulcer of unspecified part of right lower leg with unspecified severity; B96.1 Klebsiella pneumoniae [K. pneumoniae] as the cause of diseases classified elsewhere; G82.20 Paraplegia, unspecified; I10 Essential (primary) hypertension; I25.10 Atherosclerotic heart disease of native coronary artery without angina pectoris; I25.2 Old myocardial infarction; Z86.73 Personal history of transient ischemic attack (TIA), and cerebral infarction without residual deficits; Z79.02 Long term (current) use of antithrombotics/antiplatelets; Z79.82 Long term (current) use of aspirin; Z79.899 Other long term (current) drug therapy; Z87.891 Personal history of nicotine dependence; Z89.612 Acquired absence of left leg above knee; Z95.5 Presence of coronary angioplasty implant and graft; Z99.3 Dependence on wheelchair; Z87.440 Personal history of urinary (tract) infections
CPT/HCPCS: 96376 ×3; 96365; 96366; 96367; 96372 ×3; 96375 ×2; 36430; 99285; 36415; 93005; 86900; 86901; 84134; 88305; 80053 ×2; 80048 ×2; 83605; 83735; 85025 ×3; 85027; 85610; 85730; 86850; 86920; 82272; 71046; 45378; 43239; 45330; G0378 ×4; P9016; J3370; J1644 ×3; J1940; Q0167 ×2; J2003; J1335; J2704 ×2; J2470 ×4

== ENCOUNTER 2024-05-25 09:26 | Inpatient (IN) | payer OTHER, MEDICARE ==
[2024-05-25 10:27] LABS: Glucose,Whole Blood 107 mg/dL (70-110)
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
[2024-05-25 10:41] LABS: Anisocytosis Slight; Basophils % (A) 0 %; Eosinophils # (A) 0.1 k/uL (0-0.7); Eosinophils % (A) 1 %; HCT 32.4 % (39.0-53.0); HGB 9.4 gm/dL (13.0-17.5); Hypochromasia Marked; Lymphocytes # (A) 0.8 k/uL (1.0-4.8); Lymphocytes % (A) 8 %; MCH 24.1 pg (25.0-35.0); MCV 83.2 fL (80.0-100.0); Mean Platelet Volume 6.8; Monocytes # (A) 0.3 k/uL (0-1.0); Monocytes % (A) 3 %; Neutrophils % (A) 86 %; Platelet Count 689 k/uL (150-450); RBC 3.89 m/uL (4.30-5.90); WBC 9.3 k/uL (3.8-10.6)
[2024-05-25] MEDS: LACTATED RINGERS 1,000 ML IV ONE (10:50)
[2024-05-25 10:54] LABS: ALT 215 U/L (4-49); AST 285 U/L (17-59); African American GFR (CKD) 55 (>60 ml/min/1.73 sqM); Albumin 3.4 g/dL (3.5-5.0); Alcohol <10 mg/dL; Alkaline Phosphatase 1231 U/L (38-126); Anion Gap 18 mmol/L; Blood Urea Nitrogen 47 mg/dL (9-20); Calcium 8.8 mg/dL (8.4-10.2); Carbon Dioxide 14 mmol/L (22-30); Chloride 107 mmol/L (98-107); Glucose 125 mg/dL (74-99); Non-African American GFR(CKD) 47 (>60 ml/min/1.73 sqM); Potassium 5.7 mmol/L (3.5-5.1); Sodium 139 mmol/L (137-145); Total Bilirubin 2.9 mg/dL (0.2-1.3); Total Protein 8.1 g/dL (6.3-8.2)
[2024-05-25 10:58] LABS: Appearance,Urine Cloudy (Clear); Bacteria,Urine Few /hpf; Bilirubin,Urine 1+ (Negative); Blood,Urine Trace (Negative); Color,Urine Dark Yellow; Glucose,Urine (UA) Negative (Negative); Ketones,Urine Negative (Negative); Leukocyte Esterase,Urine Large (Negative); Mucus,Urine Rare /hpf; Nitrite,Urine Negative (Negative); PH, Urine 7.5 (5.0-8.0); Protein,Urine 2+ (Negative); RBC,Urine 16 /hpf (0-5); Specific Gravity,Urine 1.014 (1.001-1.035); Squamous Epithelial Cell,Urine <1 /hpf (0-4); WBC,Urine >182 /hpf (0-5)
[2024-05-25 11:16] LABS: Amphetamine Screen,Urine Not Detected (NotDetected); Cocaine Screen,Urine Not Detected (NotDetected); Opiate Screen,Urine Detected (NotDetected); Phencyclidine Screen,Urine Not Detected (NotDetected); Urn Cannabinoid Scrn Detected (NotDetected)
[2024-05-25 11:17] LABS: Barbiturate Screen,Urine Not Detected (NotDetected); Benzodiazepines Screen,Urine Detected (NotDetected); Methadone Screen, Urine Not Detected (NotDetected); Oxycodone Screen, Urine Not Detected (NotDetected); Tricyclic Antidepressant,Urine Detected (NotDetected)
[2024-05-25 11:40] LABS: INR 1.2 (<1.2); Partial Thromboplastin Time 22.1 sec (22.0-30.0); Prothrombin Time 12.5 sec (10.0-12.5)
--- NOTE | 2024-05-25 11:57 | CT ---
EXAMINATION TYPE: CT brain wo con DATE OF EXAM: 05/25/2024 COMPARISON: CT brain March 16, 2024 CLINICAL INDICATION: Male, 63 years old with history of Altered mental status, AMS TECHNIQUE: CT scan of the head is performed without contrast. CT DLP: 1186.4 mGycm. Automated Exposure Control for Dose Reduction was Utilized. FINDINGS: There is no acute intracranial hemorrhage or midline shift identified. There is mild diff use ventricular and sulcal prominence redemonstrated. Asymmetric sulcal prominence high right fronta l parietal lobes is again seen There is mild to moderate low-attenuation in the periventricular white matter redemonstrated. Bilateral aphakia redemonstrated. The visualized sinuses are clear. IMPRESSION: No acute intracranial hemorrhage or midline shift. No significant change from most recen t prior CT. [facility], , 05/25/2024 11:55 AM
--- NOTE | 2024-05-25 12:00 | XR ---
EXAMINATION TYPE: XR chest 1V portable DATE OF EXAM: 05/25/2024 COMPARISON: Chest x-ray April 07, 2024 CLINICAL INDICATION: Male, 63 years old with history of altered mental status; TECHNIQUE: Frontal views of the chest are obtained. FINDINGS: There is no focal air space opacity, pleural effusion, or pneumothorax seen. The cardiac silhouette size is within normal limits. Surgical change to the thoracolumbar spine is partially imag ed. IMPRESSION: No acute cardiopulmonary process. [facility], , 05/25/2024 11:57 AM
[2024-05-25] MEDS: cefTRIAXone IN SWFI 1,000 MG/10 ML SYRINGE IVP STA (12:22)
--- NOTE | 2024-05-25 13:27 | US ---
EXAMINATION TYPE: US gallbladder DATE OF EXAM: 05/25/2024 COMPARISON: CT:06/09/17 CLINICAL INDICATION: Male, 63 years old with history of Elevated liver enzymes; elevated liver enzyme s TECHNIQUE: Grayscale and color Doppler imaging of the right upper quadrant was performed. FINDINGS: EXAM MEASUREMENTS: Liver Length: 14.7 cm Gallbladder Wall: 0.35 cm CBD: 1.22 cm Right Kidney: 12.8 x 7.4 x 6.1 cm KLYSTROM TUBE TESTER NOTES: Pancreas: limited due to bowel gas Liver: heterogeneous Gallbladder: Limited due to bowel gas. possible pericholecystic fluid, wall is thickened. Gallstone noted. Evidence for sonographic Cross's sign: No CBD: Mildly dilated Right Kidney: cystic area noted in superior pole measuring 1.3 x 1.1cm. Dilated renal pelvis Heterogeneously appearance of the liver. This limits evaluation for focal masses. Findings could be o n basis of mild diffuse fatty infiltrative hepatocellular disease. No ascites is present. IMPRESSION: 1. Suboptimal study. Internal gallstone with equivocal findings for acute cholecystitis. Consider HID A scan follow-up to further evaluate. 2. Mild extrahepatic biliary dilatation. Consider nonemergent MRCP/ERCP follow-up based on clinical a nd liver lab correlation. 3. Redemonstration of mild to moderate right-sided hydronephrosis. Correlate for UPJ stricture/stenos is. Patient had hydronephrosis on prior CT. [facility], , 05/25/2024 1:24 PM
[2024-05-25] MEDS: PIPERACILLIN-TAZOBACTAM 3.375 GM in SODIUM CHLORIDE 0.9% 100 ML IVPB STA (14:24)
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
[2024-05-25] MEDS: DEXTROSE 5% IN WATER 1,000 ML with SODIUM BICARB (1 MEQ/ML) 150 ML IV SCH (15:23)
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
[2024-05-25 16:44] LABS: VBG PH 7.23 (7.31-7.41)
--- NOTE | 2024-05-25 16:52 | CT ---
EXAMINATION TYPE: CT chest angio for PE DATE OF EXAM: 05/25/2024 COMPARISON: Prior CTA chest June 27, 2016 CLINICAL INDICATION: Male, 63 years old with history of Tachycardic and dyspnea, Tachycardic and dysp jeremias, TECHNIQUE: CTA scan of the thorax is performed with IV Contrast, patient injected with 100 mL of Isovue 300, pul monary embolism protocol. MIP Images are created on CT scanner and reviewed. CT DLP: 810.3 mGycm. Automated Exposure Control for Dose Reduction was Utilized. FINDINGS: LUNGS: The exam is suboptimal as there is respiratory motion compromise. This limits evaluation parti cularly for subcentimeter nodules. Multifocal groundglass opacities and areas of consolidation in the left lower lobe are present. Right lung is clear. No pleural effusion or pneumothorax seen bilateral ly. There is significant fluid density in the left lower lobe bronchus axial image 91 noted. HEART: Size within normal limits. Severe three-vessel coronary artery calcification and/or stents are redemonstrated. MEDIASTINUM: Suboptimal study without convincing CT evidence for acute pulmonary embolism. Some enhan cement of the aorta without aneurysm or dissection. There are no greater than 1 cm hilar or mediasti nal lymph nodes. No pericardial effusion is seen. OTHER: Dependent gallstones are partially imaged. Prominent cystic change in the left kidney is parti ally imaged. Surgical change in the lumbar spine is partially imaged causing streak artifact. Degener ative change bilateral glenohumeral joints is present. IMPRESSION: 1. Suboptimal study without acute pulmonary embolism. 2. There is filling/occlusion of the left lower lung bronchus with multifocal left lung groundglass o pacities and areas of consolidation could reflect acute infiltrates and/or edema. Correlate clinicall y. Consider underlying mucous plugging. [facility], , 05/25/2024 4:49 PM
[2024-05-25 17:12] LABS: Glucose,Whole Blood 155 mg/dL (70-110)
[2024-05-25 17:30] LABS: ABG Base Excess -10.2 mmol/L; ABG HCO3 15 mmol/L (21-25); ABG Oxygen Saturation 70.3 % (94-97); ABG PCO2 32 mmHg (35-45); ABG TCO2 16 mmol/L (19-24); Allen Test Performed? Yes
[2024-05-25 17:35] LABS: ABG PO2 42 mmHg (83-108)
[2024-05-25 17:54] LABS: Glucose,Whole Blood 165 mg/dL (70-110)
[2024-05-25 18:06] LABS: Glucose,Whole Blood 154 mg/dL (70-110)
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
[2024-05-25 18:15] LABS: ABG Base Excess -10.4 mmol/L; ABG HCO3 16 mmol/L (21-25); ABG Oxygen Saturation 84.3 % (94-97); ABG PCO2 35 mmHg (35-45); ABG PH 7.26 (7.35-7.45); ABG TCO2 17 mmol/L (19-24); Allen Test Performed? Yes
[2024-05-25 18:17] LABS: ABG PO2 58 mmHg (83-108)
[2024-05-25 19:08] LABS: Acetaminophen <10.0 ug/mL; Magnesium 1.8 mg/dL (1.6-2.3); Phosphorus 5.7 mg/dL (2.5-4.5); Salicylate <1.0 mg/dL
[2024-05-25] MEDS ORDERED: Magnesium Replacement Protocol 1 EACH MISC MISCELLANE PRN (19:12)
--- NOTE | 2024-05-25 19:37 | XR ---
EXAMINATION TYPE: XR chest 1V portable DATE OF EXAM: 05/25/2024 CLINICAL INDICATION: Male, 63 years old with history of Tube placement, progress study. TECHNIQUE: Single AP portable supine view of the chest is obtained. COMPARISON: Chest x-ray from earlier today and older studies FINDINGS: There is new orogastric tube projecting to at least the level of the diaphragm. Advise KU B x-ray to better evaluate the tip. There is new endotracheal tube terminating inferior clavicular le alyx approximately 4 to 5 cm above the wilda. Persistent left basilar opacity. Right lung is clear. Cardiac silhouette size stable. Surgical change s to the thoracolumbar spine is partially imaged. IMPRESSION: 1. New endotracheal tube is satisfactory in position. 2. Persistent small left pleural effusion and left basilar acute infiltrate and/or atelectasis [facility], , 05/25/2024 7:35 PM
[2024-05-25 19:52] LABS: ABG Base Excess -10.6 mmol/L; ABG HCO3 16 mmol/L (21-25); ABG PCO2 39 mmHg (35-45); ABG PH 7.23 (7.35-7.45); ABG PO2 148 mmHg (83-108); ABG TCO2 17 mmol/L (19-24); Allen Test Performed? Yes
[2024-05-25 20:22] LABS: T4, Free (Free Thyroxine) 2.85 ng/dL (0.78-2.19)
[2024-05-25] MEDS: CHLORHEXIDINE GLUCONATE 15 ML CUP MUCOUS MEM SCH (20:28)
[2024-05-25] MEDS: MAGNESIUM SULFATE-D5W PMX 1 GM in DEXTROSE/WATER 1 100ML.BAG IVPB ONE (20:28)
[2024-05-26] MEDS: SODIUM CHLORIDE 0.9% 1,000 ML IV ONE (00:22)
[2024-05-26] MEDS: PIPERACILLIN-TAZOBACTAM 3.375 GM in SODIUM CHLORIDE 0.9% 100 ML IVPB SCH (00:28)
[2024-05-26] MEDS ORDERED: VANCOMYCIN IV PER PHARMACY 1 EACH MISC MISCELLANE PRN (04:11)
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
[2024-05-26] MEDS: VANCOMYCIN 1,750 MG in SODIUM CHLORIDE 0.9% 500 ML 500 ML IVPB ONE (05:01)
--- NOTE | 2024-05-26 05:24 | P.PCN ---
Date of Procedure: 05/26/24 Preoperative Diagnosis: Sepsis, septic shock, acute hypoxemic respiratory failure Postoperative Diagnosis: Sepsis, septic shock, acute hypoxemic respiratory failure Procedure(s) Performed: Insertion of right brachial arterial line Indications for Procedure: Continuous blood pressure monitoring and frequent blood draws Description of Procedure: Informed consent was obtained, and a procedural timeout was performed . The patient was placed in supine position. The right brachial region was prepared in a sterile fashion, and a sterile drape was applied. The right brachial artery was palpated, easily cannulated, and a guidewire was placed. A Cook catheter was inserted over the guidewire, and the guidewire was removed. There was good arterial blood flow, good arterial waveform, and no complications. The line was secured with using a 3-0 silk suture.
[2024-05-26] MEDS: NOREPINEPHRINE 4 MG in SODIUM CHLORIDE 0.9% 250 ML IV SCH (05:31)
[2024-05-26 05:50] LABS: Basophils # (A) 0.04 10*3/uL (0.00-0.10); Basophils % (A) 0.3 %; Eosinophils # (A) 0.01 10*3/uL (0.04-0.35); Eosinophils % (A) 0.1 %; HCT 26.9 % (39.6-50.0); HGB 7.9 g/dL (13.0-17.0); Lymphocytes # (A) 0.65 10*3/uL (0.90-5.00); Lymphocytes % (A) 5.3 %; MCH 24.1 pg (27.0-32.0); MCHC 29.4 g/dL (32.0-37.0); Mean Platelet Volume 8.7 fL (9.5-12.2); Monocytes # (A) 0.44 10*3/uL (0.20-1.00); Monocytes % (A) 3.6 %; Neutrophils # (A) 11.03 10*3/uL (1.80-7.70); Neutrophils % (A) 89.9 %; Platelet Count 483 10*3/uL (140-440); RBC 3.28 10*6/uL (4.40-5.60); RDW 18.4 % (11.5-14.5); WBC 12.27 10*3/uL (4.50-10.00)
[2024-05-26 05:55] LABS: ABG Base Excess -5.2 mmol/L; ABG HCO3 20 mmol/L (21-25); ABG Oxygen Saturation 99.8 % (94-97); ABG PCO2 36 mmHg (35-45); ABG PH 7.35 (7.35-7.45); ABG PO2 197 mmHg (83-108); ABG TCO2 21 mmol/L (19-24)
[2024-05-26 05:56] LABS: Allen Test Performed? no
[2024-05-26 06:23] LABS: ALT 127 U/L (4-49); AST 107 U/L (17-59); African American GFR (CKD) 63 (>60 ml/min/1.73 sqM); Albumin 2.6 g/dL (3.5-5.0); Alkaline Phosphatase 845 U/L (38-126); Anion Gap 15 mmol/L; Blood Urea Nitrogen 44 mg/dL (9-20); Calcium 7.7 mg/dL (8.4-10.2); Carbon Dioxide 18 mmol/L (22-30); Chloride 108 mmol/L (98-107); Glucose 154 mg/dL (74-99); Magnesium 1.8 mg/dL (1.6-2.3); Non-African American GFR(CKD) 55 (>60 ml/min/1.73 sqM); Potassium 3.7 mmol/L (3.5-5.1); Sodium 141 mmol/L (137-145); Total Bilirubin 1.1 mg/dL (0.2-1.3); Total Protein 6.4 g/dL (6.3-8.2)
--- NOTE | 2024-05-26 07:17 | P.PN ---
Subjective Progress Note Date: 05/26/24 PROGRESS NOTE The patient is a 63-year-old paraplegic after an accident who presented with decreased mentation, unresponsiveness. The history is obtained from the family. The patient presented on 13 January 2020 for with evidence of non-STEMI and symptoms of chest discomfort. At that time he underwent coronary angiography that revealed severe calcification with severe distal left main disease, proxi mal LAD severe disease, severe left circumflex disease with chronically occluded RCA with collaterals. Because of his anatomy he was transferred to [facility] and had a complex admission complicated by seizure and stroke and subsequently underwent placement of 2 stents, details of his intervention is not available to me. He presented with the progressive symptoms of change in mental status over the last 24 to 48 hours, unresponsiveness and was severely hypoxemic. He has sinus tachycardia. He has multiple wound and had prior history of osteomyelitis. He is status post left AKA. He has a prior history of pericardial fusion pericarditis. His most recent echocardiogram was perfor med in February of this year and revealed an ejection fraction of 45 to 50% with no significant valvular disease. There is a question of cholecystitis on this admission. The noted a change in the color of his urine. He was afebrile on presentation. He had abnormal liver function test with mildly elevated troponin. The patient has a sacral ulceration with wound VAC May 26 The patient was intubated, he continues to be in sinus mechanism. He is on norepinephrine. He is in sinus mechanism with no episode of atrial fibrillation. His urinary output has been stable. He is initiated on sodium bicarb. He is on antibiotics. His echocardiogram is pending. There is evidence of leukocytosis. Medications: Aspirin, metoprolol succinate 25 mg daily, norepinephrine, Zosyn, vancomycin, sodium bicarb PHYSICAL EXAMINATION: Blood pressure 120/50 heart rate 90, intubated and sedated LUNGS: Clear to auscultation HEART: Regular rate and rhythm, S1, S2. No S3. Systolic ejection murmur ABDOMEN: Soft, nontender, no organomegaly EXTREMETIES: No edema, status post left AKA, wounds on the right lower extremity noted LAB: White blood cell 12.27, hemoglobin 7.9. pH 7.35, PO2 197. BUN 44, creatinine 1.36. Potassium 3.7. AST 107, ALT 127. Troponin 0.066. IMPRESSION: 1. Respiratory failure with evidence suggestive of sepsis requiring mechanical ventilation and vasopressors 2. History of CAD status post stenting and mild troponin elevation representing type II myocardial infarction 3. Status post left AKA 4. Paraplegia post accident 5. Multiple wound and sacral ulceration 6. Anemia 7. Abnormal liver function test with possible cholecystitis 8. Chronic kidney disease 9. History of stroke and seizure PLAN: 1. Obtain an echocardiogram with Doppler 2. Continue present treatment per intensive care 3. Follow renal functions and hemoglobin 4. Prognosis is poor Objective - Vital Signs Vital signs: Vital Signs Temp 96.9 F L 05/26/24 04:00 Pulse 93 05/26/24 07:00 Resp 16 05/26/24 07:00 BP 113/60 05/26/24 07:00 Pulse Ox 100 05/26/24 07:00 FiO2 60 05/26/24 05:56 Intake & Output 05/25/24 05/26/24 05/26/24 18:59 06:59 18:59 Intake Total 2256.351 125 Output Total 200 620 40 Balance -200 1636.351 85 Weight 81.647 kg 79.2 kg Intake: IV 1125 125 bicarb 1125 125 Intake, IV Titration 1131.351 Amount Sodium Chloride 0.9% 1, 1000 000 ml @ 999 mls/hr IV . Q1H1M ONE Rx#:[id number] propofoL 1,000 mg In 131.351 Empty Bag 1 bag @ 15 MCG/ KG/MIN 7.348 mls/hr IV . [id number] MALIHA Rx#:[id number] Output: Urine 200 620 40 Other: Voiding Method Indwelling Catheter ABP, PAP, CO, CI - Last Documented Arterial Blood Pressure 120/47 - Labs CBC & Chem 7: 05/26/24 05:35 05/26/24 05:35 Labs: Abnormal Lab Results - Last 24 Hours (Table) 05/25/24 05/25/24 05/25/24 Range/Units 10:18 10:18 10:18 WBC (4.50-10.00) 10*3/uL RBC 3.89 L (4.30-5.90) m/uL Hgb 9.4 L (13.0-17.5) gm/dL Hct 32.4 L (39.0-53.0) % MCH 24.1 L (25.0-35.0) pg MCHC 29.0 L (31.0-37.0) g/dL RDW 18.0 H (11.5-15.5) % Plt Count 689 H (150-450) k/uL MPV (9.5-12.2) fL Immature Gran # (0.00-0.04) 10*3/uL Neutrophils # 8.0 H (1.3-7.7) k/uL Lymphocytes # 0.8 L (1.0-4.8) k/uL Eosinophils # (0.04-0.35) 10*3/uL INR 1.2 H (<1.2) ABG pH (7.35-7.45) ABG pCO2 (35-45) mmHg ABG pO2 (83-108) mmHg ABG HCO3 (21-25) mmol/L ABG Total CO2 (19-24) mmol/L ABG O2 Saturation (94-97) % VBG pH (7.31-7.41) VBG HCO3 (24-28) mmol/L Hemoglobin (13.0-17.5) gm/dL Potassium (3.5-5.1) mmol/L Chloride (98-107) mmol/L Carbon Dioxide (22-30) mmol/L BUN (9-20) mg/dL Creatinine (0.66-1.25) mg/dL Glucose (74-99) mg/dL POC Glucose (mg/dL) (70-110) mg/dL Calcium (8.4-10.2) mg/dL Phosphorus (2.5-4.5) mg/dL Total Bilirubin (0.2-1.3) mg/dL AST (17-59) U/L ALT (4-49) U/L Alkaline Phosphatase (38-126) U/L Troponin I (0.000-0.034) ng/mL Albumin (3.5-5.0) g/dL TSH (0.465-4.680) mIU/L Free T4 (0.78-2.19) ng/dL Urine Protein 2+ H (Negative) Urine Blood Trace H (Negative) Urine Bilirubin 1+ H (Negative) Ur Leukocyte Esterase Large H (Negative) Urine RBC 16 H (0-5) /hpf Urine WBC >182 H (0-5) /hpf Urine Bacteria Few H (None) /hpf Urine Mucus Rare H (None) /hpf Urine Opiates Screen Detected H (NotDetected) U Tricyclic Antidepress Detected H (NotDetected) U Benzodiazepines Scrn Detected H (NotDetected) U Marijuana (THC) Screen Detected H (NotDetected) 05/25/24 05/25/24 05/25/24 Range/Units 10:18 10:18 16:25 WBC (4.50-10.00) 10*3/uL RBC (4.30-5.90) m/uL Hgb (13.0-17.5) gm/dL Hct (39.0-53.0) % MCH (25.0-35.0) pg MCHC (31.0-37.0) g/dL RDW (11.5-15.5) % Plt Count (150-450) k/uL MPV (9.5-12.2) fL Immature Gran # (0.00-0.04) 10*3/uL Neutrophils # (1.3-7.7) k/uL Lymphocytes # (1.0-4.8) k/uL Eosinophils # (0.04-0.35) 10*3/uL INR (<1.2) ABG pH (7.35-7.45) ABG pCO2 (35-45) mmHg ABG pO2 (83-108) mmHg ABG HCO3 (21-25) mmol/L ABG Total CO2 (19-24) mmol/L ABG O2 Saturation (94-97) % VBG pH 7.23 L (7.31-7.41) VBG HCO3 15 L (24-28) mmol/L Hemoglobin (13.0-17.5) gm/dL Potassium 5.7 H (3.5-5.1) mmol/L Chloride (98-107) mmol/L Carbon Dioxide 14 L (22-30) mmol/L BUN 47 H (9-20) mg/dL Creatinine 1.53 H (0.66-1.25) mg/dL Glucose 125 H (74-99) mg/dL POC Glucose (mg/dL) (70-110) mg/dL Calcium (8.4-10.2) mg/dL Phosphorus (2.5-4.5) mg/dL Total Bilirubin 2.9 H (0.2-1.3) mg/dL AST 285 H (17-59) U/L ALT 215 H (4-49) U/L Alkaline Phosphatase 1231 H (38-126) U/L Troponin I 0.076 H* (0.000-0.034) ng/mL Albumin 3.4 L (3.5-5.0) g/dL TSH (0.465-4.680) mIU/L Free T4 (0.78-2.19) ng/dL Urine Protein (Negative) Urine Blood (Negative) Urine Bilirubin (Negative) Ur Leukocyte Esterase (Negative) Urine RBC (0-5) /hpf Urine WBC (0-5) /hpf Urine Bacteria (None) /hpf Urine Mucus (None) /hpf Urine Opiates Screen (NotDetected) U Tricyclic Antidepress (NotDetected) U Benzodiazepines Scrn (NotDetected) U Marijuana (THC) Screen (NotDetected) 05/25/24 05/25/24 05/25/24 Range/Units 17:01 17:27 17:53 WBC (4.50-10.00) 10*3/uL RBC (4.30-5.90) m/uL Hgb (13.0-17.5) gm/dL Hct (39.0-53.0) % MCH (25.0-35.0) pg MCHC (31.0-37.0) g/dL RDW (11.5-15.5) % Plt Count (150-450) k/uL MPV (9.5-12.2) fL Immature Gran # (0.00-0.04) 10*3/uL Neutrophils # (1.3-7.7) k/uL Lymphocytes # (1.0-4.8) k/uL Eosinophils # (0.04-0.35) 10*3/uL INR (<1.2) ABG pH 7.30 L (7.35-7.45) ABG pCO2 32 L (35-45) mmHg ABG pO2 42 L* (83-108) mmHg ABG HCO3 15 L (21-25) mmol/L ABG Total CO2 16 L (19-24) mmol/L ABG O2 Saturation 70.3 L (94-97) % VBG pH (7.31-7.41) VBG HCO3 (24-28) mmol/L Hemoglobin 8.9 L (13.0-17.5) gm/dL Potassium (3.5-5.1) mmol/L Chloride (98-107) mmol/L Carbon Dioxide (22-30) mmol/L BUN (9-20) mg/dL Creatinine (0.66-1.25) mg/dL Glucose (74-99) mg/dL POC Glucose (mg/dL) 155 H 165 H (70-110) mg/dL Calcium (8.4-10.2) mg/dL Phosphorus (2.5-4.5) mg/dL Total Bilirubin (0.2-1.3) mg/dL AST (17-59) U/L ALT (4-49) U/L Alkaline Phosphatase (38-126) U/L Troponin I (0.000-0.034) ng/mL Albumin (3.5-5.0) g/dL TSH (0.465-4.680) mIU/L Free T4 (0.78-2.19) ng/dL Urine Protein (Negative) Urine Blood (Negative) Urine Bilirubin (Negative) Ur Leukocyte Esterase (Negative) Urine RBC (0-5) /hpf Urine WBC (0-5) /hpf Urine Bacteria (None) /hpf Urine Mucus (None) /hpf Urine Opiates Screen (NotDetected) U Tricyclic Antidepress (NotDetected) U Benzodiazepines Scrn (NotDetected) U Marijuana (THC) Screen (NotDetected) 05/25/24 05/25/24 05/25/24 Range/Units 18:04 18:13 18:18 WBC (4.50-10.00) 10*3/uL RBC (4.30-5.90) m/uL Hgb (13.0-17.5) gm/dL Hct (39.0-53.0) % MCH (25.0-35.0) pg MCHC (31.0-37.0) g/dL RDW (11.5-15.5) % Plt Count (150-450) k/uL MPV (9.5-12.2) fL Immature Gran # (0.00-0.04) 10*3/uL Neutrophils # (1.3-7.7) k/uL Lymphocytes # (1.0-4.8) k/uL Eosinophils # (0.04-0.35) 10*3/uL INR (<1.2) ABG pH 7.26 L (7.35-7.45) ABG pCO2 (35-45) mmHg ABG pO2 58 L* (83-108) mmHg ABG HCO3 16 L (21-25) mmol/L ABG Total CO2 17 L (19-24) mmol/L ABG O2 Saturation 84.3 L (94-97) % VBG pH (7.31-7.41) VBG HCO3 (24-28) mmol/L Hemoglobin 9.0 L (13.0-17.5) gm/dL Potassium (3.5-5.1) mmol/L Chloride (98-107) mmol/L Carbon Dioxide (22-30) mmol/L BUN (9-20) mg/dL Creatinine (0.66-1.25) mg/dL Glucose (74-99) mg/dL POC Glucose (mg/dL) 154 H (70-110) mg/dL Calcium (8.4-10.2) mg/dL Phosphorus (2.5-4.5) mg/dL Total Bilirubin (0.2-1.3) mg/dL AST (17-59) U/L ALT (4-49) U/L Alkaline Phosphatase (38-126) U/L Troponin I 0.074 H* (0.000-0.034) ng/mL Albumin (3.5-5.0) g/dL TSH (0.465-4.680) mIU/L Free T4 (0.78-2.19) ng/dL Urine Protein (Negative) Urine Blood (Negative) Urine Bilirubin (Negative) Ur Leukocyte Esterase (Negative) Urine RBC (0-5) /hpf Urine WBC (0-5) /hpf Urine Bacteria (None) /hpf Urine Mucus (None) /hpf Urine Opiates Screen (NotDetected) U Tricyclic Antidepress (NotDetected) U Benzodiazepines Scrn (NotDetected) U Marijuana (THC) Screen (NotDetected) 05/25/24 05/25/24 05/25/24 Range/Units 18:18 19:46 21:16 WBC (4.50-10.00) 10*3/uL RBC (4.30-5.90) m/uL Hgb (13.0-17.5) gm/dL Hct (39.0-53.0) % MCH (25.0-35.0) pg MCHC (31.0-37.0) g/dL RDW (11.5-15.5) % Plt Count (150-450) k/uL MPV (9.5-12.2) fL Immature Gran # (0.00-0.04) 10*3/uL Neutrophils # (1.3-7.7) k/uL Lymphocytes # (1.0-4.8) k/uL Eosinophils # (0.04-0.35) 10*3/uL INR (<1.2) ABG pH 7.23 L (7.35-7.45) ABG pCO2 (35-45) mmHg ABG pO2 148 H (83-108) mmHg ABG HCO3 16 L (21-25) mmol/L ABG Total CO2 17 L (19-24) mmol/L ABG O2 Saturation 99.0 H (94-97) % VBG pH (7.31-7.41) VBG HCO3 (24-28) mmol/L Hemoglobin 8.3 L (13.0-17.5) gm/dL Potassium (3.5-5.1) mmol/L Chloride (98-107) mmol/L Carbon Dioxide (22-30) mmol/L BUN (9-20) mg/dL Creatinine (0.66-1.25) mg/dL Glucose (74-99) mg/dL POC Glucose (mg/dL) (70-110) mg/dL Calcium (8.4-10.2) mg/dL Phosphorus 5.7 H (2.5-4.5) mg/dL Total Bilirubin (0.2-1.3) mg/dL AST (17-59) U/L ALT (4-49) U/L Alkaline Phosphatase (38-126) U/L Troponin I 0.066 H* (0.000-0.034) ng/mL Albumin (3.5-5.0) g/dL TSH 0.333 L (0.465-4.680) mIU/L Free T4 2.85 H (0.78-2.19) ng/dL Urine Protein (Negative) Urine Blood (Negative) Urine Bilirubin (Negative) Ur Leukocyte Esterase (Negative) Urine RBC (0-5) /hpf Urine WBC (0-5) /hpf Urine Bacteria (None) /hpf Urine Mucus (None) /hpf Urine Opiates Screen (NotDetected) U Tricyclic Antidepress (NotDetected) U Benzodiazepines Scrn (NotDetected) U Marijuana (THC) Screen (NotDetected) 05/26/24 05/26/24 05/26/24 Range/Units 05:35 05:35 05:51 WBC 12.27 H (4.50-10.00) 10*3/uL RBC 3.28 L (4.30-5.90) m/uL Hgb 7.9 L (13.0-17.5) gm/dL Hct 26.9 L (39.0-53.0) % MCH 24.1 L (25.0-35.0) pg MCHC 29.4 L (31.0-37.0) g/dL RDW (11.5-15.5) % Plt Count 483 H (150-450) k/uL MPV 8.7 L (9.5-12.2) fL Immature Gran # 0.10 H (0.00-0.04) 10*3/uL Neutrophils # 11.03 H (1.3-7.7) k/uL Lymphocytes # 0.65 L (1.0-4.8) k/uL Eosinophils # 0.01 L (0.04-0.35) 10*3/uL INR (<1.2) ABG pH (7.35-7.45) ABG pCO2 (35-45) mmHg ABG pO2 197 H (83-108) mmHg ABG HCO3 20 L (21-25) mmol/L ABG Total CO2 (19-24) mmol/L ABG O2 Saturation 99.8 H (94-97) % VBG pH (7.31-7.41) VBG HCO3 (24-28) mmol/L Hemoglobin 7.9 L (13.0-17.5) gm/dL Potassium (3.5-5.1) mmol/L Chloride 108 H (98-107) mmol/L Carbon Dioxide 18 L (22-30) mmol/L BUN 44 H (9-20) mg/dL Creatinine 1.36 H (0.66-1.25) mg/dL Glucose 154 H (74-99) mg/dL POC Glucose (mg/dL) (70-110) mg/dL Calcium 7.7 L (8.4-10.2) mg/dL Phosphorus (2.5-4.5) mg/dL Total Bilirubin (0.2-1.3) mg/dL AST 107 H (17-59) U/L ALT 127 H (4-49) U/L Alkaline Phosphatase 845 H (38-126) U/L Troponin I (0.000-0.034) ng/mL Albumin 2.6 L (3.5-5.0) g/dL TSH (0.465-4.680) mIU/L Free T4 (0.78-2.19) ng/dL Urine Protein (Negative) Urine Blood (Negative) Urine Bilirubin (Negative) Ur Leukocyte Esterase (Negative) Urine RBC (0-5) /hpf Urine WBC (0-5) /hpf Urine Bacteria (None) /hpf Urine Mucus (None) /hpf Urine Opiates Screen (NotDetected) U Tricyclic Antidepress (NotDetected) U Benzodiazepines Scrn (NotDetected) U Marijuana (THC) Screen (NotDetected) Microbiology - Last 24 Hours (Table) 05/25/24 21:45 Gram Stain - Preliminary Sputum
--- NOTE | 2024-05-26 07:54 | XR ---
EXAMINATION TYPE: XR chest 1V portable DATE OF EXAM: 05/26/2024 CLINICAL INDICATION: Male, 63 years old with history of Tube placement, progress study. TECHNIQUE: Single AP portable semiupright view of the chest is obtained. COMPARISON: Chest x-ray from one day earlier and older studies FINDINGS: Stable endotracheal tube. Better Visualization of the orogastric tube extending below the diaphragm. Persistent left basilar opacity. Right lung remains clear. Cardiac silhouette size stable. Surgical c hanges to the thoracolumbar spine is partially imaged. IMPRESSION: Persistent small left pleural effusion and left basilar acute infiltrate and/or atelectasis. No signi ficant change from one day earlier. [facility], , 05/26/2024 7:52 AM
[2024-05-26] MEDS: METOPROLOL SUCCINATE (ER) 25 MG TAB.ER.24H PO SCH (09:04)
[2024-05-26] MEDS: MAGNESIUM SULFATE-D5W PMX 1 GM in DEXTROSE/WATER 1 100ML.BAG IVPB ONE (09:44)
[2024-05-26] MEDS: PANTOPRAZOLE 40 MG/10 ML VIAL IV SCH (09:44)
[2024-05-26] MEDS: ASPIRIN 81 MG PO SCH (09:44)
[2024-05-26] MEDS: CISATRACURIUM 2 MG/ML 5 ML VIAL IV ONE (10:00)
--- NOTE | 2024-05-26 10:51 | CA ---
Transthoracic Echo Report Name: Adriel Bush Age: 63 Gender: M : 1960 Exam Date: 05/26/2024 07:33 Exam Location: [facility] Ht (in): 76 Wt (lb): 180 Ordering Physician: Danii Solorio MD ([id number]) Attending/Referring Phys: Metal Pourer Jenny Zuniga RDCS Procedure CPT: Indications: CAD Cardiac Hx: Limited, last prior 03/17/24 Technical Quality: Technically difficult study Contrast 1: Definity Total Dose (mL): 3 Contrast 2: Total Dose (mL): MEASUREMENTS (Male / Female) Normal Values 2D ECHO LV Diastolic Diameter PLAX 4.8 cm 4.2 - 5.9 / 3.9 - 5.3 cm LV Systolic Diameter PLAX 3.4 cm IVS Diastolic Thickness 1.1 cm 0.6 - 1.0 / 0.6 - 0.9 cm LVPW Diastolic Thickness 1.2 cm 0.6 - 1.0 / 0.6 - 0.9 cm LV Relative Wall Thickness 0.5 LVOT Diameter 2.5 cm LV Diastolic Volume MOD BP 120.7 cm??? 67 - 155 / 56 - 104 cm??? LV Systolic Volume MOD BP 48.7 cm??? 22 - 58 / 19 - 49 cm??? LV Ejection Fraction MOD BP 59.6 % >= 55 % LV Cardiac Index MOD BP 3276.6 cm???/min???m??? LV Diastolic Volume MOD 4C 122.8 cm??? LV Systolic Volume MOD 4C 50.9 cm??? LV Ejection Fraction MOD 4C 58.5 % LV Cardiac Index MOD 4C 3273.1 cm???/min???m??? LV Diastolic Length 4C 10.1 cm LV Systolic Length 4C 7.8 cm LV Diastolic Volume MOD 2C 115.0 cm??? LV Systolic Volume MOD 2C 44.7 cm??? LV Ejection Fraction MOD 2C 61.1 % LV Cardiac Index MOD 2C 3203.1 cm???/min???m??? LV Diastolic Length 2C 9.7 cm LV Systolic Length 2C 8.2 cm DOPPLER AV Peak Velocity 114.4 cm/s AV Peak Gradient 5.2 mmHg AV Mean Velocity 78.9 cm/s AV Mean Gradient 2.8 mmHg AV Velocity Time Integral 16.7 cm LVOT Peak Velocity 96.5 cm/s LVOT Peak Gradient 3.7 mmHg LVOT Velocity Time Integral 12.5 cm LVOT Stroke Volume 62.2 cm??? LVOT Stroke Volume Index 29.3 ml/m??? LVOT Cardiac Index 2831.3 cm???/min???m??? AV Area Cont Eq vti 3.7 cm??? AV Area Cont Eq pk 4.2 cm??? TR Peak Velocity 271.9 cm/s TR Peak Gradient 29.6 mmHg Right Atrial Pressure 20.0 mmHg Pulmonary Artery Systolic Pressu 49.6 mmHg Right Ventricular Systolic Press 49.6 mmHg FINDINGS Left Ventricle Left ventricular ejection fraction is estimated at 55-60 %. Left ventricular cavity size normal. Left ventricular wall thickness normal. No obvious regional wall motion abnormalities. Right Ventricle Right ventricular dilatation. Reduced right ventricular global systolic function. Moderate pulmonary hypertension. Right Atrium Right atrium not assessed. Left Atrium Left atrium not assessed. Mitral Valve Structurally normal mitral valve. No mitral stenosis. No mitral regurgitation. Aortic Valve Aortic valve not well visualized. No aortic valve stenosis or regurgitation. Tricuspid Valve Structurally normal tricuspid valve. No tricuspid stenosis. Trace to mild tricuspid regurgitation. Pulmonic Valve Pulmonic valve not assessed. Pericardium No pericardial effusion. Aorta Aortic root and proximal ascending aorta not assessed. CONCLUSIONS Technically difficult study for interpretation Normal LV systolic function Poorly visualized intracardiac valves No pericardial effusion Previewed by: Dr. Minesh Louis MD (Electronically Signed) Final Date: 26 May 2024 10:50
--- NOTE | 2024-05-26 11:08 | XR ---
EXAMINATION TYPE: XR chest 1V portable DATE OF EXAM: 05/26/2024 CLINICAL INDICATION: Male, 63 years old with history of rt ij line placement, progress study. TECHNIQUE: Single AP portable upright view of the chest is obtained. COMPARISON: Chest x-ray from earlier today FINDINGS: There is new right internal jugular central venous catheter terminating in the SVC. No rig ht-sided pneumothorax. Stable endotracheal and orogastric tubes. Persistent left basilar opacity. Right lung remains clear. Cardiac silhouette size stable and within normal limits.. Surgical changes to the thoracolumbar spine is partially imaged. IMPRESSION: No pneumothorax after right central line placement. [facility], , 05/26/2024 11:06 AM
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
--- NOTE | 2024-05-26 12:51 | OP ---
OPERATIVE REPORT DATE OF SERVICE : PROCEDURE PERFORMED: Placement of a right internal jugular triple-lumen catheter. PREOPERATIVE DIAGNOSES: Acute hypoxic respiratory failure, septic shock, hypotension. POSTOPERATIVE DIAGNOSIS: Acute hypoxic respiratory failure, septic shock, hypotension. ANESTHESIA USED: 2 mL of 1% lidocaine. DESCRIPTION OF PROCEDURE: The patient was placed in the Trendelenburg position, the area of the right cervical region was prepared in a sterile fashion. Drapes were applied. The area behind the posterior belly of the sternocleidomastoid was anesthetized. Then, using the posterior approach, the right internal jugular vein was cannulated easily. A guidewire was placed. A triple-lumen catheter was inserted over the guidewire, and the guidewire was removed. Good blood flow noted in the 3 different ports of the triple-lumen catheter, line was secured using 3.0 silk sutures. Chest x-ray postoperatively showed no complications and there was adequate placement of the right IJ central line in the SVC. MMODL / IJN: [id number] /
--- NOTE | 2024-05-26 13:39 | P.PN ---
Subjective Progress Note Date: 05/26/24 SURGICAL PROGRESS NOTE CHIEF COMPLAINT: Altered mental status HISTORY OF PRESENT ILLNESS: Patient is currently in the ICU intubated and on mechanical ventilation. Afebrile. WBC is up from 9.3-12 Hgb 9.4 down to 7.9. Total bilirubin 2.9 down to 1.1 LFTs trending downwards. Patient seen by GI service they are recommending MRCP when medically stable. Patient intubated and in the ICU with evidence of sepsis and possible aspiration pneumonia. Followed by pulmonary service. Had been hypotensive. Currently off of the Levophed. PHYSICAL EXAM: VITAL SIGNS: Reviewed. GENERAL: no acute distress. ABDOMEN: Soft. Nondistended. Nontender. Urostomy in place NEUROLOGIC: Intubated and sedated ASSESSMENT: 1. Cholelithiasis with gallbladder wall thickening. Possible acute cholecystitis 2. Elevated LFTs and total bilirubin. Possible choledocholithiasis. Patient may have passed a stone. 3. Recent [place] in December 2023 and stents placed in January 2024 4. 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 Paraplegic PLAN: - Continue ICU management - Continue IV antibiotics - Continue IV fluids - GI service recommends MRCP when stable. No plans for ERCP at this time - Continue to monitor - Repeat labs in a.m. 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 Signing provider agrees with the documented findings, assessment, and plan of care. I have personally seen and examined the patient, reviewed the PIPELINE CONSTRUCTION INSPECTOR /PAs history, exam and MDM and agree with the assessment and plan as written. Based on total visit time, I have performed more than 50% of the visit. As above: Patient remains on the ventilator. GI consult noted. Liver enzymes improving. Continue to follow closely. Eventual cholecystectomy when medically cleared and optimized advised unless CODE STATUS changes made. Recheck labs to [facility]. Continue antibiotics. Objective - Vital Signs Vital signs: Vital Signs Temp 96.9 F L 05/26/24 04:00 Pulse 93 05/26/24 07:00 Resp 16 05/26/24 07:00 BP 113/60 05/26/24 07:00 Pulse Ox 100 05/26/24 07:00 FiO2 45 05/26/24 11:33 Intake & Output 05/25/24 05/26/24 05/26/24 18:59 06:59 18:59 Intake Total 2256.351 125 Output Total 200 620 40 Balance -200 1636.351 85 Weight 81.647 kg 79.2 kg Intake: IV 1125 125 bicarb 1125 125 Intake, IV Titration 1131.351 Amount Sodium Chloride 0.9% 1, 1000 000 ml @ 999 mls/hr IV . Q1H1M ONE Rx#:[id number] propofoL 1,000 mg In 131.351 Empty Bag 1 bag @ 15 MCG/ KG/MIN 7.348 mls/hr IV . [id number] [facility] Rx#:[id number] Output: Urine 200 620 40 Other: Voiding Method Indwelling Catheter ABP, PAP, CO, CI - Last Documented Arterial Blood Pressure 120/47 - Labs CBC & Chem 7: 05/26/24 05:35 05/26/24 05:35 Labs: Abnormal Lab Results - Last 24 Hours (Table) 05/25/24 05/25/24 05/25/24 Range/Units 16:25 17:01 17:27 WBC (4.50-10.00) 10*3/uL RBC (4.40-5.60) 10*6/uL Hgb (13.0-17.0) g/dL Hct (39.6-50.0) % MCH (27.0-32.0) pg MCHC (32.0-37.0) g/dL Plt Count (140-440) 10*3/uL MPV (9.5-12.2) fL Immature Gran # (0.00-0.04) 10*3/uL Neutrophils # (1.80-7.70) 10*3/uL Lymphocytes # (0.90-5.00) 10*3/uL Eosinophils # (0.04-0.35) 10*3/uL ABG pH 7.30 L (7.35-7.45) ABG pCO2 32 L (35-45) mmHg ABG pO2 42 L* (83-108) mmHg ABG HCO3 15 L (21-25) mmol/L ABG Total CO2 16 L (19-24) mmol/L ABG O2 Saturation 70.3 L (94-97) % VBG pH 7.23 L (7.31-7.41) VBG HCO3 15 L (24-28) mmol/L Hemoglobin 8.9 L (13.0-17.5) gm/dL Chloride (98-107) mmol/L Carbon Dioxide (22-30) mmol/L BUN (9-20) mg/dL Creatinine (0.66-1.25) mg/dL Glucose (74-99) mg/dL POC Glucose (mg/dL) 155 H (70-110) mg/dL Calcium (8.4-10.2) mg/dL Phosphorus (2.5-4.5) mg/dL AST (17-59) U/L ALT (4-49) U/L Alkaline Phosphatase (38-126) U/L Troponin I (0.000-0.034) ng/mL Albumin (3.5-5.0) g/dL TSH (0.465-4.680) mIU/L Free T4 (0.78-2.19) ng/dL 05/25/24 05/25/24 05/25/24 Range/Units 17:53 18:04 18:13 WBC (4.50-10.00) 10*3/uL RBC (4.40-5.60) 10*6/uL Hgb (13.0-17.0) g/dL Hct (39.6-50.0) % MCH (27.0-32.0) pg MCHC (32.0-37.0) g/dL Plt Count (140-440) 10*3/uL MPV (9.5-12.2) fL Immature Gran # (0.00-0.04) 10*3/uL Neutrophils # (1.80-7.70) 10*3/uL Lymphocytes # (0.90-5.00) 10*3/uL Eosinophils # (0.04-0.35) 10*3/uL ABG pH 7.26 L (7.35-7.45) ABG pCO2 (35-45) mmHg ABG pO2 58 L* (83-108) mmHg ABG HCO3 16 L (21-25) mmol/L ABG Total CO2 17 L (19-24) mmol/L ABG O2 Saturation 84.3 L (94-97) % VBG pH (7.31-7.41) VBG HCO3 (24-28) mmol/L Hemoglobin 9.0 L (13.0-17.5) gm/dL Chloride (98-107) mmol/L Carbon Dioxide (22-30) mmol/L BUN (9-20) mg/dL Creatinine (0.66-1.25) mg/dL Glucose (74-99) mg/dL POC Glucose (mg/dL) 165 H 154 H (70-110) mg/dL Calcium (8.4-10.2) mg/dL Phosphorus (2.5-4.5) mg/dL AST (17-59) U/L ALT (4-49) U/L Alkaline Phosphatase (38-126) U/L Troponin I (0.000-0.034) ng/mL Albumin (3.5-5.0) g/dL TSH (0.465-4.680) mIU/L Free T4 (0.78-2.19) ng/dL 05/25/24 05/25/24 05/25/24 Range/Units 18:18 18:18 19:46 WBC (4.50-10.00) 10*3/uL RBC (4.40-5.60) 10*6/uL Hgb (13.0-17.0) g/dL Hct (39.6-50.0) % MCH (27.0-32.0) pg MCHC (32.0-37.0) g/dL Plt Count (140-440) 10*3/uL MPV (9.5-12.2) fL Immature Gran # (0.00-0.04) 10*3/uL Neutrophils # (1.80-7.70) 10*3/uL Lymphocytes # (0.90-5.00) 10*3/uL Eosinophils # (0.04-0.35) 10*3/uL ABG pH 7.23 L (7.35-7.45) ABG pCO2 (35-45) mmHg ABG pO2 148 H (83-108) mmHg ABG HCO3 16 L (21-25) mmol/L ABG Total CO2 17 L (19-24) mmol/L ABG O2 Saturation 99.0 H (94-97) % VBG pH (7.31-7.41) VBG HCO3 (24-28) mmol/L Hemoglobin 8.3 L (13.0-17.5) gm/dL Chloride (98-107) mmol/L Carbon Dioxide (22-30) mmol/L BUN (9-20) mg/dL Creatinine (0.66-1.25) mg/dL Glucose (74-99) mg/dL POC Glucose (mg/dL) (70-110) mg/dL Calcium (8.4-10.2) mg/dL Phosphorus 5.7 H (2.5-4.5) mg/dL AST (17-59) U/L ALT (4-49) U/L Alkaline Phosphatase (38-126) U/L Troponin I 0.074 H* (0.000-0.034) ng/mL Albumin (3.5-5.0) g/dL TSH 0.333 L (0.465-4.680) mIU/L Free T4 2.85 H (0.78-2.19) ng/dL 05/25/24 05/26/24 05/26/24 Range/Units 21:16 05:35 05:35 WBC 12.27 H (4.50-10.00) 10*3/uL RBC 3.28 L (4.40-5.60) 10*6/uL Hgb 7.9 L (13.0-17.0) g/dL Hct 26.9 L (39.6-50.0) % MCH 24.1 L (27.0-32.0) pg MCHC 29.4 L (32.0-37.0) g/dL Plt Count 483 H (140-440) 10*3/uL MPV 8.7 L (9.5-12.2) fL Immature Gran # 0.10 H (0.00-0.04) 10*3/uL Neutrophils # 11.03 H (1.80-7.70) 10*3/uL Lymphocytes # 0.65 L (0.90-5.00) 10*3/uL Eosinophils # 0.01 L (0.04-0.35) 10*3/uL ABG pH (7.35-7.45) ABG pCO2 (35-45) mmHg ABG pO2 (83-108) mmHg ABG HCO3 (21-25) mmol/L ABG Total CO2 (19-24) mmol/L ABG O2 Saturation (94-97) % VBG pH (7.31-7.41) VBG HCO3 (24-28) mmol/L Hemoglobin (13.0-17.5) gm/dL Chloride 108 H (98-107) mmol/L Carbon Dioxide 18 L (22-30) mmol/L BUN 44 H (9-20) mg/dL Creatinine 1.36 H (0.66-1.25) mg/dL Glucose 154 H (74-99) mg/dL POC Glucose (mg/dL) (70-110) mg/dL Calcium 7.7 L (8.4-10.2) mg/dL Phosphorus (2.5-4.5) mg/dL AST 107 H (17-59) U/L ALT 127 H (4-49) U/L Alkaline Phosphatase 845 H (38-126) U/L Troponin I 0.066 H* (0.000-0.034) ng/mL Albumin 2.6 L (3.5-5.0) g/dL TSH (0.465-4.680) mIU/L Free T4 (0.78-2.19) ng/dL 05/26/24 Range/Units 05:51 WBC (4.50-10.00) 10*3/uL RBC (4.40-5.60) 10*6/uL Hgb (13.0-17.0) g/dL Hct (39.6-50.0) % MCH (27.0-32.0) pg MCHC (32.0-37.0) g/dL Plt Count (140-440) 10*3/uL MPV (9.5-12.2) fL Immature Gran # (0.00-0.04) 10*3/uL Neutrophils # (1.80-7.70) 10*3/uL Lymphocytes # (0.90-5.00) 10*3/uL Eosinophils # (0.04-0.35) 10*3/uL ABG pH (7.35-7.45) ABG pCO2 (35-45) mmHg ABG pO2 197 H (83-108) mmHg ABG HCO3 20 L (21-25) mmol/L ABG Total CO2 (19-24) mmol/L ABG O2 Saturation 99.8 H (94-97) % VBG pH (7.31-7.41) VBG HCO3 (24-28) mmol/L Hemoglobin 7.9 L (13.0-17.5) gm/dL Chloride (98-107) mmol/L Carbon Dioxide (22-30) mmol/L BUN (9-20) mg/dL Creatinine (0.66-1.25) mg/dL Glucose (74-99) mg/dL POC Glucose (mg/dL) (70-110) mg/dL Calcium (8.4-10.2) mg/dL Phosphorus (2.5-4.5) mg/dL AST (17-59) U/L ALT (4-49) U/L Alkaline Phosphatase (38-126) U/L Troponin I (0.000-0.034) ng/mL Albumin (3.5-5.0) g/dL TSH (0.465-4.680) mIU/L Free T4 (0.78-2.19) ng/dL Microbiology - Last 24 Hours (Table) 05/25/24 21:45 Gram Stain - Preliminary Sputum
--- NOTE | 2024-05-26 16:05 | XR ---
EXAMINATION TYPE: XR Hip Limited RT DATE OF EXAM: 05/26/2024 CLINICAL INDICATION: Male, 63 years old with history of RIGHT ISCHIUM osteomyelitis, Pain TECHNIQUE: Single frontal view of the right hip are obtained. COMPARISON: Prior pelvic x-ray January 13, 2024 FINDINGS: Moderate to severe axial joint space loss and spurring in the right hip is redemonstrated. Suspect old malunion fracture right hip. There is adjacent significant heterotopic ossification redem onstrated. No obvious new suspicious bony destruction. Surgical change to the lower spine extending i nto the bilateral pelvis is redemonstrated. Possible new bony loss and sclerosis involving the right inferior pelvic ramus including initial tuberosity. Finding could reflect acute osteomyelitis involve ment at this level. IMPRESSION: As above. [facility], , 05/26/2024 4:03 PM
[2024-05-26] MEDS: COLLAGENASE 250 UNIT/GM OINTMENT 30 GM TUBE TOPICAL SCH (17:00)
[2024-05-26 18:33] LABS: HCT 25.8 % (39.6-50.0); HGB 7.5 g/dL (13.0-17.0); MCH 24.2 pg (27.0-32.0); MCHC 29.1 g/dL (32.0-37.0); MCV 83.2 fL (80.0-97.0); Mean Platelet Volume 9.7 fL (9.5-12.2); Platelet Count 388 10*3/uL (140-440); RDW 18.7 % (11.5-14.5); WBC 12.55 10*3/uL (4.50-10.00)
[2024-05-26 18:53] LABS: ALT 90 U/L (4-49); AST 66 U/L (17-59); African American GFR (CKD) 78 (>60 ml/min/1.73 sqM); Albumin 2.5 g/dL (3.5-5.0); Alkaline Phosphatase 690 U/L (38-126); Anion Gap 12 mmol/L; Blood Urea Nitrogen 38 mg/dL (9-20); Calcium 7.7 mg/dL (8.4-10.2); Carbon Dioxide 23 mmol/L (22-30); Chloride 106 mmol/L (98-107); Glucose 160 mg/dL (74-99); Lipase 62 U/L (23-300); Non-African American GFR(CKD) 67 (>60 ml/min/1.73 sqM); Potassium 3.1 mmol/L (3.5-5.1); Sodium 141 mmol/L (137-145); Total Bilirubin 0.8 mg/dL (0.2-1.3)
[2024-05-26] MEDS: VANCOMYCIN 1,500 MG in SODIUM CHLORIDE 0.9% 500 ML 500 ML IVPB SCH (22:25)
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
[2024-05-26] MEDS: MEROPENEM 1 GM in SODIUM CHLORIDE 0.9% 100 ML IVPB SCH (23:29)
[2024-05-27 04:54] LABS: Basophils # (A) 0.03 10*3/uL (0.00-0.10); Basophils % (A) 0.3 %; Eosinophils # (A) 0.03 10*3/uL (0.04-0.35); Eosinophils % (A) 0.3 %; HCT 23.8 % (39.6-50.0); HGB 7.2 g/dL (13.0-17.0); Lymphocytes # (A) 0.79 10*3/uL (0.90-5.00); Lymphocytes % (A) 6.8 %; MCH 24.4 pg (27.0-32.0); MCHC 30.3 g/dL (32.0-37.0); MCV 80.7 fL (80.0-97.0); Mean Platelet Volume 9.5 fL (9.5-12.2); Monocytes # (A) 0.38 10*3/uL (0.20-1.00); Monocytes % (A) 3.3 %; Neutrophils # (A) 10.31 10*3/uL (1.80-7.70); Neutrophils % (A) 88.4 %; Platelet Count 394 10*3/uL (140-440); RBC 2.95 10*6/uL (4.40-5.60); RDW 18.5 % (11.5-14.5); WBC 11.64 10*3/uL (4.50-10.00)
[2024-05-27 05:13] LABS: ABG Base Excess 4.4 mmol/L; ABG HCO3 28 mmol/L (21-25); ABG Oxygen Saturation 98.8 % (94-97); ABG PCO2 37 mmHg (35-45); ABG PH 7.49 (7.35-7.45); ABG PO2 109 mmHg (83-108); ABG TCO2 29 mmol/L (19-24); Allen Test Performed? Yes
[2024-05-27 05:35] LABS: African American GFR (CKD) >90 (>60 ml/min/1.73 sqM); Anion Gap 8 mmol/L; Blood Urea Nitrogen 31 mg/dL (9-20); Carbon Dioxide 28 mmol/L (22-30); Chloride 106 mmol/L (98-107); Glucose 148 mg/dL (74-99); Magnesium 1.9 mg/dL (1.6-2.3); Non-African American GFR(CKD) >90 (>60 ml/min/1.73 sqM); Potassium 2.8 mmol/L (3.5-5.1); Sodium 142 mmol/L (137-145)
[2024-05-27] MEDS ORDERED: Potassium Replacement Protocol 1 EACH MISC MISCELLANE PRN (05:46)
[2024-05-27] MEDS: MAGNESIUM SULFATE-D5W PMX 1 GM in DEXTROSE/WATER 1 100ML.BAG IVPB ONE (05:55)
[2024-05-27] MEDS: POTASSIUM CHLORIDE 20 MEQ in WATER FOR INJECTION 1 100ML.BAG IVPB SCH (05:55)
--- NOTE | 2024-05-27 07:01 | XR ---
EXAMINATION TYPE: XR chest 1V portable DATE OF EXAM: 05/27/2024 CLINICAL INDICATION: Male, 63 years old with history of Tube placement, progress study. TECHNIQUE: Single AP portable upright view of the chest is obtained. COMPARISON: Chest x-ray from one day earlier and older studies. FINDINGS: Stable right internal jugular central venous catheter. No right-sided pneumothorax. Stable endotracheal and orogastric tubes. Persistent left basilar opacity. New right basilar opacity. Cardiac silhouette size stable and within normal limits.. Surgical changes to the thoracolumbar spine is partially imaged. IMPRESSION: Bibasilar opacities favoring atelectasis are present. [facility], , 05/27/2024 6:58 AM
[2024-05-27 07:52] LABS: Total Bilirubin 0.6 mg/dL (0.2-1.3)
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
[2024-05-27] MEDS: VANCOMYCIN 1,500 MG in SODIUM CHLORIDE 0.9% 500 ML 500 ML IVPB SCH (11:19)
[2024-05-27] MEDS: ENOXAPARIN 40 MG/0.4 ML SYRINGE SQ SCH (11:19)
[2024-05-27] MEDS: SODIUM CHLORIDE 0.9% 1,000 ML IV SCH (11:21)
[2024-05-27 11:49] LABS: Glucose,Whole Blood 135 mg/dL (70-110)
[2024-05-27] MEDS: levETIRAcetam ORAL SOLN 500 MG/5 ML CUP PO SCH (11:58)
[2024-05-27] MEDS: METOPROLOL TARTRATE 12.5 MG TAB PO SCH (11:58)
--- NOTE | 2024-05-27 12:16 | P.PN ---
Subjective Progress Note Date: 05/27/24 SURGICAL PROGRESS NOTE CHIEF COMPLAINT: Altered mental status HISTORY OF PRESENT ILLNESS: Patient is currently in the ICU intubated and on mechanical ventilation. Afebrile. Mildly tachycardic. WBC is down from 12- 11.6 Hgb 7.2 potassium 2.8. Total bili 0.6 LFTs trending down. AST normalized PHYSICAL EXAM: VITAL SIGNS: Reviewed. GENERAL: no acute distress. ABDOMEN: Soft. Nondistended. Nontender. Urostomy in place NEUROLOGIC: Intubated and sedated ASSESSMENT: 1. Cholelithiasis with gallbladder wall thickening. Possible acute cholecystitis 2. Elevated LFTs and total bilirubin. Possible choledocholithiasis. Patient may have passed a stone. 3. Recent ID in December 2023 and stents placed in January 2024 4. 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 Paraplegic 6. Sepsis 7. Aspiration pneumonia PLAN: - Eventual cholecystectomy when medically stable and optimized - Continue ICU management - Continue IV antibiotics per ID - GI service recommends MRCP when stable. No plans for ERCP at this time - Continue to monitor - Repeat labs in a.m. Physician Health Nurse note has been reviewed by physician. Signing provider agrees with the documented findings, assessment, and plan of care. Objective - Vital Signs Vital signs: Vital Signs Temp 97.7 F 05/27/24 08:00 Pulse 112 H 05/27/24 11:00 Resp 20 05/27/24 11:00 BP 97/59 05/27/24 11:00 Pulse Ox 97 05/27/24 11:00 FiO2 45 05/27/24 09:39 Intake & Output 05/26/24 05/27/24 05/27/24 18:59 06:59 18:59 Intake Total 2946.738 4081 240 Output Total 840 810 250 Balance 885.000 680 -10 Weight 80.6 kg 80.6 kg Intake: IV 1625 1490 240 KVO 240 40 Meropenem 1 gm In Sodium 100 Chloride 0.9% 100 ml @ 33 .3 mls/hr IVPB Q8HR [facility] Rx#:[id number] Potassium Chloride 20 meq 100 In Water For Injection 1 100ml.bag @ 50 mls/hr IVPB Q2H [facility] Rx#: [id number] bicarb 1625 1250 Intake, IV Titration 100.000 Amount propofoL 1,000 mg In 100.000 Empty Bag 1 bag @ 15 MCG/ KG/MIN 7.348 mls/hr IV . [id number] [facility] Rx#:[id number] Output: Urine 840 810 250 Other: Voiding Method Indwelling Catheter Indwelling Catheter ABP, PAP, CO, CI - Last Documented Arterial Blood Pressure 132/61 - Labs CBC & Chem 7: 05/27/24 04:45 05/27/24 04:45 Labs: Abnormal Lab Results - Last 24 Hours (Table) 05/26/24 05/26/24 05/27/24 Range/Units 18:18 18:18 04:45 WBC 12.55 H (4.50-10.00) 10*3/uL RBC 3.10 L (4.40-5.60) 10*6/uL Hgb 7.5 L (13.0-17.0) g/dL Hct 25.8 L (39.6-50.0) % MCH 24.2 L (27.0-32.0) pg MCHC 29.1 L (32.0-37.0) g/dL Immature Gran # (0.00-0.04) 10*3/uL Neutrophils # (1.80-7.70) 10*3/uL Lymphocytes # (0.90-5.00) 10*3/uL Eosinophils # (0.04-0.35) 10*3/uL ABG pH (7.35-7.45) ABG pO2 (83-108) mmHg ABG HCO3 (21-25) mmol/L ABG Total CO2 (19-24) mmol/L ABG O2 Saturation (94-97) % Hemoglobin (13.0-17.5) gm/dL Potassium 3.1 L 2.8 L (3.5-5.1) mmol/L BUN 38 H 31 H (9-20) mg/dL Glucose 160 H 148 H (74-99) mg/dL POC Glucose (mg/dL) (70-110) mg/dL Calcium 7.7 L 8.0 L (8.4-10.2) mg/dL AST 66 H (17-59) U/L ALT 90 H (4-49) U/L Alkaline Phosphatase 690 H (38-126) U/L Total Protein 6.0 L (6.3-8.2) g/dL Albumin 2.5 L (3.5-5.0) g/dL 05/27/24 05/27/24 05/27/24 Range/Units 04:45 04:45 05:10 WBC 11.64 H (4.50-10.00) 10*3/uL RBC 2.95 L (4.40-5.60) 10*6/uL Hgb 7.2 L (13.0-17.0) g/dL Hct 23.8 L (39.6-50.0) % MCH 24.4 L (27.0-32.0) pg MCHC 30.3 L (32.0-37.0) g/dL Immature Gran # 0.10 H (0.00-0.04) 10*3/uL Neutrophils # 10.31 H (1.80-7.70) 10*3/uL Lymphocytes # 0.79 L (0.90-5.00) 10*3/uL Eosinophils # 0.03 L (0.04-0.35) 10*3/uL ABG pH 7.49 H (7.35-7.45) ABG pO2 109 H (83-108) mmHg ABG HCO3 28 H (21-25) mmol/L ABG Total CO2 29 H (19-24) mmol/L ABG O2 Saturation 98.8 H (94-97) % Hemoglobin 7.2 L (13.0-17.5) gm/dL Potassium (3.5-5.1) mmol/L BUN (9-20) mg/dL Glucose (74-99) mg/dL POC Glucose (mg/dL) (70-110) mg/dL Calcium (8.4-10.2) mg/dL AST (17-59) U/L ALT 82 H (4-49) U/L Alkaline Phosphatase 680 H (38-126) U/L Total Protein (6.3-8.2) g/dL Albumin (3.5-5.0) g/dL 05/27/24 Range/Units 11:47 WBC (4.50-10.00) 10*3/uL RBC (4.40-5.60) 10*6/uL Hgb (13.0-17.0) g/dL Hct (39.6-50.0) % MCH (27.0-32.0) pg MCHC (32.0-37.0) g/dL Immature Gran # (0.00-0.04) 10*3/uL Neutrophils # (1.80-7.70) 10*3/uL Lymphocytes # (0.90-5.00) 10*3/uL Eosinophils # (0.04-0.35) 10*3/uL ABG pH (7.35-7.45) ABG pO2 (83-108) mmHg ABG HCO3 (21-25) mmol/L ABG Total CO2 (19-24) mmol/L ABG O2 Saturation (94-97) % Hemoglobin (13.0-17.5) gm/dL Potassium (3.5-5.1) mmol/L BUN (9-20) mg/dL Glucose (74-99) mg/dL POC Glucose (mg/dL) 135 H (70-110) mg/dL Calcium (8.4-10.2) mg/dL AST (17-59) U/L ALT (4-49) U/L Alkaline Phosphatase (38-126) U/L Total Protein (6.3-8.2) g/dL Albumin (3.5-5.0) g/dL Microbiology - Last 24 Hours (Table) 05/25/24 23:45 Urine Culture - Preliminary Urine,Suprapubic Gram Neg Bacilli 05/25/24 10:18 Blood Culture - Preliminary Blood 05/26/24 00:15 Gram Stain - Preliminary Knee - Right 05/26/24 00:12 Gram Stain - Preliminary Hip - Right
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
[2024-05-27] MEDS: METOPROLOL TARTRATE 12.5 MG TAB PO STA (12:55)
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
[2024-05-27] MEDS: SODIUM HYPOCHLORITE 0.5% 480 ML BOT MISCELLANE SCH (17:04)
[2024-05-27 17:57] LABS: Glucose,Whole Blood 153 mg/dL (70-110)
[2024-05-27] MEDS: POTASSIUM CHLORIDE 10 MEQ in WATER FOR INJECTION 1 100ML.BAG IVPB SCH (20:18)
[2024-05-27] MEDS ORDERED: METOPROLOL TARTRATE 25 MG TAB PO SCH (21:00)
[2024-05-27 23:47] LABS: Glucose,Whole Blood 132 mg/dL (70-110)
[2024-05-28 02:45] LABS: MCH 24.6 pg (27.0-32.0); MCHC 29.6 g/dL (32.0-37.0); MCV 83.3 fL (80.0-97.0); Mean Platelet Volume 9.1 fL (9.5-12.2); Platelet Count 343 10*3/uL (140-440); RBC 2.76 10*6/uL (4.40-5.60); RDW 18.8 % (11.5-14.5); WBC 13.29 10*3/uL (4.50-10.00)
[2024-05-28 03:09] LABS: ALT 54 U/L (4-49); AST 31 U/L (17-59); African American GFR (CKD) >90 (>60 ml/min/1.73 sqM); Albumin 2.2 g/dL (3.5-5.0); Alkaline Phosphatase 515 U/L (38-126); Anion Gap 9 mmol/L; Blood Urea Nitrogen 23 mg/dL (9-20); Carbon Dioxide 23 mmol/L (22-30); Chloride 112 mmol/L (98-107); Glucose 126 mg/dL (74-99); Non-African American GFR(CKD) >90 (>60 ml/min/1.73 sqM); Potassium 3.5 mmol/L (3.5-5.1); Sodium 144 mmol/L (137-145); Total Bilirubin 0.6 mg/dL (0.2-1.3); Total Protein 5.6 g/dL (6.3-8.2)
[2024-05-28 03:14] LABS: HGB 6.8 g/dL (13.0-17.0)
[2024-05-28] MEDS: POTASSIUM CHLORIDE 20 MEQ in WATER FOR INJECTION 1 100ML.BAG IVPB SCH ×2 (03:53→23:09)
[2024-05-28 05:38] LABS: ABG Base Excess -0.8 mmol/L; ABG HCO3 24 mmol/L (21-25); ABG Oxygen Saturation 96.9 % (94-97); ABG PCO2 37 mmHg (35-45); ABG PH 7.42 (7.35-7.45); ABG PO2 88 mmHg (83-108); ABG TCO2 25 mmol/L (19-24); Allen Test Performed? Yes
--- NOTE | 2024-05-28 05:40 | XR ---
EXAMINATION TYPE: XR chest 1V portable DATE OF EXAM: 05/28/2024 CLINICAL INDICATION: Male, 63 years old with history of Tube placement, progress study. TECHNIQUE: 2 AP portable semiupright views of the chest are obtained. COMPARISON: Chest x-ray from one day earlier and older studies. FINDINGS: Stable right internal jugular central venous catheter. No osseous right-sided pneumothorax. Some limitation from overlying devices. Stable endotracheal and orogastric tubes. Persistent left basilar opacity. More prominent right basilar opacity. Cardiac silhouette size stable and within normal limits.. Surgical changes to the thoracolumbar spine is partially imaged. IMPRESSION: Stable left basilar opacity. Worsening right basilar acute infiltrate and/or atelectasis. [facility], , 05/28/2024 5:38 AM
[2024-05-28 05:52] LABS: Glucose,Whole Blood 136 mg/dL (70-110)
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
[2024-05-28] MEDS: VANCOMYCIN TROUGH DUE 1 EACH MISC MISCELLANE ONE (08:15)
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
[2024-05-28 12:16] LABS: Glucose,Whole Blood 124 mg/dL (70-110)
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
[2024-05-28] MEDS: METOPROLOL TARTRATE 25 MG TAB PO SCH (13:47)
--- NOTE | 2024-05-28 14:09 | P.PN ---
Subjective Progress Note Date: 05/28/24 SURGICAL PROGRESS NOTE CHIEF COMPLAINT: Altered mental status HISTORY OF PRESENT ILLNESS: Patient is currently in the ICU intubated and on mechanical ventilation. Patient scheduled for sedation holiday today. He is scheduled receive 1 unit of blood for hemoglobin of 6.8. No active signs of bleeding. He did have a brown bowel movement today. He has been hypotensive and received and responded to a 500 mL fluid bolus. Afebrile. WBC did go up from 11-13 Hgb 6.8 platelets 343 total bili 0.6 AST 31 ALT 54 alk phos 515 LFTs continue to trend down. PHYSICAL EXAM: VITAL SIGNS: Reviewed. GENERAL: no acute distress. ABDOMEN: Soft. Nondistended. Nontender. Urostomy in place NEUROLOGIC: Intubated and sedated ASSESSMENT: 1. Cholelithiasis with gallbladder wall thickening. Possible acute ch olecystitis 2. Elevated LFTs and total bilirubin. Possible choledocholithiasis. Patient may have passed a stone. 3. Recent ID in December 2023 and stents placed in January 2024 4. 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 Paraplegic 6. Sepsis 7. Aspiration pneumonia PLAN: - Eventual cholecystectomy when medically stable and optimized - Continue ICU management - Continue IV antibiotics per ID - Continue to monitor - Repeat labs in a.m. Physician Caustic Preparer note has been reviewed by physician. Signing provider agrees with the documented findings, assessment, and plan of care. I have personally seen and examined the patient, reviewed the SHOW WORKER /PAs history, exam and MDM and agree with the assessment and plan as written. Based on total visit time, I have performed more than 50% of the visit. As above: Patient remains on the ventilator. Was a bit hypotensive this morning but now hypertensive. White blood cell count slightly elevated. Hemoglobin trending downwards. No active bleeding noted. Patient's alkaline phosphatase remains elevated although improving. Case discussed with the patient's significant other by phone. Remain concerned about the possibility of choledocholithiasis. Patient unfortunately is not a candidate for MRCP given his contractures. Would not advise ERCP at this time given the patient's comorbidities and overall health. Continue antibiotics. Will follow. Objective - Vital Signs Vital signs: Vital Signs Temp 98.2 F 05/28/24 08:00 Pulse 91 05/28/24 12:30 Resp 24 05/28/24 12:30 BP 96/56 04/10/25 08:35 Pulse Ox 94 L 05/28/24 12:30 FiO2 45 05/28/24 12:00 Intake & Output 05/27/24 05/28/24 05/28/24 18:59 06:59 18:59 Intake Total 7007.954 1064.275 1389.168 Output Total 745 1050 755 Balance 248.719 9954.275 634.168 Weight 80.6 kg 84.9 kg Intake: IV 1215 1875 975 KVO 40 Meropenem 1 gm In Sodium 200 100 100 Chloride 0.9% 100 ml @ 33 .3 mls/hr IVPB Q8HR [facility] Rx#:[id number] Potassium Chloride 20 meq 100 400 In Water For Injection 1 100ml.bag @ 50 mls/hr IVPB Q2H [facility] Rx#: [id number] Sodium Chloride 0.9% 1, 875 1375 875 000 ml @ 125 mls/hr IV . Q8H [facility] Rx#:[id number] Intake, IV Titration 73.318 933.275 134.168 Amount Norepinephrine 4 mg In 254 0.726 Sodium Chloride 0.9% 250 ml @ 0.03 MCG/KG/MIN 9. 332 mls/hr IV .Q24H [facility] Rx#:[id number] Vancomycin 1,500 mg In 50 Sodium Chloride 0.9% 500 ml 500 ml @ 167 mls/hr IVPB HS [facility] Rx#:[id number] Vancomycin 1,500 mg In 500 Sodium Chloride 0.9% 500 ml 500 ml @ 167 mls/hr IVPB Q12H [facility] Rx#: [id number] propofoL 1,000 mg In 73.318 179.275 83.442 Empty Bag 1 bag @ 15 MCG/ KG/MIN 7.348 mls/hr IV . [id number] [facility] Rx#:[id number] Tube Feeding 140 360 280 Other 60 90 Output: Urine 745 1050 755 Other: Voiding Method Indwelling Catheter Indwelling Catheter ABP, PAP, CO, CI - Last Documented Arterial Blood Pressure 138/61 - Labs CBC & Chem 7: 05/28/24 02:35 05/28/24 07:42 Labs: Abnormal Lab Results - Last 24 Hours (Table) 05/27/24 05/27/24 05/28/24 Range/Units 17:55 23:46 02:35 WBC 13.29 H (4.50-10.00) 10*3/uL RBC 2.76 L (4.40-5.60) 10*6/uL Hgb 6.8 L* (13.0-17.0) g/dL Hct 23.0 L (39.6-50.0) % MCH 24.6 L (27.0-32.0) pg MCHC 29.6 L (32.0-37.0) g/dL MPV 9.1 L (9.5-12.2) fL ABG Total CO2 (19-24) mmol/L Hemoglobin (13.0-17.5) gm/dL Chloride (98-107) mmol/L BUN (9-20) mg/dL Glucose (74-99) mg/dL POC Glucose (mg/dL) 153 H 132 H (70-110) mg/dL Calcium (8.4-10.2) mg/dL ALT (4-49) U/L Alkaline Phosphatase (38-126) U/L Total Protein (6.3-8.2) g/dL Albumin (3.5-5.0) g/dL Vancomycin Trough ug/mL Crossmatch 05/28/24 05/28/24 05/28/24 Range/Units 02:35 03:40 05:34 WBC (4.50-10.00) 10*3/uL RBC (4.40-5.60) 10*6/uL Hgb (13.0-17.0) g/dL Hct (39.6-50.0) % MCH (27.0-32.0) pg MCHC (32.0-37.0) g/dL MPV (9.5-12.2) fL ABG Total CO2 25 H (19-24) mmol/L Hemoglobin 6.7 L* (13.0-17.5) gm/dL Chloride 112 H (98-107) mmol/L BUN 23 H (9-20) mg/dL Glucose 126 H (74-99) mg/dL POC Glucose (mg/dL) (70-110) mg/dL Calcium 8.0 L (8.4-10.2) mg/dL ALT 54 H (4-49) U/L Alkaline Phosphatase 515 H (38-126) U/L Total Protein 5.6 L (6.3-8.2) g/dL Albumin 2.2 L (3.5-5.0) g/dL Vancomycin Trough ug/mL Crossmatch See Detail 05/28/24 05/28/24 05/28/24 Range/Units 05:51 07:42 07:42 WBC (4.50-10.00) 10*3/uL RBC (4.40-5.60) 10*6/uL Hgb (13.0-17.0) g/dL Hct (39.6-50.0) % MCH (27.0-32.0) pg MCHC (32.0-37.0) g/dL MPV (9.5-12.2) fL ABG Total CO2 (19-24) mmol/L Hemoglobin (13.0-17.5) gm/dL Chloride (98-107) mmol/L BUN (9-20) mg/dL Glucose (74-99) mg/dL POC Glucose (mg/dL) 136 H (70-110) mg/dL Calcium (8.4-10.2) mg/dL ALT (4-49) U/L Alkaline Phosphatase (38-126) U/L Total Protein (6.3-8.2) g/dL Albumin (3.5-5.0) g/dL Vancomycin Trough 33.1 H* ug/mL Crossmatch See Detail 05/28/24 Range/Units 12:14 WBC (4.50-10.00) 10*3/uL RBC (4.40-5.60) 10*6/uL Hgb (13.0-17.0) g/dL Hct (39.6-50.0) % MCH (27.0-32.0) pg MCHC (32.0-37.0) g/dL MPV (9.5-12.2) fL ABG Total CO2 (19-24) mmol/L Hemoglobin (13.0-17.5) gm/dL Chloride (98-107) mmol/L BUN (9-20) mg/dL Glucose (74-99) mg/dL POC Glucose (mg/dL) 124 H (70-110) mg/dL Calcium (8.4-10.2) mg/dL ALT (4-49) U/L Alkaline Phosphatase (38-126) U/L Total Protein (6.3-8.2) g/dL Albumin (3.5-5.0) g/dL Vancomycin Trough ug/mL Crossmatch Microbiology - Last 24 Hours (Table) 05/26/24 00:12 Anaerobic Culture - Preliminary Hip - Right 05/25/24 23:45 Urine Culture - Final Urine,Suprapubic Klebsiella oxytoca ESBL MDRO Klebsiella pneumo ESBL MDRO 05/25/24 10:18 Blood Culture - Preliminary Blood 05/26/24 00:12 Gram Stain - Preliminary Hip - Right Wound Culture - Preliminary Klebsiella pneumoniae Pseudomonas aeruginosa Presumptive MRSA 05/26/24 00:15 Gram Stain - Preliminary Knee - Right Wound Culture - Preliminary Gram Neg Bacilli Klebsiella pneumoniae
[2024-05-28] MEDS: DEXMEDETOMIDINE/0.9% NACL(PMX) 400 MCG in EMPTY BAG 1 BAG IV SCH (14:31)
[2024-05-28] MEDS: CLEVIDIPINE BUTYRATE 25 MG in EMPTY BAG 1 BAG IV SCH (14:43)
[2024-05-28] MEDS: HYDROmorphone 0.5 MG/0.5 ML SYRINGE IVP PRN (15:56)
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
[2024-05-28] MEDS: POTASSIUM BICARBONATE/CIT AC 20 MEQ TABLET.EFF NG-TUBE SCH (17:44)
[2024-05-28 20:02] LABS: Glucose,Whole Blood 141 mg/dL (70-110)
[2024-05-28] MEDS: VANCOMYCIN 1,500 MG in SODIUM CHLORIDE 0.9% 500 ML 500 ML IVPB SCH (20:32)
[2024-05-28 23:44] LABS: Glucose,Whole Blood 127 mg/dL (70-110)
[2024-05-29 05:12] LABS: ABG HCO3 23 mmol/L (21-25); ABG Oxygen Saturation 94.6 % (94-97); ABG PCO2 36 mmHg (35-45); ABG PH 7.42 (7.35-7.45); ABG PO2 73 mmHg (83-108); ABG TCO2 24 mmol/L (19-24)
[2024-05-29 05:17] LABS: Allen Test Performed? no
[2024-05-29 05:21] LABS: African American GFR (CKD) >90 (>60 ml/min/1.73 sqM); Anion Gap 5 mmol/L; Blood Urea Nitrogen 19 mg/dL (9-20); Calcium 7.8 mg/dL (8.4-10.2); Carbon Dioxide 23 mmol/L (22-30); Chloride 118 mmol/L (98-107); Glucose 125 mg/dL (74-99); Non-African American GFR(CKD) >90 (>60 ml/min/1.73 sqM); Potassium 3.6 mmol/L (3.5-5.1); Sodium 146 mmol/L (137-145)
[2024-05-29 05:35] LABS: Glucose,Whole Blood 138 mg/dL (70-110)
[2024-05-29 05:39] LABS: Basophils # (A) 0.02 10*3/uL (0.00-0.10); Basophils % (A) 0.2 %; Eosinophils # (A) 0.05 10*3/uL (0.04-0.35); Eosinophils % (A) 0.6 %; HCT 22.8 % (39.6-50.0); Lymphocytes # (A) 0.96 10*3/uL (0.90-5.00); Lymphocytes % (A) 11.1 %; MCHC 29.4 g/dL (32.0-37.0); MCV 85.1 fL (80.0-97.0); Monocytes # (A) 0.33 10*3/uL (0.20-1.00); Monocytes % (A) 3.8 %; Neutrophils # (A) 7.08 10*3/uL (1.80-7.70); Neutrophils % (A) 82.3 %; Platelet Count 292 10*3/uL (140-440); RBC 2.68 10*6/uL (4.40-5.60); RDW 18.6 % (11.5-14.5); WBC 8.61 10*3/uL (4.50-10.00)
[2024-05-29] MEDS: POTASSIUM BICARBONATE/CIT AC 20 MEQ TABLET.EFF NG-TUBE SCH ×3 (06:28→23:08)
[2024-05-29] MEDS ORDERED: POTASSIUM CHLORIDE ER 20 MEQ TAB.ER PO SCH (07:00)
--- NOTE | 2024-05-29 07:39 | XR ---
EXAMINATION TYPE: XR chest 1V portable DATE OF EXAM: 05/29/2024 5:19 AM COMPARISON: Chest radiographs from 05/28/2024 CLINICAL INDICATION: Male, 63 years old with history of intubated; [facility] TECHNIQUE: XR chest 1V portable Frontal view of the chest. FINDINGS: Lungs/Pleura: Right lower lung airspace opacities. There is no evidence of pleural effusion, focal co nsolidation, or pneumothorax. Pulmonary vascularity: Unremarkable. Heart/mediastinum: Cardiomediastinal silhouette is unremarkable. Musculoskeletal: No acute osseous pathology. Other findings: None Endotracheal tube 7.4 cm above the wilda. Nasogastric tube extending below the diaphragm and out of the [id number]. IMPRESSION: 1. Right lower lung airspace opacities. 2. Support tubes in satisfactory position. [facility], , 05/29/2024 7:37 AM
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
[2024-05-29 11:44] LABS: Glucose,Whole Blood 129 mg/dL (70-110)
[2024-05-29 12:37] LABS: ABG HCO3 25 mmol/L (21-25); ABG Oxygen Saturation 83.1 % (94-97); ABG PCO2 43 mmHg (35-45); ABG PH 7.38 (7.35-7.45); ABG TCO2 27 mmol/L (19-24); Allen Test Performed? Yes
[2024-05-29 12:45] LABS: ABG PO2 51 mmHg (83-108)
--- NOTE | 2024-05-29 12:49 | P.PN ---
Subjective Progress Note Date: 05/27/24 Principal diagnosis: Reason for follow-up is sepsis aspiration pneumonia UTI and multiple pressure ulcer Patient is a 63-year-old male with past medical history significant for CVA/TIA, Hypertension, Myocardial Infarction (ID), Myocardial Infarction (non Q-wave), Neurologic Disorder, Neurologic Disorder, Pneumonia, Skin Disorder did have a sacral osteomyelitis and multiple pressure ulcer to the left lower extremity presenting to the hospital for evaluation of episode of unresponsiveness patient ended up getting debated concerning for aspiration pneumonia with sepsis and multiple pressure ulcers to the lower extremity. On today's evaluation that is 05/27/2024,the patient has been afebrile patient remains to be debated on the vent FiO2 is currently at 45% no significant purulent secretions with ATRA and the changes reported by the nursing staff patient not requiring pressor support. Patient white count is down to 11.64 creatinine is 0.89 Objective - Vital Signs Vital signs: Vital Signs Temp 97.7 F 05/27/24 08:00 Pulse 112 H 05/27/24 11:00 Resp 20 05/27/24 11:00 BP 97/59 05/27/24 11:00 Pulse Ox 97 05/27/24 11:00 FiO2 45 05/27/24 12:25 Intake & Output 05/26/24 05/27/24 05/27/24 18:59 06:59 18:59 Intake Total 4741.769 9467 240 Output Total 840 810 250 Balance 885.000 680 -10 Weight 80.6 kg 80.6 kg Intake: IV 1625 1490 240 KVO 240 40 Meropenem 1 gm In Sodium 100 Chloride 0.9% 100 ml @ 33 .3 mls/hr IVPB Q8HR [facility] Rx#:[id number] Potassium Chloride 20 meq 100 In Water For Injection 1 100ml.bag @ 50 mls/hr IVPB Q2H [facility] Rx#: [id number] bicarb 1625 1250 Intake, IV Titration 100.000 Amount propofoL 1,000 mg In 100.000 Empty Bag 1 bag @ 15 MCG/ KG/MIN 7.348 mls/hr IV . [id number] [facility] Rx#:[id number] Output: Urine 840 810 250 Other: Voiding Method Indwelling Catheter Indwelling Catheter ABP, PAP, CO, CI - Last Documented Arterial Blood Pressure 132/61 - Exam GENERAL DESCRIPTION: An elderly male intubated on the vent RESPIRATORY SYSTEM: Unlabored breathing , decreased breath sounds at bases HEART: S1 S2 regular rate and rhythm , ABDOMEN: Soft , no tenderness EXTREMITIES: Right lower extremity with currently dressed - Labs CBC & Chem 7: 05/29/24 04:51 05/29/24 04:51 Labs: Abnormal Lab Results - Last 24 Hours (Table) 05/26/24 05/26/24 05/27/24 Range/Units 18:18 18:18 04:45 WBC 12.55 H (4.50-10.00) 10*3/uL RBC 3.10 L (4.40-5.60) 10*6/uL Hgb 7.5 L (13.0-17.0) g/dL Hct 25.8 L (39.6-50.0) % MCH 24.2 L (27.0-32.0) pg MCHC 29.1 L (32.0-37.0) g/dL Immature Gran # (0.00-0.04) 10*3/uL Neutrophils # (1.80-7.70) 10*3/uL Lymphocytes # (0.90-5.00) 10*3/uL Eosinophils # (0.04-0.35) 10*3/uL ABG pH (7.35-7.45) ABG pO2 (83-108) mmHg ABG HCO3 (21-25) mmol/L ABG Total CO2 (19-24) mmol/L ABG O2 Saturation (94-97) % Hemoglobin (13.0-17.5) gm/dL Potassium 3.1 L 2.8 L (3.5-5.1) mmol/L BUN 38 H 31 H (9-20) mg/dL Glucose 160 H 148 H (74-99) mg/dL POC Glucose (mg/dL) (70-110) mg/dL Calcium 7.7 L 8.0 L (8.4-10.2) mg/dL AST 66 H (17-59) U/L ALT 90 H (4-49) U/L Alkaline Phosphatase 690 H (38-126) U/L Total Protein 6.0 L (6.3-8.2) g/dL Albumin 2.5 L (3.5-5.0) g/dL 0405/27/24 05/27/24 Range/Units 04:45 04:45 05:10 WBC 11.64 H (4.50-10.00) 10*3/uL RBC 2.95 L (4.40-5.60) 10*6/uL Hgb 7.2 L (13.0-17.0) g/dL Hct 23.8 L (39.6-50.0) % MCH 24.4 L (27.0-32.0) pg MCHC 30.3 L (32.0-37.0) g/dL Immature Gran # 0.10 H (0.00-0.04) 10*3/uL Neutrophils # 10.31 H (1.80-7.70) 10*3/uL Lymphocytes # 0.79 L (0.90-5.00) 10*3/uL Eosinophils # 0.03 L (0.04-0.35) 10*3/uL ABG pH 7.49 H (7.35-7.45) ABG pO2 109 H (83-108) mmHg ABG HCO3 28 H (21-25) mmol/L ABG Total CO2 29 H (19-24) mmol/L ABG O2 Saturation 98.8 H (94-97) % Hemoglobin 7.2 L (13.0-17.5) gm/dL Potassium (3.5-5.1) mmol/L BUN (9-20) mg/dL Glucose (74-99) mg/dL POC Glucose (mg/dL) (70-110) mg/dL Calcium (8.4-10.2) mg/dL AST (17-59) U/L ALT 82 H (4-49) U/L Alkaline Phosphatase 680 H (38-126) U/L Total Protein (6.3-8.2) g/dL Albumin (3.5-5.0) g/dL 05/27/24 Range/Units 11:47 WBC (4.50-10.00) 10*3/uL RBC (4.40-5.60) 10*6/uL Hgb (13.0-17.0) g/dL Hct (39.6-50.0) % MCH (27.0-32.0) pg MCHC (32.0-37.0) g/dL Immature Gran # (0.00-0.04) 10*3/uL Neutrophils # (1.80-7.70) 10*3/uL Lymphocytes # (0.90-5.00) 10*3/uL Eosinophils # (0.04-0.35) 10*3/uL ABG pH (7.35-7.45) ABG pO2 (83-108) mmHg ABG HCO3 (21-25) mmol/L ABG Total CO2 (19-24) mmol/L ABG O2 Saturation (94-97) % Hemoglobin (13.0-17.5) gm/dL Potassium (3.5-5.1) mmol/L BUN (9-20) mg/dL Glucose (74-99) mg/dL POC Glucose (mg/dL) 135 H (70-110) mg/dL Calcium (8.4-10.2) mg/dL AST (17-59) U/L ALT (4-49) U/L Alkaline Phosphatase (38-126) U/L Total Protein (6.3-8.2) g/dL Albumin (3.5-5.0) g/dL Microbiology - Last 24 Hours (Table) 05/25/24 23:45 Urine Culture - Preliminary Urine,Suprapubic Gram Neg Bacilli 05/25/24 10:18 Blood Culture - Preliminary Blood 05/26/24 00:15 Gram Stain - Preliminary Knee - Right 05/26/24 00:12 Gram Stain - Preliminary Hip - Right Assessment and Plan (1) Sepsis Current Visit: No Status: Acute Code(s): A41.9 - SEPSIS, UNSPECIFIED ORGANISM SNOMED Code(s): 02875063 (2) Aspiration pneumonia Current Visit: Yes Status: Acute Code(s): J69.0 - PNEUMONITIS DUE TO INHALATION OF FOOD AND VOMIT SNOMED Code(s): 005041121 (3) Pressure ulcers of skin of multiple topographic sites Current Visit: Yes Status: Acute Code(s): L89.90 - PRESSURE ULCER OF UNSPECIFIED SITE, UNSPECIFIED STAGE SNOMED Code(s): 136677091 (4) Acute cholecystitis Current Visit: Yes Status: Acute Code(s): K81.0 - ACUTE CHOLECYSTITIS SNOMED Code(s): 82705274 Plan: 1patient presented hospital with episode of unresponsiveness and this patient did have worsening respiratory status requiring intubation and admission to the ICU has been hypotensive requiring pressor support did have elevated white count low-grade fever meeting currently for SIRS/sepsis source is multifactorial in this patient likely component of aspiration pneumonia and also have multiple wound concerning for secondary infection and recently completed course of antibiotic for osteomyelitis also have abnormal ultrasound question of possible cholecystitis 2-patient blood cultures currently pending sputum cultures are currently pending urine and wound culture currently growing gram-negative 3patient is currently covered with vancomycin and meropenem to continue and monitor clinical course closely Dictation was produced using [employer] dictation software. please excuse any grammatical, word or spelling errors. Time with Patient: Less than 30
--- NOTE | 2024-05-29 12:50 | P.PN ---
Subjective Progress Note Date: 05/28/24 Principal diagnosis: Reason for follow-up is sepsis aspiration pneumonia UTI and multiple pressure ulcer Patient is a 63-year-old male with past medical history significant for CVA/TIA, Hypertension, Myocardial Infarction ([place]), Myocardial Infarction (non Q-wave), Neurologic Disorder, Neurologic Disorder, Pneumonia, Skin Disorder did have a sacral osteomyelitis and multiple pressure ulcer to the left lower extremity presenting to the hospital for evaluation of episode of unresponsiveness patient ended up getting debated concerning for aspiration pneumonia with sepsis and multiple pressure ulcers to the lower extremity. On today's evaluation that is 05/28/2024,the patient remains to be afebrile, patient is on ventilator FiO2 is currently stable at 45% no significant purulent secretion through the ET patient not requiring any pressor support no other changes reported by the nursing staff. Patient white count is slightly up to 13.29 hemoglobin is down to 6.8 creatinine 0.73 Vanco trough is elevated at 33.1 culture growing MRSA Pseudomonas as well as ESBL Klebsiella Objective - Vital Signs Vital signs: Vital Signs Temp 98.2 F 05/28/24 08:00 Pulse 78 05/28/24 11:00 Resp 21 05/28/24 11:00 BP 96/56 05/28/24 08:35 Pulse Ox 100 05/28/24 11:00 FiO2 45 05/28/24 11:28 Intake & Output 05/27/24 05/28/24 05/28/24 18:59 06:59 18:59 Intake Total 0012.722 6965.275 1004.873 Output Total 745 1050 405 Balance 450.778 3049.275 599.873 Weight 80.6 kg 84.9 kg Intake: IV 1215 1875 725 KVO 40 Meropenem 1 gm In Sodium 200 100 100 Chloride 0.9% 100 ml @ 33 .3 mls/hr IVPB Q8HR [facility] Rx#:[id number] Potassium Chloride 20 meq 100 400 In Water For Injection 1 100ml.bag @ 50 mls/hr IVPB Q2H [facility] Rx#: [id number] Sodium Chloride 0.9% 1, 875 1375 625 000 ml @ 125 mls/hr IV . Q8H [facility] Rx#:[id number] Intake, IV Titration 73.318 933.275 79.873 Amount Norepinephrine 4 mg In 254 0.726 Sodium Chloride 0.9% 250 ml @ 0.03 MCG/KG/MIN 9. 332 mls/hr IV .Q24H [facility] Rx#:[id number] Vancomycin 1,500 mg In 50 Sodium Chloride 0.9% 500 ml 500 ml @ 167 mls/hr IVPB HS [facility] Rx#:[id number] Vancomycin 1,500 mg In 500 Sodium Chloride 0.9% 500 ml 500 ml @ 167 mls/hr IVPB Q12H [facility] Rx#: [id number] propofoL 1,000 mg In 73.318 179.275 29.147 Empty Bag 1 bag @ 15 MCG/ KG/MIN 7.348 mls/hr IV . [id number] [facility] Rx#:[id number] Tube Feeding 140 360 200 Other 60 90 Output: Urine 745 1050 405 Other: Voiding Method Indwelling Catheter Indwelling Catheter ABP, PAP, CO, CI - Last Documented Arterial Blood Pressure 111/49 - Exam GENERAL DESCRIPTION: An elderly male intubated on the vent RESPIRATORY SYSTEM: Unlabored breathing , decreased breath sounds at bases HEART: S1 S2 regular rate and rhythm , ABDOMEN: Soft , no tenderness EXTREMITIES: Right lower extremity with currently dressed - Labs CBC & Chem 7: 05/29/24 04:51 05/29/24 04:51 Labs: Abnormal Lab Results - Last 24 Hours (Table) 05/27/24 05/27/24 05/28/24 Range/Units 17:55 23:46 02:35 WBC 13.29 H (4.50-10.00) 10*3/uL RBC 2.76 L (4.40-5.60) 10*6/uL Hgb 6.8 L* (13.0-17.0) g/dL Hct 23.0 L (39.6-50.0) % MCH 24.6 L (27.0-32.0) pg MCHC 29.6 L (32.0-37.0) g/dL MPV 9.1 L (9.5-12.2) fL ABG Total CO2 (19-24) mmol/L Hemoglobin (13.0-17.5) gm/dL Chloride (98-107) mmol/L BUN (9-20) mg/dL Glucose (74-99) mg/dL POC Glucose (mg/dL) 153 H 132 H (70-110) mg/dL Calcium (8.4-10.2) mg/dL ALT (4-49) U/L Alkaline Phosphatase (38-126) U/L Total Protein (6.3-8.2) g/dL Albumin (3.5-5.0) g/dL Vancomycin Trough ug/mL Crossmatch 05/28/24 05/28/24 05/28/24 Range/Units 02:35 03:40 05:34 WBC (4.50-10.00) 10*3/uL RBC (4.40-5.60) 10*6/uL Hgb (13.0-17.0) g/dL Hct (39.6-50.0) % MCH (27.0-32.0) pg MCHC (32.0-37.0) g/dL MPV (9.5-12.2) fL ABG Total CO2 25 H (19-24) mmol/L Hemoglobin 6.7 L* (13.0-17.5) gm/dL Chloride 112 H (98-107) mmol/L BUN 23 H (9-20) mg/dL Glucose 126 H (74-99) mg/dL POC Glucose (mg/dL) (70-110) mg/dL Calcium 8.0 L (8.4-10.2) mg/dL ALT 54 H (4-49) U/L Alkaline Phosphatase 515 H (38-126) U/L Total Protein 5.6 L (6.3-8.2) g/dL Albumin 2.2 L (3.5-5.0) g/dL Vancomycin Trough ug/mL Crossmatch See Detail 05/28/24 05/28/24 05/28/24 Range/Units 05:51 07:42 07:42 WBC (4.50-10.00) 10*3/uL RBC (4.40-5.60) 10*6/uL Hgb (13.0-17.0) g/dL Hct (39.6-50.0) % MCH (27.0-32.0) pg MCHC (32.0-37.0) g/dL MPV (9.5-12.2) fL ABG Total CO2 (19-24) mmol/L Hemoglobin (13.0-17.5) gm/dL Chloride (98-107) mmol/L BUN (9-20) mg/dL Glucose (74-99) mg/dL POC Glucose (mg/dL) 136 H (70-110) mg/dL Calcium (8.4-10.2) mg/dL ALT (4-49) U/L Alkaline Phosphatase (38-126) U/L Total Protein (6.3-8.2) g/dL Albumin (3.5-5.0) g/dL Vancomycin Trough 33.1 H* ug/mL Crossmatch See Detail 05/28/24 Range/Units 12:14 WBC (4.50-10.00) 10*3/uL RBC (4.40-5.60) 10*6/uL Hgb (13.0-17.0) g/dL Hct (39.6-50.0) % MCH (27.0-32.0) pg MCHC (32.0-37.0) g/dL MPV (9.5-12.2) fL ABG Total CO2 (19-24) mmol/L Hemoglobin (13.0-17.5) gm/dL Chloride (98-107) mmol/L BUN (9-20) mg/dL Glucose (74-99) mg/dL POC Glucose (mg/dL) 124 H (70-110) mg/dL Calcium (8.4-10.2) mg/dL ALT (4-49) U/L Alkaline Phosphatase (38-126) U/L Total Protein (6.3-8.2) g/dL Albumin (3.5-5.0) g/dL Vancomycin Trough ug/mL Crossmatch Microbiology - Last 24 Hours (Table) 05/25/24 23:45 Urine Culture - Final Urine,Suprapubic Klebsiella oxytoca ESBL MDRO Klebsiella pneumo ESBL MDRO 05/25/24 10:18 Blood Culture - Preliminary Blood 05/26/24 00:12 Gram Stain - Preliminary Hip - Right Wound Culture - Preliminary Klebsiella pneumoniae Pseudomonas aeruginosa Presumptive MRSA 05/26/24 00:15 Gram Stain - Preliminary Knee - Right Wound Culture - Preliminary Gram Neg Bacilli Klebsiella pneumoniae Assessment and Plan (1) Sepsis Current Visit: No Status: Acute Code(s): A41.9 - SEPSIS, UNSPECIFIED ORGANIS M SNOMED Code(s): 01466978 (2) Aspiration pneumonia Current Visit: Yes Status: Acute Code(s): J69.0 - PNEUMONITIS DUE TO INHALATION OF FOOD AND VOMIT SNOMED Code(s): 275564340 (3) Pressure ulcers of skin of multiple topographic sites Current Visit: Yes Status: Acute Code(s): L89.90 - PRESSURE ULCER OF UNSPECIFIED SITE, UNSPECIFIED STAGE SNOMED Code(s): 003631847 (4) Acute cholecystitis Current Visit: Yes Status: Acute Code(s): K81.0 - ACUTE CHOLECYSTITIS SNOMED Code(s): 19049453 Plan: 1patient presented hospital with episode of unresponsiveness and this patient d id have worsening respiratory status requiring intubation and admission to the ICU has been hypotensive requiring pressor support did have elevated white count low-grade fever meeting currently for SIRS/sepsis source is multifactorial in this patient likely component of aspiration pneumonia and also have multiple wound concerning for secondary infection and recently completed course of antibiotic for osteomyelitis also have abnormal ultrasound question of possible cholecystitis 2-patient blood cultures currently pending sputum cultures are currently pending urine and wound culture currently growing ESBL Klebsiella Pseudomonas and MRSA 3patient currently being treated with vancomycin and meropenem that should cover up most of the pathogen growing in the cultures Dictation was produced using [employer] dictation software. please excuse any grammatical, word or spelling errors. Time with Patient: Less than 30
--- NOTE | 2024-05-29 12:51 | P.PN ---
Subjective Progress Note Date: 05/29/24 Principal diagnosis: Reason for follow-up is sepsis aspiration pneumonia UTI and multiple pressure ulcer Patient is a 63-year-old male with past medical history significant for CVA/TIA, Hypertension, Myocardial Infarction ([place]), Myocardial Infarction (non Q-wave), Neurologic Disorder, Neurologic Disorder, Pneumonia, Skin Disorder did have a sacral osteomyelitis and multiple pressure ulcer to the left lower extremity presenting to the hospital for evaluation of episode of unresponsiveness patient ended up getting debated concerning for aspiration pneumonia with sepsis and multiple pressure ulcers to the lower extremity. On today's evaluation that is 05/29/2024 the patient continues to be afebrile patient remains to be on the ventilator with FiO2 of 45% currently undergoing weaning trials per the respiratory therapist at the bedside no significant purulent secretions with the patient not requiring a pressor support and no diarrhea has been reported. Patient white for normalized to 8.61 creatinine 0.73 because of multiple pathogen blood culture has been negative sputum cultures pending chest x-ray from this morning right lower lung airspace opacities Objective - Vital Signs Vital signs: Vital Signs Temp 98.0 F 05/29/24 11:27 Pulse 106 H 05/29/24 11:30 Resp 29 H 05/29/24 11:30 BP 160/57 05/29/24 11:27 Pulse Ox 96 05/29/24 11:30 FiO2 45 05/29/24 11:29 Intake & Output 05/28/24 05/29/24 05/29/24 18:59 06:59 18:59 Intake Total 2323.811 3694.218 1394.729 Output Total 1979 2004 1300 Balance 013.905 6597.218 94.729 Weight 85.5 kg 85.5 kg Intake: IV 1600 1825 575 Meropenem 1 gm In Sodium 100 200 100 Chloride 0.9% 100 ml @ 33 .3 mls/hr IVPB Q8HR [facility] Rx#:[id number] Sodium Chloride 0.9% 1, 1500 1625 475 000 ml @ 75 mls/hr IV . [id number] [facility] Rx#:[id number] Intake, IV Titration 173.811 801.218 136.729 Amount Clevidipine Butyrate 25 1.133 1.800 mg In Empty Bag 1 bag @ 1 MG/HR 2 mls/hr IV .Q24H [facility] Rx#:[id number] Dexmedetomidine/0.9% NaCl 7.076 70.681 91.941 (Pmx) 400 mcg In Empty Bag 1 bag @ 0.2 MCG/KG/HR 4.245 mls/hr IV .[id number] [facility] Rx#:[id number] Norepinephrine 4 mg In 0.726 Sodium Chloride 0.9% 250 ml @ 0.03 MCG/KG/MIN 9. 332 mls/hr IV .Q24H [facility] Rx#:[id number] Potassium Chloride 20 meq 200 In Water For Injection 1 100ml.bag @ 50 mls/hr IVPB Q2H [facility] Rx#: [id number] Vancomycin 1,500 mg In 50 500 Sodium Chloride 0.9% 500 ml 500 ml @ 167 mls/hr IVPB HS [facility] Rx#:[id number] propofoL 1,000 mg In 114.876 30.537 42.988 Empty Bag 1 bag @ 15 MCG/ KG/MIN 7.348 mls/hr IV . [id number] [facility] Rx#:[id number] Tube Feeding 520 700 275 Blood Product 278 288 Rc Pheresis 2 As3 Unit 278 [id number] Rc Pheresis As-3 Unit 288 [id number] Other 30 90 120 Output: Urine 1979 2004 1299 Other: Voiding Method Indwelling Catheter Indwelling Catheter ABP, PAP, CO, CI - Last Documented Arterial Blood Pressure 161/70 - Exam GENERAL DESCRIPTION: An elderly male intubated on the vent RESPIRATORY SYSTEM: Unlabored breathing , decreased breath sounds at bases HEART: S1 S2 regular rate and rhythm , ABDOMEN: Soft , no tenderness EXTREMITIES: Right lower extremity with currently dressed - Labs CBC & Chem 7: 05/29/24 04:51 05/29/24 04:51 Labs: Abnormal Lab Results - Last 24 Hours (Table) 05/28/24 05/28/24 05/28/24 Range/Units 07:42 16:00 20:01 RBC (4.40-5.60) 10*6/uL Hgb (13.0-17.0) g/dL Hct (39.6-50.0) % MCH (27.0-32.0) pg MCHC (32.0-37.0) g/dL Immature Gran # (0.00-0.04) 10*3/uL ABG pO2 (83-108) mmHg ABG Total CO2 (19-24) mmol/L ABG O2 Saturation (94-97) % Hemoglobin (13.0-17.5) gm/dL Sodium (137-145) mmol/L Potassium 3.4 L (3.5-5.1) mmol/L Chloride (98-107) mmol/L Glucose (74-99) mg/dL POC Glucose (mg/dL) 141 H (70-110) mg/dL Calcium (8.4-10.2) mg/dL Crossmatch See Detail 05/28/24 05/29/24 05/29/24 Range/Units 23:43 04:51 04:51 RBC 2.68 L (4.40-5.60) 10*6/uL Hgb 6.7 L* (13.0-17.0) g/dL Hct 22.8 L (39.6-50.0) % MCH 25.0 L (27.0-32.0) pg MCHC 29.4 L (32.0-37.0) g/dL Immature Gran # 0.17 H (0.00-0.04) 10*3/uL ABG pO2 (83-108) mmHg ABG Total CO2 (19-24) mmol/L ABG O2 Saturation (94-97) % Hemoglobin (13.0-17.5) gm/dL Sodium 146 H (137-145) mmol/L Potassium (3.5-5.1) mmol/L Chloride 118 H (98-107) mmol/L Glucose 125 H (74-99) mg/dL POC Glucose (mg/dL) 127 H (70-110) mg/dL Calcium 7.8 L (8.4-10.2) mg/dL Crossmatch 05/29/24 05/29/24 05/29/24 Range/Units 05:10 05:33 11:42 RBC (4.40-5.60) 10*6/uL Hgb (13.0-17.0) g/dL Hct (39.6-50.0) % MCH (27.0-32.0) pg MCHC (32.0-37.0) g/dL Immature Gran # (0.00-0.04) 10*3/uL ABG pO2 73 L (83-108) mmHg ABG Total CO2 (19-24) mmol/L ABG O2 Saturation (94-97) % Hemoglobin 6.7 L* (13.0-17.5) gm/dL Sodium (137-145) mmol/L Potassium (3.5-5.1) mmol/L Chloride (98-107) mmol/L Glucose (74-99) mg/dL POC Glucose (mg/dL) 138 H 129 H (70-110) mg/dL Calcium (8.4-10.2) mg/dL Crossmatch 05/29/24 Range/Units 12:29 RBC (4.40-5.60) 10*6/uL Hgb (13.0-17.0) g/dL Hct (39.6-50.0) % MCH (27.0-32.0) pg MCHC (32.0-37.0) g/dL Immature Gran # (0.00-0.04) 10*3/uL ABG pO2 51 L* (83-108) mmHg ABG Total CO2 27 H (19-24) mmol/L ABG O2 Saturation 83.1 L (94-97) % Hemoglobin 10.0 L (13.0-17.5) gm/dL Sodium (137-145) mmol/L Potassium (3.5-5.1) mmol/L Chloride (98-107) mmol/L Glucose (74-99) mg/dL POC Glucose (mg/dL) (70-110) mg/dL Calcium (8.4-10.2) mg/dL Crossmatch Microbiology - Last 24 Hours (Table) 05/26/24 00:15 Gram Stain - Final Knee - Right Wound Culture - Final Acinetobacter hannah/haemol Klebsiella pneumo ESBL MDRO 05/25/24 10:18 Blood Culture - Preliminary Blood 05/26/24 00:15 Anaerobic Culture - Preliminary Knee - Right 05/26/24 00:12 Gram Stain - Final Hip - Right Wound Culture - Final Klebsiella pneumoniae Pseudomonas aeruginosa Methicillin resist S. aureus 05/26/24 00:12 Anaerobic Culture - Preliminary Hip - Right 05/25/24 23:45 Urine Culture - Final Urine,Suprapubic Klebsiella oxytoca ESBL MDRO Klebsiella pneumo ESBL MDRO Assessment and Plan (1) Sepsis Current Visit: No Status: Acute Code(s): A41.9 - SEPSIS, UNSPECIFIED ORGANISM SNOMED Code(s): 84337498 (2) Aspiration pneumonia Current Visit: Yes Status: Acute Code(s): J69.0 - PNEUMONITIS DUE TO INHALATION OF FOOD AND VOMIT SNOMED Code(s): 489402602 (3) Pressure ulcers of skin of multiple topographic sites Current Visit: Yes Status: Acute Code(s): L89.90 - PRESSURE ULCER OF UNSPEC IFIED SITE, UNSPECIFIED STAGE SNOMED Code(s): 660901744 (4) Acute cholecystitis Current Visit: Yes Status: Acute Code(s): K81.0 - ACUTE CHOLECYSTITIS SNOMED Code(s): 33605565 Plan: 1patient presented hospital with episode of unresponsiveness and this patient did have worsening respiratory status requiring intubation and admission to the ICU has been hypotensive requiring pressor support did have elevated white count low-grade fever meeting currently for SIRS/sepsis source is multifactorial in this patient likely component of aspiration pneumonia and also have multiple wound concerning for secondary infection and recently completed course of antibiotic for osteomyelitis also have abnormal ultrasound question of possible cholecystitis 2-patient blood cultures currently pending sputum cultures are currently pending urine and wound culture currently growing ESBL Klebsiella Pseudomonas and MRSA 3patient is afebrile the patient white count has normalized blood culture has been so far we will treat vancomycin and meropenem and monitor clinical course closely Dictation was produced using [employer] dictation software. please excuse any grammatical, word or spelling errors. Time with Patient: Less than 30
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
--- NOTE | 2024-05-29 14:01 | P.PN ---
Subjective Progress Note Date: 05/29/24 SURGICAL PROGRESS NOTE CHIEF COMPLAINT: Altered mental status HISTORY OF PRESENT ILLNESS: Patient is currently in the ICU intubated and on mechanical ventilation. Patient undergoing another sedation holiday today. His hemoglobin is 6.7. He did receive a unit of blood yesterday and is scheduled to receive another unit of blood today. No active bleeding reported. Afebrile. Mildly tachycardic. Dr. Richey is covering for Dr. Alarcon PHYSICAL EXAM: VITAL SIGNS: Reviewed. GENERAL: no acute distress. ABDOMEN: Soft. Nondistended. Nontender. Urostomy in place NEUROLOGIC: Intubated and sedated ASSESSMENT: 1. Cholelithiasis with gallbladder wall thickening. Acute cholecystitis 2. Elevated LFTs and total bilirubin. Possible choledocholithiasis. Patient may have passed a stone. 3. Recent ME in December 2023 and stents placed in January 2024 4. 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 Paraplegic 6. Sepsis 7. Aspiration pneumonia PLAN: - Eventual cholecystectomy when medically stable and optimized - Continue ICU management - Continue IV antibiotics per ID - Continue to monitor - Repeat labs in AM Physician Sleep Medicine Physician note has been reviewed by physician. Signing provider agrees with the documented findings, assessment, and plan of care. Objective - Vital Signs Vital signs: Vital Signs Temp 99.3 F 05/29/24 13:00 Pulse 112 H 05/29/24 13:00 Resp 40 H 05/29/24 13:00 BP 160/57 05/29/24 11:27 Pulse Ox 91 L 05/29/24 13:00 FiO2 65 05/29/24 13:06 Intake & Output 05/28/24 05/29/24 05/29/24 18:59 06:59 18:59 Intake Total 2323.811 3694.218 1553.922 Output Total 1979 2004 1699 Balance 768.953 5390.218 -146.078 Weight 85.5 kg 85.5 kg Intake: IV 1600 1825 650 Meropenem 1 gm In Sodium 100 200 100 Chloride 0.9% 100 ml @ 33 .3 mls/hr IVPB Q8HR [facility] Rx#:[id number] Sodium Chloride 0.9% 1, 1500 1625 550 000 ml @ 75 mls/hr IV . [id number] [facility] Rx#:[id number] Intake, IV Titration 173.811 801.218 165.922 Amount Clevidipine Butyrate 25 1.133 17.300 mg In Empty Bag 1 bag @ 1 MG/HR 2 mls/hr IV .Q24H [facility] Rx#:[id number] Dexmedetomidine/0.9% NaCl 7.076 70.681 100.000 (Pmx) 400 mcg In Empty Bag 1 bag @ 0.2 MCG/KG/HR 4.245 mls/hr IV .[id number] [facility] Rx#:[id number] Norepinephrine 4 mg In 0.726 Sodium Chloride 0.9% 250 ml @ 0.03 MCG/KG/MIN 9. 332 mls/hr IV .Q24H [facility] Rx#:[id number] Potassium Chloride 20 meq 200 In Water For Injection 1 100ml.bag @ 50 mls/hr IVPB Q2H [facility] Rx#: [id number] Vancomycin 1,500 mg In 50 500 Sodium Chloride 0.9% 500 ml 500 ml @ 167 mls/hr IVPB HS [facility]HA Rx#:[id number] propofoL 1,000 mg In 114.876 30.537 48.622 Empty Bag 1 bag @ 15 MCG/ KG/MIN 7.348 mls/hr IV . [id number] [facility] Rx#:[id number] Tube Feeding 520 700 330 Blood Product 278 288 Rc Pheresis 2 As3 Unit 278 [id number] Rc Pheresis As-3 Unit 288 [id number] Other 30 90 120 Output: Urine 1979 2004 1700 Other: Voiding Method Indwelling Catheter Indwelling Catheter ABP, PAP, CO, CI - Last Documented Arterial Blood Pressure 135/59 - Labs CBC & Chem 7: 05/29/24 04:51 05/29/24 04:51 Labs: Abnormal Lab Results - Last 24 Hours (Table) 05/28/24 05/28/24 05/28/24 Range/Units 07:42 16:00 20:01 RBC (4.40-5.60) 10*6/uL Hgb (13.0-17.0) g/dL Hct (39.6-50.0) % MCH (27.0-32.0) pg MCHC (32.0-37.0) g/dL Immature Gran # (0.00-0.04) 10*3/uL ABG pO2 (83-108) mmHg ABG Total CO2 (19-24) mmol/L ABG O2 Saturation (94-97) % Hemoglobin (13.0-17.5) gm/dL Sodium (137-145) mmol/L Potassium 3.4 L (3.5-5.1) mmol/L Chloride (98-107) mmol/L Glucose (74-99) mg/dL POC Glucose (mg/dL) 141 H (70-110) mg/dL Calcium (8.4-10.2) mg/dL Crossmatch See Detail 05/28/24 05/29/24 05/29/24 Range/Units 23:43 04:51 04:51 RBC 2.68 L (4.40-5.60) 10*6/uL Hgb 6.7 L* (13.0-17.0) g/dL Hct 22.8 L (39.6-50.0) % MCH 25.0 L (27.0-32.0) pg MCHC 29.4 L (32.0-37.0) g/dL Immature Gran # 0.17 H (0.00-0.04) 10*3/uL ABG pO2 (83-108) mmHg ABG Total CO2 (19-24) mmol/L ABG O2 Saturation (94-97) % Hemoglobin (13.0-17.5) gm/dL Sodium 146 H (137-145) mmol/L Potassium (3.5-5.1) mmol/L Chloride 118 H (98-107) mmol/L Glucose 125 H (74-99) mg/dL POC Glucose (mg/dL) 127 H (70-110) mg/dL Calcium 7.8 L (8.4-10.2) mg/dL Crossmatch 05/29/24 05/29/24 05/29/24 Range/Units 05:10 05:33 11:42 RBC (4.40-5.60) 10*6/uL Hgb (13.0-17.0) g/dL Hct (39.6-50.0) % MCH (27.0-32.0) pg MCHC (32.0-37.0) g/dL Immature Gran # (0.00-0.04) 10*3/uL ABG pO2 73 L (83-108) mmHg ABG Total CO2 (19-24) mmol/L ABG O2 Saturation (94-97) % Hemoglobin 6.7 L* (13.0-17.5) gm/dL Sodium (137-145) mmol/L Potassium (3.5-5.1) mmol/L Chloride (98-107) mmol/L Glucose (74-99) mg/dL POC Glucose (mg/dL) 138 H 129 H (70-110) mg/dL Calcium (8.4-10.2) mg/dL Crossmatch 05/29/24 Range/Units 12:29 RBC (4.40-5.60) 10*6/uL Hgb (13.0-17.0) g/dL Hct (39.6-50.0) % MCH (27.0-32.0) pg MCHC (32.0-37.0) g/dL Immature Gran # (0.00-0.04) 10*3/uL ABG pO2 51 L* (83-108) mmHg ABG Total CO2 27 H (19-24) mmol/L ABG O2 Saturation 83.1 L (94-97) % Hemoglobin 10.0 L (13.0-17.5) gm/dL Sodium (137-145) mmol/L Potassium (3.5-5.1) mmol/L Chloride (98-107) mmol/L Glucose (74-99) mg/dL POC Glucose (mg/dL) (70-110) mg/dL Calcium (8.4-10.2) mg/dL Crossmatch Microbiology - Last 24 Hours (Table) 05/26/24 00:15 Gram Stain - Final Knee - Right Wound Culture - Final Acinetobacter hannah/haemol Klebsiella pneumo ESBL MDRO 05/25/24 10:18 Blood Culture - Preliminary Blood 05/26/24 00:15 Anaerobic Culture - Preliminary Knee - Right 05/26/24 00:12 Gram Stain - Final Hip - Right Wound Culture - Final Klebsiella pneumoniae Pseudomonas aeruginosa Methicillin resist S. aureus 05/26/24 00:12 Anaerobic Culture - Preliminary Hip - Right 05/25/24 23:45 Urine Culture - Final Urine,Suprapubic Klebsiella oxytoca ESBL MDRO Klebsiella pneumo ESBL MDRO
[2024-05-29 15:01] LABS: HCT 27.3 % (39.6-50.0); HGB 8.4 g/dL (13.0-17.0); MCHC 30.8 g/dL (32.0-37.0); MCV 84.5 fL (80.0-97.0); Mean Platelet Volume 9.4 fL (9.5-12.2); Platelet Count 313 10*3/uL (140-440); RBC 3.23 10*6/uL (4.40-5.60); RDW 17.9 % (11.5-14.5); WBC 11.82 10*3/uL (4.50-10.00)
[2024-05-29 15:26] LABS: Magnesium 1.7 mg/dL (1.6-2.3); Potassium 3.5 mmol/L (3.5-5.1)
[2024-05-29] MEDS: MAGNESIUM SULFATE-D5W PMX 1 GM in DEXTROSE/WATER 1 100ML.BAG IVPB ONE ×2 (16:28→23:07)
[2024-05-29 18:06] LABS: Glucose,Whole Blood 116 mg/dL (70-110)
[2024-05-29] MEDS: levETIRAcetam 500 MG TAB PO SCH (22:22)
[2024-05-29] MEDS: SODIUM CHLORIDE 0.9% 1,000 ML IV ONE (22:22)
[2024-05-29 22:54] LABS: Magnesium 1.9 mg/dL (1.6-2.3); Potassium 3.6 mmol/L (3.5-5.1)
[2024-05-29 22:59] LABS: Glucose,Whole Blood 124 mg/dL (70-110)
[2024-05-30 03:29] LABS: Magnesium 2.1 mg/dL (1.6-2.3); Potassium 3.7 mmol/L (3.5-5.1)
[2024-05-30] MEDS: POTASSIUM BICARBONATE/CIT AC 20 MEQ TABLET.EFF NG-TUBE SCH ×2 (03:59→05:46)
[2024-05-30 04:57] LABS: ABG HCO3 27 mmol/L (21-25); ABG Oxygen Saturation 88.5 % (94-97); ABG PCO2 38 mmHg (35-45); ABG PH 7.46 (7.35-7.45); ABG TCO2 28 mmol/L (19-24)
[2024-05-30 05:15] LABS: HCT 28.1 % (39.6-50.0); HGB 8.4 g/dL (13.0-17.0); MCH 25.5 pg (27.0-32.0); MCHC 29.9 g/dL (32.0-37.0); MCV 85.4 fL (80.0-97.0); Mean Platelet Volume 9.6 fL (9.5-12.2); Platelet Count 319 10*3/uL (140-440); RBC 3.29 10*6/uL (4.40-5.60); RDW 18.1 % (11.5-14.5); WBC 11.01 10*3/uL (4.50-10.00)
[2024-05-30 05:20] LABS: ABG PO2 55 mmHg (83-108); Allen Test Performed? no
[2024-05-30 05:29] LABS: ALT 29 U/L (4-49); AST 32 U/L (17-59); African American GFR (CKD) >90 (>60 ml/min/1.73 sqM); Albumin 2.3 g/dL (3.5-5.0); Alkaline Phosphatase 364 U/L (38-126); Anion Gap 5 mmol/L; Blood Urea Nitrogen 20 mg/dL (9-20); Calcium 7.7 mg/dL (8.4-10.2); Carbon Dioxide 27 mmol/L (22-30); Chloride 114 mmol/L (98-107); Glucose 130 mg/dL (74-99); Non-African American GFR(CKD) >90 (>60 ml/min/1.73 sqM); Potassium 3.9 mmol/L (3.5-5.1); Sodium 146 mmol/L (137-145); Total Bilirubin 0.5 mg/dL (0.2-1.3); Total Protein 5.7 g/dL (6.3-8.2)
[2024-05-30 05:53] LABS: Glucose,Whole Blood 125 mg/dL (70-110)
--- NOTE | 2024-05-30 08:13 | XR ---
EXAMINATION TYPE: XR chest 1V portable DATE OF EXAM: 05/30/2024 4:31 AM COMPARISON: 05/29/2024 CLINICAL INDICATION: Male, 63 years old with history of ICU mechanical intubation, difficulty breathi ng TECHNIQUE: XR chest 1V portable view(s) obtained. FINDINGS: The heart size is normal. The pulmonary vasculature is normal. Right lower lobe infiltrate is present. Correlate for atelectasis or pneumonia. Retrocardiac infiltra te may be present there is a 1 and the left diaphragm. Minimal left pleural effusion should be consid ered Endotracheal tube tip is 5.8 cm above the wilda. Nasogastric tube transverses thorax. Right central venous catheter tip is in the superior vena cava region. IMPRESSION: 1. Right basilar infiltrate. Small left pleural effusion and retrocardiac infiltrate. 2. Lines and catheters discussed above. [facility], , 05/30/2024 8:10 AM
[2024-05-30 09:41] LABS: ABG HCO3 27 mmol/L (21-25); ABG PCO2 43 mmHg (35-45); ABG PO2 63 mmHg (83-108); ABG TCO2 28 mmol/L (19-24)
--- NOTE | 2024-05-30 09:51 | P.PN ---
Subjective Progress Note Date: 05/30/24 PROGRESS NOTE The patient is a 63-year-old paraplegic after an accident who presented with decreased mentation, unresponsiveness. The history is obtained from the family. The patient presented on 13 January 2020 for with evidence of non-STEMI and symptoms of chest discomfort. At that time he underwent coronary angiography that revealed severe calcification with severe distal left main disease, proxi mal LAD severe disease, severe left circumflex disease with chronically occluded RCA with collaterals. Because of his anatomy he was transferred to [facility] and had a complex admission complicated by seizure and stroke and subsequently underwent placement of 2 stents, details of his intervention is not available to me. He presented with the progressive symptoms of change in mental status over the last 24 to 48 hours, unresponsiveness and was severely hypoxemic. He has sinus tachycardia. He has multiple wound and had prior history of osteomyelitis. He is status post left AKA. He has a prior history of pericardial fusion pericarditis. His most recent echocardiogram was perfor med in February of this year and revealed an ejection fraction of 45 to 50% with no significant valvular disease. There is a question of cholecystitis on this admission. The noted a change in the color of his urine. He was afebrile on presentation. He had abnormal liver function test with mildly elevated troponin. The patient has a sacral ulceration with wound VAC May 26 The patient was intubated, he continues to be in sinus mechanism. He is on norepinephrine. He is in sinus mechanism with no episode of atrial fibrillation. His urinary output has been stable. He is initiated on sodium bicarb. He is on antibiotics. His echocardiogram is pending. There is evidence of leukocytosis. May 27: The patient remains intubated and sedated. On the monitor he is in sinus mechanism with frequent single PVCs with bigeminal pattern. He had hypokalemia and low magnesium and has been replaced. He is off norepinephrine. His urinary output has been stable. His oxygenation is stable. His echocardiogram was technically difficult but showed a preserved systolic function. May 28: The patient remains intubated and sedated. He is in sinus mechanism. He continues to have ventricular ectopic activity with short burst of nonsustained VT. His blood pressure is stable and urine output has been stable. There is no evidence of atrial fibrillation. He is on no vasopressors. His potassium is being replaced. May 29: The patient remains intubated and sedated, in sinus mechanism. The frequency of his ventricular ectopic activity has decreased. He has good urine output and there is no hypotension. He is not on vasopressors. He continues to be evaluated for the need to undergo cholecystectomy. He is on aspirin but off clopidogrel. May 30: The patient remains intubated and sedated, in sinus mechanism. He is having frequent ventricular ectopic activity with short burst of nonsustained ventricular tachycardia. He is on no vasopressors. His urine output has been stable. There is no episodes of atrial fibrillation. His potassium and magnesium have been replaced. Medications: Aspirin, metoprolol tartrate 25 mg twice a day, Zosyn, vancomycin, sodium bicarb, Lovenox 40 mg subcu daily PHYSICAL EXAMINATION: Blood pressure 131/50 heart rate 100, intubated and sedated LUNGS: Clear to auscultation HEART: Regular rate and rhythm, S1, S2. No S3. Systolic ejection murmur ABDOMEN: Soft, no organomegaly EXTREMETIES: No edema, status post left AKA, wounds on the right lower extremity noted LAB: White blood cell 11.08.4,, hemoglobin 8.4. pH 7.46, PO2 55. BUN 20, creatinine 0.61. Potassium 3.9. IMPRESSION: 1. Respiratory failure with evidence suggestive of sepsis requiring mechanical ventilation, possible aspiration 2. History of CAD status post stenting and mild troponin elevation representing type II myocardial infarction 3. Status post left AKA 4. Paraplegia post accident 5. Multiple wound and sacral ulceration 6. Anemia 7. Abnormal liver function test with possible acute cholecystitis, improving liver function test 8. Chronic kidney disease, resolved 9. History of stroke and seizure 10. Ventricular ectopic activity, recurrent PLAN: 1. Continue to replace potassium and increase dose of beta-deflina 2. Continue supportive care 3. Continue holding clopidogrel at this point in case surgery is needed but otherwise resume with aspirin 4. Patient continues to require high FiO2 and required mechanical ventilation 5. Restart statin 6. Depending on his progress further recommendations will be made Objective - Vital Signs Vital signs: Vital Signs Temp 98.2 F 05/30/24 05:00 Pulse 100 05/30/24 07:00 Resp 20 05/30/24 07:00 BP 160/57 05/29/24 11:27 Pulse Ox 99 05/30/24 07:00 FiO2 100 04/12/25 07:29 Intake & Output 05/29/24 05/30/24 05/30/24 18:59 06:59 18:59 Intake Total 2273.080 2944.700 194.867 Output Total 2725 2030 125 Balance -451.920 914.700 69.867 Weight 85.5 kg 85.7 kg Intake: IV 1025 1100 85 KVO 200 30 Meropenem 1 gm In Sodium 100 100 Chloride 0.9% 100 ml @ 33 .3 mls/hr IVPB Q8HR [facility] Rx#:[id number] Sodium Chloride 0.9% 1, 925 800 55 000 ml @ 75 mls/hr IV . [id number] [facility] Rx#:[id number] Intake, IV Titration 205.080 884.700 54.867 Amount Clevidipine Butyrate 25 17.300 mg In Empty Bag 1 bag @ 1 MG/HR 2 mls/hr IV .Q24H [facility] Rx#:[id number] Dexmedetomidine/0.9% NaCl 101.274 (Pmx) 400 mcg In Empty Bag 1 bag @ 0.2 MCG/KG/HR 4.245 mls/hr IV .[id number] [facility] Rx#:[id number] Magnesium Sulfate-D5w Pmx 100 1 gm In Dextrose/Water 1 100ml.bag @ 100 mls/hr IVPB ONCE ONE Rx#: [id number] Vancomycin 1,500 mg In 500 Sodium Chloride 0.9% 500 ml 500 ml @ 167 mls/hr IVPB HS [facility] Rx#:[id number] propofoL 1,000 mg In 86.506 284.700 54.867 Empty Bag 1 bag @ 15 MCG/ KG/MIN 7.348 mls/hr IV . [id number] [facility] Rx#:[id number] Tube Feeding 605 660 55 Blood Product 288 Rc Pheresis As-3 Unit 288 [id number] Other 150 300 Output: Urine 2725 2030 125 Other: Voiding Method Indwelling Catheter Indwelling Catheter ABP, PAP, CO, CI - Last Documented Arterial Blood Pressure 131/53 - Labs CBC & Chem 7: 05/30/24 04:55 05/30/24 04:55 Labs: Abnormal Lab Results - Last 24 Hours (Table) 05/28/24 05/29/24 05/29/24 Range/Units 07:42 11:42 12:29 WBC (4.50-10.00) 10*3/uL RBC (4.40-5.60) 10*6/uL Hgb (13.0-17.0) g/dL Hct (39.6-50.0) % MCH (27.0-32.0) pg MCHC (32.0-37.0) g/dL MPV (9.5-12.2) fL ABG pH (7.35-7.45) ABG pO2 51 L* (83-108) mmHg ABG HCO3 (21-25) mmol/L ABG Total CO2 27 H (19-24) mmol/L ABG O2 Saturation 83.1 L (94-97) % Hemoglobin 10.0 L (13.0-17.5) gm/dL Sodium (137-145) mmol/L Chloride (98-107) mmol/L Creatinine (0.66-1.25) mg/dL Glucose (74-99) mg/dL POC Glucose (mg/dL) 129 H (70-110) mg/dL Calcium (8.4-10.2) mg/dL Alkaline Phosphatase (38-126) U/L Total Protein (6.3-8.2) g/dL Albumin (3.5-5.0) g/dL Crossmatch See Detail Reference Lab Result See BBK REF Reports A 05/29/24 05/29/24 05/29/24 Range/Units 14:52 18:05 22:57 WBC 11.82 H (4.50-10.00) 10*3/uL RBC 3.23 L (4.40-5.60) 10*6/uL Hgb 8.4 L D (13.0-17.0) g/dL Hct 27.3 L (39.6-50.0) % MCH 26.0 L (27.0-32.0) pg MCHC 30.8 L (32.0-37.0) g/dL MPV 9.4 L (9.5-12.2) fL ABG pH (7.35-7.45) ABG pO2 (83-108) mmHg ABG HCO3 (21-25) mmol/L ABG Total CO2 (19-24) mmol/L ABG O2 Saturation (94-97) % Hemoglobin (13.0-17.5) gm/dL Sodium (137-145) mmol/L Chloride (98-107) mmol/L Creatinine (0.66-1.25) mg/dL Glucose (74-99) mg/dL POC Glucose (mg/dL) 116 H 124 H (70-110) mg/dL Calcium (8.4-10.2) mg/dL Alkaline Phosphatase (38-126) U/L Total Protein (6.3-8.2) g/dL Albumin (3.5-5.0) g/dL Crossmatch Reference Lab Result 05/30/24 05/30/24 05/30/24 Range/Units 04:55 04:55 04:55 WBC 11.01 H (4.50-10.00) 10*3/uL RBC 3.29 L (4.40-5.60) 10*6/uL Hgb 8.4 L (13.0-17.0) g/dL Hct 28.1 L (39.6-50.0) % MCH 25.5 L (27.0-32.0) pg MCHC 29.9 L (32.0-37.0) g/dL MPV (9.5-12.2) fL ABG pH 7.46 H (7.35-7.45) ABG pO2 55 L* (83-108) mmHg ABG HCO3 27 H (21-25) mmol/L ABG Total CO2 28 H (19-24) mmol/L ABG O2 Saturation 88.5 L (94-97) % Hemoglobin 8.4 L (13.0-17.5) gm/dL Sodium 146 H (137-145) mmol/L Chloride 114 H (98-107) mmol/L Creatinine 0.61 L (0.66-1.25) mg/dL Glucose 130 H (74-99) mg/dL POC Glucose (mg/dL) (70-110) mg/dL Calcium 7.7 L (8.4-10.2) mg/dL Alkaline Phosphatase 364 H (38-126) U/L Total Protein 5.7 L (6.3-8.2) g/dL Albumin 2.3 L (3.5-5.0) g/dL Crossmatch Reference Lab Result 05/30/24 Range/Units 05:51 WBC (4.50-10.00) 10*3/uL RBC (4.40-5.60) 10*6/uL Hgb (13.0-17.0) g/dL Hct (39.6-50.0) % MCH (27.0-32.0) pg MCHC (32.0-37.0) g/dL MPV (9.5-12.2) fL ABG pH (7.35-7.45) ABG pO2 (83-108) mmHg ABG HCO3 (21-25) mmol/L ABG Total CO2 (19-24) mmol/L ABG O2 Saturation (94-97) % Hemoglobin (13.0-17.5) gm/dL Sodium (137-145) mmol/L Chloride (98-107) mmol/L Creatinine (0.66-1.25) mg/dL Glucose (74-99) mg/dL POC Glucose (mg/dL) 125 H (70-110) mg/dL Calcium (8.4-10.2) mg/dL Alkaline Phosphatase (38-126) U/L Total Protein (6.3-8.2) g/dL Albumin (3.5-5.0) g/dL Crossmatch Reference Lab Result Microbiology - Last 24 Hours (Table) 05/26/24 00:15 Gram Stain - Final Knee - Right Wound Culture - Final Acinetobacter hannah/haemol Klebsiella pneumo ESBL MDRO
[2024-05-30 10:00] LABS: Allen Test Performed? No
[2024-05-30] MEDS: ATORVASTATIN 40 MG TAB PO SCH (10:00)
--- NOTE | 2024-05-30 10:13 | P.PN ---
Subjective Progress Note Date: 05/30/24 Principal diagnosis: Cholecystitis Patient remains on the ventilator. Unfortunately his oxygen requirements have increased. He is up to 90% FiO2. Tmax 99.3. White blood cell count 11 and hemoglobin 8.4. Alkaline phosphatase decreased at 364. Patient has been transfused 2 units. No active bleeding noted. Tolerating tube feeds at goal. Objective - Vital Signs Vital signs: Vital Signs Temp 98.2 F 05/30/24 05:00 Pulse 100 05/30/24 07:00 Resp 20 05/30/24 07:00 BP 160/57 05/29/24 11:27 Pulse Ox 99 05/30/24 07:00 FiO2 100 05/30/24 07:29 Intake & Output 05/29/24 05/30/24 05/30/24 18:59 06:59 18:59 Intake Total 2273.080 2944.700 194.867 Output Total 2725 2030 125 Balance -451.920 914.700 69.867 Weight 85.5 kg 85.7 kg Intake: IV 1025 1100 85 KVO 200 30 Meropenem 1 gm In Sodium 100 100 Chloride 0.9% 100 ml @ 33 .3 mls/hr IVPB Q8HR [facility] Rx#:[id number] Sodium Chloride 0.9% 1, 925 800 55 000 ml @ 75 mls/hr IV . [id number] [facility] Rx#:[id number] Intake, IV Titration 205.080 884.700 54.867 Amount Clevidipine Butyrate 25 17.300 mg In Empty Bag 1 bag @ 1 MG/HR 2 mls/hr IV .Q24H [facility] Rx#:[id number] Dexmedetomidine/0.9% NaCl 101.274 (Pmx) 400 mcg In Empty Bag 1 bag @ 0.2 MCG/KG/HR 4.245 mls/hr IV .[id number] [facility] Rx#:[id number] Magnesium Sulfate-D5w Pmx 100 1 gm In Dextrose/Water 1 100ml.bag @ 100 mls/hr IVPB ONCE ONE Rx#: [id number] Vancomycin 1,500 mg In 500 Sodium Chloride 0.9% 500 ml 500 ml @ 167 mls/hr IVPB HS [facility] Rx#:[id number] propofoL 1,000 mg In 86.506 284.700 54.867 Empty Bag 1 bag @ 15 MCG/ KG/MIN 7.348 mls/hr IV . [id number] [facility] Rx#:[id number] Tube Feeding 605 660 55 Blood Product 288 Rc Pheresis As-3 Unit 288 [id number] Other 150 300 Output: Urine 2725 2030 125 Other: Voiding Method Indwelling Catheter Indwelling Catheter ABP, PAP, CO, CI - Last Documented Arterial Blood Pressure 131/53 - Exam Abdomen: Soft, nontender, nondistended - Labs CBC & Chem 7: 05/30/24 04:55 05/30/24 04:55 Labs: Abnormal Lab Results - Last 24 Hours (Table) 05/28/24 05/29/24 05/29/24 Range/Units 07:42 11:42 12:29 WBC (4.50-10.00) 10*3/uL RBC (4.40-5.60) 10*6/uL Hgb (13.0-17.0) g/dL Hct (39.6-50.0) % MCH (27.0-32.0) pg MCHC (32.0-37.0) g/dL MPV (9.5-12.2) fL ABG pH (7.35-7.45) ABG pO2 51 L* (83-108) mmHg ABG HCO3 (21-25) mmol/L ABG Total CO2 27 H (19-24) mmol/L ABG O2 Saturation 83.1 L (94-97) % Hemoglobin 10.0 L (13.0-17.5) gm/dL Sodium (137-145) mmol/L Chloride (98-107) mmol/L Creatinine (0.66-1.25) mg/dL Glucose (74-99) mg/dL POC Glucose (mg/dL) 129 H (70-110) mg/dL Calcium (8.4-10.2) mg/dL Alkaline Phosphatase (38-126) U/L Total Protein (6.3-8.2) g/dL Albumin (3.5-5.0) g/dL Crossmatch See Detail Reference Lab Result See BBK REF Reports A 05/29/24 05/29/24 05/29/24 Range/Units 14:52 18:05 22:57 WBC 11.82 H (4.50-10.00) 10*3/uL RBC 3.23 L (4.40-5.60) 10*6/uL Hgb 8.4 L D (13.0-17.0) g/dL Hct 27.3 L (39.6-50.0) % MCH 26.0 L (27.0-32.0) pg MCHC 30.8 L (32.0-37.0) g/dL MPV 9.4 L (9.5-12.2) fL ABG pH (7.35-7.45) ABG pO2 (83-108) mmHg ABG HCO3 (21-25) mmol/L ABG Total CO2 (19-24) mmol/L ABG O2 Saturation (94-97) % Hemoglobin (13.0-17.5) gm/dL Sodium (137-145) mmol/L Chloride (98-107) mmol/L Creatinine (0.66-1.25) mg/dL Glucose (74-99) mg/dL POC Glucose (mg/dL) 116 H 124 H (70-110) mg/dL Calcium (8.4-10.2) mg/dL Alkaline Phosphatase (38-126) U/L Total Protein (6.3-8.2) g/dL Albumin (3.5-5.0) g/dL Crossmatch Reference Lab Result 05/30/24 05/30/24 05/30/24 Range/Units 04:55 04:55 04:55 WBC 11.01 H (4.50-10.00) 10*3/uL RBC 3.29 L (4.40-5.60) 10*6/uL Hgb 8.4 L (13.0-17.0) g/dL Hct 28.1 L (39.6-50.0) % MCH 25.5 L (27.0-32.0) pg MCHC 29.9 L (32.0-37.0) g/dL MPV (9.5-12.2) fL ABG pH 7.46 H (7.35-7.45) ABG pO2 55 L* (83-108) mmHg ABG HCO3 27 H (21-25) mmol/L ABG Total CO2 28 H (19-24) mmol/L ABG O2 Saturation 88.5 L (94-97) % Hemoglobin 8.4 L (13.0-17.5) gm/dL Sodium 146 H (137-145) mmol/L Chloride 114 H (98-107) mmol/L Creatinine 0.61 L (0.66-1.25) mg/dL Glucose 130 H (74-99) mg/dL POC Glucose (mg/dL) (70-110) mg/dL Calcium 7.7 L (8.4-10.2) mg/dL Alkaline Phosphatase 364 H (38-126) U/L Total Protein 5.7 L (6.3-8.2) g/dL Albumin 2.3 L (3.5-5.0) g/dL Crossmatch Reference Lab Result 05/30/24 05/30/24 Range/Units 05:51 09:39 WBC (4.50-10.00) 10*3/uL RBC (4.40-5.60) 10*6/uL Hgb (13.0-17.0) g/dL Hct (39.6-50.0) % MCH (27.0-32.0) pg MCHC (32.0-37.0) g/dL MPV (9.5-12.2) fL ABG pH (7.35-7.45) ABG pO2 63 L (83-108) mmHg ABG HCO3 27 H (21-25) mmol/L ABG Total CO2 28 H (19-24) mmol/L ABG O2 Saturation 91.0 L (94-97) % Hemoglobin 8.7 L (13.0-17.5) gm/dL Sodium (137-145) mmol/L Chloride (98-107) mmol/L Creatinine (0.66-1.25) mg/dL Glucose (74-99) mg/dL POC Glucose (mg/dL) 125 H (70-110) mg/dL Calcium (8.4-10.2) mg/dL Alkaline Phosphatase (38-126) U/L Total Protein (6.3-8.2) g/dL Albumin (3.5-5.0) g/dL Crossmatch Reference Lab Result Microbiology - Last 24 Hours (Table) 05/26/24 00:15 Gram Stain - Final Knee - Right Wound Culture - Final Acinetobacter hannah/haemol Klebsiella pneumo ESBL MDRO Assessment and Plan (1) Acute cholecystitis Narrative/Plan: 63-year-old male with cholecystitis and possible choledocholithiasis. Patient has improving liver enzymes and no abdominal tenderness on exam. Continue antibiotics and conservative management. Patient's pulmonary status is what is most troubling at this time. CT angiogram ordered. Await those findings. Current Visit: Yes Status: Acute Code(s): K81.0 - ACUTE CHOLECYSTITIS SNOMED Code(s): 15395289
[2024-05-30] MEDS: HYDROmorphone 0.5 MG/0.5 ML SYRINGE IVP PRN (11:23)
[2024-05-30 11:38] LABS: Glucose,Whole Blood 137 mg/dL (70-110)
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
--- NOTE | 2024-05-30 12:46 | CT ---
EXAMINATION TYPE: CT angio chest DATE OF EXAM: 05/30/2024 12:08 PM COMPARISON: 05/25/2024 CLINICAL INDICATION: Male, 63 years old with history of Hypoxemia, hypoxemia, difficulty breathing TECHNIQUE: CT of the chest is performed on a spiral scan at 2 mm thick sections. Study is performed with intravenous contrast timed for evaluation for pulmonary embolism. This will limit additional po rtions of the evaluation. 10mm MIP images reconstructed by the technologist are reviewed on the comp uter in the coronal and sagittal planes. Contrast used:80 mL of Isovue 370 with IV Contrast, (none if empty) Oral contrast used: (none if empty) CT DLP: 712.3 mGycm, Automated exposure control for dose reduction was used. FINDINGS: Patient is intubated with the tip above the wilda. Nasogastric tube is present. No persistent filling defects are evident to suggest an acute pulmonary embolism. No mediastinal or hilar adenopathy enlarged by CT criteria is evident. The ascending aorta diameter at the level of the main pulmonary artery is 3.3 cm. The main pulmonary artery diameter at the bifurcation is 3.0 cm. Bibasilar dependent consolidations are present. This is new on the right and larger on the left from comparison. Small pleural effusions are present. Moderate coronary artery calcifications present. Limited CT sections were through the upper abdomen. Upper abdomen appears unremarkable. IMPRESSION: 1. No acute pulmonary embolism. 2. Dependent bibasilar consolidations with small effusions. Correlate for pneumonia and atelectasis [facility], , 05/30/2024 12:43 PM
--- NOTE | 2024-05-30 12:47 | P.PN ---
Subjective Progress Note Date: 05/30/24 Principal diagnosis: Reason for follow-up is sepsis aspiration pneumonia UTI and multiple pressure ulcer Patient is a 63-year-old male with past medical history significant for CVA/TIA, Hypertension, Myocardial Infarction (SD), Myocardial Infarction (non Q-wave), Neurologic Disorder, Neurologic Disorder, Pneumonia, Skin Disorder did have a sacral osteomyelitis and multiple pressure ulcer to the left lower extremity presenting to the hospital for evaluation of episode of unresponsiveness patient ended up getting debated concerning for aspiration pneumonia with sepsis and multiple pressure ulcers to the lower extremity. On today's evaluation that is 05/30/2024, patient did not have any fever and remains to be debated on the vent however the patient current 100% FiO2 as reported by nursing staff no significant purulent secretions in the ET, he is hemodynamically stable not requiring any pressor support. Patient white count is 11.01 creatinine 0.61 blood and Sputum cultures pending Objective - Vital Signs Vital signs: Vital Signs Temp 98.9 F 05/30/24 09:30 Pulse 100 05/30/24 11:00 Resp 25 H 05/30/24 11:00 BP 160/57 05/29/24 11:27 Pulse Ox 100 05/30/24 11:00 FiO2 100 05/30/24 10:00 Intake & Output 05/29/24 05/30/24 05/30/24 18:59 06:59 18:59 Intake Total 2273.080 2944.700 854.867 Output Total 2725 2030 1025 Balance -451.920 914.700 -170.133 Weight 85.5 kg 85.7 kg 85.7 kg Intake: IV 1025 1100 495 KVO 200 120 Meropenem 1 gm In Sodium 100 100 100 Chloride 0.9% 100 ml @ 33 .3 mls/hr IVPB Q8HR [facility] Rx#:[id number] Sodium Chloride 0.9% 1, 925 800 275 000 ml @ 75 mls/hr IV . [id number] [facility] Rx#:[id number] Intake, IV Titration 205.080 884.700 54.867 Amount Clevidipine Butyrate 25 17.300 mg In Empty Bag 1 bag @ 1 MG/HR 2 mls/hr IV .Q24H [facility] Rx#:[id number] Dexmedetomidine/0.9% NaCl 101.274 (Pmx) 400 mcg In Empty Bag 1 bag @ 0.2 MCG/KG/HR 4.245 mls/hr IV .[id number] [facility] Rx#:[id number] Magnesium Sulfate-D5w Pmx 100 1 gm In Dextrose/Water 1 100ml.bag @ 100 mls/hr IVPB ONCE ONE Rx#: [id number] Vancomycin 1,500 mg In 500 Sodium Chloride 0.9% 500 ml 500 ml @ 167 mls/hr IVPB HS [facility] Rx#:[id number] propofoL 1,000 mg In 86.506 284.700 54.867 Empty Bag 1 bag @ 15 MCG/ KG/MIN 7.348 mls/hr IV . [id number] [facility] Rx#:[id number] Tube Feeding 605 660 275 Blood Product 288 Rc Pheresis As-3 Unit 288 [id number] Other 150 300 30 Output: Urine 2725 2030 1025 Other: Voiding Method Indwelling Catheter Indwelling Catheter ABP, PAP, CO, CI - Last Documented Arterial Blood Pressure 152/66 - Exam GENERAL DESCRIPTION: An elderly male intubated on the vent RESPIRATORY SYSTEM: Unlabored breathing , decreased breath sounds at bases HEART: S1 S2 regular rate and rhythm , ABDOMEN: Soft , no tenderness EXTREMITIES: Right lower extremity with currently dressed - Labs CBC & Chem 7: 05/30/24 04:55 05/30/24 04:55 Labs: Abnormal Lab Results - Last 24 Hours (Table) 05/28/24 05/29/24 05/29/24 Range/Units 07:42 12:29 14:52 WBC 11.82 H (4.50-10.00) 10*3/uL RBC 3.23 L (4.40-5.60) 10*6/uL Hgb 8.4 L D (13.0-17.0) g/dL Hct 27.3 L (39.6-50.0) % MCH 26.0 L (27.0-32.0) pg MCHC 30.8 L (32.0-37.0) g/dL MPV 9.4 L (9.5-12.2) fL ABG pH (7.35-7.45) ABG pO2 51 L* (83-108) mmHg ABG HCO3 (21-25) mmol/L ABG Total CO2 27 H (19-24) mmol/L ABG O2 Saturation 83.1 L (94-97) % Hemoglobin 10.0 L (13.0-17.5) gm/dL Sodium (137-145) mmol/L Chloride (98-107) mmol/L Creatinine (0.66-1.25) mg/dL Glucose (74-99) mg/dL POC Glucose (mg/dL) (70-110) mg/dL Calcium (8.4-10.2) mg/dL Alkaline Phosphatase (38-126) U/L Total Protein (6.3-8.2) g/dL Albumin (3.5-5.0) g/dL Reference Lab Result See [facility] REF Reports A 05/29/24 05/29/24 05/30/24 Range/Units 18:05 22:57 04:55 WBC (4.50-10.00) 10*3/uL RBC (4.40-5.60) 10*6/uL Hgb (13.0-17.0) g/dL Hct (39.6-50.0) % MCH (27.0-32.0) pg MCHC (32.0-37.0) g/dL MPV (9.5-12.2) fL ABG pH (7.35-7.45) ABG pO2 (83-108) mmHg ABG HCO3 (21-25) mmol/L ABG Total CO2 (19-24) mmol/L ABG O2 Saturation (94-97) % Hemoglobin (13.0-17.5) gm/dL Sodium 146 H (137-145) mmol/L Chloride 114 H (98-107) mmol/L Creatinine 0.61 L (0.66-1.25) mg/dL Glucose 130 H (74-99) mg/dL POC Glucose (mg/dL) 116 H 124 H (70-110) mg/dL Calcium 7.7 L (8.4-10.2) mg/dL Alkaline Phosphatase 364 H (38-126) U/L Total Protein 5.7 L (6.3-8.2) g/dL Albumin 2.3 L (3.5-5.0) g/dL Reference Lab Result 05/30/24 05/30/24 05/30/24 Range/Units 04:55 04:55 05:51 WBC 11.01 H (4.50-10.00) 10*3/uL RBC 3.29 L (4.40-5.60) 10*6/uL Hgb 8.4 L (13.0-17.0) g/dL Hct 28.1 L (39.6-50.0) % MCH 25.5 L (27.0-32.0) pg MCHC 29.9 L (32.0-37.0) g/dL MPV (9.5-12.2) fL ABG pH 7.46 H (7.35-7.45) ABG pO2 55 L* (83-108) mmHg ABG HCO3 27 H (21-25) mmol/L ABG Total CO2 28 H (19-24) mmol/L ABG O2 Saturation 88.5 L (94-97) % Hemoglobin 8.4 L (13.0-17.5) gm/dL Sodium (137-145) mmol/L Chloride (98-107) mmol/L Creatinine (0.66-1.25) mg/dL Glucose (74-99) mg/dL POC Glucose (mg/dL) 125 H (70-110) mg/dL Calcium (8.4-10.2) mg/dL Alkaline Phosphatase (38-126) U/L Total Protein (6.3-8.2) g/dL Albumin (3.5-5.0) g/dL Reference Lab Result 05/30/24 05/30/24 Range/Units 09:39 11:36 WBC (4.50-10.00) 10*3/uL RBC (4.40-5.60) 10*6/uL Hgb (13.0-17.0) g/dL Hct (39.6-50.0) % MCH (27.0-32.0) pg MCHC (32.0-37.0) g/dL MPV (9.5-12.2) fL ABG pH (7.35-7.45) ABG pO2 63 L (83-108) mmHg ABG HCO3 27 H (21-25) mmol/L ABG Total CO2 28 H (19-24) mmol/L ABG O2 Saturation 91.0 L (94-97) % Hemoglobin 8.7 L (13.0-17.5) gm/dL Sodium (137-145) mmol/L Chloride (98-107) mmol/L Creatinine (0.66-1.25) mg/dL Glucose (74-99) mg/dL POC Glucose (mg/dL) 137 H (70-110) mg/dL Calcium (8.4-10.2) mg/dL Alkaline Phosphatase (38-126) U/L Total Protein (6.3-8.2) g/dL Albumin (3.5-5.0) g/dL Reference Lab Result Microbiology - Last 24 Hours (Table) 05/26/24 00:12 Anaerobic Culture - Final Hip - Right 05/26/24 00:15 Anaerobic Culture - Final Knee - Right 05/26/24 00:15 Gram Stain - Final Knee - Right Wound Culture - Final Acinetobacter hannah/haemol Klebsiella pneumo ESBL MDRO Assessment and Plan (1) Sepsis Current Visit: No Status: Acute Code(s): A41.9 - SEPSIS, UNSPECIFIED ORGANISM SNOMED Code(s): 85412321 (2) Aspiration pneumonia Current Visit: Yes Status: Acute Code(s): J69.0 - PNEUMONITIS DUE TO INHALATION OF FOOD AND VOMIT SNOMED Code(s): 416067924 (3) Pressure ulcers of skin of multiple topographic sites Current Visit: Yes Status: Acute Code(s): L89.90 - PRESSURE ULCER OF UNSPECIFIED SITE, UNSPECIFIED STAGE SNOMED Code(s): 087307119 (4) Acute cholecystitis Current Visit: Yes Status: Acute Code(s): K81.0 - ACUTE CHOLECYSTITIS SNOMED Code(s): 94538369 Plan: 1patient presented hospital with episode of unresponsiveness and this patient did have worsening respiratory status requiring intubation and admission to the ICU has been hypotensive requiring pressor support did have elevated white count low-grade fever meeting currently for SIRS/sepsis source is multifactorial in this patient likely component of aspiration pneumonia and also have multiple wound concerning for secondary infection and recently completed course of antibiotic for osteomyelitis also have abnormal ultrasound question of possible cholecystitis 2-patient blood cultures currently pending sputum cultures are currently pending urine and wound culture currently growing ESBL Klebsiella Pseudomonas and MRSA 3patient is afebrile the patient white count down to 11,000, blood and culture has been so far pending 4we will treat vancomycin and meropenem and await CTA of the lungs finding Dictation was produced using [employer] dictation software. please excuse any grammatical, word or spelling errors. Time with Patient: Less than 30
[2024-05-30 17:28] LABS: Glucose,Whole Blood 146 mg/dL (70-110)
[2024-05-30 20:05] LABS: Magnesium 1.9 mg/dL (1.6-2.3)
[2024-05-30] MEDS: METOPROLOL TARTRATE 50 MG TAB PO SCH (20:25)
[2024-05-30] MEDS: MAGNESIUM SULFATE-D5W PMX 1 GM in DEXTROSE/WATER 1 100ML.BAG IVPB ONE (23:04)
[2024-05-30 23:27] LABS: Glucose,Whole Blood 141 mg/dL (70-110)
[2024-05-31 05:18] LABS: HCT 27.3 % (39.6-50.0); HGB 7.8 g/dL (13.0-17.0); MCH 25.3 pg (27.0-32.0); MCHC 28.6 g/dL (32.0-37.0); MCV 88.6 fL (80.0-97.0); Mean Platelet Volume 10.1 fL (9.5-12.2); Platelet Count 290 10*3/uL (140-440); RBC 3.08 10*6/uL (4.40-5.60); RDW 18.9 % (11.5-14.5); WBC 10.94 10*3/uL (4.50-10.00)
[2024-05-31 05:36] LABS: African American GFR (CKD) >90 (>60 ml/min/1.73 sqM); Anion Gap 5 mmol/L; Blood Urea Nitrogen 20 mg/dL (9-20); Calcium 7.9 mg/dL (8.4-10.2); Carbon Dioxide 27 mmol/L (22-30); Chloride 116 mmol/L (98-107); Glucose 124 mg/dL (74-99); Magnesium 2.1 mg/dL (1.6-2.3); Non-African American GFR(CKD) >90 (>60 ml/min/1.73 sqM); Potassium 3.7 mmol/L (3.5-5.1); Sodium 148 mmol/L (137-145)
[2024-05-31 05:48] LABS: ABG Base Excess 2.4 mmol/L; ABG HCO3 27 mmol/L (21-25); ABG PCO2 43 mmHg (35-45); ABG PH 7.42 (7.35-7.45); ABG PO2 182 mmHg (83-108); ABG TCO2 29 mmol/L (19-24)
[2024-05-31 05:49] LABS: Allen Test Performed? no
[2024-05-31 06:10] LABS: Glucose,Whole Blood 140 mg/dL (70-110)
[2024-05-31] MEDS: POTASSIUM BICARBONATE/CIT AC 20 MEQ TABLET.EFF NG-TUBE SCH ×2 (06:58→18:49)
--- NOTE | 2024-05-31 08:09 | XR ---
EXAMINATION TYPE: XR chest 1V portable DATE OF EXAM: 05/31/2024 4:54 AM COMPARISON: 05/30/2024 CLINICAL INDICATION: Male, 63 years old with history of ICU mechanical intubation, TECHNIQUE: XR chest 1V portable view(s) obtained. FINDINGS: The heart size is normal. The pulmonary vasculature is normal. Improving right lower lobe infiltrate is present. Endotracheal tube tip is 7.8 cm above wilda. Nasogastric tube transverses the thorax. Right central venous catheter tip is within the proximal right atrium IMPRESSION: 1. Improving right lower lobe infiltrate. 2. Lines and catheters discussed above. [facility], , 05/31/2024 8:06 AM
[2024-05-31] MEDS: DEXTROSE 5% IN WATER 1,000 ML IV SCH (08:57)
--- NOTE | 2024-05-31 09:31 | P.PN ---
Subjective Progress Note Date: 05/31/24 PROGRESS NOTE The patient is a 63-year-old paraplegic after an accident who presented with decreased mentation, unresponsiveness. The history is obtained from the family. The patient presented on 13 January 2020 for with evidence of non-STEMI and symptoms of chest discomfort. At that time he underwent coronary angiography that revealed severe calcification with severe distal left main disease, proxi mal LAD severe disease, severe left circumflex disease with chronically occluded RCA with collaterals. Because of his anatomy he was transferred to [facility] and had a complex admission complicated by seizure and stroke and subsequently underwent placement of 2 stents, details of his intervention is not available to me. He presented with the progressive symptoms of change in mental status over the last 24 to 48 hours, unresponsiveness and was severely hypoxemic. He has sinus tachycardia. He has multiple wound and had prior history of osteomyelitis. He is status post left AKA. He has a prior history of pericardial fusion pericarditis. His most recent echocardiogram was perfor med in February of this year and revealed an ejection fraction of 45 to 50% with no significant valvular disease. There is a question of cholecystitis on this admission. The noted a change in the color of his urine. He was afebrile on presentation. He had abnormal liver function test with mildly elevated troponin. The patient has a sacral ulceration with wound VAC May 26 The patient was intubated, he continues to be in sinus mechanism. He is on norepinephrine. He is in sinus mechanism with no episode of atrial fibrillation. His urinary output has been stable. He is initiated on sodium bicarb. He is on antibiotics. His echocardiogram is pending. There is evidence of leukocytosis. May 27: The patient remains intubated and sedated. On the monitor he is in sinus mechanism with frequent single PVCs with bigeminal pattern. He had hypokalemia and low magnesium and has been replaced. He is off norepinephrine. His urinary output has been stable. His oxygenation is stable. His echocardiogram was technically difficult but showed a preserved systolic function. May 28: The patient remains intubated and sedated. He is in sinus mechanism. He continues to have ventricular ectopic activity with short burst of nonsustained VT. His blood pressure is stable and urine output has been stable. There is no evidence of atrial fibrillation. He is on no vasopressors. His potassium is being replaced. May 29: The patient remains intubated and sedated, in sinus mechanism. The frequency of his ventricular ectopic activity has decreased. He has good urine output and there is no hypotension. He is not on vasopressors. He continues to be evaluated for the need to undergo cholecystectomy. He is on aspirin but off clopidogrel. May 30: The patient remains intubated and sedated, in sinus mechanism. He is having frequent ventricular ectopic activity with short burst of nonsustained ventricular tachycardia. He is on no vasopressors. His urine output has been stable. There is no episodes of atrial fibrillation. His potassium and magnesium have been replaced. May 31: The patient continues to be intubated and sedated. The frequency of his ventricular ectopic activity has decreased. He is requiring less oxygen supplementation. His urine output has been stable. He is afebrile. He is on no vasopressors. He continues to be in sinus mechanism. Medications: Aspirin, metoprolol tartrate 50 mg twice a day, Zosyn, vancomycin, sodium bicarb, Lovenox 40 mg subcu daily, Lipitor 40 mg daily PHYSICAL EXAMINATION: Blood pressure 135/60 heart rate 92, intubated and sedated LUNGS: Clear to auscultation HEART: Regular rate and rhythm, S1, S2. No S3. Systolic ejection murmur ABDOMEN: Soft, no organomegaly EXTREMETIES: status post left AKA, wounds on the right lower extremity noted, 1+ edema LAB: White blood cell 10.94,, hemoglobin 7.8. pH 7.42, PO2 182. BUN 20, creatinine 0.63. Potassium 3.7 IMPRESSION: 1. Respiratory failure with evidence suggestive of sepsis requiring mechanical ventilation, possible aspiration 2. History of CAD status post stenting and mild troponin elevation representing type II myocardial infarction 3. Status post left AKA 4. Paraplegia post accident 5. Multiple wound and sacral ulceration 6. Anemia 7. Abnormal liver function test with possible acute cholecystitis, improving liver function test 8. Chronic kidney disease, resolved 9. History of stroke and seizure 10. Ventricular ectopic activity, improving PLAN: 1. Continue present dose of beta-delfina 2. Continue supportive care 3. Continue holding clopidogrel at this point in case surgery is needed but otherwise resume with aspirin 4. Antibiotics as initiated by infectious disease 5. Continue statin 6. Depending on his progress further recommendations will be made Objective - Vital Signs Vital signs: Vital Signs Temp 99.3 F 05/31/24 08:00 Pulse 97 04/13/25 08:00 Resp 27 H 05/31/24 08:00 BP 123/69 05/31/24 07:00 Pulse Ox 100 05/31/24 08:00 FiO2 100 05/31/24 08:00 Intake & Output 05/30/24 05/31/24 05/31/24 18:59 06:59 18:59 Intake Total 3739.519 5106.832 360 Output Total 2024 1485 275 Balance -70.133 1019.832 85 Weight 85.7 kg 85 kg Intake: IV 1050 980 150 KVO 190 110 20 Meropenem 1 gm In Sodium 200 100 Chloride 0.9% 100 ml @ 33 .3 mls/hr IVPB Q8HR [facility] Rx#:[id number] Sodium Chloride 0.9% 1, 660 770 130 000 ml @ 75 mls/hr IV . [id number] [facility] Rx#:[id number] Intake, IV Titration 154.867 684.832 Amount Magnesium Sulfate-D5w Pmx 100 1 gm In Dextrose/Water 1 100ml.bag @ 100 mls/hr IVPB ONCE ONE Rx#: [id number] Vancomycin 1,500 mg In 500 Sodium Chloride 0.9% 500 ml 500 ml @ 167 mls/hr IVPB HS [facility] Rx#:[id number] propofoL 1,000 mg In 154.867 84.832 Empty Bag 1 bag @ 15 MCG/ KG/MIN 7.348 mls/hr IV . [id number] [facility] Rx#:[id number] Tube Feeding 660 690 120 Other 90 150 90 Output: Urine 2024 1485 275 Other: Voiding Method Indwelling Catheter Indwelling Catheter # Bowel Movements 1 ABP, PAP, CO, CI - Last Documented Arterial Blood Pressure 135/57 - Labs CBC & Chem 7: 05/31/24 04:20 05/31/24 04:20 Labs: Abnormal Lab Results - Last 24 Hours (Table) 05/30/24 05/30/24 05/30/24 Range/Units 09:39 11:36 17:26 WBC (4.50-10.00) 10*3/uL RBC (4.40-5.60) 10*6/uL Hgb (13.0-17.0) g/dL Hct (39.6-50.0) % MCH (27.0-32.0) pg MCHC (32.0-37.0) g/dL ABG pO2 63 L (83-108) mmHg ABG HCO3 27 H (21-25) mmol/L ABG Total CO2 28 H (19-24) mmol/L ABG O2 Saturation 91.0 L (94-97) % Hemoglobin 8.7 L (13.0-17.5) gm/dL Sodium (137-145) mmol/L Chloride (98-107) mmol/L Creatinine (0.66-1.25) mg/dL Glucose (74-99) mg/dL POC Glucose (mg/dL) 137 H 146 H (70-110) mg/dL Calcium (8.4-10.2) mg/dL 05/30/24 05/31/24 05/31/24 Range/Units 23:25 04:20 04:20 WBC 10.94 H (4.50-10.00) 10*3/uL RBC 3.08 L (4.40-5.60) 10*6/uL Hgb 7.8 L (13.0-17.0) g/dL Hct 27.3 L (39.6-50.0) % MCH 25.3 L (27.0-32.0) pg MCHC 28.6 L (32.0-37.0) g/dL ABG pO2 (83-108) mmHg ABG HCO3 (21-25) mmol/L ABG Total CO2 (19-24) mmol/L ABG O2 Saturation (94-97) % Hemoglobin (13.0-17.5) gm/dL Sodium 148 H (137-145) mmol/L Chloride 116 H (98-107) mmol/L Creatinine 0.63 L (0.66-1.25) mg/dL Glucose 124 H (74-99) mg/dL POC Glucose (mg/dL) 141 H (70-110) mg/dL Calcium 7.9 L (8.4-10.2) mg/dL 05/31/24 05/31/24 Range/Units 05:38 06:06 WBC (4.50-10.00) 10*3/uL RBC (4.40-5.60) 10*6/uL Hgb (13.0-17.0) g/dL Hct (39.6-50.0) % MCH (27.0-32.0) pg MCHC (32.0-37.0) g/dL ABG pO2 182 H (83-108) mmHg ABG HCO3 27 H (21-25) mmol/L ABG Total CO2 29 H (19-24) mmol/L ABG O2 Saturation 100.0 H (94-97) % Hemoglobin 8.0 L (13.0-17.5) gm/dL Sodium (137-145) mmol/L Chloride (98-107) mmol/L Creatinine (0.66-1.25) mg/dL Glucose (74-99) mg/dL POC Glucose (mg/dL) 140 H (70-110) mg/dL Calcium (8.4-10.2) mg/dL Microbiology - Last 24 Hours (Table) 05/25/24 10:18 Blood Culture - Final Blood 05/26/24 00:12 Anaerobic Culture - Final Hip - Right 05/26/24 00:15 Anaerobic Culture - Final Knee - Right
--- NOTE | 2024-05-31 10:31 | P.PN ---
Subjective Progress Note Date: 05/31/24 Principal diagnosis: Cholecystitis Patient remains on the ventilator. Oxygen requirements improved slightly. Patient had CAT scan showing no PE yesterday. Difficult to visualize the gallbladder with certainty on that study. He is afebrile. Tmax 99.3. White blood cell count 10.9, hemoglobin 7.8. Tolerating tube feeds at goal. Objective - Vital Signs Vital signs: Vital Signs Temp 99.3 F 05/31/24 08:00 Pulse 97 05/31/24 08:00 Resp 27 H 05/31/24 08:00 BP 123/69 05/31/24 07:00 Pulse Ox 100 05/31/24 08:00 FiO2 100 05/31/24 08:00 Intake & Output 05/30/24 05/31/24 05/31/24 18:59 06:59 18:59 Intake Total 7518.806 5117.832 360 Output Total 2024 1485 275 Balance -70.133 1019.832 85 Weight 85.7 kg 85 kg Intake: IV 1050 980 150 KVO 190 110 20 Meropenem 1 gm In Sodium 200 100 Chloride 0.9% 100 ml @ 33 .3 mls/hr IVPB Q8HR [facility] Rx#:[id number] Sodium Chloride 0.9% 1, 660 770 130 000 ml @ 75 mls/hr IV . [id number] [facility] Rx#:[id number] Intake, IV Titration 154.867 684.832 Amount Magnesium Sulfate-D5w Pmx 100 1 gm In Dextrose/Water 1 100ml.bag @ 100 mls/hr IVPB ONCE ONE Rx#: [id number] Vancomycin 1,500 mg In 500 Sodium Chloride 0.9% 500 ml 500 ml @ 167 mls/hr IVPB HS [facility] Rx#:[id number] propofoL 1,000 mg In 154.867 84.832 Empty Bag 1 bag @ 15 MCG/ KG/MIN 7.348 mls/hr IV . [id number] [facility] Rx#:[id number] Tube Feeding 660 690 120 Other 90 150 90 Output: Urine 2024 1485 275 Other: Voiding Method Indwelling Catheter Indwelling Catheter # Bowel Movements 1 ABP, PAP, CO, CI - Last Documented Arterial Blood Pressure 135/57 - Exam Abdomen: Soft, nontender, nondistended - Labs CBC & Chem 7: 05/31/24 04:20 05/31/24 04:20 Labs: Abnormal Lab Results - Last 24 Hours (Table) 05/30/24 05/30/24 05/30/24 Range/Units 11:36 17:26 23:25 WBC (4.50-10.00) 10*3/uL RBC (4.40-5.60) 10*6/uL Hgb (13.0-17.0) g/dL Hct (39.6-50.0) % MCH (27.0-32.0) pg MCHC (32.0-37.0) g/dL ABG pO2 (83-108) mmHg ABG HCO3 (21-25) mmol/L ABG Total CO2 (19-24) mmol/L ABG O2 Saturation (94-97) % Hemoglobin (13.0-17.5) gm/dL Sodium (137-145) mmol/L Chloride (98-107) mmol/L Creatinine (0.66-1.25) mg/dL Glucose (74-99) mg/dL POC Glucose (mg/dL) 137 H 146 H 141 H (70-110) mg/dL Calcium (8.4-10.2) mg/dL 05/31/24 05/31/24 05/31/24 Range/Units 04:20 04:20 05:38 WBC 10.94 H (4.50-10.00) 10*3/uL RBC 3.08 L (4.40-5.60) 10*6/uL Hgb 7.8 L (13.0-17.0) g/dL Hct 27.3 L (39.6-50.0) % MCH 25.3 L (27.0-32.0) pg MCHC 28.6 L (32.0-37.0) g/dL ABG pO2 182 H (83-108) mmHg ABG HCO3 27 H (21-25) mmol/L ABG Total CO2 29 H (19-24) mmol/L ABG O2 Saturation 100.0 H (94-97) % Hemoglobin 8.0 L (13.0-17.5) gm/dL Sodium 148 H (137-145) mmol/L Chloride 116 H (98-107) mmol/L Creatinine 0.63 L (0.66-1.25) mg/dL Glucose 124 H (74-99) mg/dL POC Glucose (mg/dL) (70-110) mg/dL Calcium 7.9 L (8.4-10.2) mg/dL 05/31/24 Range/Units 06:06 WBC (4.50-10.00) 10*3/uL RBC (4.40-5.60) 10*6/uL Hgb (13.0-17.0) g/dL Hct (39.6-50.0) % MCH (27.0-32.0) pg MCHC (32.0-37.0) g/dL ABG pO2 (83-108) mmHg ABG HCO3 (21-25) mmol/L ABG Total CO2 (19-24) mmol/L ABG O2 Saturation (94-97) % Hemoglobin (13.0-17.5) gm/dL Sodium (137-145) mmol/L Chloride (98-107) mmol/L Creatinine (0.66-1.25) mg/dL Glucose (74-99) mg/dL POC Glucose (mg/dL) 140 H (70-110) mg/dL Calcium (8.4-10.2) mg/dL Microbiology - Last 24 Hours (Table) 05/25/24 10:18 Blood Culture - Final Blood 05/26/24 00:12 Anaerobic Culture - Final Hip - Right 05/26/24 00:15 Anaerobic Culture - Final Knee - Right Assessment and Plan (1) Acute cholecystitis Narrative/Plan: Patient remains on the ventilator with moderate oxygen requirements. Continue antibiotics. Continue tube feeds at goal. From discussions with the family previously I am not convinced that the patient or his significant other are interested in long-term ventilation. Patient certainly is not improving as quickly as we had hoped. Further discussions with the family regarding CODE STATUS will need to take place. Current Visit: Yes Status: Acute Code(s): K81.0 - ACUTE CHOLECYSTITIS SNOMED Code(s): 28058220
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
[2024-05-31 12:11] LABS: Glucose,Whole Blood 139 mg/dL (70-110)
[2024-05-31 18:01] LABS: Glucose,Whole Blood 157 mg/dL (70-110)
--- NOTE | 2024-05-31 21:12 | P.PN ---
Subjective Progress Note Date: 05/31/24 Principal diagnosis: Reason for follow-up is sepsis aspiration pneumonia UTI and multiple pressure ulcer Patient is a 63-year-old male with past medical history significant for CVA/TIA, Hypertension, Myocardial Infarction ([place]), Myocardial Infarction (non Q-wave), Neurologic Disorder, Neurologic Disorder, Pneumonia, Skin Disorder did have a sacral osteomyelitis and multiple pressure ulcer to the left lower extremity presenting to the hospital for evaluation of episode of unresponsiveness patient ended up getting debated concerning for aspiration pneumonia with sepsis and multiple pressure ulcers to the lower extremity. On today's evaluation that is 05/31/2024, Patient is afebrile patient remains to be intubated on the vent however FiO2 is down to 70% no significant purulent secretion from the ED patient is hemodynamically stable not requiring any pressor support no other changes reported by the nursing staff. Patient white count is 10.94, creatinine is 0.63 blood and sputum culture still pending Objective - Vital Signs Vital signs: Vital Signs Temp 99.5 F 05/31/24 12:00 Pulse 101 H 05/31/24 13:30 Resp 27 H 05/31/24 13:30 BP 134/83 05/31/24 13:30 Pulse Ox 98 05/31/24 13:30 FiO2 75 05/31/24 12:00 Intake & Output 05/30/24 05/31/24 05/31/24 18:59 06:59 18:59 Intake Total 7794.125 0214.832 1225 Output Total 2024 1485 1000 Balance -70.133 1019.832 225 Weight 85.7 kg 85 kg Intake: IV 1050 980 585 KVO 190 110 30 Meropenem 1 gm In Sodium 200 100 100 Chloride 0.9% 100 ml @ 33 .3 mls/hr IVPB Q8HR [facility] Rx#:[id number] Sodium Chloride 0.9% 1, 660 770 455 000 ml @ 75 mls/hr IV . [id number] [facility] Rx#:[id number] Intake, IV Titration 154.867 684.832 100 Amount Magnesium Sulfate-D5w Pmx 100 1 gm In Dextrose/Water 1 100ml.bag @ 100 mls/hr IVPB ONCE ONE Rx#: [id number] Vancomycin 1,500 mg In 500 Sodium Chloride 0.9% 500 ml 500 ml @ 167 mls/hr IVPB HS [facility] Rx#:[id number] propofoL 1,000 mg In 154.867 84.832 100 Empty Bag 1 bag @ 15 MCG/ KG/MIN 7.348 mls/hr IV . [id number] [facility] Rx#:[id number] Tube Feeding 660 690 420 Other 90 150 120 Output: Urine 2024 1485 1000 Other: Voiding Method Indwelling Catheter Indwelling Catheter # Bowel Movements 1 ABP, PAP, CO, CI - Last Documented Arterial Blood Pressure 158/62 - Exam GENERAL DESCRIPTION: An elderly male intubated on the vent RESPIRATORY SYSTEM: Unlabored breathing , decreased breath sounds at bases HEART: S1 S2 regular rate and rhythm , ABDOMEN: Soft , no tenderness EXTREMITIES: Right lower extremity with currently dressed - Labs CBC & Chem 7: 05/31/24 04:20 05/31/24 13:50 Labs: Abnormal Lab Results - Last 24 Hours (Table) 05/30/24 05/30/24 05/31/24 Range/Units 17:26 23:25 04:20 WBC (4.50-10.00) 10*3/uL RBC (4.40-5.60) 10*6/uL Hgb (13.0-17.0) g/dL Hct (39.6-50.0) % MCH (27.0-32.0) pg MCHC (32.0-37.0) g/dL ABG pO2 (83-108) mmHg ABG HCO3 (21-25) mmol/L ABG Total CO2 (19-24) mmol/L ABG O2 Saturation (94-97) % Hemoglobin (13.0-17.5) gm/dL Sodium 148 H (137-145) mmol/L Chloride 116 H (98-107) mmol/L Creatinine 0.63 L (0.66-1.25) mg/dL Glucose 124 H (74-99) mg/dL POC Glucose (mg/dL) 146 H 141 H (70-110) mg/dL Calcium 7.9 L (8.4-10.2) mg/dL 05/31/24 05/31/24 05/31/24 Range/Units 04:20 05:38 06:06 WBC 10.94 H (4.50-10.00) 10*3/uL RBC 3.08 L (4.40-5.60) 10*6/uL Hgb 7.8 L (13.0-17.0) g/dL Hct 27.3 L (39.6-50.0) % MCH 25.3 L (27.0-32.0) pg MCHC 28.6 L (32.0-37.0) g/dL ABG pO2 182 H (83-108) mmHg ABG HCO3 27 H (21-25) mmol/L ABG Total CO2 29 H (19-24) mmol/L ABG O2 Saturation 100.0 H (94-97) % Hemoglobin 8.0 L (13.0-17.5) gm/dL Sodium (137-145) mmol/L Chloride (98-107) mmol/L Creatinine (0.66-1.25) mg/dL Glucose (74-99) mg/dL POC Glucose (mg/dL) 140 H (70-110) mg/dL Calcium (8.4-10.2) mg/dL 05/31/24 Range/Units 12:08 WBC (4.50-10.00) 10*3/uL RBC (4.40-5.60) 10*6/uL Hgb (13.0-17.0) g/dL Hct (39.6-50.0) % MCH (27.0-32.0) pg MCHC (32.0-37.0) g/dL ABG pO2 (83-108) mmHg ABG HCO3 (21-25) mmol/L ABG Total CO2 (19-24) mmol/L ABG O2 Saturation (94-97) % Hemoglobin (13.0-17.5) gm/dL Sodium (137-145) mmol/L Chloride (98-107) mmol/L Creatinine (0.66-1.25) mg/dL Glucose (74-99) mg/dL POC Glucose (mg/dL) 139 H (70-110) mg/dL Calcium (8.4-10.2) mg/dL Microbiology - Last 24 Hours (Table) 05/25/24 10:18 Blood Culture - Final Blood 05/26/24 00:12 Anaerobic Culture - Final Hip - Right 05/26/24 00:15 Anaerobic Culture - Final Knee - Right Assessment and Plan (1) Sepsis Current Visit: No Status: Acute Code(s): A41.9 - SEPSIS, UNSPECIFIED ORGANISM SNOMED Code(s): 63109951 (2) Aspiration pneumonia Current Visit: Yes Status: Acute Code(s): J69.0 - PNEUMONITIS DUE TO INHALATION OF FOOD AND VOMIT SNOMED Code(s): 449133076 (3) Pressure ulcers of skin of multiple topographic sites Current Visit: Yes Status: Acute Code(s): L89.90 - PRESSURE ULCER OF UNSPECIFIED SITE, UNSPECIFIED STAGE SNOMED Code(s): 691458079 (4) Acute cholecystitis Current Visit: Yes Status: Acute Code(s): K81.0 - ACUTE CHOLECYSTITIS SNOMED Code(s): 95780740 Plan: 1patient presented hospital with episode of unresponsiveness and this patient did have worsening respiratory status requiring intubation and admission to the ICU has been hypotensive requiring pressor support did have elevated white count low-grade fever meeting currently for SIRS/sepsis source is multifactorial in this patient likely component of aspiration pneumonia and also have multiple wound concerning for secondary infection and recently completed course of antibiotic for osteomyelitis also have abnormal ultrasound question of possible cholecystitis 2-patient blood cultures currently pending sputum cultures are currently pending urine and wound culture currently growing ESBL Klebsiella Pseudomonas and MRSA 3patient is afebrile the patient white count down to 10,000, blood and sputum culture still pending 4patient is currently being treated with vancomycin and meropenem and monitor clinical course closely Dictation was produced using [employer] dictation software. please excuse any grammatical, word or spelling errors. Time with Patient: Less than 30
[2024-05-31] MEDS: VANCOMYCIN TROUGH DUE 1 EACH MISC MISCELLANE ONE (21:46)
--- NOTE | 2024-06-01 00:27 | XR ---
EXAM: XR Chest, 1 View CLINICAL HISTORY: ITS.REASON XR Reason: placement verificaton TECHNIQUE: Frontal view of the chest. COMPARISON: No previous studies. FINDINGS: Lungs: Unremarkable. No consolidation. Pleural space: Unremarkable. No pneumothorax. Heart: Unremarkable. No cardiomegaly. Mediastinum: Unremarkable. Normal mediastinal contour. Bones/joints: Unremarkable. No acute fracture. Tubes, lines and devices: Endotracheal tube is noted in place with its distal tip approximately 4.3 cm above the wilda. Right IJ catheter is noted in place with its tip at the level of the mid superior vena cava. NG tube is noted in place with tip below the diaphragm. Other findings: Hypoaeration. IMPRESSION: 1. Hypoaeration. 2. Endotracheal tube is noted in place in good position. 3. NG tube is noted in place with its tip below the diaphragm.
[2024-06-01 00:55] LABS: Glucose,Whole Blood 145 mg/dL (70-110)
[2024-06-01 04:43] LABS: ABG Base Excess 4.2 mmol/L; ABG HCO3 29 mmol/L (21-25); ABG Oxygen Saturation 92.6 % (94-97); ABG PCO2 42 mmHg (35-45); ABG PH 7.44 (7.35-7.45); ABG PO2 65 mmHg (83-108); ABG TCO2 30 mmol/L (19-24)
[2024-06-01 04:46] LABS: Allen Test Performed? no
[2024-06-01 06:03] LABS: Glucose,Whole Blood 146 mg/dL (70-110)
[2024-06-01 06:42] LABS: ALT 20 U/L (4-49); AST 19 U/L (17-59); African American GFR (CKD) >90 (>60 ml/min/1.73 sqM); Albumin 2.2 g/dL (3.5-5.0); Alkaline Phosphatase 226 U/L (38-126); Blood Urea Nitrogen 23 mg/dL (9-20); Calcium 7.8 mg/dL (8.4-10.2); Carbon Dioxide 27 mmol/L (22-30); Chloride 112 mmol/L (98-107); Glucose 132 mg/dL (74-99); Magnesium 1.8 mg/dL (1.6-2.3); Non-African American GFR(CKD) >90 (>60 ml/min/1.73 sqM); Potassium 3.3 mmol/L (3.5-5.1); Total Bilirubin 0.4 mg/dL (0.2-1.3); Total Protein 5.5 g/dL (6.3-8.2)
[2024-06-01 07:07] LABS: Anion Gap 6 mmol/L; Sodium 145 mmol/L (137-145)
[2024-06-01] MEDS: MAGNESIUM SULFATE-D5W PMX 1 GM in DEXTROSE/WATER 1 100ML.BAG IVPB ONE (07:07)
[2024-06-01] MEDS: POTASSIUM BICARBONATE/CIT AC 20 MEQ TABLET.EFF NG-TUBE SCH (07:08)
--- NOTE | 2024-06-01 11:26 | XR ---
EXAMINATION TYPE: XR chest 1V portable DATE OF EXAM: 06/01/2024 11:18 AM COMPARISON: Multiple radiographs, with the most recent on 05/31/2024, CTA chest 05/30/2024 TECHNIQUE: XR chest 1V portable Portable AP radiograph of the chest. CLINICAL INDICATION:Male, 63 years old with history of Tube placement; FINDINGS: Lungs/Pleura: No pleural effusion or pneumothorax. Similar right basilar patchy airspace opacities. Pulmonary vascularity: Unremarkable. Heart/mediastinum: Cardiomediastinal silhouette is unremarkable. Musculoskeletal: No acute osseous pathology. Thoracic fixation hardware redemonstrated. Other findings: None Lines/Tubes: Stable position of endotracheal tube. Previously seen NG tube is not well-visualized. Right IJ central venous catheter in stable position with tip at the superior cavoatrial junction. IMPRESSION: 1. Similar right basilar patchy airspace opacities suggesting pneumonia. 2. Stable endotracheal tube and right IJ central venous catheter. Previously seen NG tube is not wel l-visualized and may have been removed. [facility], , 06/01/2024 11:24 AM
--- NOTE | 2024-06-01 11:29 | XR ---
EXAMINATION TYPE: XR chest 1V portable DATE OF EXAM: 06/01/2024 11:19 AM COMPARISON: Chest radiographs from earlier today. TECHNIQUE: XR chest 1V portable Portable AP radiograph of the chest. CLINICAL INDICATION:Male, 63 years old with history of ET TUBE ADJUSTMENT; FINDINGS: Lungs/Pleura: No pneumothorax. Trace left pleural effusion. Similar right basilar patchy airspace [place]. Pulmonary vascularity: Unremarkable. Heart/mediastinum: Cardiomediastinal silhouette is unremarkable. Musculoskeletal: No acute osseous pathology. Thoracic fixation hardware redemonstrated. Other findings: None Lines/Tubes: Endotracheal tube is been retracted with distal tip approximately 3.9 cm above the wilda. Right IJ central venous catheter in stable position with tip at the superior cavoatrial junction. IMPRESSION: 1. Similar right basilar patchy airspace opacities suggesting pneumonia. Trace left pleural effusion . 2. Retraction of endotracheal tube in appropriate position with stable right IJ central venous [address]. [facility], , 06/01/2024 11:26 AM
[2024-06-01 11:49] LABS: Glucose,Whole Blood 131 mg/dL (70-110)
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
--- NOTE | 2024-06-01 12:32 | P.PN ---
Subjective Progress Note Date: 06/01/24 SURGICAL PROGRESS NOTE CHIEF COMPLAINT: Altered mental status HISTORY OF PRESENT ILLNESS: Patient is currently in the ICU intubated and on mechanical ventilation. ET tube had been leaking and was switched today. He remains on sedation. CODE STATUS currently full code. Afebrile. Potassium 3.3 being replaced PHYSICAL EXAM: VITAL SIGNS: Reviewed. GENERAL: no acute distress. ABDOMEN: Soft. Nondistended. Nontender. Urostomy in place NEUROLOGIC: Intubated and sedated ASSESSMENT: 1. Cholelithiasis with gallbladder wall thickening. Acute cholecystitis 2. Elevated LFTs and total bilirubin. Possible choledocholithiasis. Patient may have passed a stone. 3. Recent SC in December 2023 and stents placed in January 2024 4. 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 Paraplegic 6. Sepsis 7. Aspiration pneumonia PLAN: -Continue antibiotics -Continue ICU management Physician Risk Professional note has been reviewed by physician. Signing provider agrees with the documented findings, assessment, and plan of care. Objective - Vital Signs Vital signs: Vital Signs Temp 98.4 F 06/01/24 08:00 Pulse 94 06/01/24 11:30 Resp 24 06/01/24 11:30 BP 113/66 06/01/24 11:30 Pulse Ox 93 L 06/01/24 11:30 FiO2 80 06/01/24 11:54 Intake & Output 05/31/24 06/01/24 06/01/24 18:59 06:59 18:59 Intake Total 2225 2614.529 195 Output Total 1700 1450 480 Balance 525 1164.529 -285 Weight 90.7 kg Intake: IV 1095 230 60 KVO 50 130 60 Meropenem 1 gm In Sodium 200 100 Chloride 0.9% 100 ml @ 33 .3 mls/hr IVPB Q8HR [facility] Rx#:[id number] Sodium Chloride 0.9% 1, 845 000 ml @ 75 mls/hr IV . [id number] [facility] Rx#:[id number] Intake, IV Titration 200 1544.529 75 Amount Dextrose 5% in Water 1, 825 75 000 ml @ 75 mls/hr IV . [id number] [facility] Rx#:[id number] Vancomycin 1,500 mg In 500 Sodium Chloride 0.9% 500 ml 500 ml @ 167 mls/hr IVPB HS [facility]IHA Rx#:[id number] propofoL 1,000 mg In 200 219.529 Empty Bag 1 bag @ 15 MCG/ KG/MIN 7.348 mls/hr IV . [id number] [facility] Rx#:[id number] Tube Feeding 780 660 60 Other 150 180 Output: Gastric Drainage 150 Urine 1700 1450 330 Other: Voiding Method Indwelling Catheter Indwelling Catheter Indwelling Catheter # Voids 1 # Bowel Movements 1 ABP, PAP, CO, CI - Last Documented Arterial Blood Pressure 119/52 - Labs CBC & Chem 7: 05/31/24 04:20 06/01/24 06:00 Labs: Abnormal Lab Results - Last 24 Hours (Table) 05/31/24 06/01/24 06/01/24 Range/Units 17:59 00:53 04:26 ABG pO2 65 L (83-108) mmHg ABG HCO3 29 H (21-25) mmol/L ABG Total CO2 30 H (19-24) mmol/L ABG O2 Saturation 92.6 L (94-97) % Hemoglobin 7.4 L (13.0-17.5) gm/dL Potassium (3.5-5.1) mmol/L Chloride (98-107) mmol/L BUN (9-20) mg/dL Creatinine (0.66-1.25) mg/dL Glucose (74-99) mg/dL POC Glucose (mg/dL) 157 H 145 H (70-110) mg/dL Calcium (8.4-10.2) mg/dL Alkaline Phosphatase (38-126) U/L Total Protein (6.3-8.2) g/dL Albumin (3.5-5.0) g/dL 06/01/24 06/01/24 06/01/24 Range/Units 06:00 06:01 11:47 ABG pO2 (83-108) mmHg ABG HCO3 (21-25) mmol/L ABG Total CO2 (19-24) mmol/L ABG O2 Saturation (94-97) % Hemoglobin (13.0-17.5) gm/dL Potassium 3.3 L (3.5-5.1) mmol/L Chloride 112 H (98-107) mmol/L BUN 23 H (9-20) mg/dL Creatinine 0.58 L (0.66-1.25) mg/dL Glucose 132 H (74-99) mg/dL POC Glucose (mg/dL) 146 H 131 H (70-110) mg/dL Calcium 7.8 L (8.4-10.2) mg/dL Alkaline Phosphatase 226 H (38-126) U/L Total Protein 5.5 L (6.3-8.2) g/dL Albumin 2.2 L (3.5-5.0) g/dL
--- NOTE | 2024-06-01 13:00 | OP ---
OPERATIVE REPORT DATE OF SERVICE : PROCEDURE: Intubation. PREOPERATIVE DIAGNOSIS: Failed endotracheal tube. POSTOPERATIVE DIAGNOSIS: Failed endotracheal tube. OPERATORS: Dr. Mcpherson, Dr. Milagros Rogers, and Dr. Chaves. The patient's procedure was done in room 257. The patient was sedated with propofol. The patient was on the ventilator 100%. The endotracheal tube was defective, and was disconnecting from the ventilator. We used the endotracheal tube changer or stylet, and inserted it through the old endotracheal tube. It was inserted to 40 cm. The old endotracheal tube was removed. Once the cuff was deflated, the new endotracheal tube #8, was inserted over the stylet. The stylet was removed. The cuff on the endotracheal tube was inflated. There were good return volumes on the ventilator. Saturations were excellent. The patient tolerated the procedure well. The endotracheal tube was secured. There was no immediate complication. A chest x-ray will be ordered. MMODL / IJN: [id number] /
[2024-06-01 13:30] VITALS: BMI 24.3
[2024-06-01 15:42] LABS: HCT 25.5 % (39.6-50.0); HGB 7.6 g/dL (13.0-17.0); MCH 26.1 pg (27.0-32.0); MCHC 29.8 g/dL (32.0-37.0); MCV 87.6 fL (80.0-97.0); Platelet Count 257 10*3/uL (140-440); RBC 2.91 10*6/uL (4.40-5.60); RDW 19.2 % (11.5-14.5); WBC 10.13 10*3/uL (4.50-10.00)
--- NOTE | 2024-06-01 15:58 | P.PN ---
Subjective PROGRESS NOTE The patient is a 63-year-old paraplegic after an accident who presented with decreased mentation, unresponsiveness. The history is obtained from the family. The patient presented on 13 January 2020 for with evidence of non-STEMI and symptoms of chest discomfort. At that time he underwent coronary angiography that revealed severe calcification with severe distal left main disease, proximal LAD severe disease, severe left circumflex disease with chronically occluded RCA with collaterals. Because of his anatomy he was transferred to [facility] and had a complex admission complicated by seizure and stroke and subsequently underwent placement of 2 stents, details of his intervention is not available to me. He presented with the progressive symptoms of change in mental status over the last 24 to 48 hours, unresponsiveness and was severely hypoxemic. He has sinus tachycardia. He has multiple wound and had prior history of osteomyelitis. He is status post left AKA. He has a prior history of pericardial fusion pericarditis. His most recent echocardiogram was performed in February of this year and revealed an ejection fraction of 45 to 50% with no significant valvular disease. There is a question of cholecystitis on this admission. The noted a change in the color of his urine. He was afebrile on presentation. He had abnormal liver function test with mildly elevated troponin. The patient has a sacral ulceration with wound VAC May 26 The patient was intubated, he continues to be in sinus mechanism. He is on norepinephrine. He is in sinus mechanism with no episode of atrial fibrillation. His urinary output has been stable. He is initiated on sodium bicarb. He is on antibiotics. His echocardiogram is pending. There is evidence of leukocytosis. May 27: The patient remains intubated and sedated. On the monitor he is in sinus mechanism with frequent single PVCs with bigeminal pattern. He had hypokalemia and low magnesium and has been replaced. He is off norepinephrine. His urinary output has been stable. His oxygenation is stable. His echocardiogram was technically difficult but showed a preserved systolic function. May 28: The patient remains intubated and sedated. He is in sinus mechanism. He continues to have ventricular ectopic activity with short burst of nonsustained VT. His blood pressure is stable and urine output has been stable. There is no evidence of atrial fibrillation. He is on no vasopressors. His potassium is being replaced. May 29: The patient remains intubated and sedated, in sinus mechanism. The frequency of his ventricular ectopic activity has decreased. He has good urine output and there is no hypotension. He is not on vasopressors. He continues to be evaluated for the need to undergo cholecystectomy. He is on aspirin but off clopidogrel. May 30: The patient remains intubated and sedated, in sinus mechanism. He is having frequent ventricular ectopic activity with short burst of nonsustained ventricular tachycardia. He is on no vasopressors. His urine output has been stable. There is no episodes of atrial fibrillation. His potassium and magnesium have been replaced. May 31: The patient continues to be intubated and sedated. The frequency of his ventricular ectopic activity has decreased. He is requiring less oxygen supplementation. His urine output has been stable. He is afebrile. He is on no vasopressors. He continues to be in sinus mechanism. 06/01 Patient seen and examined. Patient remains intubated and sedated. He has been having issues oxygenating. No significant edema. Remains in sinus rhythm. Off of vasopressors. Medications: Aspirin, metoprolol tartrate 50 mg twice a day, Zosyn, vancomycin, sodium bicarb, Lovenox 40 mg subcu daily, Lipitor 40 mg daily PHYSICAL EXAMINATION: Blood pressure 135/60 heart rate 92, intubated and sedated LUNGS: Clear to auscultation HEART: Regular rate and rhythm, S1, S2. No S3. Systolic ejection murmur ABDOMEN: Soft, no organomegaly EXTREMETIES: status post left AKA, wounds on the right lower extremity noted, 1+ edema LAB: White blood cell 10.94,, hemoglobin 7.8. pH 7.42, PO2 182. BUN 20, creatinine 0.63. Potassium 3.7 IMPRESSION: 1. Respiratory failure with evidence suggestive of sepsis requiring mechanical ventilation, possible aspiration 2. History of CAD status post stenting and mild troponin elevation representing type II myocardial infarction 3. Status post left AKA 4. Paraplegia post accident 5. Multiple wound and sacral ulceration 6. Anemia 7. Abnormal liver function test with possible acute cholecystitis, improving liver function test 8. Chronic kidney disease, resolved 9. History of stroke and seizure 10. Ventricular ectopic activity, improving PLAN: Continue to hold Plavix. Appears stable from a cardiac standpoint and continue with beta-delfina. No further recommendations from a cardiology standpoint. Please call with any questions. Objective - Vital Signs Vital signs: Vital Signs Temp 98.9 F 06/01/24 12:00 Pulse 103 H 06/01/24 15:00 Resp 26 H 06/01/24 15:00 BP 104/63 06/01/24 15:00 Pulse Ox 96 06/01/24 15:00 FiO2 80 06/01/24 12:00 Intake & Output 05/31/24 06/01/24 06/01/24 18:59 06:59 18:59 Intake Total 2225 2614.529 825 Output Total 1700 1450 830 Balance 525 1164.529 -5 Weight 90.7 kg 90.7 kg Intake: IV 1095 230 615 Dextrose 5% in Water 1, 525 000 ml @ 75 mls/hr IV . [id number] [facility] Rx#:[id number] KVO 50 130 90 Meropenem 1 gm In Sodium 200 100 Chloride 0.9% 100 ml @ 33 .3 mls/hr IVPB Q8HR [facility] Rx#:[id number] Sodium Chloride 0.9% 1, 845 000 ml @ 75 mls/hr IV . [id number] [facility] Rx#:[id number] Intake, IV Titration 200 1544.529 150 Amount Dextrose 5% in Water 1, 825 150 000 ml @ 75 mls/hr IV . [id number] [facility] Rx#:[id number] Vancomycin 1,500 mg In 500 Sodium Chloride 0.9% 500 ml 500 ml @ 167 mls/hr IVPB HS [facility] Rx#:[id number] propofoL 1,000 mg In 200 219.529 Empty Bag 1 bag @ 15 MCG/ KG/MIN 7.348 mls/hr IV . [id number] [facility] Rx#:[id number] Tube Feeding 780 660 60 Other 150 180 Output: Gastric Drainage 150 Urine 1700 1450 680 Other: Voiding Method Indwelling Catheter Indwelling Catheter Indwelling Catheter # Voids 1 # Bowel Movements 1 ABP, PAP, CO, CI - Last Documented Arterial Blood Pressure 161/65 - Labs CBC & Chem 7: 06/01/24 15:34 06/01/24 06:00 Labs: Abnormal Lab Results - Last 24 Hours (Table) 05/31/24 06/01/24 06/01/24 Range/Units 17:59 00:53 04:26 WBC (4.50-10.00) 10*3/uL RBC (4.40-5.60) 10*6/uL Hgb (13.0-17.0) g/dL Hct (39.6-50.0) % MCH (27.0-32.0) pg MCHC (32.0-37.0) g/dL ABG pO2 65 L (83-108) mmHg ABG HCO3 29 H (21-25) mmol/L ABG Total CO2 30 H (19-24) mmol/L ABG O2 Saturation 92.6 L (94-97) % Hemoglobin 7.4 L (13.0-17.5) gm/dL Potassium (3.5-5.1) mmol/L Chloride (98-107) mmol/L BUN (9-20) mg/dL Creatinine (0.66-1.25) mg/dL Glucose (74-99) mg/dL POC Glucose (mg/dL) 157 H 145 H (70-110) mg/dL Calcium (8.4-10.2) mg/dL Alkaline Phosphatase (38-126) U/L Total Protein (6.3-8.2) g/dL Albumin (3.5-5.0) g/dL 06/01/24 06/01/24 06/01/24 Range/Units 06:00 06:01 11:47 WBC (4.50-10.00) 10*3/uL RBC (4.40-5.60) 10*6/uL Hgb (13.0-17.0) g/dL Hct (39.6-50.0) % MCH (27.0-32.0) pg MCHC (32.0-37.0) g/dL ABG pO2 (83-108) mmHg ABG HCO3 (21-25) mmol/L ABG Total CO2 (19-24) mmol/L ABG O2 Saturation (94-97) % Hemoglobin (13.0-17.5) gm/dL Potassium 3.3 L (3.5-5.1) mmol/L Chloride 112 H (98-107) mmol/L BUN 23 H (9-20) mg/dL Creatinine 0.58 L (0.66-1.25) mg/dL Glucose 132 H (74-99) mg/dL POC Glucose (mg/dL) 146 H 131 H (70-110) mg/dL Calcium 7.8 L (8.4-10.2) mg/dL Alkaline Phosphatase 226 H (38-126) U/L Total Protein 5.5 L (6.3-8.2) g/dL Albumin 2.2 L (3.5-5.0) g/dL 06/01/24 Range/Units 15:34 WBC 10.13 H (4.50-10.00) 10*3/uL RBC 2.91 L (4.40-5.60) 10*6/uL Hgb 7.6 L (13.0-17.0) g/dL Hct 25.5 L (39.6-50.0) % MCH 26.1 L (27.0-32.0) pg MCHC 29.8 L (32.0-37.0) g/dL ABG pO2 (83-108) mmHg ABG HCO3 (21-25) mmol/L ABG Total CO2 (19-24) mmol/L ABG O2 Saturation (94-97) % Hemoglobin (13.0-17.5) gm/dL Potassium (3.5-5.1) mmol/L Chloride (98-107) mmol/L BUN (9-20) mg/dL Creatinine (0.66-1.25) mg/dL Glucose (74-99) mg/dL POC Glucose (mg/dL) (70-110) mg/dL Calcium (8.4-10.2) mg/dL Alkaline Phosphatase (38-126) U/L Total Protein (6.3-8.2) g/dL Albumin (3.5-5.0) g/dL Microbiology - Last 24 Hours (Table) 05/25/24 21:45 Gram Stain - Final Sputum Sputum Culture - Final Klebsiella oxy Raoultella orni Methicillin resist S. aureus
[2024-06-01 18:21] LABS: Glucose,Whole Blood 151 mg/dL (70-110)
--- NOTE | 2024-06-01 20:03 | XR ---
EXAMINATION TYPE: XR chest 1V portable DATE OF EXAM: 06/01/2024 7:22 PM COMPARISON: Chest radiographs from 06/01/2024. CLINICAL INDICATION: Male, 63 years old with history of Line placement; [facility] TECHNIQUE: XR chest 1V portable Frontal view of the chest. FINDINGS: Lungs/Pleura: There is no evidence of pleural effusion, focal consolidation, or pneumothorax. Pulmonary vascularity: Unremarkable. Heart/mediastinum: Cardiomediastinal silhouette is unremarkable. Musculoskeletal: No acute osseous pathology. There is lower spine fixation hardware is present. Other findings: None Lines/Tubes: Poor visualization of the endotracheal nasogastric tube due to overlapping soft tissue structures and technique. Right internal jugular central venous catheter with distal tip at the cavoatrial junction . IMPRESSION: Right basilar airspace opacities correlate for pneumonia. Nasogastric tube and endotracheal tubes are poorly visualized due to overlapping structures. Repeat e xam recommended. [facility], , 06/01/2024 8:01 PM
--- NOTE | 2024-06-01 20:51 | XR ---
EXAMINATION TYPE: XR chest 1V portable DATE OF EXAM: 06/01/2024 8:35 PM COMPARISON: Chest radiographs from same day CLINICAL INDICATION: Male, 63 years old with history of Tube Placement; [facility] TECHNIQUE: XR chest 1V portable Frontal view of the chest. FINDINGS: Lungs/Pleura: There is no evidence of pleural effusion, focal consolidation, or pneumothorax. Pulmonary vascularity: Unremarkable. Heart/mediastinum: Cardiomediastinal silhouette is unremarkable. Musculoskeletal: No acute osseous pathology. There is lower spine fixation hardware is present. Other findings: None Lines/Tubes: The nasogastric tube does terminate under the diaphragm. Endotracheal tube is felt to be above the ca yunier Right internal jugular central venous catheter with distal tip at the cavoatrial junction. IMPRESSION: 1. Right basilar airspace opacities correlate for pneumonia. 2. Nasogastric tube and endotracheal tubes in satisfactory position. [facility], , 06/01/2024 8:49 PM
--- NOTE | 2024-06-01 21:05 | P.PN ---
Subjective Progress Note Date: 06/01/24 Principal diagnosis: Reason for follow-up is sepsis aspiration pneumonia UTI and multiple pressure ulcer Patient is a 63-year-old male with past medical history significant for CVA/TIA, Hypertension, Myocardial Infarction (DE), Myocardial Infarction (non Q-wave), Neurologic Disorder, Neurologic Disorder, Pneumonia, Skin Disorder did have a sacral osteomyelitis and multiple pressure ulcer to the left lower extremity presenting to the hospital for evaluation of episode of unresponsiveness patient ended up getting debated concerning for aspiration pneumonia with sepsis and multiple pressure ulcers to the lower extremity. On today's evaluation that is 06/01/2024, patient has been afebrile, patient remains to be intubated on the vent FiO2 is down to 60% no significant purulent secretions through the ET, patient not requiring any pressor support no other changes reported by the nursing staff. Patient white count is down to 10.13 creatinine 0.58 sputum did grew Klebsiella multidrug-resistant and MRSA. Objective - Vital Signs Vital signs: Vital Signs Temp 98.4 F 06/01/24 08:00 Pulse 94 06/01/24 11:30 Resp 24 06/01/24 11:30 BP 113/66 06/01/24 11:30 Pulse Ox 93 L 06/01/24 11:30 FiO2 80 06/01/24 11:54 Intake & Output 05/31/24 06/01/24 06/01/24 18:59 06:59 18:59 Intake Total 2225 2614.529 195 Output Total 1700 1450 480 Balance 525 1164.529 -285 Weight 90.7 kg Intake: IV 1095 230 60 KVO 50 130 60 Meropenem 1 gm In Sodium 200 100 Chloride 0.9% 100 ml @ 33 .3 mls/hr IVPB Q8HR [facility] Rx#:[id number] Sodium Chloride 0.9% 1, 845 000 ml @ 75 mls/hr IV . [id number] [facility] Rx#:[id number] Intake, IV Titration 200 1544.529 75 Amount Dextrose 5% in Water 1, 825 75 000 ml @ 75 mls/hr IV . [id number] [facility] Rx#:[id number] Vancomycin 1,500 mg In 500 Sodium Chloride 0.9% 500 ml 500 ml @ 167 mls/hr IVPB HS [facility] Rx#:[id number] propofoL 1,000 mg In 200 219.529 Empty Bag 1 bag @ 15 MCG/ KG/MIN 7.348 mls/hr IV . [id number] [facility] Rx#:[id number] Tube Feeding 780 660 60 Other 150 180 Output: Gastric Drainage 150 Urine 1700 1450 330 Other: Voiding Method Indwelling Catheter Indwelling Catheter Indwelling Catheter # Voids 1 # Bowel Movements 1 ABP, PAP, CO, CI - Last Documented Arterial Blood Pressure 119/52 - Exam GENERAL DESCRIPTION: An elderly male intubated on the vent RESPIRATORY SYSTEM: Unlabored breathing , decreased breath sounds at bases HEART: S1 S2 regular rate and rhythm , ABDOMEN: Soft , no tenderness EXTREMITIES: Right lower extremity with currently dressed - Labs CBC & Chem 7: 06/01/24 15:34 06/01/24 06:00 Labs: Abnormal Lab Results - Last 24 Hours (Table) 05/31/24 06/01/24 06/01/24 Range/Units 17:59 00:53 04:26 ABG pO2 65 L (83-108) mmHg ABG HCO3 29 H (21-25) mmol/L ABG Total CO2 30 H (19-24) mmol/L ABG O2 Saturation 92.6 L (94-97) % Hemoglobin 7.4 L (13.0-17.5) gm/dL Potassium (3.5-5.1) mmol/L Chloride (98-107) mmol/L BUN (9-20) mg/dL Creatinine (0.66-1.25) mg/dL Glucose (74-99) mg/dL POC Glucose (mg/dL) 157 H 145 H (70-110) mg/dL Calcium (8.4-10.2) mg/dL Alkaline Phosphatase (38-126) U/L Total Protein (6.3-8.2) g/dL Albumin (3.5-5.0) g/dL 06/01/24 06/01/24 06/01/24 Range/Units 06:00 06:01 11:47 ABG pO2 (83-108) mmHg ABG HCO3 (21-25) mmol/L ABG Total CO2 (19-24) mmol/L ABG O2 Saturation (94-97) % Hemoglobin (13.0-17.5) gm/dL Potassium 3.3 L (3.5-5.1) mmol/L Chloride 112 H (98-107) mmol/L BUN 23 H (9-20) mg/dL Creatinine 0.58 L (0.66-1.25) mg/dL Glucose 132 H (74-99) mg/dL POC Glucose (mg/dL) 146 H 131 H (70-110) mg/dL Calcium 7.8 L (8.4-10.2) mg/dL Alkaline Phosphatase 226 H (38-126) U/L Total Protein 5.5 L (6.3-8.2) g/dL Albumin 2.2 L (3.5-5.0) g/dL Assessment and Plan (1) Sepsis Current Visit: No Status: Acute Code(s): A41.9 - SEPSIS, UNSPECIFIED ORGANISM SNOMED Code(s): 85918897 (2) Aspiration pneumonia Current Visit: Yes Status: Acute Code(s): J69.0 - PNEUMONITIS DUE TO INHALATION OF FOOD AND VOMIT SNOMED Code(s): 446646578 (3) Pressure ulcers of skin of multiple topographic sites Current Visit: Yes Status: Acute Code(s): L89.90 - PRESSURE ULCER OF UNSPECIFIED SITE, UNSPECIFIED STAGE SNOMED Code(s): 963352871 (4) Acute cholecystitis Current Visit: Yes Status: Acute Code(s): K81.0 - ACUTE CHOLECYSTITIS SNOMED Code(s): 14742766 Plan: 1patient presented hospital with episode of unresponsiveness and this patient did have worsening respiratory status requiring intubation and admission to the ICU has been hypotensive requiring pressor support did have elevated white count low-grade fever meeting currently for SIRS/sepsis source is multifactorial in this patient likely component of aspiration pneumonia and also have multiple wound concerning for secondary infection and recently completed course of antibiotic for osteomyelitis also have abnormal ultrasound question of possible cholecystitis 2-patient blood cultures currently pending sputum cultures did grow drug- resistant Cell and MRSA urine and wound culture currently growing ESBL Klebsiella Pseudomonas and MRSA 3patient is afebrile the patient white count down to 10,000, blood culture has been negative so far 4patient will be treated with vancomycin and meropenem and continue supportive care Family bedside question answered Dictation was produced using [employer] dictation software. please excuse any grammatical, word or spelling errors. Time with Patient: Less than 30
[2024-06-01] MEDS: ACETAMINOPHEN TAB 325 MG TAB PO PRN (23:07)
[2024-06-02 00:02] LABS: Glucose,Whole Blood 138 mg/dL (70-110)
[2024-06-02 04:32] LABS: ABG Base Excess 3.5 mmol/L; ABG HCO3 28 mmol/L (21-25); ABG Oxygen Saturation >100.0 % (94-97); ABG PCO2 40 mmHg (35-45); ABG PH 7.45 (7.35-7.45); ABG PO2 139 mmHg (83-108); ABG TCO2 29 mmol/L (19-24)
[2024-06-02 04:34] LABS: Basophils # (A) 0.03 10*3/uL (0.00-0.10); Basophils % (A) 0.3 %; Eosinophils % (A) 0.9 %; HGB 7.2 g/dL (13.0-17.0); Lymphocytes # (A) 1.42 10*3/uL (0.90-5.00); Lymphocytes % (A) 13.3 %; MCH 25.5 pg (27.0-32.0); MCHC 28.8 g/dL (32.0-37.0); MCV 88.7 fL (80.0-97.0); Mean Platelet Volume 10.2 fL (9.5-12.2); Monocytes # (A) 0.54 10*3/uL (0.20-1.00); Monocytes % (A) 5.1 %; Neutrophils # (A) 8.42 10*3/uL (1.80-7.70); Neutrophils % (A) 79.1 %; Platelet Count 249 10*3/uL (140-440); RBC 2.82 10*6/uL (4.40-5.60); RDW 19.1 % (11.5-14.5); WBC 10.65 10*3/uL (4.50-10.00)
[2024-06-02 04:38] LABS: Allen Test Performed? No
[2024-06-02 04:53] LABS: African American GFR (CKD) >90 (>60 ml/min/1.73 sqM); Anion Gap 5 mmol/L; Blood Urea Nitrogen 21 mg/dL (9-20); Calcium 7.9 mg/dL (8.4-10.2); Carbon Dioxide 29 mmol/L (22-30); Chloride 110 mmol/L (98-107); Glucose 128 mg/dL (74-99); Non-African American GFR(CKD) >90 (>60 ml/min/1.73 sqM); Potassium 3.5 mmol/L (3.5-5.1); Sodium 144 mmol/L (137-145)
[2024-06-02] MEDS ORDERED: POTASSIUM CHLORIDE ER 20 MEQ TAB.ER PO SCH (06:00)
[2024-06-02] MEDS: POTASSIUM BICARBONATE/CIT AC 20 MEQ TABLET.EFF NG-TUBE SCH (06:01)
[2024-06-02 06:05] LABS: Glucose,Whole Blood 128 mg/dL (70-110)
--- NOTE | 2024-06-02 08:02 | XR ---
EXAMINATION TYPE: XR chest 1V portable DATE OF EXAM: 06/02/2024 5:13 AM COMPARISON: Multiple radiographs, with the most recent on 06/01/2024 TECHNIQUE: XR chest 1V portable Portable AP radiograph of the chest. CLINICAL INDICATION:Male, 63 years old with history of mechanical ventilation; FINDINGS: Lungs/Pleura: The right costophrenic angle is not included in the [id number] which limits evaluati on. No sizable pleural effusion. No pneumothorax. Similar right basilar patchy airspace opacities. Re demonstration of left lower lung pulmonary nodule. Possible calcified granuloma. Pulmonary vascularity: Unremarkable. Heart/mediastinum: Cardiomediastinal silhouette is unremarkable. Musculoskeletal: No acute osseous pathology. Partial visualization of lower thoracic fixation red. Le ft shoulder arthropathy. Other findings: None Lines/Tubes: Endotracheal tube with distal tip 5.0 cm above the wilda Nasogastric tube with its distal tip and side-port projecting under the diaphragm. Stable right IJ central venous catheter with distal tip at the superior cavoatrial junction. IMPRESSION: 1. Similar right basilar airspace opacities concerning for pneumonia. 2. Stable support lines and tubes. [facility], , 06/02/2024 7:59 AM
[2024-06-02 08:20] VITALS: TEMP 98.5
[2024-06-02 08:46] LABS: HGB 6.7 g/dL (13.0-17.0)
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
[2024-06-02 10:52] VITALS: BP 108/67
[2024-06-02 11:11] VITALS: PULSE 85; RESP 21
[2024-06-02] MEDS ORDERED: ONDANSETRON 4 MG/2 ML VIAL IVP PRN (12:08)
[2024-06-02] MEDS ORDERED: ATROPINE OPHTH SOLN 1% 5ML BTL SUBLINGUAL PRN (12:08)
[2024-06-02] MEDS ORDERED: SCOPOLAMINE 1 MG/72 HR PATCH TRANSDERM SCH (12:15)
[2024-06-02] MEDS: LORazepam 2 MG/ML INJ IV PRN (12:35)
[2024-06-02] MEDS: MORPHINE SULFATE 4 MG/ML SYRINGE IVP PRN (12:35)
[2024-06-02] MEDS: MORPHINE SULFATE 100 MG in SODIUM CHLORIDE 0.9% 90 ML IV SCH (12:36)
--- NOTE | 2024-06-02 14:49 | P.PN ---
Subjective Progress Note Date: 06/02/24 SURGICAL PROGRESS NOTE CHIEF COMPLAINT: Altered mental status HISTORY OF PRESENT ILLNESS: Patient is currently in the ICU intubated and on mechanical ventilation. CODE STATUS has been switched to no code. Per nurse family decided to proceed with comfort care. PHYSICAL EXAM: VITAL SIGNS: Reviewed. GENERAL: no acute distress. ABDOMEN: Soft. Nondistended. Nontender. NEUROLOGIC: Intubated and sedated ASSESSMENT: 1. Cholelithiasis with gallbladder wall thickening. Acute cholecystitis 2. Elevated LFTs and total bilirubin. Possible choledocholithiasis. Patient may have passed a stone. 3. Recent OR in December 2023 and stents placed in January 2024 4. 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 Paraplegic 6. Sepsis 7. Aspiration pneumonia PLAN: - Family has decided to proceed with comfort care Physician Substation Operator Apprentice note has been reviewed by physician. Signing provider agrees with the documented findings, assessment, and plan of care. Objective - Vital Signs Vital signs: Vital Signs Temp 98.5 F 06/02/24 08:00 Pulse 85 06/02/24 11:00 Resp 21 06/02/24 11:00 BP 108/67 06/02/24 10:30 Pulse Ox 96 06/02/24 11:00 FiO2 70 06/02/24 11:46 Intake & Output 06/01/24 06/02/24 06/02/24 18:59 06:59 18:59 Intake Total 1220 1601.194 488.173 Output Total 1605 850 550 Balance -385 751.194 -61.827 Weight 90.7 kg 87 kg Intake: IV 910 1325 375 Dextrose 5% in Water 1, 900 825 375 000 ml @ 75 mls/hr IV . [id number] [facility] Rx#:[id number] KVO 10 Vancomycin 1,500 mg In 500 Sodium Chloride 0.9% 500 ml 500 ml @ 167 mls/hr IVPB HS [facility] Rx#:[id number] Intake, IV Titration 250 276.194 43.173 Amount Dextrose 5% in Water 1, 150 000 ml @ 75 mls/hr IV . [id number] [facility] Rx#:[id number] Morphine Sulfate 100 mg 1.533 In Sodium Chloride 0.9% 90 ml @ 2 MG/HR 2 mls/hr IV .Q24H [facility] Rx#: [id number] propofoL 1,000 mg In 100 276.194 41.640 Empty Bag 1 bag @ 15 MCG/ KG/MIN 7.348 mls/hr IV . [id number] [facility] Rx#:[id number] Tube Feeding 60 40 Other 30 Output: Gastric Drainage 150 Urine 1455 850 550 Other: Voiding Method Indwelling Catheter Indwelling Catheter Indwelling Catheter ABP, PAP, CO, CI - Last Documented Arterial Blood Pressure 98/42 - Labs CBC & Chem 7: 06/02/24 04:30 06/02/24 04:30 Labs: Abnormal Lab Results - Last 24 Hours (Table) 05/29/24 06/01/24 06/01/24 Range/Units 04:51 15:34 18:19 WBC 10.13 H (4.50-10.00) 10*3/uL RBC 2.91 L (4.40-5.60) 10*6/uL Hgb 6.7 L* 7.6 L (13.0-17.0) g/dL Hct 25.5 L (39.6-50.0) % MCH 26.1 L (27.0-32.0) pg MCHC 29.8 L (32.0-37.0) g/dL Immature Gran # (0.00-0.04) 10*3/uL Neutrophils # (1.80-7.70) 10*3/uL ABG pO2 (83-108) mmHg ABG HCO3 (21-25) mmol/L ABG Total CO2 (19-24) mmol/L ABG O2 Saturation (94-97) % Chloride (98-107) mmol/L BUN (9-20) mg/dL Creatinine (0.66-1.25) mg/dL Glucose (74-99) mg/dL POC Glucose (mg/dL) 151 H (70-110) mg/dL Calcium (8.4-10.2) mg/dL 06/02/24 06/02/24 06/02/24 Range/Units 00:01 04:24 04:30 WBC (4.50-10.00) 10*3/uL RBC (4.40-5.60) 10*6/uL Hgb (13.0-17.0) g/dL Hct (39.6-50.0) % MCH (27.0-32.0) pg MCHC (32.0-37.0) g/dL Immature Gran # (0.00-0.04) 10*3/uL Neutrophils # (1.80-7.70) 10*3/uL ABG pO2 139 H (83-108) mmHg ABG HCO3 28 H (21-25) mmol/L ABG Total CO2 29 H (19-24) mmol/L ABG O2 Saturation >100.0 H (94-97) % Chloride 110 H (98-107) mmol/L BUN 21 H (9-20) mg/dL Creatinine 0.57 L (0.66-1.25) mg/dL Glucose 128 H (74-99) mg/dL POC Glucose (mg/dL) 138 H (70-110) mg/dL Calcium 7.9 L (8.4-10.2) mg/dL 06/02/24 06/02/24 Range/Units 04:30 06:03 WBC 10.65 H (4.50-10.00) 10*3/uL RBC 2.82 L (4.40-5.60) 10*6/uL Hgb 7.2 L (13.0-17.0) g/dL Hct 25.0 L (39.6-50.0) % MCH 25.5 L (27.0-32.0) pg MCHC 28.8 L (32.0-37.0) g/dL Immature Gran # 0.14 H (0.00-0.04) 10*3/uL Neutrophils # 8.42 H (1.80-7.70) 10*3/uL ABG pO2 (83-108) mmHg ABG HCO3 (21-25) mmol/L ABG Total CO2 (19-24) mmol/L ABG O2 Saturation (94-97) % Chloride (98-107) mmol/L BUN (9-20) mg/dL Creatinine (0.66-1.25) mg/dL Glucose (74-99) mg/dL POC Glucose (mg/dL) 128 H (70-110) mg/dL Calcium (8.4-10.2) mg/dL Microbiology - Last 24 Hours (Table) 05/25/24 21:45 Gram Stain - Final Sputum Sputum Culture - Final Klebsiella oxy Raoultella orni Methicillin resist S. aureus
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
== END 2024-06-02 15:05 | disposition expired | DRG 870 ==
LOC: EC 09:26 → 3SCARD 14:20 → 2SICU 17:41
PROVIDERS: ADMIT Family Medicine; ATTEND Family Medicine
PROC: 5A1955Z Respiratory Ventilation, Greater than 96 Consecutive Hours (ICD-10-PCS; principal; 2024-05-25)
PROC: 0BH17EZ Insertion of Endotracheal Airway into Trachea, Via Natural or Artificial Opening (ICD-10-PCS; principal; 2024-05-25)
PROC: 5A09357 Assistance with Respiratory Ventilation, Less than 24 Consecutive Hours, Continuous Positive Airway Pressure (ICD-10-PCS; 2024-05-25)
PROC: 0DH67UZ Insertion of Feeding Device into Stomach, Via Natural or Artificial Opening (ICD-10-PCS; 2024-05-25)
PROC: 3E0G76Z Introduction of Nutritional Substance into Upper GI, Via Natural or Artificial Opening (ICD-10-PCS; 2024-05-25)
PROC: 3E043XZ Introduction of Vasopressor into Central Vein, Percutaneous Approach (ICD-10-PCS; 2024-05-26)
PROC: 02HV33Z Insertion of Infusion Device into Superior Vena Cava, Percutaneous Approach (ICD-10-PCS; 2024-05-26)
PROC: 4A133B1 Monitoring of Arterial Pressure, Peripheral, Percutaneous Approach (ICD-10-PCS; 2024-05-26)
PROC: 03HY32Z Insertion of Monitoring Device into Upper Artery, Percutaneous Approach (ICD-10-PCS; 2024-05-26)
PROC: 4A133J1 Monitoring of Arterial Pulse, Peripheral, Percutaneous Approach (ICD-10-PCS; 2024-05-26)
PROC: 30243N1 Transfusion of Nonautologous Red Blood Cells into Central Vein, Percutaneous Approach (ICD-10-PCS; 2024-05-28)
PROC: 0B21XEZ Change Endotracheal Airway in Trachea, External Approach (ICD-10-PCS; 2024-06-01)
DX: A41.02 Sepsis due to Methicillin resistant Staphylococcus aureus (principal); L89.214 Pressure ulcer of right hip, stage 4; L89.314 Pressure ulcer of right buttock, stage 4; L89.613 Pressure ulcer of right heel, stage 3; J69.0 Pneumonitis due to inhalation of food and vomit; R65.21 Severe sepsis with septic shock; J96.01 Acute respiratory failure with hypoxia; G93.41 Metabolic encephalopathy; E43 Unspecified severe protein-calorie malnutrition; I21.A1 Myocardial infarction type 2; E87.20 Acidosis, unspecified; I13.0 Hypertensive heart and chronic kidney disease with heart failure and stage 1 through stage 4 chronic kidney disease, or unspecified chronic kidney disease; G82.20 Paraplegia, unspecified; I70.235 Atherosclerosis of native arteries of right leg with ulceration of other part of foot; R56.9 Unspecified convulsions; D50.9 Iron deficiency anemia, unspecified; N18.9 Chronic kidney disease, unspecified; I47.20 Ventricular tachycardia, unspecified; I50.22 Chronic systolic (congestive) heart failure; L97.319 Non-pressure chronic ulcer of right ankle with unspecified severity; M86.651 Other chronic osteomyelitis, right thigh; M86.18 Other acute osteomyelitis, other site; N13.6 Pyonephrosis; Z66 Do not resuscitate; Z51.5 Encounter for palliative care; K80.00 Calculus of gallbladder with acute cholecystitis without obstruction; N17.9 Acute kidney failure, unspecified; J98.11 Atelectasis; Z89.612 Acquired absence of left leg above knee; Z93.6 Other artificial openings of urinary tract status; D63.1 Anemia in chronic kidney disease; L89.159 Pressure ulcer of sacral region, unspecified stage; E87.5 Hyperkalemia; K57.30 Diverticulosis of large intestine without perforation or abscess without bleeding; B96.1 Klebsiella pneumoniae [K. pneumoniae] as the cause of diseases classified elsewhere; T88.4XXA Failed or difficult intubation, initial encounter; Y82.8 Other medical devices associated with adverse incidents; Z87.891 Personal history of nicotine dependence; Z68.23 Body mass index [BMI] 23.0-23.9, adult; E78.5 Hyperlipidemia, unspecified; E87.6 Hypokalemia; G89.29 Other chronic pain; I25.10 Atherosclerotic heart disease of native coronary artery without angina pectoris; I25.2 Old myocardial infarction; T14.8XXS Other injury of unspecified body region, sequela; R94.5 Abnormal results of liver function studies; V49.9XXS Car occupant (driver) (passenger) injured in unspecified traffic accident, sequela; I49.3 Ventricular premature depolarization; R54 Age-related physical debility; Z86.73 Personal history of transient ischemic attack (TIA), and cerebral infarction without residual deficits; Z79.02 Long term (current) use of antithrombotics/antiplatelets; Z79.82 Long term (current) use of aspirin; Z79.899 Other long term (current) drug therapy; Z79.891 Long term (current) use of opiate analgesic; Z87.440 Personal history of urinary (tract) infections; Z95.5 Presence of coronary angioplasty implant and graft; Z99.3 Dependence on wheelchair; Z91.81 History of falling; Z71.3 Dietary counseling and surveillance
CPT/HCPCS: 36415; 36600; 70450; 71045; 71275; 73501; 76705; 80048; 80053; 80143; 80179; 80202; 80306; 80320; 81001; 82140; 82247; 82803; 82805; 83605; 83690; 83735; 83880; 84075; 84100; 84132; 84439; 84443; 84450; 84460; 84484; 85025; 85027; 85610; 85730; 86850; 86860; 86870; 86880; 86900; 86901; 86920; 87040; 87070; 87075; 87077; 87086; 87186; 87205; 93005; 93308; 94002; 94003; 94660; 96361; 96365; 96368; 96375; 99285